=== PATIENT | female | born 1955 | race Caucasian/White ===

== ENCOUNTER 2017-03-01 12:16 | Observation (INO) ==
[2017-03-01 13:57] LABS: Basophils # (Auto) 0.1 K/mcL (0.0-0.3); Basophils % (Auto) 0.8 % (0.0-2.0); Eosinophils # (Auto) 0.1 K/mcL (0.0-0.7); Eosinophils % (Auto) 1.3 % (0.0-7.0); Granulocytes % (Auto) 79.7 % (38.0-78.0); Lymphocytes # (Auto) 1.5 K/mcL (1.5-4.8); Lymphocytes % (Auto) 13.2 % (15.5-49.0); Mean Cell Volume 86.6 fL (80.0-100.0); Mean Corpuscular HGB Conc 33.7 g/dL (31.0-36.0); Mean Corpuscular Hemoglobin 29.2 pg (26.0-34.0); Monocytes # (Auto) 0.5 K/mcL (0.1-0.9); Platelet Count 312 K/mcL (140-440); RBC 5.57 M/mcL (4.00-5.20); Red Cell Distribution Width 14.7 % (11.5-14.5)
[2017-03-01 14:15] LABS: ALT/SGPT 26 U/l (0-40); Albumin 3.6 gm/dL (3.2-5.2); Albumin/Globulin Ratio 0.9 (1.0-2.3); Alkaline Phosphatase 153 U/L (39-117); Blood Urea Nitrogen 16 mg/dl (8-23)
[2017-03-01] MEDS ORDERED: metroNIDAZOLE 500 MG TABLET PO ONE (15:45)
--- NOTE | 2017-03-01 16:25 | Emergency Department Note ---
Skin/Abscess/FB HPI - General Chief complaint: Skin/Abscess/Foreign Body Stated complaint: Wound on groin, sent by Dr Hankins Time Seen by Provider: 03/01/17 13:20 Source: patient Mode of arrival: wheelchair Limitations: no limitations - History of Present Illness HPI Narrative: 61-year-old female sent over by Dr. Juarez for belly wound dehiscence after recent repair last week. Additionally she is complaining of dysuria and diarrhea. Apparently she was not getting home health care and has not been able to take care of her belly wound at the [facility]-it is since dehisced and she is febrile. - Related Data Home Medications Medication Instructions Recorded Confirmed acetaminophen 500 mg tablet 1,000 mg PO TID PRN tab 03/26/15 03/01/17 albuterol sulfate 2.5 mg/3 mL 2.5 mg INHALATION Q4H ml 03/26/15 03/01/17 (0.083 %) solution for nebulization levothyroxine 150 mcg capsule 200 mcg PO ONCE cap 11/04/16 03/01/17 Potassium Chloride 10 meq PO BID 02/22/17 03/01/17 Spirometers and Accessories [Pflex 1 each .ROUTE .MEDSUPPLY 03/01/17 03/01/17 Mandarin Speaking Nanny] Previous Rx's Medication Instructions Recorded ipratropium 20 mcg-albuterol 100 1 puff INHALATION .4XD PRN #4 g 05/22/15 mcg/actuation mist for inhalation fluticasone 50 mcg/actuation nasal 1 spray INTRANASAL QDAY #16 g 12/18/15 spray,suspension nystatin 100,000 unit/gram topical 1 applic TOPICAL .COMPLEX #30 g 07/28/16 cream metoprolol tartrate 25 mg tablet 25 mg PO BID 30 Days 01/04/17 venlafaxine ER 75 mg 75 mg PO QDAY 30 Days 01/04/17 capsule,extended release 24 hr olanzapine 10 mg tablet 10 mg PO QDAY 30 Days 01/05/17 hydrochlorothiazide 25 mg tablet 25 mg PO QAM 90 Days 01/17/17 omeprazole 20 mg capsule,delayed 20 mg PO QDAY #90 cap 01/24/17 release warfarin 5 mg tablet See Label Instructions .ROUTE 02/11/17 .COMPLEX #1 tab trazodone 50 mg tablet 50 mg PO QHS 90 Days 02/14/17 atorvastatin 40 mg tablet 40 mg PO QHS 30 Days 02/22/17 Ibuprofen [Advil] 200 mg PO BID PRN #20 capsule 02/23/17 Qvar 80 mcg/actuation Metered 160 mcg INHALATION BID #8.7 g NS 02/24/17 Aerosol oral inhaler Allergies Allergy/AdvReac Type Severity Reaction Status Date / Time Penicillins Allergy Mild Rash Verified 03/01/17 12:21 codeine AdvReac Mild forms sore Verified 03/01/17 20:15 Sulfa (Sulfonamide AdvReac Mild Rash Verified 03/01/17 12:21 Antibiotics) Red Dye Allergy Mild Rash Uncoded 02/23/17 12:09 TAPE Allergy Mild Rash Uncoded 02/23/17 12:09 Review of Systems All systems ED: reviewed and negative except as stated. Past Medical History - Past Medical History Attestation: Yes: The following information was validated with the patient. Medical history: Reports: asthma, atrial fibrillation, CVA, GERD, hyperlipidemia , hypertension, migraine, thyroid disease Surgical history ED: Reports: , cholecystectomy Psychiatric history: Reports: depression, schizophrenia - Social History smoking status: Never smoker Physical Exam Obese female no acute distress resting comfortably. Normocephalic atraumatic. Conjunctive are clear sclerae nonicteric. No nasal discharge or congestion. Oropharynx is pink and moist. Neck is supple without lymphadenopathy thyromegaly or carotid bruit. Heart is regular rate and rhythm no murmurs appreciated. Lungs clear to auscultation bilaterally without wheezes rales rhonchi or respiratory distress. Abdomen is soft nontender except at the pannus which shows some maceration on bilateral areas. More centrally at the pannus there is an approximate 4 cm dehisced wound, however it is not draining liquid. Looks mildly inflamed with surrounding erythema. Mildly tender. No pedal edema. +2 radial pulse. Tremulous. Alert oriented able to answer questions. - General Limitations: no limitations Course Vital Signs Temperature 99.0 F H 03/01/17 12:16 Pulse Rate 127 H 03/01/17 12:16 Respiratory Rate 20 03/01/17 12:16 Blood Pressure 127/57 03/01/17 12:16 Pulse Oximetry (%) 94 03/01/17 12:16 Temperature 99.0 F H 03/01/17 18:50 Pulse Rate 112 H 03/01/17 18:50 Respiratory Rate 20 03/01/17 18:50 Blood Pressure 112/82 03/01/17 18:50 Pulse Oximetry (%) 91 03/01/17 18:50 Skin/Abscess/Foreign Body - Lab Data Lab results reviewed: Yes I reviewed the patient's lab results. Result diagrams: 03/01/17 13:30 03/01/17 13:30 Lab Results 03/01/17 03/01/17 03/01/17 Range/Units 13:30 13:30 13:30 WBC 11.1 H (4.5-11.0) K/mcL RBC 5.57 H (4.00-5.20) M/mcL Hgb 16.2 H (12.0-15.0) g/dL Hct 48.2 H (36.0-48.0) % MCV 86.6 (80.0-100.0) fL MCH 29.2 (26.0-34.0) pg MCHC 33.7 (31.0-36.0) g/dL RDW 14.7 H (11.5-14.5) % Plt Count 312 (140-440) K/mcL MPV 8.7 (7.4-10.4) fL Gran % 79.7 H (38.0-78.0) % Lymph % (Auto) 13.2 L (15.5-49.0) % Ada % (Auto) 5.0 (1.0-12.0) % Eos % (Auto) 1.3 (0.0-7.0) % Baso % (Auto) 0.8 (0.0-2.0) % Gran # 8.8 H (1.8-8.0) K/mcL Lymph # (Auto) 1.5 (1.5-4.8) K/mcL Ada # (Auto) 0.5 (0.1-0.9) K/mcL Eos # (Auto) 0.1 (0.0-0.7) K/mcL Baso # (Auto) 0.1 (0.0-0.3) K/mcL PT 22.5 H (11.9-14.5) sec INR 1.9 H (0.9-1.1) VBG Lactic Acid (0.5-2.2) mmol/L Sodium 142 (133-145) mmol/L Potassium 4.0 (3.3-5.1) mmol/L Chloride 102 (96-108) mmol/L Carbon Dioxide 25 (22-30) mmol/L Anion Gap 15.0 (8-16) BUN 16 (8-23) mg/dl Creatinine 0.8 (0.6-1.1) mg/dl GFR Calculation 80 Glucose 114 H (70-105) mg/dL Calcium 9.7 (8.6-10.4) mg/dl Total Bilirubin 0.6 (0.0-1.0) mg/dL AST 23 (0-37) U/l ALT 26 (0-40) U/l Alkaline Phosphatase 153 H (39-117) U/L Total Protein 7.4 (5.9-8.4) gm/dL Albumin 3.6 (3.2-5.2) gm/dL Globulin 3.8 H (2.2-3.7) gm/dL Albumin/Globulin Ratio 0.9 L (1.0-2.3) 03/01/17 Range/Units 13:39 WBC (4.5-11.0) K/mcL RBC (4.00-5.20) M/mcL Hgb (12.0-15.0) g/dL Hct (36.0-48.0) % MCV (80.0-100.0) fL MCH (26.0-34.0) pg MCHC (31.0-36.0) g/dL RDW (11.5-14.5) % Plt Count (140-440) K/mcL MPV (7.4-10.4) fL Gran % (38.0-78.0) % Lymph % (Auto) (15.5-49.0) % Ada % (Auto) (1.0-12.0) % Eos % (Auto) (0.0-7.0) % Baso % (Auto) (0.0-2.0) % Gran # (1.8-8.0) K/mcL Lymph # (Auto) (1.5-4.8) K/mcL Ada # (Auto) (0.1-0.9) K/mcL Eos # (Auto) (0.0-0.7) K/mcL Baso # (Auto) (0.0-0.3) K/mcL PT (11.9-14.5) sec INR (0.9-1.1) VBG Lactic Acid 1.7 (0.5-2.2) mmol/L Sodium (133-145) mmol/L Potassium (3.3-5.1) mmol/L Chloride (96-108) mmol/L Carbon Dioxide (22-30) mmol/L Anion Gap (8-16) BUN (8-23) mg/dl Creatinine (0.6-1.1) mg/dl GFR Calculation Glucose (70-105) mg/dL Calcium (8.6-10.4) mg/dl Total Bilirubin (0.0-1.0) mg/dL AST (0-37) U/l ALT (0-40) U/l Alkaline Phosphatase (39-117) U/L Total Protein (5.9-8.4) gm/dL Albumin (3.2-5.2) gm/dL Globulin (2.2-3.7) gm/dL Albumin/Globulin Ratio (1.0-2.3) Urinalysis shows trace blood and specific gravity 1.010 otherwise normal Stool microbiology shows C. difficile positive toxin B - Radiology Data Radiology results reviewed: Yes I reviewed the patient's radiology results. Bladder scan shows 153 mL or so Disposition Clinical Impression: C. difficile diarrhea, Wound dehiscence Summary: Discussed her case with Dr. Hernández and Dr. Juarez. Admit for wound care and C. difficile with fever-is given a dose of oral Flagyl here. Dr. Juarez to consult for wound care Disposition: Xfer As Outpt/Obs ([facility]) Condition: Fair
[2017-03-01] MEDS ORDERED: IPRATROPIUM/ALBUTEROL 3 ML AMPUL.NEB NEB PRN (18:50)
[2017-03-01] MEDS ORDERED: ONDANSETRON 4 MG/2 ML VIAL IV PRN (18:50)
[2017-03-01] MEDS ORDERED: oxyCODONE HCL 5 MG TABLET PO PRN (18:50)
[2017-03-01] MEDS ORDERED: ACETAMINOPHEN 325 MG TABLET PO PRN (18:50)
[2017-03-01] MEDS ORDERED: NALOXONE HCL 0.4 MG/ML VIAL IV PRN (18:50)
[2017-03-01] MEDS ORDERED: VANCOMYCIN 500 MG VIAL ONE (20:33)
[2017-03-01] MEDS ORDERED: HEPARIN 5,000 UNIT/ML VIAL SQ SCH (21:00)
[2017-03-01] MEDS: VANCOMYCIN ORAL SOL 1,000 MG/10 ML BOTTLE PO SCH ×2 (21:34→21:35)
[2017-03-01] MEDS: METOPROLOL TARTRATE 25 MG TABLET PO SCH (21:35)
[2017-03-01] MEDS: ATORVASTATIN 20 MG TABLET PO SCH (21:35)
[2017-03-01] MEDS: traZODone HCL 50 MG TABLET PO SCH (21:35)
[2017-03-01] MEDS: BECLOMETHASONE INH SCH (21:42)
--- NOTE | 2017-03-01 22:19 | Internal Med History&Physical ---
Medical - H&P: HPI Patient information: Note initiated : 03/01/17 at 10:13 pm Service Date, if different from initiated Date: [] Patient: Christine Cespedes a 61 y/o F admitted on 03/01/17 for Wound On Groin, Sent By Dr Hankins. Chief Complaint: [] History of present illness: Ms. Cespedes is a 61 year old female with multiple medical problems who presented today because of non healing wound in the lower abdomen. As per the patient she has had lower abdominal wound, her skin broke approximately 8-10 days ago. She was seen by Dr Maya and she underwent a debridement procedure on the 23 of February. Since then it seems that the patient wound has not improved. It remains open, and she was advised to come to the ER for further treatment. The patient also reports of diarrhea x 1 week, she notes she may have taken some antibiotics but is not sure. her Diarrhea is associated with cramping, no blood or debbi reported. NO abdominal pain or nausea or vomiting. She goes to the bathroom approximately 4-6 times a day. In the ER she had mildly elevated wbc count, as well as low grade temp. She was admitted to the hospital for management of wound as well as Cdiff infection. 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) Urinary incontinence (Chronic) Schizophrenia (Chronic) Prediabetes (Chronic 10/29/14) Methicillin resistant Staphylococcus aureus infection (Chronic) Obesity (Chronic) Migraine (Chronic) long-term current use of anticoagulant (Chronic) Hypothyroidism (acquired) (Chronic) Hypertension, essential (Chronic) Hyperlipidemia (Chronic) Gastroesophageal reflux (Chronic) Depressive disorder (Chronic) Late, effect, cerebrovascular disease (Chronic 10/27/11) Degenerative joint disease (Chronic) CVA (cerebral infarction) (Chronic) Atrial fibrillation (Chronic) Asthma (Chronic) Anxiety disorder (Chronic) Allergic rhinitis (Chronic) Abnormal Pap smear of vagina (Chronic) Surgical history: Past Surgical History (Last Updated 01/27/17 @ 14:15 by [employer] [place]) History of vaginal surgery (Chronic) History of colonoscopy (Chronic) History of cholecystectomy (Chronic) History of (Chronic) History of arthroscopic knee surgery (Chronic) Family history: reviewed and not pertinent Medical - H&P: Meds Home Medications Medication Instructions Recorded Confirmed Type acetaminophen 500 mg tablet 1,000 mg PO TID PRN tab 03/26/15 03/01/17 History albuterol sulfate 2.5 mg/3 mL 2.5 mg INHALATION Q4H ml 03/26/15 03/01/17 History (0.083 %) solution for nebulization ipratropium 20 mcg-albuterol 100 1 puff INHALATION .4XD PRN #4 g 05/22/15 Rx mcg/actuation mist for inhalation fluticasone 50 mcg/actuation nasal 1 spray INTRANASAL QDAY #16 g 12/18/15 Rx spray,suspension nystatin 100,000 unit/gram topical 1 applic TOPICAL .COMPLEX #30 g 07/28/16 Rx cream levothyroxine 150 mcg capsule 200 mcg PO ONCE cap 11/04/16 03/01/17 History metoprolol tartrate 25 mg tablet 25 mg PO BID 30 Days 01/04/17 03/01/17 Rx venlafaxine ER 75 mg 75 mg PO QDAY 30 Days 01/04/17 03/01/17 Rx capsule,extended release 24 hr olanzapine 10 mg tablet 10 mg PO QDAY 30 Days 01/05/17 03/01/17 Rx hydrochlorothiazide 25 mg tablet 25 mg PO QAM 90 Days 01/17/17 03/01/17 Rx omeprazole 20 mg capsule,delayed 20 mg PO QDAY #90 cap 01/24/17 03/01/17 Rx release warfarin 5 mg tablet See Label Instructions .ROUTE 02/11/17 03/01/17 Rx .COMPLEX #1 tab trazodone 50 mg tablet 50 mg PO QHS 90 Days 02/14/17 03/01/17 Rx Potassium Chloride 10 meq PO BID 02/22/17 03/01/17 History atorvastatin 40 mg tablet 40 mg PO QHS 30 Days 02/22/17 03/01/17 Rx Ibuprofen [Advil] 200 mg PO BID PRN #20 capsule 02/23/17 03/01/17 Rx Qvar 80 mcg/actuation Metered 160 mcg INHALATION BID #8.7 g NS 02/24/17 Rx Aerosol oral inhaler Spirometers and Accessories [Pflex 1 each .ROUTE .MEDSUPPLY 03/01/17 03/01/17 History Mgmt Analyst] Allergies Allergy/AdvReac Type Severity Reaction Status Date / Time Penicillins Allergy Mild Rash Verified 03/01/17 12:21 codeine AdvReac Mild forms sore Verified 03/01/17 20:15 Sulfa (Sulfonamide AdvReac Mild Rash Verified 03/01/17 12:21 Antibiotics) Red Dye Allergy Mild Rash Uncoded 02/23/17 12:09 TAPE Allergy Mild Rash Uncoded 02/23/17 12:09 Medical - H&P: Exam - Constitutional Vitals: Temp Pulse Resp BP Pulse Ox 99.0 F H 112 H 20 112/82 91 03/01/17 18:50 03/01/17 18:50 03/01/17 18:50 03/01/17 18:50 03/01/17 18:50 Exam: GENERAL: The patient is a well-developed, well-nourished in no apparent distress. Is alert and oriented x3. Morbidly obese VITAL SIGNS: Reviewed and as noted elsewhere. HEENT: Head is normocephalic and atraumatic. Extraocular muscles are intact. Pupils are equal, round, and reactive to light. Nares appeared normal. Mouth appears any without lesions. Mucous membranes are moist. NECK: Normal to inspection, Supple, No lymphadenopathy or thyromegaly. LUNGS: Air entry equal on both sides, no wheezing, crackles or rhonchi noted. No accessory muscles of respiration HEART: Regular rate and rhythm irregular , S1 and S2 heard, no Gallop, S3 or Rub Noted, No Gross murmur heard. ABDOMEN: Soft, nontender, and nondistended. Positive bowel sounds. No hepatosplenomegaly was noted. mobidbly obese large pannus. cms open wound in lower abdomen, mild erythema surrounding the incision, no e/o cellulitis. EXTREMITIES: No cyanosis, clubbing, rash, lesions or edema. NEUROLOGIC: Cranial nerves II through XII are grossly intact. Motor and Sensory System Grossly Intact PSYCHIATRIC: Normal affect, Normal Mood. Appropriate Behavior. SKIN: No ulceration or wounds noted, No jaundice, No rash noted. Medical - H&P: Reslt - Labs CBC & Chem 7: 03/01/17 13:30 03/01/17 13:30 Medical - H&P: A/P - Narrative A/P Narrative: Sepsis/ Cdiff diarrhea: Treat with PO vancomycin, pt able to tolerate PO well, monitor Wound care/ non healing wound: Management as per wound care physician. Will hold on systemic antibiotics given no clear e/o abdominal wall cellulitis Afib: on anticoagulation and beta blockers, continue same, INR 1.9, daily INR For now, Coumadin management as per pharmacy. HTN: BP stable, resume home meds, HLD resume statins Hypothyroidism: Continue home dose of synthroid. DVT on coumadin Diet regular Full code Medical - H&P: Qual - VTE Deep Vein Thrombosis/Pulmonary Embolism Present on Admission: No Social History - Tobacco smoking status: Never smoker - Alcohol alcohol intake frequency: does not drink
[2017-03-02] MEDS: 0.9 % SODIUM CHLORIDE 10 ML SYRINGE IV SCH ×4 (00:20→23:34)
[2017-03-02] MEDS: 0.9 % SODIUM CHLORIDE 1,000 ML IV SCH ×5 (01:00→21:43)
[2017-03-02 05:53] LABS: Basophils # (Auto) 0 K/mcL (0.0-0.3); Basophils % (Auto) 0.4 % (0.0-2.0); Eosinophils # (Auto) 0.3 K/mcL (0.0-0.7); Eosinophils % (Auto) 3.4 % (0.0-7.0); Granulocytes % (Auto) 69.2 % (38.0-78.0); Lymphocytes # (Auto) 1.6 K/mcL (1.5-4.8); Lymphocytes % (Auto) 17.5 % (15.5-49.0); Mean Cell Volume 86.8 fL (80.0-100.0); Mean Corpuscular HGB Conc 33.6 g/dL (31.0-36.0); Mean Corpuscular Hemoglobin 29.1 pg (26.0-34.0); Monocytes # (Auto) 0.9 K/mcL (0.1-0.9); Monocytes % (Auto) 9.5 % (1.0-12.0); Platelet Count 294 K/mcL (140-440); RBC 5.06 M/mcL (4.00-5.20)
[2017-03-02 06:19] LABS: ALT/SGPT 23 U/l (0-40); Albumin 3.3 gm/dL (3.2-5.2); Alkaline Phosphatase 133 U/L (39-117); Bilirubin,Direct < 0.2 mg/dL (0.0-0.3); Blood Urea Nitrogen 13 mg/dl (8-23); Gamma Glutamyl Transpeptidase 39 U/L (5-36); Magnesium 1.7 mg/dL (1.6-2.5); Uric Acid 8.3 mg/dL (2.5-8.0)
--- NOTE | 2017-03-02 06:59 | XRay Report ---
CLINICAL INFORMATION: Asthma COMPARISON: 09/20/2016 FINDINGS: The heart is moderately enlarged - slightly increased from aneurysm technique. Mediastinum is unremarkable. Pulmonary vessels are within normal limits. Lungs are clear. No effusions. Bones and soft tissues are normal. IMPRESSION: Moderate cardiomegaly, but no evidence of CHF or other acute process Interpreted and Authenticated by: Ej Franco 03/02/17
[2017-03-02] MEDS: PANTOPRAZOLE 40 MG TABLET PO SCH (07:34)
[2017-03-02] MEDS: LEVOTHYROXINE 100 MCG TABLET PO SCH (07:35)
[2017-03-02] MEDS ORDERED: OMEPRAZOLE 20 MG CAPSULE PO SCH (09:00)
[2017-03-02] MEDS: METOPROLOL TARTRATE 25 MG TABLET PO SCH ×2 (09:11→21:44)
[2017-03-02] MEDS: HYDROCHLOROTHIAZIDE 25 MG TABLET PO SCH (09:11)
[2017-03-02] MEDS: OLANZapine 5 MG TABLET PO SCH (09:11)
[2017-03-02] MEDS: POTASSIUM CHLORIDE 10 MEQ TABLET PO SCH ×2 (09:11→18:34)
[2017-03-02] MEDS: VENLAFAXINE 75 MG CAP.XL.24H PO SCH (09:11)
[2017-03-02] MEDS: VANCOMYCIN ORAL SOL 1,000 MG/10 ML BOTTLE PO SCH ×4 (09:12→21:45)
[2017-03-02] MEDS: NYSTATIN CRM 1 DOSE TUBE TOPICAL SCH ×2 (10:56→23:34)
[2017-03-02] MEDS: BECLOMETHASONE INH SCH ×2 (10:56→21:45)
[2017-03-02] MEDS: FLUTICASONE PROPIONATE SPRAY.NAS NS SCH (10:56)
[2017-03-02] MEDS: GENTAMICIN SULFATE 40 MG, CLINDAMYCIN 300 MG, BACITRACIN 25,000 UNIT in SODIUM CHLORIDE... IRR SCH ×2 (11:34→21:44)
--- NOTE | 2017-03-02 12:36 | General Surgery Consult Note ---
History of Present Illness Patient information: Note initiated : 03/02/17 at 12:26 pm Service Date, if different from initiated Date: [] Patient: Christine Cespedes 61 y/o F admitted on 03/01/17 for Wound On Groin, Sent By Dr Hankins. Chief Complaint: [] Consult date: 03/01/17 (Wound management) Reason for consult: other (diarrhea ,?? C. diff Colitis with low grade fever) Requesting physician: Elaina Hernández History of present illness: Patient is a super morbid obese female, who underwent excisional debridement and closure of a symptomatic chronic non healing wound of supra pubic area on . She had failed out patient treatment at the wound center. She dis not adhere to the discharge wound care instructions and did NOT get a visit from the [facility]. On FIRST follow up at the clinic yesterdy, she mentioned that she was living by herself and unable to care for her self or her wounds. The wound sit / incision had dehisced fully and there was Yellow drainage without odor. No bleeding was noted. She had low grade fever and diarrhea. She was referred to ER and is dana admitted to MED/Surg floor. I spoke with Drs. Baltazar and Colleen ( Hospitalist Physician ) about plan of wound care . Depending on her progress, will get [employer] to assist patient with placement in a SNF or Rehab where her needs are met. Medications and Allergies Home Medications Medication Instructions Recorded Confirmed Type acetaminophen 500 mg tablet 1,000 mg PO TID PRN tab 03/26/15 03/01/17 History albuterol sulfate 2.5 mg/3 mL 2.5 mg INHALATION Q4H ml 03/26/15 03/01/17 History (0.083 %) solution for nebulization ipratropium 20 mcg-albuterol 100 1 puff INHALATION .4XD PRN #4 g 05/22/15 Rx mcg/actuation mist for inhalation fluticasone 50 mcg/actuation nasal 1 spray INTRANASAL QDAY #16 g 12/18/15 Rx spray,suspension nystatin 100,000 unit/gram topical 1 applic TOPICAL .COMPLEX #30 g 07/28/16 Rx cream levothyroxine 150 mcg capsule 200 mcg PO ONCE cap 11/04/16 03/01/17 History metoprolol tartrate 25 mg tablet 25 mg PO BID 30 Days 01/04/17 03/01/17 Rx venlafaxine ER 75 mg 75 mg PO QDAY 30 Days 01/04/17 03/01/17 Rx capsule,extended release 24 hr olanzapine 10 mg tablet 10 mg PO QDAY 30 Days 01/05/17 03/01/17 Rx hydrochlorothiazide 25 mg tablet 25 mg PO QAM 90 Days 01/17/17 03/01/17 Rx omeprazole 20 mg capsule,delayed 20 mg PO QDAY #90 cap 01/24/17 03/01/17 Rx release warfarin 5 mg tablet See Label Instructions .ROUTE 02/11/17 03/01/17 Rx .COMPLEX #1 tab trazodone 50 mg tablet 50 mg PO QHS 90 Days 02/14/17 03/01/17 Rx Potassium Chloride 10 meq PO BID 02/22/17 03/01/17 History atorvastatin 40 mg tablet 40 mg PO QHS 30 Days 02/22/17 03/01/17 Rx Ibuprofen [Advil] 200 mg PO BID PRN #20 capsule 02/23/17 03/01/17 Rx Qvar 80 mcg/actuation Metered 160 mcg INHALATION BID #8.7 g NS 02/24/17 Rx Aerosol oral inhaler Spirometers and Accessories [Pflex 1 each .ROUTE .MEDSUPPLY 03/01/17 03/01/17 History Junior Network Administrator] Ipratropium/Albuterol Sulfate 2 puff INH Q4-6HP PRN 03/02/17 03/02/17 History [Combivent] Allergies Allergy/AdvReac Type Severity Reaction Status Date / Time Penicillins Allergy Mild Rash Verified 03/01/17 12:21 adhesive tape AdvReac Mild Rash Verified 03/02/17 11:39 codeine AdvReac Mild forms sore Verified 03/01/17 20:15 red dye AdvReac Mild Rash Verified 03/02/17 11:39 Sulfa (Sulfonamide AdvReac Mild Rash Verified 03/01/17 12:21 Antibiotics) Exam Temp Pulse Resp BP Pulse Ox 98.6 F 112 H 20 129/80 91 03/02/17 12:00 03/02/17 09:28 03/02/17 12:00 03/02/17 12:00 03/02/17 12:00 - General physical appearance well nourished, no distress, moderate pain, other (Super morbid obesity with overhanging pannus. ) - Eyes PERRL, normal ocular movement - ENT normal pinna, normal nares, normal mucosa, no congestion - Head Head exam IM: Present: atraumatic, normal inspection, normocephalic - Neck no masses, no bruits, trachea midline, no lymphadectomy, no venous distension - Cardiovascular Cardiovascular exam IM: Present: normal rate and rhythm - Respiratory normal expansion, normal respiratory effort, clear to auscultation - Abdomen Abdomen: Present: soft, non tender, bowel sounds, surgical scars, wound - Genitourinary Present: normal external genitalia, other (Continent of urine) - Integumentary Present: other (Open suprapubic wound , full thickness with exposed adipose tissue. 4x 2 x 1 CM) - Neurologic Present: normal coordination, normal sensation, other (No focal neurological eficits. ) - Musculoskeletal Present: normal gait, normal posture - Psychiatric Present: oriented to time, oriented to place, speech is normal Results - Labs 03/02/17 03:43 03/02/17 03:43 Abnormal lab results 03/02/17 03/02/17 03/02/17 Range/Units 03:43 03:43 03:43 RDW 15.0 H (11.5-14.5) % PT 22.5 H (11.9-14.5) sec INR 1.9 H (0.9-1.1) Uric Acid 8.3 H (2.5-8.0) mg/dL GGT 39 H (5-36) U/L Alkaline Phosphatase 133 H (39-117) U/L Triglycerides 254 H (<150) mg/dl Diabetes panel 03/02/17 Range/Units 03:43 Sodium 138 (133-145) mmol/L Potassium 3.5 (3.3-5.1) mmol/L Chloride 99 (96-108) mmol/L Carbon Dioxide 25 (22-30) mmol/L BUN 13 (8-23) mg/dl Creatinine 0.7 (0.6-1.1) mg/dl Glucose 89 (70-105) mg/dL Calcium 9.4 (8.6-10.4) mg/dl AST 21 (0-37) U/l ALT 23 (0-40) U/l Alkaline Phosphatase 133 H (39-117) U/L Total Protein 6.6 (5.9-8.4) gm/dL Albumin 3.3 (3.2-5.2) gm/dL Triglycerides 254 H (<150) mg/dl Calcium panel 03/02/17 Range/Units 03:43 Calcium 9.4 (8.6-10.4) mg/dl Phosphorus 4.1 (2.7-4.5) mg/dL Albumin 3.3 (3.2-5.2) gm/dL Pituitary panel 03/02/17 Range/Units 03:43 Sodium 138 (133-145) mmol/L Potassium 3.5 (3.3-5.1) mmol/L Chloride 99 (96-108) mmol/L Carbon Dioxide 25 (22-30) mmol/L BUN 13 (8-23) mg/dl Creatinine 0.7 (0.6-1.1) mg/dl Glucose 89 (70-105) mg/dL Calcium 9.4 (8.6-10.4) mg/dl Adrenal panel 03/02/17 Range/Units 03:43 Sodium 138 (133-145) mmol/L Potassium 3.5 (3.3-5.1) mmol/L Chloride 99 (96-108) mmol/L Carbon Dioxide 25 (22-30) mmol/L BUN 13 (8-23) mg/dl Creatinine 0.7 (0.6-1.1) mg/dl Glucose 89 (70-105) mg/dL Calcium 9.4 (8.6-10.4) mg/dl Total Bilirubin 0.7 (0.0-1.0) mg/dL AST 21 (0-37) U/l ALT 23 (0-40) U/l Alkaline Phosphatase 133 H (39-117) U/L Total Protein 6.6 (5.9-8.4) gm/dL Albumin 3.3 (3.2-5.2) gm/dL All other labs normal. Assessment and Plan (1) Wound dehiscence, surgical Status: Acute Priority: Medium (2) Sepsis Status: Acute Priority: Medium Comment: At this time local wound care with MIST x2 daily followedd by GCB soaked wet to dry dressings every shif. Rest of the ongoing treatment and medications to continue at thsi time. WIll follow patient in [facility] and later at the [facility] clinic.
[2017-03-02] MEDS ORDERED: WARFARIN 5 MG TABLET PO SCH (14:00)
--- NOTE | 2017-03-02 14:23 | Internal Med Progress Note ---
Medical - PN: Subj Patient information: Note initiated : 03/02/17 at 2:21 pm Service Date, if different from initiated Date: [] Patient: Christine Cespedes a 61 y/o F admitted on 03/01/17 for Wound On Groin, Sent By Dr Hankins. Chief Complaint: [] Interval history: Ms. Cespedes is a 61 year old female with multiple medical problems who presented today because of non healing wound in the lower abdomen. As per the patient she has had lower abdominal wound, her skin broke approximately 8-10 days ago. She was seen by Dr Maya and she underwent a debridement procedure on the 23 of February. Since then it seems that the patient wound has not improved. It remains open, and she was advised to come to the ER for further treatment. The patient also reports of diarrhea x 1 week, she notes she may have taken some antibiotics but is not sure. her Diarrhea is associated with cramping, no blood or debbi reported. NO abdominal pain or nausea or vomiting. She goes to the bathroom approximately 4-6 times a day. In the ER she had mildly elevated wbc count, as well as low grade temp. She was admitted to the hospital for management of wound as well as Cdiff infection. Sepsis/ Cdiff diarrhea: Treat with PO vancomycin, pt able to tolerate PO well, monitor 03/02: Pt seen examined, no acute overnight events, tolerating po well, had low grade temp but afbrile today. On po vancomycin for Cdiff. Wound care follow up appreciated. Patient was placed under inpatient status by error, which has been rectified today. Pt will be under obs status. Pertinent ROS: Denies headache, dizziness Denies chest pain, palpitations Denies cough or shortness of breath Denies abdominal pain, nausea or vomiting. - Constitutional Vitals: Vital Signs Temp Pulse Resp BP Pulse Ox 98.6 F 112 H 20 129/80 91 03/02/17 12:00 03/02/17 09:28 03/02/17 12:00 03/02/17 12:00 03/02/17 12:00 Period Temp Pulse Resp BP Sys/Butler Pulse Ox Last 24 Hr 97.8 F-99.0 F 85-112 20-20 103-130/80-88 91-93 Intake and Output 03/02/17 03/02/17 03/02/17 05:59 13:59 21:59 Intake Total 100 / 100 1000 / 1000 Output Total 500 / 500 500 / 500 Balance -400 / -400 500 / 500 Intake & Output: Intake & Output 03/02/17 03/02/17 03/02/17 05:59 13:59 21:59 Intake Total 100 / 100 1000 / 1000 Output Total 500 / 500 500 / 500 Balance -400 / -400 500 / 500 Intake: IV 1000 / 1000 Sodium Chloride 0.9% 1, 1000 / 1000 000 ml @ 125 mls/hr IV . Q8H [facility] Rx#:[id number] Oral 100 / 100 Output: Void Amount 500 / 500 500 / 500 Other: # Voids 1 # Bowel Movements 1 1 Exam: Constitutional; Afebrile, cooperative, alert, not in distress. Eyes- No icterus, , No periorbital swelling Ears- Ext ear normal, hearing normal to conversation. Neck- Midline trachea, supple Respiratory system: Air Entry equal on both sides, No crackles or wheezing, no rhonchi. CVS- Rate rhythm irregular, S1,S2 heard, no gallop, no rub. 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 Medical - PN: Obj Da - Labs CBC & Chem 7: 03/02/17 03:43 03/02/17 03:43 Labs: Abnormal Lab Results 03/02/17 03/02/17 03/02/17 03:43 03:43 03:43 RDW 15.0 H PT 22.5 H INR 1.9 H Uric Acid 8.3 H GGT 39 H Alkaline Phosphatase 133 H Triglycerides 254 H Meds: Medications Acetaminophen (Tylenol) 650 mg PO Q6HP PRN PRN Reason: PAIN/FEVER > 101 Albuterol/Ipratropium (Duoneb) 3 ml NEB Q6HRT PRN PRN Reason: Shortness Of Breath Or Wheezing Atorvastatin Calcium (Lipitor) 40 mg PO HS [facility] Last Admin: 03/01/17 21:35 Dose: 40 mg Fluticasone Propionate (Flonase) 1 spray NS QDAY [facility] Last Admin: 03/02/17 10:56 Dose: Not Given Hydrochlorothiazide (Oretic) 25 mg PO DAILY [facility] Last Admin: 03/02/17 09:11 Dose: 25 mg Sodium Chloride (Sodium Chloride 0.9%) 1,000 mls @ 125 mls/hr IV .Q8H [facility] Stop: 03/03/17 02:49 Last Admin: 03/02/17 10:15 Dose: 125 mls/hr Gentamicin Sulfate 40 mg/Clindamycin Phosphate 300 mg/Bacitracin 25,000 unit/ Sodium Chloride 503 mls @ 0 mls/hr IRR BID [facility] PRN Reason: As Directed Last Admin: 03/02/17 11:34 Dose: 1 mls/hr Levothyroxine Sodium (Synthroid) 200 mcg PO ACB [facility] Last Admin: 03/02/17 07:35 Dose: 200 mcg Metoprolol Tartrate (Lopressor) 25 mg PO BID [facility] Last Admin: 03/02/17 09:11 Dose: 25 mg Naloxone HCl (Narcan) 0.1 mg IV Q2MIN PRN PRN Reason: Opiate Reversal Nystatin (Nystatin Crm) 0 dose TOPICAL BID [facility] Last Admin: 03/02/17 10:56 Dose: Not Given Olanzapine (Zyprexa) 10 mg PO DAILY [facility] Last Admin: 03/02/17 09:11 Dose: 10 mg Ondansetron HCl (Zofran) 4 mg IV Q6HP PRN PRN Reason: Nausea And Vomiting Oxycodone HCl (Roxicodone) 5 mg PO Q4HP PRN PRN Reason: Pain Pantoprazole Sodium (Protonix) 40 mg PO QAMAC [facility] Last Admin: 03/02/17 07:34 Dose: 40 mg Qvar 160 Mcg 1 dose INH BID [facility] Last Admin: 03/02/17 10:56 Dose: Not Given Potassium Chloride (Kdur) 10 meq PO BIDCC [facility] Last Admin: 03/02/17 09:11 Dose: 10 meq Sodium Chloride (Saline Flush) 10 ml IV Q8 [facility] Last Admin: 03/02/17 05:35 Dose: Not Given Trazodone HCl (Desyrel) 50 mg PO HS [facility] Last Admin: 03/01/17 21:35 Dose: 50 mg Vancomycin HCl (Vancomycin Oral Pinky) 250 mg PO QID [facility] Last Admin: 03/02/17 14:03 Dose: 250 mg Venlafaxine HCl (Effexor Xr) 75 mg PO DAILY [facility] Last Admin: 03/02/17 09:11 Dose: 75 mg Warfarin Sodium (Coumadin) 5 mg PO DAILY@1400 [facility] Last Admin: 03/02/17 14:03 Dose: 5 mg Medical - PN: A/P - Time Spent With Patient Total time spent is greater than 50% in coordination of care (as documented) at patient's floor/unit and/or counseling patient: - Narrative A/P Narrative: Wound care/ non healing wound: Management as per wound care physician. Cdiff diarrhea: Treat with PO vancomycin, tolerating treatment well, shanonn treat for total fo 14 days. wbc count back to normal sepsis resolved. Afib: on anticoagulation and beta blockers, continue same, INR 1.9, daily INR For now, Coumadin management as per pharmacy. HR uncontrolled today. IV fluids for rehydration. Pt is on home dose of beta blockers. HTN: BP stable, resume home meds, HLD resume statins Hypothyroidism: Continue home dose of synthroid. DVT on coumadin Diet regular Full code Medical - PN: Qual - VTE Deep Vein Thrombosis/Pulmonary Embolism Present on Admission: No
[2017-03-02] MEDS: ATORVASTATIN 20 MG TABLET PO SCH (21:44)
[2017-03-02] MEDS: traZODone HCL 50 MG TABLET PO SCH (21:44)
[2017-03-03] MEDS: 0.9 % SODIUM CHLORIDE 1,000 ML IV SCH (02:46)
[2017-03-03] MEDS: 0.9 % SODIUM CHLORIDE 10 ML SYRINGE IV SCH (05:10)
[2017-03-03 06:08] LABS: Basophils # (Auto) 0 K/mcL (0.0-0.3); Basophils % (Auto) 0.2 % (0.0-2.0); Eosinophils # (Auto) 0.4 K/mcL (0.0-0.7); Eosinophils % (Auto) 4.8 % (0.0-7.0); Granulocytes % (Auto) 64.5 % (38.0-78.0); Lymphocytes # (Auto) 1.7 K/mcL (1.5-4.8); Lymphocytes % (Auto) 21.6 % (15.5-49.0); Mean Cell Volume 87.5 fL (80.0-100.0); Mean Corpuscular HGB Conc 33.7 g/dL (31.0-36.0); Mean Corpuscular Hemoglobin 29.5 pg (26.0-34.0); Monocytes # (Auto) 0.7 K/mcL (0.1-0.9); Monocytes % (Auto) 8.9 % (1.0-12.0); Platelet Count 231 K/mcL (140-440); RBC 5.01 M/mcL (4.00-5.20); Red Cell Distribution Width 15.2 % (11.5-14.5)
[2017-03-03 06:38] LABS: ALT/SGPT 20 U/l (0-40); Albumin/Globulin Ratio 0.9 (1.0-2.3); Alkaline Phosphatase 121 U/L (39-117); Bilirubin,Direct < 0.2 mg/dL (0.0-0.3); Blood Urea Nitrogen 13 mg/dl (8-23); Gamma Glutamyl Transpeptidase 36 U/L (5-36); Magnesium 1.7 mg/dL (1.6-2.5); Uric Acid 7.2 mg/dL (2.5-8.0)
[2017-03-03] MEDS: LEVOTHYROXINE 100 MCG TABLET PO SCH (07:28)
[2017-03-03] MEDS: PANTOPRAZOLE 40 MG TABLET PO SCH (07:28)
[2017-03-03] MEDS: POTASSIUM CHLORIDE 10 MEQ TABLET PO SCH (07:46)
[2017-03-03] MEDS: METOPROLOL TARTRATE 25 MG TABLET PO SCH (08:36)
[2017-03-03] MEDS: HYDROCHLOROTHIAZIDE 25 MG TABLET PO SCH (08:37)
[2017-03-03] MEDS: VENLAFAXINE 75 MG CAP.XL.24H PO SCH (08:37)
[2017-03-03] MEDS: VANCOMYCIN ORAL SOL 1,000 MG/10 ML BOTTLE PO SCH (08:37)
[2017-03-03] MEDS: OLANZapine 5 MG TABLET PO SCH (08:37)
[2017-03-03] MEDS: GENTAMICIN SULFATE 40 MG, CLINDAMYCIN 300 MG, BACITRACIN 25,000 UNIT in SODIUM CHLORIDE... IRR SCH (09:21)
[2017-03-03] MEDS: FLUTICASONE PROPIONATE SPRAY.NAS NS SCH (09:41)
[2017-03-03] MEDS: BECLOMETHASONE INH SCH (09:42)
[2017-03-03] MEDS: NYSTATIN CRM 1 DOSE TUBE TOPICAL SCH (09:43)
--- NOTE | 2017-03-03 09:58 | Discharge Summary ---
Medical - DS: Prov Patient information: Note initiated : 03/03/17 at 9:55 am Service Date, if different from initiated Date: [] Patient: Christine Cespedes 61 y/o F admitted on 03/01/17 for Wound On Groin, Sent By Dr Hankins. Chief Complaint: [] Date of admission: 03/01/17 18:43 Discharge date: 03/03/17 Primary care physician: Travon Lr Admitting clinician: Elaina Hernández Discharging clinician: Eliana Hernández Medical - DS: Meds - Discharge Medications Prescriptions: Vancomycin Oral Pinky 250 mg PO QID #140 ml Active and Home Medications: Home Medications acetaminophen 500 mg tablet 1,000 mg PO TID PRN tab 03/26/15 [History Confirmed 03/01/17 Last Taken 03/01/17 13:00] albuterol sulfate 2.5 mg/3 mL (0.083 %) solution for nebulization 2.5 mg INHALATION Q4H ml 03/26/15 [History Confirmed 03/01/17 Last Taken 02/22/17 08: 00] ipratropium 20 mcg-albuterol 100 mcg/actuation mist for inhalation 1 puff INHALATION .4XD PRN #4 g 05/22/15 [Rx Confirmed 03/01/17 Last Taken 02/22/17 08: 00] fluticasone 50 mcg/actuation nasal spray,suspension 1 spray INTRANASAL QDAY #16 g 12/18/15 [Rx Confirmed 03/01/17 Last Taken 02/22/17 08:00] nystatin 100,000 unit/gram topical cream 1 applic TOPICAL .COMPLEX #30 g [Rx Confirmed 03/01/17 Last Taken 02/22/17 08:00] levothyroxine 150 mcg capsule 200 mcg PO ONCE cap 11/04/16 [History Confirmed 03/01/17 Last Taken 03/01/17 08:00] metoprolol tartrate 25 mg tablet 25 mg PO BID 30 Days 01/04/17 [Rx Confirmed Last Taken 03/01/17 08:00] venlafaxine ER 75 mg capsule,extended release 24 hr 75 mg PO QDAY 30 Days [Rx Confirmed 03/01/17 Last Taken 03/01/17 08:00] olanzapine 10 mg tablet 10 mg PO QDAY 30 Days 01/05/17 [Rx Confirmed 03/01/17 Last Taken 02/22/17 08:00] hydrochlorothiazide 25 mg tablet 25 mg PO QAM 90 Days 01/17/17 [Rx Confirmed Last Taken 03/01/17 08:00] omeprazole 20 mg capsule,delayed release 20 mg PO QDAY #90 cap 01/24/17 [Rx Confirmed 03/01/17 Last Taken 02/22/17 08:00] warfarin 5 mg tablet See Label Instructions .ROUTE .COMPLEX #1 tab 02/11/17 [Rx Confirmed 03/01/17 Last Taken 03/01/17 08:00] trazodone 50 mg tablet 50 mg PO QHS 90 Days 02/14/17 [Rx Confirmed 03/01/17 Last Taken 02/28/17 21:00] Potassium Chloride 10 meq PO BID 02/22/17 [History Confirmed 03/01/17 Last Taken 03/01/17 08:00] atorvastatin 40 mg tablet 40 mg PO QHS 30 Days 02/22/17 [Rx Confirmed 03/01/17 Last Taken 02/28/17 21:00] Ibuprofen [Advil] 200 mg PO BID PRN #20 capsule 02/23/17 [Rx Confirmed 03/01/17 Last Taken Unknown] Qvar 80 mcg/actuation Metered Aerosol oral inhaler 160 mcg INHALATION BID #8.7 g NS 02/24/17 [Rx Confirmed 03/01/17 Last Taken 03/01/17 08:00] Spirometers and Accessories [Pflex [place]] 1 each .ROUTE .MEDSUPPLY 03/01/17 [ History Confirmed 03/01/17 Last Taken Unknown] Ipratropium/Albuterol Sulfate [Combivent] 2 puff INH Q4-6HP PRN 03/02/17 [ History Confirmed 03/02/17 Last Taken 03/01/17] Medical - DS: Hosp Hospital course: Mr. Cespedes is a 61 year old female with multiple medical issues ,admitted to the hospital with dairrhea x 1 week and non healing wound of the abdomen. Non Healing Wound: The patient had wound repair done by Dr Maya, but after debridement and closure the wound reponed, there was no cellutlitis, therefore no IV antibiotics used, patient was seen by wound care and treated by local wound care, topical antibiotics and local mist therapy. Cdiff: patient has cdiff positive diarrhea, on presentation had fever and elevated wbc count, being treated with PO vancomycin, with resolution of fever and leucocytosis. She still has some loose stools which is anticipated to improve. She will continue PO vancomycin 250mg qid x 14 days. Afib: On metoprolol and couamdin, continue same, INR was a bit subtherapeutic, she will need INR check on Tuesday03/07/17 The rest of the patients medical conditions remained stable, no changes made in her home list. She will be discharged to rehab for wound care. Discharge diagnosis: Cdiff, non healing wound - Time Spent with Patient Total time spent providing and/or coordinating discharge services: Greater than 30 minutes Medical - DS: Exam - Constitutional Vitals: Vital Signs Temp Pulse Resp BP BP Pulse Ox 03/03/17 07:50 121/89 03/03/17 07:32 97.7 F 94 H 16 94 03/03/17 04:00 97.5 F 102 H 22 118/74 95 03/02/17 23:37 97.8 F 101 H 22 126/80 93 03/02/17 20:00 98.0 F 105 H 24 H 128/86 93 03/02/17 12:00 98.6 F 20 129/80 91 Intake and Output 03/02/17 03/03/17 03/03/17 21:59 05:59 13:59 Intake Total 1600 / 1600 1300 / 1300 360 / 360 Output Total 450 / 450 450 / 450 1126 / 1126 Balance 1150 / 1150 850 / 850 -766 / -766 Intake: IV 1000 / 1000 1000 / 1000 Sodium Chloride 0.9% 1, 1000 / 1000 1000 / 1000 000 ml @ 125 mls/hr IV . Q8H [facility] Rx#:[id number] Oral 600 / 600 300 / 300 360 / 360 Output: Void Amount 450 / 450 450 / 450 1125 / 1125 # of times incontinent of 1 / 1 urine Other: Meal Dinner Breakfast Percent of Meal Consumed 100% 100% # Voids 1 # Bowel Movements 1 1 Weight 241 lb Additional comments: Constitutional; Afebrile, cooperative, alert, not in distress. Eyes- No icterus, , No periorbital swelling Ears- Ext ear normal, hearing normal to conversation. Neck- Midline trachea, supple Respiratory system: Air Entry equal on both sides, No crackles or wheezing, no rhonchi. CVS- Rate normal rhythm irregular, S1,S2 heard, no gallop, no rub. 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 Medical - DS: Data Labs on day of discharge: Labs from last 24 hours 03/03/17 03/03/17 03/03/17 04:10 04:10 04:10 WBC 7.9 RBC 5.01 Hgb 14.8 Hct 43.9 MCV 87.5 MCH 29.5 MCHC 33.7 RDW 15.2 H Plt Count 231 MPV 8.9 Gran % 64.5 Lymph % (Auto) 21.6 Irion % (Auto) 8.9 Eos % (Auto) 4.8 Baso % (Auto) 0.2 Gran # 5.1 Lymph # (Auto) 1.7 Irion # (Auto) 0.7 Eos # (Auto) 0.4 Baso # (Auto) 0 PT 21.8 H INR 1.8 H Sodium 139 Potassium 3.9 Chloride 105 Carbon Dioxide 23 Anion Gap 11.0 BUN 13 Creatinine 0.7 GFR Calculation 94 Glucose 95 Uric Acid 7.2 Calcium 8.7 Phosphorus 3.4 Magnesium 1.7 Total Bilirubin 0.6 Direct Bilirubin < 0.2 GGT 36 AST 20 ALT 20 Alkaline Phosphatase 121 H Lactate Dehydrogenase 246 Total Protein 6.2 Albumin 3.0 L Globulin 3.2 Albumin/Globulin Ratio 0.9 L Triglycerides 242 H Medical - DS: A/P - Patient/Caregiver Discharge Instructions Activity: increase activity as tolerated Diet: Cardiac, Consistent Carbohydrate Additional Instructions: Wound care as per wound care instructions. check INR on Wednesday 03/07, continue coumadin at home dose Continue vancomycin po x 14 days 250mg qid. go to the ER for any new concern or worsening condition. OT/PT/ ST eval. - Follow up Plan Follow up with: Travon Lr PA-C [Primary Care Provider] - Bang Juarez MD [Physician] - 03/07/17 9:40 am Disposition: Xfer SNF Prognosis: Fair Rehab Potential: Fair I certify that the patient requires SNF services: Yes Overall status at discharge: patient is progressing back to baseline Medical - DS: Qual - VTE Deep Vein Thrombosis/Pulmonary Embolism Present on Admission: No
--- NOTE | 2017-03-03 11:04 | General Surgery Progress Note ---
Subjective Patient reports: other (Unenventful night. Diarrhea is improving. MIST treatment and wound dressings done last night and this morning. ) Narrative: Note initiated : 03/03/17 at 10:59 am Service Date, if different from initiated Date: [] Patient: Christine Cespedes 61 y/o F admitted on 03/01/17 for Wound On Groin, Sent By Dr Hankins. Chief Complaint: [] Objective Temp Pulse Resp BP Pulse Ox 97.6 F 95 H 16 94/63 91 03/03/17 10:35 03/03/17 10:35 03/03/17 10:35 03/03/17 10:35 03/03/17 10:35 AVSS. No changes OTTONIEL. L/E. Supra pubic open wound is clean and granulating. Wound c/s reviewed. C Diff diarrhea is improving on PO Vancomycin . To be continued for 2 weeks. Will treat wound with local care and topical antibiotic solution (GCP) - Additional Data Intake & Output - Last 24 hours: Intake & Output 03/01/17 03/02/17 03/03/17 03/04/17 05:59 05:59 05:59 05:59 Intake Total 100 / 100 3900 / 3900 1360 / 1360 Output Total 500 / 500 1700 / 1700 1651 / 1651 Balance -400 / -400 2200 / 2200 -291 / -291 Weight 238 lb 241 lb - Labs 03/03/17 04:10 03/03/17 04:10 Diabetes panel 03/03/17 Range/Units 04:10 Sodium 139 (133-145) mmol/L Potassium 3.9 (3.3-5.1) mmol/L Chloride 105 (96-108) mmol/L Carbon Dioxide 23 (22-30) mmol/L BUN 13 (8-23) mg/dl Creatinine 0.7 (0.6-1.1) mg/dl Glucose 95 (70-105) mg/dL Calcium 8.7 (8.6-10.4) mg/dl AST 20 (0-37) U/l ALT 20 (0-40) U/l Alkaline Phosphatase 121 H (39-117) U/L Total Protein 6.2 (5.9-8.4) gm/dL Albumin 3.0 L (3.2-5.2) gm/dL Triglycerides 242 H (<150) mg/dl Calcium panel 03/03/17 Range/Units 04:10 Calcium 8.7 (8.6-10.4) mg/dl Phosphorus 3.4 (2.7-4.5) mg/dL Albumin 3.0 L (3.2-5.2) gm/dL Pituitary panel 03/03/17 Range/Units 04:10 Sodium 139 (133-145) mmol/L Potassium 3.9 (3.3-5.1) mmol/L Chloride 105 (96-108) mmol/L Carbon Dioxide 23 (22-30) mmol/L BUN 13 (8-23) mg/dl Creatinine 0.7 (0.6-1.1) mg/dl Glucose 95 (70-105) mg/dL Calcium 8.7 (8.6-10.4) mg/dl Adrenal panel 03/03/17 Range/Units 04:10 Sodium 139 (133-145) mmol/L Potassium 3.9 (3.3-5.1) mmol/L Chloride 105 (96-108) mmol/L Carbon Dioxide 23 (22-30) mmol/L BUN 13 (8-23) mg/dl Creatinine 0.7 (0.6-1.1) mg/dl Glucose 95 (70-105) mg/dL Calcium 8.7 (8.6-10.4) mg/dl Total Bilirubin 0.6 (0.0-1.0) mg/dL AST 20 (0-37) U/l ALT 20 (0-40) U/l Alkaline Phosphatase 121 H (39-117) U/L Total Protein 6.2 (5.9-8.4) gm/dL Albumin 3.0 L (3.2-5.2) gm/dL Assessment and Plan (1) Wound dehiscence, surgical Problem details: Satisfactory progress and response to local wound care treatment. O K for discharge to Rehab with continuation of ongoing wound care and local GCP dressing changes . MIST treatments CAN BE discontinued. F/u in the wound clinic as scheduled. Status: Acute Current Visit: Yes (2) Sepsis Problem details: At this time local wound care with MIST x2 daily followedd by GCB soaked wet to dry dressings every shif. Rest of the ongoing treatment and medications to continue at [facility] time. WIll follow patient in [facility] and later at the [facility]. Status: Acute Current Visit: No - Time Spent With Patient Total time spent is greater than 50% in coordination of care (as documented) at patient's floor/unit and/or counseling patient:
== END 2017-03-03 11:00 ==
LOC: ED 12:16 → MEDSUR 18:43 → INTOOBSV 18:43 → MEDSUR 18:45
PROVIDERS: ADMIT Internal Medicine; ATTEND Internal Medicine

== ENCOUNTER 2019-09-08 10:01 | Inpatient (IN) ==
--- NOTE | 2019-09-08 10:10 | Emergency Department Note ---
Back Pain HPI - General Chief Complaint: Back Pain/Injury Stated Complaint: Back pain Time Seen by Provider: 09/08/19 10:04 Source: EMS Limitations: altered mental status - Related Data Home Medications Medication Instructions Recorded Confirmed Spirometers and Accessories [Pflex 1 each .ROUTE .MEDSUPPLY 03/01/17 09/07/19 Tube Sorter] medroxyprogesterone 10 mg tablet 10 mg PO BID tab 09/08/18 09/07/19 cholecalciferol (vitamin D3) 125 5,000 unit PO QDAY 03/27/19 09/07/19 mcg (5,000 unit) capsule glucosamine 750 [id number] 2-C 1 tab PO DAILY tab 03/27/19 09/07/19 30 mg-D3 1,000 unit-omar 1 mg tablet loratadine 10 mg tablet 10 mg PO QDAY PRN 03/27/19 09/07/19 vitamins A,[id number] 14,320 1 cap PO BID 03/27/19 09/07/19 unit-226 mg-200 unit capsule multivitamin 1 tab PO QDAY 05/31/19 09/07/19 potassium 99 mg tablet 99 mg PO QDAY 05/31/19 09/07/19 LIFT CHAIR 1 each DAILY 07/29/19 09/07/19 Nebulizer 1 each .ROUTE DAILY 07/29/19 09/07/19 atenolol 50 mg tablet 50 mg PO QDAY 08/30/19 09/07/19 fluticasone 100 mcg-salmeterol 50 1 puff INHALATION BID 08/30/19 09/07/19 mcg/dose blistr powdr for inhalation warfarin 5 mg tablet See Rx Instructions .ROUTE 08/30/19 09/07/19 .COMPLEX tab Previous Rx's Medication Instructions Recorded ipratropium 20 mcg-albuterol 100 2 puff INHALATION Q4-6HP PRN #4 g 09/18/18 mcg/actuation mist for inhalation ipratropium-albuterol 0.5 mg-3 3 ml INHALATION Q6H PRN #360 ml 12/19/18 mg(2.5 mg base)/3 mL nebulization soln levothyroxine 50 mcg capsule 50 mcg PO QDAY #90 cap 04/09/19 fluticasone propionate 50 1 spray INTRANASAL QDAY #16 g 05/01/19 mcg/actuation nasal spray,suspension levothyroxine 300 mcg tablet 300 mcg PO QDAY #90 tab 05/07/19 omeprazole 20 mg capsule,delayed 20 mg PO QDAY #90 cap 07/02/19 release potassium chloride 10 mEq 10 meq PO BID 30 Days #60 cap 07/02/19 capsule,extended release venlafaxine 150 mg 150 mg PO QDAY #90 cap 07/05/19 capsule,extended release 24 hr atorvastatin 40 mg tablet 40 mg PO QHS #30 tab 07/09/19 lamotrigine 100 mg tablet 100 mg PO QDAY #30 tab 07/17/19 hydrochlorothiazide 25 mg tablet 25 mg PO QAM #90 tab 08/20/19 nebulizer accessories See Rx Instructions .ROUTE 08/30/19 .MEDSUPPLY #1 each Bariatric Commode #1 each 09/07/19 hospital bed #1 ea 09/07/19 wide shower chair #1 ea 09/07/19 Allergies Allergy/AdvReac Type Severity Reaction Status Date / Time clindamycin AdvReac Intermediate Itching Verified 09/07/19 10:40 adhesive tape AdvReac Mild Rash Verified 09/07/19 10:40 codeine AdvReac Mild forms sore Verified 09/07/19 10:40 red dye AdvReac Mild Rash Verified 09/07/19 10:40 Sulfa (Sulfonamide AdvReac Mild Rash Verified 09/07/19 10:40 Antibiotics) Past Medical History - Past Medical History Medical history: Reports: asthma, atrial fibrillation, CVA, GERD, hyperlipidemia, hypertension, migraine, thyroid disease Psychiatric history: Reports: depression, schizophrenia 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 Surgical history ED: Reports: , cholecystectomy - Social History smoking status: Never smoker Alcohol use: Reports: None Drug use: Reports: none Physical Exam Limitations: altered mental status Course Vital Signs Temperature 99.8 F H 09/08/19 10:03 Pulse Rate 91 H 09/08/19 10:03 Respiratory Rate 26 H 09/08/19 10:03 Blood Pressure 143/123 09/08/19 10:03 Pulse Oximetry (%) 97 09/08/19 10:03 Temperature 99.8 F H 09/08/19 10:03 Pulse Rate 91 H 09/08/19 10:03 Respiratory Rate 26 H 09/08/19 10:03 Blood Pressure 143/123 09/08/19 10:03 Pulse Oximetry (%) 97 09/08/19 10:03 Disposition Referrals: Travon Lr PA-C [Primary Care Provider] -
[2019-09-08] MEDS ORDERED: 0.9 % SODIUM CHLORIDE 1,000 ML IV ONE (10:21)
--- NOTE | 2019-09-08 10:25 | Emergency Department Note ---
General Adult HPI - General Chief complaint: Back Pain/Injury Stated complaint: Back pain Time Seen by Provider: 09/08/19 10:04 Source: EMS Mode of arrival: EMS Limitations: altered mental status - History of Present Illness HPI Narrative: 64-year-old chronically ill female, history of obesity hypertension atrial fibrillation on Coumadin, chronic pain and debility use uses wheelchair, most recently in hospital approximately 3 weeks ago at [facility] in [place] for possible stroke, living at home with a caregiver however in the last few days the daughter who had stayed with the patient at night is herself being hospitalized so patient is alone at night. She had a fall on her buttock within the week and was seen at primary care clinic yesterday and at that time lumbar spine and sacrum and coccyx x-rays were done and revealed only degenerative changes no fracture and she was discharged home. Discussion was noted at that time about her need of either nursing facility or assisted care but apparently patient was adamant about staying at home. According to her caregiver who been assigned with her since discharge from [facility] after her stroke, patient was more weak this morning and wanted her to call the ambulance. She was sent awake grossly nonfocal but somewhat lethargic to the emergency department for evaluation. Her only complaint was continued back pain and apparently had received no significant analgesics in the last 24 hours. - Related Data Home Medications Medication Instructions Recorded Confirmed Spirometers and Accessories [Pflex 1 each .ROUTE .MEDSUPPLY 03/01/17 09/07/19 [place]] medroxyprogesterone 10 mg tablet 10 mg PO BID tab 09/08/18 09/07/19 cholecalciferol (vitamin D3) 125 5,000 unit PO QDAY 03/27/19 09/07/19 mcg (5,000 unit) capsule glucosamine 750 [id number] 2-C 1 tab PO DAILY tab 03/27/19 09/07/19 30 mg-D3 1,000 unit-omar 1 mg tablet loratadine 10 mg tablet 10 mg PO QDAY PRN 03/27/19 09/07/19 vitamins A,C,O-gtii-kmrjpy 14,320 1 cap PO BID 03/27/19 09/07/19 unit-226 mg-200 unit capsule multivitamin 1 tab PO QDAY 05/31/19 09/07/19 potassium 99 mg tablet 99 mg PO QDAY 05/31/19 09/07/19 LIFT CHAIR 1 each DAILY 07/29/19 09/07/19 Nebulizer 1 each .ROUTE DAILY 07/29/19 09/07/19 atenolol 50 mg tablet 50 mg PO QDAY 08/30/19 09/07/19 fluticasone 100 mcg-salmeterol 50 1 puff INHALATION BID 08/30/19 09/07/19 mcg/dose blistr powdr for inhalation warfarin 5 mg tablet See Rx Instructions .ROUTE 08/30/19 09/07/19 .COMPLEX tab Previous Rx's Medication Instructions Recorded ipratropium 20 mcg-albuterol 100 2 puff INHALATION Q4-6HP PRN #4 g 09/18/18 mcg/actuation mist for inhalation ipratropium-albuterol 0.5 mg-3 3 ml INHALATION Q6H PRN #360 ml 12/19/18 mg(2.5 mg base)/3 mL nebulization soln levothyroxine 50 mcg capsule 50 mcg PO QDAY #90 cap 04/09/19 fluticasone propionate 50 1 spray INTRANASAL QDAY #16 g 05/01/19 mcg/actuation nasal spray,suspension levothyroxine 300 mcg tablet 300 mcg PO QDAY #90 tab 05/07/19 omeprazole 20 mg capsule,delayed 20 mg PO QDAY #90 cap 07/02/19 release potassium chloride 10 mEq 10 meq PO BID 30 Days #60 cap 07/02/19 capsule,extended release venlafaxine 150 mg 150 mg PO QDAY #90 cap 07/05/19 capsule,extended release 24 hr atorvastatin 40 mg tablet 40 mg PO QHS #30 tab 07/09/19 lamotrigine 100 mg tablet 100 mg PO QDAY #30 tab 07/17/19 hydrochlorothiazide 25 mg tablet 25 mg PO QAM #90 tab 08/20/19 nebulizer accessories See Rx Instructions .ROUTE 08/30/19 .MEDSUPPLY #1 each Bariatric Commode #1 each 09/07/19 hospital bed #1 ea 09/07/19 wide shower chair #1 ea 09/07/19 Allergies Allergy/AdvReac Type Severity Reaction Status Date / Time clindamycin AdvReac Intermediate Itching Verified 09/07/19 10:40 adhesive tape AdvReac Mild Rash Verified 09/07/19 10:40 codeine AdvReac Mild forms sore Verified 09/07/19 10:40 red dye AdvReac Mild Rash Verified 09/07/19 10:40 Sulfa (Sulfonamide AdvReac Mild Rash Verified 09/07/19 10:40 Antibiotics) Review of Systems Limitations: ROS unobtainable due to patients medical condition Constitutional: Reports: as per HPI Past Medical History - Past Medical History ON LICENSE OF [facility] Narrative: As per HPI. No other hospitalizations noted by caregiver within the last year. She also has a history of sleep apnea. Possible history of a remote epidural hematoma. History of a remote classic cholecystectomy. Source: unable to obtain Medical history: Reports: asthma, atrial fibrillation, CVA, GERD, hyperlipidemia, hypertension, migraine, thyroid disease Psychiatric history: Reports: depression, schizophrenia [employer] history: Reports: non-contributory Surgical history ED: Reports: , cholecystectomy - Social History smoking status: Never smoker Alcohol use: Reports: None Drug use: Reports: none Physical Exam Chronically ill debilitated obese elderly white female somewhat obtunded but a ble to respond with stimuli and occasionally give short sentences GCS about 13. Vital signs are unremarkable. Sign of trauma Limitations: altered mental status General appearance: in no apparent distress, lethargic, obtunded Head: atraumatic, normocephalic Eye: Present: PERRL ENT: Present: normal exam Chest: Present: normal inspection, symmetric chest wall rise Respiratory: Present: normal lung sounds bilaterally. Absent: respiratory distress, rales/crackles, wheezes, stridor Cardiovascular: Present: regular rate, normal rhythm Abdominal: Present: soft, normal bowel sounds, scar. Absent: distention, tenderness, guarding Extremities: Present: other (Diffuse severe muscle wasting and nonpitting edema is present. Ecchymosis noted lateral aspect of right arm.) Back: Present: other (No overt ulcerations seen or sign of trauma.) Neurological: Present: other (Grossly nonfocal in terms of no focal neurologic or cranial nerve deficit does move all 4 extremities hypertonic reflexes noted in ankles without sustained clonus.). Absent: alert, oriented X3 Course Vital Signs Temperature 99.8 F H 09/08/19 10:03 Pulse Rate 91 H 09/08/19 10:03 Respiratory Rate 26 H 09/08/19 10:03 Blood Pressure 143/123 09/08/19 10:03 Pulse Oximetry (%) 97 09/08/19 10:03 Temperature 99.2 F H 09/08/19 11:30 Pulse Rate 90 09/08/19 11:01 Respiratory Rate 26 H 09/08/19 10:03 Blood Pressure 146/97 09/08/19 11:01 Pulse Oximetry (%) 94 09/08/19 11:01 Medical Decision Making - MDM Narrative Medical decision making narrative: Debilitated elderly white female presenting with obtundation. Multiple etiologies but rule out sepsis rule out intracranial hemorrhage. For full evaluation labs CT scan of head fluid bolus and further evaluation. 1230 p.m.: Clinical status slightly improved after fluids and antibiotics have been administered. Discussed with Dr. Leon hospitalist who agrees to admit the patient to a telemetry bed. Prognosis is somewhat guarded but favorable overall for improvement. - Lab Data Lab results reviewed: Yes I reviewed the patient's lab results. Lab results narrative: Significant for leukocytosis and urine full of bacteria and white cells. CMP is unremarkable lipase is normal lactate is 3.8 Diagnosis of urosepsis is supported. Result diagrams: 09/08/19 10:33 09/08/19 10:33 Lab Results 09/08/19 09/08/19 09/08/19 Range/Units 10:33 10:33 10:33 WBC 22.8 H (4.5-11.0) K/mcL RBC 5.43 H (4.00-5.20) M/mcL Hgb 16.6 H (12.0-15.0) g/dL Hct 50.2 H (36.0-48.0) % MCV 92.6 (80.0-100.0) fL MCH 30.5 (26.0-34.0) pg MCHC 33.0 (31.0-36.0) g/dL RDW 13.7 (11.5-14.5) % Plt Count 362 (140-440) K/mcL MPV 9.6 (7.4-10.4) fL Gran % 90.8 H (38.0-78.0) % Lymph % (Auto) 2.6 L (15.5-49.0) % [place] % (Auto) 6.6 (1.0-12.0) % Eos % (Auto) 0 (0.0-7.0) % Baso % (Auto) 0 (0.0-2.0) % Gran # 20.7 H (1.8-8.0) K/mcL Lymph # (Auto) 0.6 L (1.5-4.8) K/mcL Murray # (Auto) 1.5 H (0.1-0.9) K/mcL Eos # (Auto) 0 (0.0-0.7) K/mcL Baso # (Auto) 0 (0.0-0.3) K/mcL PT (11.9-14.5) sec INR (0.9-1.1) VBG Lactic Acid 3.8 H (0.5-2.0) mmol/L Sodium 143 (133-145) mmol/L Potassium 4.7 (3.3-5.1) mmol/L Chloride 102 (96-108) mmol/L Carbon Dioxide 14 L (22-30) mmol/L Anion Gap 27.0 H (8-16) BUN 40 H (8-23) mg/dl Creatinine 2.1 H (0.6-1.1) mg/dl GFR Calculation 24 Glucose 108 H (70-105) mg/dL Calcium 10.2 (8.6-10.4) mg/dl Total Bilirubin 1.1 H (0.0-1.0) mg/dL AST 88 H (0-37) U/l ALT 54 H (0-40) U/l Alkaline Phosphatase 171 H (39-117) U/L NT-Pro-B Natriuret Pep 8175.0 H (0-125) pg/ml Total Protein 7.6 (5.9-8.4) gm/dL Albumin 3.8 (3.2-5.2) gm/dL Globulin 3.8 H (2.2-3.7) gm/dL Albumin/Globulin Ratio 1.0 (1.0-2.3) Lipase 22 (7-60) U/L Urine Color Urine Appearance Urine pH (5.0-9.0) Ur Specific [place] (1.000-1.035) Urine Protein (NEG) mg/dL Urine Glucose (UA) (NEG) mg/dL Urine Ketones (NEG) mg/dL Urine Occult Blood (<0.03) mg/dL Urine Nitrate (NEG) Urine Bilirubin (NEG) mg/dL Urine Urobilinogen (NEG) mg/dL Ur Leukocyte Esterase (NEG) /uL Urine RBC (0-1) /hpf Urine WBC (0-4) /hpf Ur Squamous Epith Cells (0-4) /hpf Ur Transition Epith Cell (0-2) /hpf Urine Bacteria (0) /hpf Hyaline Casts (0-2) /lpf Urine Mucus (0) /hpf Ur Culture Indicated? 09/08/19 09/08/19 Range/Units 10:33 11:10 WBC (4.5-11.0) K/mcL RBC (4.00-5.20) M/mcL Hgb (12.0-15.0) g/dL Hct (36.0-48.0) % MCV (80.0-100.0) fL MCH (26.0-34.0) pg MCHC (31.0-36.0) g/dL RDW (11.5-14.5) % Plt Count (140-440) K/mcL MPV (7.4-10.4) fL Gran % (38.0-78.0) % Lymph % (Auto) (15.5-49.0) % Murray % (Auto) (1.0-12.0) % Eos % (Auto) (0.0-7.0) % Baso % (Auto) (0.0-2.0) % Gran # (1.8-8.0) K/mcL Lymph # (Auto) (1.5-4.8) K/mcL [place] # (Auto) (0.1-0.9) K/mcL Eos # (Auto) (0.0-0.7) K/mcL Baso # (Auto) (0.0-0.3) K/mcL PT 16.7 H (11.9-14.5) sec INR 1.4 H (0.9-1.1) VBG Lactic Acid (0.5-2.0) mmol/L Sodium (133-145) mmol/L Potassium (3.3-5.1) mmol/L Chloride (96-108) mmol/L Carbon Dioxide (22-30) mmol/L Anion Gap (8-16) BUN (8-23) mg/dl Creatinine (0.6-1.1) mg/dl GFR Calculation Glucose (70-105) mg/dL Calcium (8.6-10.4) mg/dl Total Bilirubin (0.0-1.0) mg/dL AST (0-37) U/l ALT (0-40) U/l Alkaline Phosphatase (39-117) U/L NT-Pro-B Natriuret Pep (0-125) pg/ml Total Protein (5.9-8.4) gm/dL Albumin (3.2-5.2) gm/dL Globulin (2.2-3.7) gm/dL Albumin/Globulin Ratio (1.0-2.3) Lipase (7-60) U/L Urine Color Yellow Urine Appearance Cloudy Urine pH 5.0 (5.0-9.0) Ur Specific [place] 1.020 (1.000-1.035) Urine Protein 100 A (NEG) mg/dL Urine Glucose (UA) Negative (NEG) mg/dL Urine Ketones 5/tr A (NEG) mg/dL Urine Occult Blood 0.2 A (<0.03) mg/dL Urine Nitrate Neg (NEG) Urine Bilirubin Neg (NEG) mg/dL Urine Urobilinogen 2.0 A (NEG) mg/dL Ur Leukocyte Esterase 500 A (NEG) /uL Urine RBC 40 H (0-1) /hpf Urine WBC > 182 H (0-4) /hpf Ur Squamous Epith Cells 3 (0-4) /hpf Ur Transition Epith Cell 2 (0-2) /hpf Urine Bacteria Many A (0) /hpf Hyaline Casts 15 H (0-2) /lpf Urine Mucus Mod (0) /hpf Ur Culture Indicated? Yes - Radiology Data Radiology results reviewed: Yes I reviewed the patient's radiology results. Hest x-ray 1 view appears unremarkable by my view without signs of infiltrate effusion heart size borderline large CT scan head noncontrast reveals mild atrophy and an old well-defined right posterior temporal infarct I see no signs of mass or hemorrhage. - EKG Data EKG #1 EKG attestation: Yes I reviewed and interpreted this EKG. EKG results narrative: Ventricular response varies around 140 left axis deviation no acute ST changes Rhythm: A.Fib Disposition Pt seen by STATISTICAL SECRETARY/PA only: No Clinical Impression: Urinary tract infection Qualifiers: Urinary tract infection type: acute pyelonephritis Qualified Code(s): N10 - Acute pyelonephritis Disposition: Xfer As Inpt ([facility]) Condition: Serious Referrals: Travon Lr PA-C [Primary Care Provider] -
[2019-09-08 11:13] LABS: Basophils # (Auto) 0 K/mcL (0.0-0.3); Basophils % (Auto) 0 % (0.0-2.0); Eosinophils # (Auto) 0 K/mcL (0.0-0.7); Eosinophils % (Auto) 0 % (0.0-7.0); Granulocytes % (Auto) 90.8 % (38.0-78.0); Hematocrit 50.2 % (36.0-48.0); Hemoglobin 16.6 g/dL (12.0-15.0); Lymphocytes # (Auto) 0.6 K/mcL (1.5-4.8); Lymphocytes % (Auto) 2.6 % (15.5-49.0); Mean Cell Volume 92.6 fL (80.0-100.0); Mean Platelet Volume 9.6 fL (7.4-10.4); Monocytes # (Auto) 1.5 K/mcL (0.1-0.9); Monocytes % (Auto) 6.6 % (1.0-12.0); Platelet Count 362 K/mcL (140-440); RBC 5.43 M/mcL (4.00-5.20); Red Cell Distribution Width 13.7 % (11.5-14.5); WBC 22.8 K/mcL (4.5-11.0)
[2019-09-08] MEDS ORDERED: cefTRIAXone 2 GM in DEXTROSE 5% IN WATER 50 ML IV ONE (11:15)
[2019-09-08 11:20] LABS: INR 1.4 (0.9-1.1); Prothrombin Time 16.7 sec (11.9-14.5)
[2019-09-08 11:32] LABS: Chloride 102 mmol/L (96-108)
[2019-09-08 11:38] LABS: ALT/SGPT 54 U/l (0-40); AST/SGOT 88 U/l (0-37); Albumin 3.8 gm/dL (3.2-5.2); Alkaline Phosphatase 171 U/L (39-117); Bilirubin,Total 1.1 mg/dL (0.0-1.0); Blood Urea Nitrogen 40 mg/dl (8-23); Calcium 10.2 mg/dl (8.6-10.4); Carbon Dioxide 14 mmol/L (22-30); Globulin 3.8 gm/dL (2.2-3.7); Glomerular Filtration Rate 24; Glucose 108 mg/dL (70-105)
[2019-09-08 11:43] LABS: Appearance,Urine CLOUDY; Bacteria,Urine MANY /hpf (0); Bilirubin,Urine NEG (NEG); Color,Urine YELLOW; Culture Indicated,Urine YES; Glucose,Urine (UA) NEGATIVE (NEG); Ketones,Urine 5/TR mg/dL (NEG); Leukocyte Esterase,Urine 500 /uL (NEG); Mucus,Urine MOD /hpf (0); Nitrate,Urine NEG (NEG); Protein,Urine 100 mg/dL (NEG); Urine Blood 0.2 mg/dL (<0.03); Urine Hyaline Cast 15 /lpf (0-2); Urine RBC 40 /hpf (0-1); Urine Squamous Epithelial Cell 3 /hpf (0-4); Urine Transitional Epi Cells 2 /hpf (0-2); Urine WBC > 182 /hpf (0-4)
--- NOTE | 2019-09-08 12:38 | Cat Scan Report ---
History: Decreased level of consciousness and prior stroke TECHNIQUE: The brain was imaged without contrast at 2.5 mm intervals. The radiation exposure was limited using dose reduction technology. FINDINGS: There is a large old watershed infarct in the right hemisphere. The largest component of the infarct is at the right posterior temporal, parietal and occipital boundary. There is a smaller component posteriorly and laterally in the right frontal lobe. There is a much smaller old watershed infarct in left hemisphere. The largest component which is proximally 1.5 cm size is in the left posterior parietal lobe. Subtle lacunar infarcts are present in the left rios radiata and centrum semiovale. All of these infarcts were present on the prior exam done on 08/06/19. No new infarct is detected. There is no acute hemorrhage or mass effect. Patient has mild generalized cerebral atrophy. The lateral ventricles are prominent but proportionate to the atrophy and old infarcts. A large old infarct is present along the inferior aspect of the right cerebellar hemisphere. There is encephalomalacia and it has not changed. The subdural hematoma seen on the prior study over the upper convexity of the left frontal parietal boundary has resolved. IMPRESSION: Resolution of the previously seen left-sided subdural hematoma Stable bilateral watershed infarcts, right larger than left. Stable old right cerebellar infarct Dr. Anderson was called with the report Dr. Pablo was called with the results Interpreted and Authenticated by: Kiarn Barger 09/08/19
--- NOTE | 2019-09-08 12:39 | XRay Report ---
HISTORY: Sepsis, back pain FINDINGS: Heart is mildly enlarged and has increased in size since 10/10/17. There is no congestive heart failure or pleural effusion. The lungs are clear. The aorta is mildly tortuous. 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 IMPRESSION: Cardiomegaly No evidence of pneumonia Interpreted and Authenticated by: Kiran Barger 09/08/19
[2019-09-08] MEDS ORDERED: SENNOSIDES 1 TABLET PO PRN (13:09)
[2019-09-08] MEDS ORDERED: LACTULOSE 20 GM/30 ML ORAL.SOL PO PRN (13:09)
[2019-09-08] MEDS ORDERED: NALOXONE HCL 0.4 MG/ML VIAL IV PRN (13:09)
--- NOTE | 2019-09-08 13:21 | Internal Med History&Physical ---
Medical - H&P: [facility] Patient information: Note initiated : 09/08/19 at 1:17 pm Service Date, if different from initiated Date: [] Patient: Christine Cespedes a 64 y/o F admitted on for Back pain. Chief Complaint: Lethargy, somnolence History of present illness: Ms. Cespedes is a 64 year old F with a history of atrial fibrillation, recent subdural hematoma, history of ischemic strokes, hypertension, sleep apnea not on CPAP, prediabetes, morbid obesity with mobility impairment who presents to the emergency department with lethargy. History is obtained speaking to her caregiver. She has a caregiver in the home during the days, but not at night. The caregiver notes yesterday she was not quite herself, displaying some mild confusion. Her appetite was decreased. Caregiver made her a sandwich for dinner prior to her leaving yesterday, was still on eaten this morning when their caregiver arrived. Patient was in bed, was too weak to get out of bed, was confused and could not respond appropriately. In the ED, there is a history of low-grade fever as well. Because of lethargy, fever and weakness EMS was activated and she is brought to the ED. In the emergency department she has evidence of sepsis with now white count of 22,000, lactate of 3.8, increased anion gap and significantly abnormal urine analysis with pyuria and bacteriuria. She is being admitted for treatment of sepsis from urinary source. ROS unobtainable: due to mental status Medical - H&P: [facility] Medical history: Subdural hematoma 07/30/[facility] TIA 08/[facility] Sleep apnea (Chronic) CPAP (continuous positive airway pressure) dependence (Acute) patient "returned cpap 05/17/19, could not tolerate" Hypertension, essential (Chronic) Hyperlipidemia (Chronic) Gastroesophageal reflux (Chronic) Depressive disorder (Chronic) Atrial fibrillation (Chronic) Asthma (Chronic) Anxiety disorder (Chronic) Schizophrenia (Chronic) Paranoid Sepsis (Resolved) Rhabdomyolysis (Resolved) History of methicillin resistant Staph aureus (Chronic) Thyroid hormone resistance syndrome (Chronic) Hypothyroidism (acquired) (Chronic) the patient has a condition characterized by insensitivity to thyroid hormone. 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 Not type 2 diabetes. Obesity (Chronic) Migraine (Chronic) CVA (cerebral infarction) (Chronic) shelter current use of anticoagulant (Chronic) Late, effect, cerebrovascular disease (Chronic 10/27/11) Degenerative joint disease (Chronic) Allergic rhinitis (Chronic) Abnormal Pap smear of vagina (Chronic) Cellulitis (Resolved) Surgical history: History of vaginal surgery (Chronic) uterine prolapse repair History of colonoscopy (Chronic) 2010 History of cholecystectomy (Chronic) History of (Chronic) x2 History of arthroscopic knee surgery (Chronic) left and right History of placement of ear tubes (Acute) History of D&C (Chronic 06/07/18) with hysteroscopy Pertinent family history: Mother , age 79 Family history of diabetes mellitus Essential hypertension Heart disease Father , age 64 Essential hypertension Lymphoma Cerebrovascular accident brother , from lung cancer Acute myocardial infarction Malignant neoplasm of lung Sister Malignant neoplasm of uterus Unknown Renal failure Family/Other Multiple sclerosis Other Emphysema of lung Social history: Has a caregiver during the day marital status: occupational status: 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 leisure activities: music other: 3 children 1 at the age of 10 from hydrocephalus among otherpro smoking status: Never smoker alcohol intake frequency: does not drink Medical - H&P: Meds Home Medications Medication Instructions Recorded Confirmed Type Spirometers and Accessories [Pflex 1 each .ROUTE .MEDSUPPLY 03/01/17 09/07/19 History [employer]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] medroxyprogesterone 10 mg tablet 10 mg PO BID tab 09/08/18 09/08/19 History ipratropium 20 mcg-albuterol 100 2 puff INHALATION Q4-6HP PRN #4 g 09/18/18 09/07/19 Rx mcg/actuation mist for inhalation ipratropium-albuterol 0.5 mg-3 3 ml INHALATION Q6H PRN #360 ml 12/19/18 09/07/19 Rx mg(2.5 mg base)/3 mL nebulization soln cholecalciferol (vitamin D3) 125 5,000 unit PO QDAY 03/27/19 09/07/19 History mcg (5,000 unit) capsule glucosamine 750 mo-gcpxli-snd 2-C 1 tab PO DAILY tab 03/27/19 09/07/19 History 30 mg-D3 1,000 unit-omar 1 mg tablet loratadine 10 mg tablet 10 mg PO QDAY PRN 03/27/19 09/07/19 History vitamins A,C,F-zltk-vnnjvq 14,320 1 cap PO BID 03/27/19 09/07/19 History unit-226 mg-200 unit capsule levothyroxine 50 mcg capsule 50 mcg PO QDAY #90 cap 04/09/19 09/08/19 Rx fluticasone propionate 50 1 spray INTRANASAL QDAY #16 g 05/01/19 09/07/19 Rx mcg/actuation nasal spray,suspension levothyroxine 300 mcg tablet 300 mcg PO QDAY #90 tab 05/07/19 09/08/19 Rx multivitamin 1 tab PO QDAY 05/31/19 09/07/19 History potassium 99 mg tablet 99 mg PO QDAY 05/31/19 09/07/19 History omeprazole 20 mg capsule,delayed 20 mg PO QDAY #90 cap 07/02/19 09/08/19 Rx release potassium chloride 10 mEq 10 meq PO BID 30 Days #60 cap 07/02/19 09/08/19 Rx capsule,extended release venlafaxine 150 mg 150 mg PO QDAY #90 cap 07/05/19 09/08/19 Rx capsule,extended release 24 hr atorvastatin 40 mg tablet 40 mg PO QHS #30 tab 07/09/19 09/08/19 Rx lamotrigine 100 mg tablet 100 mg PO QDAY #30 tab 07/17/19 09/08/19 Rx LIFT CHAIR 1 each DAILY 07/29/19 09/07/19 History Nebulizer 1 each .ROUTE DAILY 07/29/19 09/07/19 History hydrochlorothiazide 25 mg tablet 25 mg PO QAM #90 tab 08/20/19 09/08/19 Rx atenolol 50 mg tablet 50 mg PO QDAY 08/30/19 09/08/19 History fluticasone 100 mcg-salmeterol 50 1 puff INHALATION BID 08/30/19 09/07/19 History mcg/dose blistr powdr for inhalation nebulizer accessories See Rx Instructions .ROUTE 08/30/19 09/07/19 Rx .MEDSUPPLY #1 each warfarin 5 mg tablet See Rx Instructions .ROUTE 08/30/19 09/08/19 History .COMPLEX tab Bariatric Commode #1 each 09/07/19 09/07/19 Rx hospital bed #1 ea 09/07/19 09/07/19 Rx wide shower chair #1 ea 09/07/19 09/07/19 Rx Benztropine [Cogentin] 2 mg PO BID 09/08/19 09/08/19 History Venlafaxine HCl [Venlafaxine HCl 37.5 mg PO DAILY 09/08/19 09/08/19 History ER] Allergies Allergy/AdvReac Type Severity Reaction Status Date / Time clindamycin AdvReac Intermediate Itching Verified 09/07/19 10:40 adhesive tape AdvReac Mild Rash Verified 09/07/19 10:40 codeine AdvReac Mild forms sore Verified 09/07/19 10:40 red dye AdvReac Mild Rash Verified 09/07/19 10:40 Sulfa (Sulfonamide AdvReac Mild Rash Verified 09/07/19 10:40 Antibiotics) Medical - H&P: Exam - Constitutional Vitals: Temp Pulse Resp BP Pulse Ox 99.2 F H 123 H 21 115/87 96 09/08/19 11:30 09/08/19 13:01 09/08/19 13:01 09/08/19 13:01 09/08/19 13:01 Exam: GENERAL: Obtunded, occasionally opens eyes but does not track. Appears stated age. HEENT: Atraumatic. Pupils 6 mm and sluggishly reactive to direct and indirect light. Pupils are equal. Conjunctiva clear, no scleral icterus. Hearing cannot be reliably tested, though does tend to turn her head towards voice. Oropharynx exam limited, mucous membranes appear moist, cannot adequately evaluate posterior pharynx. Tongue midline. NECK: Supple without meningismus, no apparent tenderness with passive range of motion RESPIRATORY: Breath sounds difficult to auscultate posteriorly due to body habitus and respiratory effort, otherwise breath sounds are clear anteriorly and laterally. Respiratory effort is unlabored. CARDIOVASCULAR: Heart tones are bit distant, irregular, no murmur appreciated. No peripheral edema. Carotid pulses 2+. GI: Abdomen obese, soft, no apparent tenderness with palpation, no guarding. LYMPHATIC: No cervical lymphadenopathy MUSCULOSKELETAL: No joint erythema or swelling, muscle mass appears decreased for age. SKIN: Ecchymoses in the sacral area, as well as right forearm. Unstageable pressure ulcer over the coccyx. NEUROLOGIC: Cranial nerves reveal sluggish pupils, symmetric face, midline tongue. Remainder of exam difficult due to obtundation. Strength cannot be adequately assessed, does move all 4 extremities slightly and spontaneously. Deep tendon reflexes 1+ at the biceps and patella. PSYCHIATRIC: Obtunded, cannot assess orientation nor mood or insight. Medical - H&P: [facility] - Labs CBC & Chem 7: 09/08/19 10:33 09/08/19 10:33 Labs: Short CBC 09/08/19 Range/Units 10:33 WBC 22.8 H (4.5-11.0) K/mcL Hgb 16.6 H (12.0-15.0) g/dL Hct 50.2 H (36.0-48.0) % Plt Count 362 (140-440) K/mcL BMP 09/08/19 10:33 Sodium 143 Potassium 4.7 Chloride 102 Carbon Dioxide 14 L BUN 40 H Creatinine 2.1 H Glucose 108 H Calcium 10.2 Liver Function 09/08/19 Range/Units 10:33 Total Bilirubin 1.1 H (0.0-1.0) mg/dL AST 88 H (0-37) U/l ALT 54 H (0-40) U/l Alkaline Phosphatase 171 H (39-117) U/L Albumin 3.8 (3.2-5.2) gm/dL Urine 09/08/19 Range/Units 11:10 Urine Color Yellow Urine Appearance Cloudy Urine pH 5.0 (5.0-9.0) Ur Specific [place] 1.020 (1.000-1.035) Urine Protein 100 A (NEG) mg/dL Urine Glucose (UA) Negative (NEG) mg/dL - Imaging and Cardiology Chest x-ray Status: image reviewed by me Additional comments: IMPRESSION: Cardiomegaly No evidence of pneumonia CT scan - head Status: image reviewed by me Additional comments: IMPRESSION: Resolution of the previously seen left-sided subdural hematoma Stable bilateral watershed infarcts, right larger than left. Stable old right cerebellar infarct Medical - H&P: A/P (1) Sepsis Current visit: Yes Status: Acute (2) Urinary tract infection Current visit: Yes Status: Acute (3) Encephalopathy acute Current visit: Yes Status: Acute (4) Hypertension Current visit: Yes Status: Chronic (5) Atrial fibrillation Current visit: Yes Status: Chronic (6) CVA (cerebral infarction) Current visit: No Status: Chronic (7) Obesity Current visit: Yes Status: Chronic - Narrative A/P Narrative: 64-year-old female presenting with encephalopathy, sepsis from urinary source. Sepsis. Severe sepsis with lactate of 3.8. No hemodynamic instability. Source appears urinary, with significant bacteriuria and pyuria. Does have back pain, however that has been ongoing since a fall onto her buttocks and is apparently unchanged. No definitive localization of infection at this point (cystitis versus pyelonephritis). Plan: Inpatient admission to PCU Continue with antibiotics Follow-up cultures Trend lactate Fluid resuscitation Urinary tract infection. As above, acute cystitis versus possible pyelonephritis. Suspected source of infection. Plan: Antibiotics, follow-up cultures as above Encephalopathy. Patient has had recent subdural hematoma in mid July. That does appear resolved on current CT imaging. She also has a history of prior watershed infarcts, with no new findings noted on current CT. Suspect her change in mental status and encephalopathy is secondary to sepsis and not new cerebral ischemia. Plan: Supportive care, treat sepsis, follow mental status Hypertension. No evidence of hypotension associated with sepsis. Plan: Hold antihypertensives in the setting of sepsis. Cerebral vascular disease. As noted above, stable findings on CT. With watershed infarcts, suspect these may have been cardioembolic. She is currently off anticoagulation due to subdural hematoma. Plan: Continue other medical management. CODE STATUS: Patient's caregiver notes that she does have a living well, currently does not have a copy. Is unaware of any other stated wishes. This CODE STATUS for now is full code. Prophylaxis: PPI, low molecular weight heparin.
[2019-09-08 13:55] LABS: Estimated Average Glucose(eAG) 105 mg/dL; Hemoglobin A1C 5.3 % HGB (4.0-6.0)
[2019-09-08] MEDS: 0.9 % SODIUM CHLORIDE 1,000 ML IV SCH ×2 (15:00→23:04)
[2019-09-08] MEDS: 0.9 % SODIUM CHLORIDE 10 ML SYRINGE IV SCH ×2 (16:35→21:21)
[2019-09-08] MEDS: ATORVASTATIN 40 MG TABLET PO SCH (21:19)
[2019-09-08] MEDS: BENZTROPINE 1 MG TABLET PO SCH (21:19)
[2019-09-08] MEDS: DOCUSATE SODIUM 100 MG CAPSULE PO SCH (21:20)
[2019-09-08] MEDS: MUPIROCIN OINT 2% 22GM TOPICAL SCH (21:20)
[2019-09-08] MEDS: FLUTICASONE/SALMETEROL 50/100 INHALER #14 INH SCH (21:21)
[2019-09-08] MEDS: medroxyPROGESTERone 10 MG TABLET PO SCH (21:45)
[2019-09-08] MEDS: ACETAMINOPHEN 650 MG/65 ML BOTTLE IV PRN (21:46)
[2019-09-08] MEDS: HYDROcodone/APAP 5/325MG TABLET PO PRN (22:57)
[2019-09-09] MEDS: METOPROLOL TARTRATE 5 MG/5 ML VIAL IV SCH (02:15)
[2019-09-09 05:27] LABS: Basophils # (Auto) 0 K/mcL (0.0-0.3); Basophils % (Auto) 0.2 % (0.0-2.0); Eosinophils # (Auto) 0.2 K/mcL (0.0-0.7); Eosinophils % (Auto) 0.9 % (0.0-7.0); Granulocytes % (Auto) 88.2 % (38.0-78.0); Hematocrit 41.1 % (36.0-48.0); Hemoglobin 13.4 g/dL (12.0-15.0); Lymphocytes # (Auto) 0.8 K/mcL (1.5-4.8); Lymphocytes % (Auto) 4.4 % (15.5-49.0); Mean Cell Volume 93.7 fL (80.0-100.0); Mean Corpuscular HGB Conc 32.5 g/dL (31.0-36.0); Mean Platelet Volume 9.6 fL (7.4-10.4); Monocytes # (Auto) 1.1 K/mcL (0.1-0.9); Monocytes % (Auto) 6.3 % (1.0-12.0); Platelet Count 289 K/mcL (140-440); RBC 4.39 M/mcL (4.00-5.20); Red Cell Distribution Width 13.8 % (11.5-14.5); WBC 17.8 K/mcL (4.5-11.0)
[2019-09-09 06:02] LABS: ALT/SGPT 48 U/l (0-40); AST/SGOT 85 U/l (0-37); Albumin 2.6 gm/dL (3.2-5.2); Albumin/Globulin Ratio 0.8 (1.0-2.3); Alkaline Phosphatase 132 U/L (39-117); Bilirubin,Direct 0.3 mg/dL (0.0-0.3); Bilirubin,Total 0.8 mg/dL (0.0-1.0); Blood Urea Nitrogen 31 mg/dl (8-23); Calcium 8.5 mg/dl (8.6-10.4); Carbon Dioxide 15 mmol/L (22-30); Chloride 110 mmol/L (96-108); Globulin 3.3 gm/dL (2.2-3.7); Glomerular Filtration Rate 48; Glucose 88 mg/dL (70-105); Lactate Dehydrogenase 659 U/L (94-250); Phosphorous 3.6 mg/dL (2.7-4.5); Triglycerides 266 mg/dl (<150); Uric Acid 10.6 mg/dL (2.5-8.0)
[2019-09-09] MEDS: 0.9 % SODIUM CHLORIDE 1,000 ML IV SCH ×5 (07:01→17:50)
[2019-09-09] MEDS: 0.9 % SODIUM CHLORIDE 10 ML SYRINGE IV SCH ×3 (07:02→20:44)
[2019-09-09] MEDS: PANTOPRAZOLE 40 MG TABLET PO SCH (07:19)
[2019-09-09] MEDS: MULTIVIT,THER IRON,CA,FA & MIN 1 TABLET PO SCH (08:20)
[2019-09-09] MEDS: ENOXAPARIN 40 MG/0.4 ML SYRINGE SQ SCH (08:20)
[2019-09-09] MEDS: VENLAFAXINE 150 MG CAP.XL.24H PO SCH (08:20)
[2019-09-09] MEDS: BENZTROPINE 1 MG TABLET PO SCH ×2 (08:20→20:12)
[2019-09-09] MEDS: cefTRIAXone 2 GM in DEXTROSE 5% IN WATER 50 ML IV SCH (08:20)
[2019-09-09] MEDS: medroxyPROGESTERone 10 MG TABLET PO SCH ×2 (08:20→20:12)
[2019-09-09] MEDS: lamoTRIgine 100 MG TABLET PO SCH (08:20)
[2019-09-09] MEDS: DOCUSATE SODIUM 100 MG CAPSULE PO SCH ×2 (08:21→20:44)
[2019-09-09] MEDS: FLUTICASONE/SALMETEROL 50/100 INHALER #14 INH SCH ×2 (08:21→20:44)
[2019-09-09] MEDS: MUPIROCIN OINT 2% 22GM TOPICAL SCH ×2 (08:21→20:12)
[2019-09-09] MEDS: LEVOTHYROXINE 50 MCG TABLET PO SCH (12:26)
[2019-09-09] MEDS: LEVOTHYROXINE 150 MCG TABLET PO SCH (12:26)
[2019-09-09] MEDS: ACETAMINOPHEN 650 MG/65 ML BOTTLE IV PRN (16:10)
--- NOTE | 2019-09-09 16:18 | Internal Med Progress Note ---
Medical - PN: Subj Patient information: Note initiated : 09/09/19 at 4:14 pm Service Date, if different from initiated Date: [] Patient: Christine Cespedes a 64 y/o F admitted on 09/08/19 for Back pain. Chief Complaint: f/u sepsis Interval history: 09/08 Ms. Cespedes is a 64 year old F with a history of atrial fibrillation, recent subdural hematoma, history of ischemic strokes, hypertension, sleep apnea not on CPAP, prediabetes, morbid obesity with mobility impairment who presents to the emergency department with lethargy. History is obtained speaking to her caregiver. She has a caregiver in the home during the days, but not at night. The caregiver notes yesterday she was not quite herself, displaying some mild confusion. Her appetite was decreased. Caregiver made her a sandwich for dinner prior to her leaving yesterday, was still on eaten this morning when their caregiver arrived. Patient was in bed, was too weak to get out of bed, was confused and could not respond appropriately. In the ED, there is a history of low-grade fever as well. Because of lethargy, fever and weakness EMS was activated and she is brought to the ED. In the emergency department she has evidence of sepsis with now white count of 22,000, lactate of 3.8, increased anion gap and significantly abnormal urine analysis with pyuria and bacteriuria. She is being admitted for treatment of sepsis from urinary source. 09/09 Intermittently more responsive, was sitting up on edge of bed with physical therapy and did participate in self-care this morning. Is required fluids for declining blood pressures today with response. - Constitutional Vitals: Vital Signs Temp Pulse Resp BP Pulse Ox 99.1 F H 138 H 27 H 75/55 96 09/08/19 23:30 09/09/19 11:12 09/09/19 13:04 09/09/19 13:01 09/09/19 11:13 Period Temp Pulse Resp BP Sys/[place]ler Pulse Ox Last 24 Hr 98.1 F-99.1 F 103-140 15-38 75-255/42-221 90-99 Intake and Output 09/09/19 09/09/19 09/09/19 05:59 13:59 21:59 Intake Total 1041 2360 1000 Output Total 125 100 Balance 916 2260 1000 Intake & Output: Intake & Output 09/09/19 09/09/19 09/09/19 05:59 13:59 21:59 Intake Total 1041 2360 1000 Output Total 125 100 Balance 916 2260 1000 Intake: IV 1041 1640 1000 Sodium Chloride 0.9% 1,000 ml @ 1000 1590 1000 500 mls/hr IV .Q2H [facility] Rx#: [id number] Rocephin 2 gm In Dextrose 5% in 50 Water 50 ml @ 100 mls/hr IV Q24H [facility] Rx#:[id number] Oral 720 Output: Urine Catheter Amount 125 100 Other: Meal Lunch Percent of Meal Consumed 25% Urine Appearance Cloudy Cloudy Fem Cath Cloudy Cloudy Cloudy Urine Color Dark Yellow Bright Yellow Fem Cath Dark Yellow Bright Yellow Dark Yellow Urine Odor Strong Strong Fem Cath Strong Exam: General: Chronically ill-appearing, in bed, rouses and tracks Chest: Shallow respirations, no rales noted Cardiovascular: Irregularly irregular, no peripheral edema Abdomen: Soft, no apparent tenderness Neuro: Pupils 6 mm and equal, arouses to name, was able to sit side of bed with assistance earlier. Medical - PN: Obj Da - Labs CBC & Chem 7: 09/09/19 04:05 09/09/19 04:05 Labs: Abnormal Lab Results 09/09/19 09/09/19 09/08/19 04:05 04:05 11:10 WBC 17.8 H RBC Hgb Hct Gran % 88.2 H Lymph % (Auto) 4.4 L Gran # 15.7 H Lymph # (Auto) 0.8 L [place] # (Auto) 1.1 H PT INR VBG Lactic Acid Chloride 110 H Carbon Dioxide 15 L Anion Gap BUN 31 H Creatinine 1.2 H Glucose Uric Acid 10.6 H Calcium 8.5 L Total Bilirubin GGT 54 H AST 85 H ALT 48 H Alkaline Phosphatase 132 H Lactate Dehydrogenase 659 H NT-Pro-B Natriuret Pep Albumin 2.6 L Globulin Albumin/Globulin Ratio 0.8 L Triglycerides 266 H Urine Protein 100 A Urine Ketones 5/tr A Urine Occult Blood 0.2 A Urine Urobilinogen 2.0 A Ur Leukocyte Esterase 500 A Urine RBC 40 H Urine WBC > 182 H Urine Bacteria Many A Hyaline Casts 15 H 09/08/19 09/08/19 09/08/19 10:33 10:33 10:33 WBC RBC Hgb Hct Gran % Lymph % (Auto) Gran # Lymph # (Auto) [place] # (Auto) PT 16.7 H INR 1.4 H VBG Lactic Acid 3.8 H Chloride Carbon Dioxide 14 L Anion Gap 27.0 H BUN 40 H Creatinine 2.1 H Glucose 108 H Uric Acid Calcium Total Bilirubin 1.1 H GGT AST 88 H ALT 54 H Alkaline Phosphatase 171 H Lactate Dehydrogenase NT-Pro-B Natriuret Pep 8175.0 H Albumin Globulin 3.8 H Albumin/Globulin Ratio Triglycerides Urine Protein Urine Ketones Urine Occult Blood Urine Urobilinogen Ur Leukocyte Esterase Urine RBC Urine WBC Urine Bacteria Hyaline Casts 09/08/19 10:33 WBC 22.8 H RBC 5.43 H Hgb 16.6 H Hct 50.2 H Gran % 90.8 H Lymph % (Auto) 2.6 L Gran # 20.7 H Lymph # (Auto) 0.6 L [place] # (Auto) 1.5 H PT INR VBG Lactic Acid Chloride Carbon Dioxide Anion Gap BUN Creatinine Glucose Uric Acid Calcium Total Bilirubin GGT AST ALT Alkaline Phosphatase Lactate Dehydrogenase NT-Pro-B Natriuret Pep Albumin Globulin Albumin/Globulin Ratio Triglycerides Urine Protein Urine Ketones Urine Occult Blood Urine Urobilinogen Ur Leukocyte Esterase Urine RBC Urine WBC Urine Bacteria Hyaline Casts Microbiology 09/08/19 11:10 Urine Culture - Preliminary Urine - Catheterized Escherichia coli 09/08/19 15:00 MRSA (PCR) - Final Nose MRSA PCR positive Meds: Medications Acetaminophen (Tylenol) 650 mg PO Q6HP PRN; Protocol PRN Reason: Per Pain Protocol/Fever > 101 Hydrocodone Bitart/Acetaminophen ([place] 5/325mg) 1 tab PO Q4HP PRN; Protocol PRN Reason: Per Pain Protocol Last Admin: 09/08/19 22:57 Dose: 1 tab Documented by: Albuterol/Ipratropium (Duoneb) 3 ml NEB Q6H PRN PRN Reason: shortness of breath Atorvastatin Calcium (Lipitor) 40 mg PO QHS [facility] Last Admin: 09/08/19 21:19 Dose: 40 mg Documented by: Benztropine Mesylate (Cogentin) 2 mg PO BID [facility] Last Admin: 09/09/19 08:20 Dose: 2 mg Documented by: Docusate Sodium (Colace) 100 mg PO BID [facility] Last Admin: 09/09/19 08:21 Dose: Not Given Documented by: Enoxaparin Sodium (Lovenox) 40 mg SQ DAILY [facility] Last Admin: 09/09/19 08:20 Dose: 40 mg Documented by: Sodium Chloride (Sodium Chloride 0.9%) 1,000 mls @ 125 mls/hr IV .Q8H [facility] Last Infusion: 09/09/19 16:01 Dose: 125 mls/hr Documented by: Ceftriaxone Sodium 2 gm/ (Dextrose) 50 mls @ 100 mls/hr IV Q24H [facility]; Protocol Last Infusion: 09/09/19 10:01 Dose: Infused Documented by: Acetaminophen (Ofirmev) 650 mg in 65 mls @ 130 mls/hr IV Q6HP PRN; Protocol PRN Reason: PAIN/FEVER > 101 Last Admin: 09/09/19 16:10 Dose: 130 mls/hr Documented by: Sodium Chloride (Sodium Chloride 0.9%) 1,000 mls @ 500 mls/hr IV .Q2H [facility] Last Infusion: 09/09/19 16:01 Dose: Infused Documented by: Iron Carb/Multivit/Fixing Machine Operator/Folic Acid (Multivitamin W/Minerals) 1 tab PO DAILY [facility] Last Admin: 09/09/19 08:20 Dose: 1 tab Documented by: Lactulose (Cephulac) 10 gm PO DAILYP PRN PRN Reason: Constipation Lamotrigine (Lamictal) 100 mg PO QDAY [facility] Last Admin: 09/09/19 08:20 Dose: 100 mg Documented by: Levothyroxine Sodium (Synthroid) 300 mcg PO QAMAC [facility] Last Admin: 09/09/19 12:26 Dose: 300 mcg Documented by: Levothyroxine Sodium (Synthroid) 50 mcg PO QAMAC [facility] Last Admin: 09/09/19 12:26 Dose: 50 mcg Documented by: Medroxyprogesterone Acetate (Provera) 10 mg PO BID [facility] Last Admin: 09/09/19 08:20 Dose: 10 mg Documented by: Metoprolol Tartrate (Lopressor) 5 mg IV Q6HP PRN PRN Reason: Tachyarrhythmias Mupirocin (Bactroban Oint 2%) 1 dose TOPICAL BID [facility] Last Admin: 09/09/19 08:21 Dose: 1 dose Documented by: Naloxone HCl (Narcan) 0.1 mg IV Q2MIN PRN PRN Reason: Opiate Reversal Ondansetron HCl (Zofran) 4 mg IV Q4HP PRN; Protocol PRN Reason: Nausea And Vomiting Pantoprazole Sodium (Protonix) 40 mg PO QAMAC [facility] Last Admin: 09/09/19 07:19 Dose: 40 mg Documented by: Fluticasone/Salmeterol (Advair 100-50 Diskus) 1 puff INH BID [facility] Last Admin: 09/09/19 08:21 Dose: Not Given Documented by: Senna (Senokot) 2 tab PO HSP PRN PRN Reason: Constipation Sodium Chloride (Saline Flush) 10 ml IV Q8 [facility] Last Admin: 09/09/19 14:50 Dose: Not Given Documented by: Venlafaxine HCl (Effexor Xr) 150 mg PO QDAY [facility] Last Admin: 09/09/19 08:20 Dose: 150 mg Documented by: Medical - PN: A/P - Time Spent With Patient Total time spent is greater than 50% in coordination of care (as documented) at patient's floor/unit and/or counseling patient: Greater than 35 minutes (1) Sepsis Status: Acute Current Visit: Yes (2) Urinary tract infection Status: Acute Current Visit: Yes (3) Encephalopathy acute Status: Acute Current Visit: Yes (4) Hypertension Status: Chronic Current Visit: Yes (5) Atrial fibrillation Status: Chronic Current Visit: Yes (6) CVA (cerebral infarction) Status: Chronic Current Visit: No (7) Obesity Status: Chronic Current Visit: Yes - Narrative A/P Narrative: 64-year-old female presenting with encephalopathy, sepsis from urinary source. Sepsis. Severe sepsis with lactate of 3.8 at presentation, normalized with fluids. Soft blood pressures on 09/09, responded to fluids. Growing pathologic quantities of E. coli from urine, this appears to be the source of sepsis. Does have back pain, however that has been ongoing since a fall onto her butt ocks and is apparently unchanged. No definitive localization of infection at this point (cystitis versus pyelonephritis). Plan: Continue ceftriaxone Follow-up cultures and sensitivities Fluid resuscitation as needed Urinary tract infection. As above, acute cystitis versus possible pyelonephrit is. Suspected source of infection. Plan: Continue ceftriaxone, follow-up cultures as above Acute kidney injury. Creatinine was 2.1 on presentation, is improved 1.2 with fluids. Suspect secondary to sepsis and prerenal etiology. Plan: Monitor creatinine, renal dose medications as needed. Encephalopathy. Slowly improving. Patient has had recent subdural hematoma in mid July. That does appear resolved on current CT imaging. She also has a history of prior watershed infarcts, with no new findings noted on current CT. Suspect her change in mental status and encephalopathy is secondary to sepsis and not new cerebral ischemia. Plan: Supportive care, treat sepsis, follow mental status Hypertension. No evidence of hypotension associated with sepsis. Plan: Hold antihypertensives in the setting of sepsis. Cerebral vascular disease. As noted above, stable findings on CT. With wate rshed infarcts, suspect these may have been cardioembolic. She is currently off anticoagulation due to subdural hematoma. Plan: Continue other medical management. CODE STATUS: Patient's caregiver notes that she does have a living well, currently does not have a copy. Is unaware of any other stated wishes. This CODE STATUS for now is full code. Have not been able to reach any decision making surrogates on 09/09. Prophylaxis: PPI, low molecular weight heparin. Medical - PN: Qual - VTE Deep Vein Thrombosis/Pulmonary Embolism Present on Admission: No
[2019-09-09] MEDS: ATORVASTATIN 40 MG TABLET PO SCH (20:12)
[2019-09-10] MEDS: ACETAMINOPHEN 650 MG/65 ML BOTTLE IV PRN ×2 (00:48→16:26)
[2019-09-10] MEDS: 0.9 % SODIUM CHLORIDE 1,000 ML IV SCH ×2 (00:53→05:56)
[2019-09-10] MEDS: IPRATROPIUM/ALBUTEROL 3 ML AMPUL.NEB NEB PRN (02:53)
[2019-09-10 05:19] LABS: Basophils # (Auto) 0 K/mcL (0.0-0.3); Basophils % (Auto) 0 % (0.0-2.0); Eosinophils # (Auto) 0.1 K/mcL (0.0-0.7); Eosinophils % (Auto) 0.6 % (0.0-7.0); Granulocytes % (Auto) 86.5 % (38.0-78.0); Hematocrit 39.3 % (36.0-48.0); Lymphocytes # (Auto) 0.8 K/mcL (1.5-4.8); Lymphocytes % (Auto) 7.8 % (15.5-49.0); Mean Cell Volume 93.4 fL (80.0-100.0); Monocytes # (Auto) 0.6 K/mcL (0.1-0.9); Monocytes % (Auto) 5.1 % (1.0-12.0); Platelet Count 206 K/mcL (140-440); RBC 4.21 M/mcL (4.00-5.20); Red Cell Distribution Width 13.8 % (11.5-14.5); WBC 10.8 K/mcL (4.5-11.0)
[2019-09-10 05:39] LABS: ALT/SGPT 43 U/l (0-40); AST/SGOT 62 U/l (0-37); Albumin 2.3 gm/dL (3.2-5.2); Albumin/Globulin Ratio 0.8 (1.0-2.3); Alkaline Phosphatase 117 U/L (39-117); Bilirubin,Total 0.7 mg/dL (0.0-1.0); Blood Urea Nitrogen 19 mg/dl (8-23); Calcium 8.1 mg/dl (8.6-10.4); Carbon Dioxide 16 mmol/L (22-30); Chloride 116 mmol/L (96-108); Glomerular Filtration Rate 78; Glucose 85 mg/dL (70-105)
[2019-09-10] MEDS: 0.9 % SODIUM CHLORIDE 10 ML SYRINGE IV SCH ×3 (05:56→22:01)
[2019-09-10] MEDS: LEVOTHYROXINE 150 MCG TABLET PO SCH (08:17)
[2019-09-10] MEDS: PANTOPRAZOLE 40 MG TABLET PO SCH (08:17)
[2019-09-10] MEDS: 0.45 % SODIUM CHLORIDE 1,000 ML IV SCH ×2 (08:17→18:24)
[2019-09-10] MEDS: LEVOTHYROXINE 50 MCG TABLET PO SCH (08:17)
[2019-09-10] MEDS: FLUTICASONE/SALMETEROL 50/100 INHALER #14 INH SCH ×2 (09:45→21:56)
[2019-09-10] MEDS: HYDROcodone/APAP 5/325MG TABLET PO PRN (10:00)
[2019-09-10] MEDS: MUPIROCIN OINT 2% 22GM TOPICAL SCH ×2 (10:03→22:01)
[2019-09-10] MEDS: DOCUSATE SODIUM 100 MG CAPSULE PO SCH ×2 (10:04→22:01)
[2019-09-10] MEDS: lamoTRIgine 100 MG TABLET PO SCH (10:04)
[2019-09-10] MEDS: MULTIVIT,THER IRON,CA,FA & MIN 1 TABLET PO SCH (10:04)
[2019-09-10] MEDS: BENZTROPINE 1 MG TABLET PO SCH ×2 (10:04→22:01)
[2019-09-10] MEDS: ENOXAPARIN 40 MG/0.4 ML SYRINGE SQ SCH (10:04)
[2019-09-10] MEDS: medroxyPROGESTERone 10 MG TABLET PO SCH ×2 (10:04→22:01)
[2019-09-10] MEDS: VENLAFAXINE 150 MG CAP.XL.24H PO SCH (10:04)
[2019-09-10] MEDS: cefTRIAXone 2 GM in DEXTROSE 5% IN WATER 50 ML IV SCH (10:04)
[2019-09-10] MEDS: COLLAGENASE TOP OINT TUBE 30GM TOPICAL SCH (10:25)
--- NOTE | 2019-09-10 15:47 | General Surgery Consult Note ---
History of Present Illness Patient information: Note initiated : 09/10/19 at 3:17 pm Service Date, if different from initiated Date: [] Patient: Christine Cespedes 64 y/o F admitted on 09/08/19 for Back pain. Chief Complaint: [] Consult date: 09/10/19 Requesting physician: Alejandra Li (Wound Care. Sacral PU) History of present illness: I saw this patient with María [facility] [employer] and with Vivian RN In Patient Wound Care Nurse. I discussed this patient's condition and wound care plan of treatment with Dr. Li, Hospitalist Physician. 64/F Admitted via ER with SEPSIS, atrial fibrillation and h/o falls at home. Noted to have resolving ecchymoses of posterior chest wall and an DTI, dry PU over sacrococcygeal region and a grade 2 skin tear of Right posterior buttock. Other comorbid medical conditions are h/o CV, Subdural hematoma, HANNAH on CPAP, diabetes and morbid obesity with limited or no mobility. 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] medroxyprogesterone 10 mg tablet 10 mg PO BID tab 09/08/18 09/08/19 History ipratropium 20 mcg-albuterol 100 2 puff INHALATION Q4-6HP PRN #4 g 09/18/18 09/07/19 Rx mcg/actuation mist for inhalation ipratropium-albuterol 0.5 mg-3 3 ml INHALATION Q6H PRN #360 ml 12/19/18 09/07/19 Rx mg(2.5 mg base)/3 mL nebulization soln cholecalciferol (vitamin D3) 125 5,000 unit PO QDAY 03/27/19 09/07/19 History mcg (5,000 unit) capsule glucosamine 750 yb-yvvsji-lcx 2-C 1 tab PO DAILY tab 03/27/19 09/07/19 History 30 mg-D3 1,000 unit-omar 1 mg tablet loratadine 10 mg tablet 10 mg PO QDAY PRN 03/27/19 09/07/19 History vitamins A,C,F-hyvo-cwwrok 14,320 1 cap PO BID 03/27/19 09/07/19 History unit-226 mg-200 unit capsule levothyroxine 50 mcg capsule 50 mcg PO QDAY #90 cap 04/09/19 09/08/19 Rx fluticasone propionate 50 1 spray INTRANASAL QDAY #16 g 05/01/19 09/07/19 Rx mcg/actuation nasal spray,suspension levothyroxine 300 mcg tablet 300 mcg PO QDAY #90 tab 05/07/19 09/08/19 Rx multivitamin 1 tab PO QDAY 05/31/19 09/07/19 History potassium 99 mg tablet 99 mg PO QDAY 05/31/19 09/07/19 History omeprazole 20 mg capsule,delayed 20 mg PO QDAY #90 cap 07/02/19 09/08/19 Rx release potassium chloride 10 mEq 10 meq PO BID 30 Days #60 cap 07/02/19 09/08/19 Rx capsule,extended release venlafaxine 150 mg 150 mg PO QDAY #90 cap 07/05/19 09/08/19 Rx capsule,extended release 24 hr atorvastatin 40 mg tablet 40 mg PO QHS #30 tab 07/09/19 09/08/19 Rx lamotrigine 100 mg tablet 100 mg PO QDAY #30 tab 07/17/19 09/08/19 Rx LIFT CHAIR 1 each DAILY 07/29/19 09/07/19 History Nebulizer 1 each .ROUTE DAILY 07/29/19 09/07/19 History hydrochlorothiazide 25 mg tablet 25 mg PO QAM #90 tab 08/20/19 09/08/19 Rx atenolol 50 mg tablet 50 mg PO QDAY 08/30/19 09/08/19 History fluticasone 100 mcg-salmeterol 50 1 puff INHALATION BID 08/30/19 09/07/19 History mcg/dose blistr powdr for inhalation nebulizer accessories See Rx Instructions .ROUTE 08/30/19 09/07/19 Rx .MEDSUPPLY #1 each warfarin 5 mg tablet See Rx Instructions .ROUTE 08/30/19 09/08/19 History .COMPLEX tab Bariatric Commode #1 each 09/07/19 09/07/19 Rx hospital bed #1 ea 09/07/19 09/07/19 Rx wide shower chair #1 ea 09/07/19 09/07/19 Rx Benztropine [Cogentin] 2 mg PO BID 09/08/19 09/08/19 History Venlafaxine HCl [Venlafaxine HCl 37.5 mg PO DAILY 09/08/19 09/08/19 History ER] Allergies Allergy/AdvReac Type Severity Reaction Status Date / Time adhesive tape AdvReac Mild Rash Verified 09/07/19 10:40 clindamycin AdvReac Mild Itching Verified 09/10/19 08:03 codeine AdvReac Mild forms sore Verified 09/07/19 10:40 red dye AdvReac Mild Rash Verified 09/07/19 10:40 Sulfa (Sulfonamide AdvReac Mild Rash Verified 09/07/19 10:40 Antibiotics) Exam Temp Pulse Resp BP Pulse Ox 99.6 F H 120 H 26 H 108/76 97 09/10/19 03:53 09/10/19 12:00 09/10/19 12:00 09/10/19 12:00 09/10/19 12:00 - General physical appearance well developed, well nourished, no distress, obese - Eyes PERRL, normal ocular movement - ENT normal pinna, normal nares, normal mucosa, no congestion - Head Head exam IM: Present: atraumatic, normocephalic - Neck no masses, trachea midline, no venous distension - Cardiovascular Cardiovascular exam IM: Present: irregular rhythm - Respiratory normal respiratory effort (Diminished air entry at bases) - Abdomen Abdomen: Present: soft, non tender, bowel sounds - Genitourinary Present: other (UTI , Turbid urine . ) - Rectum Rectum: Present: other (NO evidence of fecal soilage on bed. Rectal examination NOT done. ) - Integumentary Present: other (Scattered ecchymoses Right posterior chest wall. NO crepitus and skin breaks. . She has a focal area of dry / dark disocoratin over sacral / coccygeal region. NO evidence of fecal or urinary draiange from this site. There is a grade 2 skin tear from Grade 2 skin ulcer / tear of right buttock.) - Neurologic Present: other (Moves all extremities. NO asymmetry noted.) - Musculoskeletal Present: other (Bed confined. ) - Psychiatric Present: other (Unable to assess. ) Results - Labs 09/11/19 03:51 09/11/19 03:51 Abnormal lab results 09/10/19 09/10/19 Range/Units 03:50 03:50 Gran % 86.5 H (38.0-78.0) % Lymph % (Auto) 7.8 L (15.5-49.0) % Gran # 9.3 H (1.8-8.0) K/mcL Lymph # (Auto) 0.8 L (1.5-4.8) K/mcL Sodium 146 H (133-145) mmol/L Chloride 116 H (96-108) mmol/L Carbon Dioxide 16 L (22-30) mmol/L Calcium 8.1 L (8.6-10.4) mg/dl AST 62 H (0-37) U/l ALT 43 H (0-40) U/l Total Protein 5.3 L (5.9-8.4) gm/dL Albumin 2.3 L (3.2-5.2) gm/dL Albumin/Globulin Ratio 0.8 L (1.0-2.3) Diabetes panel 09/10/19 Range/Units 03:50 Sodium 146 H (133-145) mmol/L Potassium 3.3 (3.3-5.1) mmol/L Chloride 116 H (96-108) mmol/L Carbon Dioxide 16 L (22-30) mmol/L BUN 19 (8-23) mg/dl Creatinine 0.8 (0.6-1.1) mg/dl Glucose 85 (70-105) mg/dL Calcium 8.1 L (8.6-10.4) mg/dl AST 62 H (0-37) U/l ALT 43 H (0-40) U/l Alkaline Phosphatase 117 (39-117) U/L Total Protein 5.3 L (5.9-8.4) gm/dL Albumin 2.3 L (3.2-5.2) gm/dL Calcium panel 09/10/19 Range/Units 03:50 Calcium 8.1 L (8.6-10.4) mg/dl Albumin 2.3 L (3.2-5.2) gm/dL Pituitary panel 09/10/19 Range/Units 03:50 Sodium 146 H (133-145) mmol/L Potassium 3.3 (3.3-5.1) mmol/L Chloride 116 H (96-108) mmol/L Carbon Dioxide 16 L (22-30) mmol/L BUN 19 (8-23) mg/dl Creatinine 0.8 (0.6-1.1) mg/dl Glucose 85 (70-105) mg/dL Calcium 8.1 L (8.6-10.4) mg/dl Adrenal panel 09/10/19 Range/Units 03:50 Sodium 146 H (133-145) mmol/L Potassium 3.3 (3.3-5.1) mmol/L Chloride 116 H (96-108) mmol/L Carbon Dioxide 16 L (22-30) mmol/L BUN 19 (8-23) mg/dl Creatinine 0.8 (0.6-1.1) mg/dl Glucose 85 (70-105) mg/dL Calcium 8.1 L (8.6-10.4) mg/dl Total Bilirubin 0.7 (0.0-1.0) mg/dL AST 62 H (0-37) U/l ALT 43 H (0-40) U/l Alkaline Phosphatase 117 (39-117) U/L Total Protein 5.3 L (5.9-8.4) gm/dL Albumin 2.3 L (3.2-5.2) gm/dL All other labs normal. Assessment and Plan (1) Skin abnormalities Status: Acute Priority: Medium Comment: Local wound care as discussed with nursing staff and orders entered. (2) Pressure ulcer of sacral region, unstageable Status: Chronic Priority: Medium Comment: Local wound care as discussed with nursing staff.
--- NOTE | 2019-09-10 21:25 | Internal Med Progress Note ---
Medical - PN: Subj Patient information: Note initiated : 09/10/19 at 9:25 pm Service Date, if different from initiated Date: [] Patient: Christine Cespedes a 64 y/o F admitted on 09/08/19 for Back pain. Chief Complaint: Follow-up UTI, sepsis Interval history: 09/08 Ms. Cespedes is a 64 year old F with a history of atrial fibrillation, recent subdural hematoma, history of ischemic strokes, hypertension, sleep apnea not on CPAP, prediabetes, morbid obesity with mobility impairment who presents to the emergency department with lethargy. History is obtained speaking to her caregiver. She has a caregiver in the home during the days, but not at night. The caregiver notes yesterday she was not quite herself, displaying some mild confusion. Her appetite was decreased. Caregiver made her a sandwich for dinner prior to her leaving yesterday, was still on eaten this morning when their caregiver arrived. Patient was in bed, was too weak to get out of bed, was confused and could not respond appropriately. In the ED, there is a history of low-grade fever as well. Because of lethargy, fever and weakness EMS was a ctivated and she is brought to the ED. In the emergency department she has evidence of sepsis with now white count of 22,000, lactate of 3.8, increased anion gap and significantly abnormal urine analysis with pyuria and bacteriuria. She is being admitted for treatment of sepsis from urinary source. 09/09 Intermittently more responsive, was sitting up on edge of bed with physical therapy and did participate in self-care this morning. Is required fluids for declining blood pressures today with response. 09/10 Slowly continues to be more interactive. Urine culture with E. coli, only resistant to fluoroquinolones. Blood pressure stable. - Constitutional Vitals: Vital Signs Temp Pulse Resp BP Pulse Ox 98.2 F 110 H 32 H 104/63 100 09/10/19 20:00 09/10/19 20:00 09/10/19 20:00 09/10/19 20:00 09/10/19 20:00 Period Temp Pulse Resp BP Sys/Butler Pulse Ox Last 24 Hr 98.2 F-99.6 F 110-141 17-37 81-123/54-101 80-100 Intake and Output 09/10/19 09/10/19 09/10/19 05:59 13:59 21:59 Intake Total 1146 1988 1545 Output Total 200 400 100 Balance 946 1589 1445 Weight 230 lb 6.4 oz 234 lb 1.6 oz Patient Weight 09/11/19 05:59 Weight 234 lb 1.6 oz Intake & Output: Intake & Output 09/10/19 09/10/19 09/10/19 05:59 13:59 21:59 Intake Total 1146 1988 1545 Output Total 200 400 100 Balance 946 1589 1445 Weight 230 lb 6.4 oz 234 lb 1.6 oz Intake: Nourishment/Supplement quantity 480 480 (ml) IV 231 520 5449 Sodium Chloride 0.45% 1,000 ml 1000 @ 100 mls/hr IV .Q10H [facility] Rx#: [id number] Sodium Chloride 0.9% 1,000 ml @ 881 919 125 mls/hr IV .Q8H [facility] Rx#: [id number] Rocephin 2 gm In Dextrose 5% in 50 Water 50 ml @ 100 mls/hr IV Q24H [facility] Rx#:[id number] Oral 200 540 Output: Urine Catheter Amount 200 400 100 Other: Meal Lunch Dinner Percent of Meal Consumed 25% 50% Nourishment/Supplement name breeze breeze Urine Appearance Clear Cloudy Cloudy Fem Cath Clear Cloudy Cloudy Sediment Urine Color Bright Yellow Light Gerri Dark Yellow Fem Cath Bright Yellow Light Gerri Dark Yellow Exam: General: In bed, eyes closed, opens and tracks to voice, responds with 1-2 words. Eyes: Pupils 6 mm bilaterally Chest: Diminished at the right base of my exam, no wheezes Cardiovascular: Irregular Abdomen: Obese, soft, no apparent tenderness Neuro: Intermittently alert, generally weak throughout. Having difficulty holding herself up on the side of the bed due to truncal weakness. Medical - PN: Obj Da - Labs CBC & Chem 7: 09/10/19 03:50 09/10/19 03:50 Labs: Abnormal Lab Results 09/10/19 09/10/19 09/09/19 03:50 03:50 04:05 WBC RBC Hgb Hct Gran % 86.5 H Lymph % (Auto) 7.8 L Gran # 9.3 H Lymph # (Auto) 0.8 L [place] # (Auto) PT INR VBG Lactic Acid Sodium 146 H Chloride 116 H 110 H Carbon Dioxide 16 L 15 L Anion Gap BUN 31 H Creatinine 1.2 H Glucose Uric Acid 10.6 H Calcium 8.1 L 8.5 L Total Bilirubin GGT 54 H AST 62 H 85 H ALT 43 H 48 H Alkaline Phosphatase 132 H Lactate Dehydrogenase 659 H NT-Pro-B Natriuret Pep Total Protein 5.3 L Albumin 2.3 L 2.6 L Globulin Albumin/Globulin Ratio 0.8 L 0.8 L Triglycerides 266 H Urine Protein Urine Ketones Urine Occult Blood Urine Urobilinogen Ur Leukocyte Esterase Urine RBC Urine WBC Urine Bacteria Hyaline Casts 09/09/19 09/08/19 09/08/19 04:05 11:10 10:33 WBC 17.8 H RBC Hgb Hct Gran % 88.2 H Lymph % (Auto) 4.4 L Gran # 15.7 H Lymph # (Auto) 0.8 L [place] # (Auto) 1.1 H PT 16.7 H INR 1.4 H VBG Lactic Acid Sodium Chloride Carbon Dioxide Anion Gap BUN Creatinine Glucose Uric Acid Calcium Total Bilirubin GGT AST ALT Alkaline Phosphatase Lactate Dehydrogenase NT-Pro-B Natriuret Pep Total Protein Albumin Globulin Albumin/Globulin Ratio Triglycerides Urine Protein 100 A Urine Ketones 5/tr A Urine Occult Blood 0.2 A Urine Urobilinogen 2.0 A Ur Leukocyte Esterase 500 A Urine RBC 40 H Urine WBC > 182 H Urine Bacteria Many A Hyaline Casts 15 H 09/08/19 09/08/19 09/08/19 10:33 10:33 10:33 WBC 22.8 H RBC 5.43 H Hgb 16.6 H Hct 50.2 H Gran % 90.8 H Lymph % (Auto) 2.6 L Gran # 20.7 H Lymph # (Auto) 0.6 L [place] # (Auto) 1.5 H PT INR VBG Lactic Acid 3.8 H Sodium Chloride Carbon Dioxide 14 L Anion Gap 27.0 H BUN 40 H Creatinine 2.1 H Glucose 108 H Uric Acid Calcium Total Bilirubin 1.1 H GGT AST 88 H ALT 54 H Alkaline Phosphatase 171 H Lactate Dehydrogenase NT-Pro-B Natriuret Pep 8175.0 H Total Protein Albumin Globulin 3.8 H Albumin/Globulin Ratio Triglycerides Urine Protein Urine Ketones Urine Occult Blood Urine Urobilinogen Ur Leukocyte Esterase Urine RBC Urine WBC Urine Bacteria Hyaline Casts Meds: Medications Acetaminophen (Tylenol) 650 mg PO Q6HP PRN; Protocol PRN Reason: Per Pain Protocol/Fever > 101 Hydrocodone Bitart/Acetaminophen ([place] 5/325mg) 1 tab PO Q4HP PRN; Protocol PRN Reason: Per Pain Protocol Last Admin: 09/08/19 22:57 Dose: 1 tab Documented by: Albuterol/Ipratropium (Duoneb) 3 ml NEB Q6H PRN PRN Reason: shortness of breath Last Admin: 09/10/19 02:53 Dose: 3 ml Documented by: Atorvastatin Calcium (Lipitor) 40 mg PO QHS [facility] Last Admin: 09/09/19 20:12 Dose: 40 mg Documented by: Benztropine Mesylate (Cogentin) 2 mg PO BID [facility] Last Admin: 09/10/19 10:04 Dose: 2 mg Documented by: Collagenase (Santyl Top Oint) 1 dose TOPICAL DAILY [facility] Last Admin: 09/10/19 10:25 Dose: 1 dose Documented by: Docusate Sodium (Colace) 100 mg PO BID [facility] Last Admin: 09/10/19 10:04 Dose: 100 mg Documented by: Enoxaparin Sodium (Lovenox) 40 mg SQ DAILY [facility] Last Admin: 09/10/19 10:04 Dose: 40 mg Documented by: Ceftriaxone Sodium 2 gm/ (Dextrose) 50 mls @ 100 mls/hr IV Q24H [facility]; Protocol Last Infusion: 09/10/19 10:35 Dose: Infused Documented by: Acetaminophen (Ofirmev) 650 mg in 65 mls @ 130 mls/hr IV Q6HP PRN; Protocol PRN Reason: PAIN/FEVER > 101 Last Infusion: 09/10/19 17:00 Dose: Infused Documented by: Sodium Chloride (Sodium Chloride 0.45%) 1,000 mls @ 100 mls/hr IV .Q10H [facility] Last Admin: 09/10/19 18:24 Dose: 100 mls/hr Documented by: Iron Carb/Multivit/Wise/Folic Acid (Multivitamin W/Minerals) 1 tab PO DAILY [facility] Last Admin: 09/10/19 10:04 Dose: 1 tab Documented by: Lactulose (Cephulac) 10 gm PO DAILYP PRN PRN Reason: Constipation Lamotrigine (Lamictal) 100 mg PO QDAY [facility] Last Admin: 09/10/19 10:04 Dose: 100 mg Documented by: Levothyroxine Sodium (Synthroid) 300 mcg PO [facility] Last Admin: 09/10/19 08:17 Dose: 300 mcg Documented by: Levothyroxine Sodium (Synthroid) 50 mcg PO [facility] Last Admin: 09/10/19 08:17 Dose: 50 mcg Documented by: Medroxyprogesterone Acetate (Provera) 10 mg PO BID [facility] Last Admin: 09/10/19 10:04 Dose: 10 mg Documented by: Metoprolol Tartrate (Lopressor) 5 mg IV Q6HP PRN PRN Reason: Tachyarrhythmias Mupirocin (Bactroban Oint 2%) 1 dose TOPICAL BID [facility] Last Admin: 09/10/19 10:03 Dose: 1 dose Documented by: Naloxone HCl (Narcan) 0.1 mg IV Q2MIN PRN PRN Reason: Opiate Reversal Ondansetron HCl (Zofran) 4 mg IV Q4HP PRN; Protocol PRN Reason: Nausea And Vomiting Pantoprazole Sodium (Protonix) 40 mg PO [facility] Last Admin: 09/10/19 08:17 Dose: 40 mg Documented by: Fluticasone/Salmeterol (Advair 100-50 Diskus) 1 puff INH BID [facility] Last Admin: 09/10/19 09:45 Dose: Not Given Documented by: Maria Elena (Senokot) 2 tab PO HSP PRN PRN Reason: Constipation Sodium Chloride (Saline Flush) 10 ml IV Q8 [facility] Last Admin: 09/10/19 16:17 Dose: Not Given Documented by: Venlafaxine HCl (Effexor Xr) 150 mg PO QDAY [facility] Last Admin: 09/10/19 10:04 Dose: 150 mg Documented by: Medical - PN: A/P - Time Spent With Patient Total time spent is greater than 50% in coordination of care (as documented) at patient's floor/unit and/or counseling patient: Greater than 35 minutes (1) Sepsis Status: Acute Current Visit: Yes (2) Urinary tract infection Status: Acute Current Visit: Yes (3) Encephalopathy acute Status: Acute Current Visit: Yes (4) Hypertension Status: Chronic Current Visit: Yes (5) Atrial fibrillation Status: Chronic Current Visit: Yes (6) CVA (cerebral infarction) Status: Chronic Current Visit: No (7) Obesity Status: Chronic Current Visit: Yes - Narrative A/P Narrative: 64-year-old female presenting with encephalopathy, sepsis from urinary source. Sepsis. Resolving. Severe sepsis with lactate of 3.8 at presentation. Lactate normalized with fluids. Soft blood pressures on 09/09, responded to fluids. Growing pathologic quantities of E. coli from urine, this appears to be the source of sepsis. Does have back pain, however that has been ongoing since a fall onto her buttocks and is apparently unchanged. No definitive localization of infection at this point (cystitis versus pyelonephritis). Plan: Continue ceftriaxone Fluid resuscitation as needed Urinary tract infection. As above, acute cystitis versus possible pyelonephritis. Suspected source of infection. Plan: Continue ceftriaxone Acute kidney injury. Creatinine was 2.1 on presentation, is improved 1.2 with fluids. Suspect secondary to sepsis and prerenal etiology. Plan: Monitor creatinine, renal dose medications as needed. Encephalopathy. Slowly improving. Patient has had recent subdural hematoma in mid July. That does appear resolved on current CT imaging. She also has a history of prior watershed infarcts, with no new findings noted on current CT. Suspect her change in mental status and encephalopathy is secondary to sepsis and not new cerebral ischemia. Plan: Supportive care, treat sepsis, follow mental status Hypertension. No evidence of hypotension associated with sepsis. Plan: Hold antihypertensives in the setting of sepsis. Cerebral vascular disease. As noted above, stable findings on CT. With watershed infarcts, suspect these may have been cardioembolic. She is currently off anticoagulation due to subdural hematoma. Plan: Continue other medical management. CODE STATUS: Patient's caregiver notes that she does have a living well, currently does not have a copy. Is unaware of any other stated wishes. This CODE STATUS for now is full code. Have not been able to reach any decision making surrogates on 09/09. Prophylaxis: PPI, low molecular weight heparin. Medical - PN: Qual - VTE Deep Vein Thrombosis/Pulmonary Embolism Present on Admission: No
[2019-09-10] MEDS: ATORVASTATIN 40 MG TABLET PO SCH (22:01)
[2019-09-11] MEDS: HYDROcodone/APAP 5/325MG TABLET PO PRN ×4 (00:01→23:41)
[2019-09-11] MEDS: 0.45 % SODIUM CHLORIDE 1,000 ML IV SCH ×2 (04:20→17:08)
[2019-09-11 06:27] LABS: Basophils # (Auto) 0 K/mcL (0.0-0.3); Basophils % (Auto) 0.1 % (0.0-2.0); Eosinophils # (Auto) 0.2 K/mcL (0.0-0.7); Eosinophils % (Auto) 1.3 % (0.0-7.0); Granulocytes % (Auto) 88.2 % (38.0-78.0); Hematocrit 37.4 % (36.0-48.0); Hemoglobin 12.2 g/dL (12.0-15.0); Lymphocytes # (Auto) 0.7 K/mcL (1.5-4.8); Lymphocytes % (Auto) 5.2 % (15.5-49.0); Mean Cell Volume 93.2 fL (80.0-100.0); Mean Corpuscular HGB Conc 32.6 g/dL (31.0-36.0); Mean Platelet Volume 9.6 fL (7.4-10.4); Monocytes # (Auto) 0.7 K/mcL (0.1-0.9); Monocytes % (Auto) 5.2 % (1.0-12.0); Platelet Count 234 K/mcL (140-440); RBC 4.02 M/mcL (4.00-5.20); Red Cell Distribution Width 13.7 % (11.5-14.5); WBC 12.6 K/mcL (4.5-11.0)
[2019-09-11 06:52] LABS: Blood Urea Nitrogen 12 mg/dl (8-23); Calcium 7.8 mg/dl (8.6-10.4); Carbon Dioxide 16 mmol/L (22-30); Glomerular Filtration Rate 96; Glucose 89 mg/dL (70-105)
[2019-09-11 06:56] LABS: Chloride 110 mmol/L (96-108)
[2019-09-11] MEDS: PANTOPRAZOLE 40 MG TABLET PO SCH (07:50)
[2019-09-11] MEDS: LEVOTHYROXINE 150 MCG TABLET PO SCH (07:50)
[2019-09-11] MEDS: LEVOTHYROXINE 50 MCG TABLET PO SCH (07:50)
[2019-09-11] MEDS: 0.9 % SODIUM CHLORIDE 10 ML SYRINGE IV SCH ×3 (07:50→20:07)
[2019-09-11] MEDS ORDERED: POTASSIUM CHLORIDE 40 MEQ in DEXTROSE 5% IN WATER 500 ML IV ONE (08:23)
[2019-09-11] MEDS ORDERED: MAGNESIUM SULFATE 4 GM/100 ML BAG IV ONE (08:30)
[2019-09-11] MEDS: FLUTICASONE/SALMETEROL 50/100 INHALER #14 INH SCH ×2 (10:41→21:52)
[2019-09-11] MEDS: MUPIROCIN OINT 2% 22GM TOPICAL SCH ×2 (10:59→20:06)
[2019-09-11] MEDS: VENLAFAXINE 150 MG CAP.XL.24H PO SCH (10:59)
[2019-09-11] MEDS: lamoTRIgine 100 MG TABLET PO SCH (10:59)
[2019-09-11] MEDS: DOCUSATE SODIUM 100 MG CAPSULE PO SCH ×2 (10:59→20:06)
[2019-09-11] MEDS: BENZTROPINE 1 MG TABLET PO SCH ×2 (10:59→20:07)
[2019-09-11] MEDS: cefTRIAXone 2 GM in DEXTROSE 5% IN WATER 50 ML IV SCH (11:00)
[2019-09-11] MEDS: ENOXAPARIN 40 MG/0.4 ML SYRINGE SQ SCH (11:00)
[2019-09-11] MEDS: MULTIVIT,THER IRON,CA,FA & MIN 1 TABLET PO SCH (11:00)
[2019-09-11] MEDS: COLLAGENASE TOP OINT TUBE 30GM TOPICAL SCH (11:00)
[2019-09-11] MEDS: medroxyPROGESTERone 10 MG TABLET PO SCH ×2 (11:00→20:06)
--- NOTE | 2019-09-11 18:11 | Internal Med Progress Note ---
Medical - PN: Subj Patient information: Note initiated : 09/11/19 at 6:09 pm Service Date, if different from initiated Date: [] Patient: Christine Cespedes a 64 y/o F admitted on 09/08/19 for Back pain. Chief Complaint: f/u UTI, sepsis Interval history: 09/08 Ms. Cespedes is a 64 year old F with a history of atrial fibrillation, recent subdural hematoma, history of ischemic strokes, hypertension, sleep apnea not on CPAP, prediabetes, morbid obesity with mobility impairment who presents to the emergency department with lethargy. History is obtained speaking to her caregiver. She has a caregiver in the home during the days, but not at night. The caregiver notes yesterday she was not quite herself, displaying some mild confusion. Her appetite was decreased. Caregiver made her a sandwich for dinner prior to her leaving yesterday, was still on eaten this morning when their caregiver arrived. Patient was in bed, was too weak to get out of bed, was confused and could not respond appropriately. In the ED, there is a history of low-grade fever as well. Because of lethargy, fever and weakness EMS was activated and she is brought to the ED. In the emergency department she has evidence of sepsis with now white count of 22,000, lactate of 3.8, increased anion gap and significantly abnormal urine analysis with pyuria and bacteriuria. She is being admitted for treatment of sepsis from urinary source. 09/09 Intermittently more responsive, was sitting up on edge of bed with physical therapy and did participate in self-care this morning. Is required fluids for declining blood pressures today with response. 09/10 Slowly continues to be more interactive. Urine culture with E. coli, only resistant to fluoroquinolones. Blood pressure stable. 09/11 Much more alert and interactive today. Still quite weak and needing assistance to stay sitting up at bedside. Held conversation with her, she states her goal is to get better. I encouraged her to increase her oral intake and that it is important for her to eat to get better. Nursing spoke with her son, who is her eldest child. He is a long-haul instructor extension work and is out of state, but agreed that she will likely need skilled placement following this admission. In the late afternoon, she awoke panicked that she was trapped in a trailer and was diso riented. Had significant anxiety. - Constitutional Vitals: Vital Signs Temp Pulse Resp BP Pulse Ox 98.5 F 114 H 22 125/85 100 09/11/19 15:57 09/11/19 10:00 09/11/19 15:57 09/11/19 15:57 09/11/19 15:57 Period Temp Pulse Resp BP Sys/Butler Pulse Ox Last 24 Hr 98.2 F-99.4 F 36-128 18-36 96-129/58-99 90-100 Intake and Output 09/11/19 09/11/19 09/11/19 05:59 13:59 21:59 Intake Total 1232 1347 1273 Output Total 405 950 350 Balance 827 397 923 Intake & Output: Intake & Output 09/11/19 09/11/19 09/11/19 05:59 13:59 21:59 Intake Total 1232 1347 1273 Output Total 405 950 350 Balance 827 397 923 Intake: Nourishment/Supplement quantity 720 240 (ml) IV 360 477 1175 Sodium Chloride 0.45% 1,000 ml 992 487 513 @ 100 mls/hr IV .Q10H [facility] Rx#: [id number] MAGNESIUM SULFATE 4 gm In 100 90 ml @ 50 mls/hr IV ONCE ONE Rx#: [id number] Potassium Chloride 40 Meq In 520 Dextrose 5% in Water 500 ml @ 130 mls/hr IV ONCE ONE Rx#: [id number] Rocephin 2 gm In Dextrose 5% in 50 Water 50 ml @ 100 mls/hr IV Q24H [facility] Rx#:[id number] Oral 240 Output: Urine Catheter Amount 405 950 350 Other: Meal Lunch Percent of Meal Consumed Refused Nourishment/Supplement name ensure plus ensure Urine Appearance Clear Cloudy Cloudy Fem Cath Clear Cloudy Cloudy Sediment Urine Color Dark Yellow Dark Gerri Light Gerri Fem Cath Dark Yellow Light Gerri Light Gerri Urine Odor Foul Exam: General: Appears comfortable Chest: Clear, mildly diminished at bases Cardiovascular: Irregular, no edema Abdomen: Obese, soft Neuro: Alert, oriented to person, place and situation. Generally weak. Medical - PN: Obj Da - Labs CBC & Chem 7: 09/11/19 03:51 09/11/19 03:51 Labs: Abnormal Lab Results 09/11/19 09/11/19 09/10/19 03:51 03:51 03:50 WBC 12.6 H Gran % 88.2 H Lymph % (Auto) 5.2 L Gran # 11.1 H Lymph # (Auto) 0.7 L [place] # (Auto) Sodium 146 H Potassium 2.7 L* Chloride 110 H 116 H Carbon Dioxide 16 L 16 L BUN Creatinine Uric Acid Calcium 7.8 L 8.1 L GGT AST 62 H ALT 43 H Alkaline Phosphatase Lactate Dehydrogenase Total Protein 5.3 L Albumin 2.3 L Albumin/Globulin Ratio 0.8 L Triglycerides 09/10/19 09/09/19 09/09/19 03:50 04:05 04:05 WBC 17.8 H Gran % 86.5 H 88.2 H Lymph % (Auto) 7.8 L 4.4 L Gran # 9.3 H 15.7 H Lymph # (Auto) 0.8 L 0.8 L [place] # (Auto) 1.1 H Sodium Potassium Chloride 110 H Carbon Dioxide 15 L BUN 31 H Creatinine 1.2 H Uric Acid 10.6 H Calcium 8.5 L GGT 54 H AST 85 H ALT 48 H Alkaline Phosphatase 132 H Lactate Dehydrogenase 659 H Total Protein Albumin 2.6 L Albumin/Globulin Ratio 0.8 L Triglycerides 266 H Microbiology 09/10/19 10:15 Gram Stain - Final Decubitus Wound Culture - Preliminary Gram positive cocci Gram negative bacillus 09/08/19 11:10 Urine Culture - Final Urine - Catheterized Escherichia coli 09/08/19 15:00 MRSA (PCR) - Final Nose MRSA PCR positive Meds: Medications Acetaminophen (Tylenol) 650 mg PO Q6HP PRN; Protocol PRN Reason: Per Pain Protocol/Fever > 101 Hydrocodone Bitart/Acetaminophen ([place] 5/325mg) 1 tab PO Q4HP PRN; Protocol PRN Reason: Per Pain Protocol Last Admin: 09/11/19 07:57 Dose: 1 tab Documented by: Albuterol/Ipratropium (Duoneb) 3 ml NEB Q6H PRN PRN Reason: shortness of breath Last Admin: 09/10/19 02:53 Dose: 3 ml Documented by: Atorvastatin Calcium (Lipitor) 40 mg PO QHS [facility] Last Admin: 09/10/19 22:01 Dose: 40 mg Documented by: Benztropine Mesylate (Cogentin) 2 mg PO BID [facility] Last Admin: 09/11/19 10:59 Dose: 2 mg Documented by: Clonazepam (Klonopin) 0.25 mg PO BIDP PRN PRN Reason: Anxiety Collagenase (Santyl Top Oint) 1 dose TOPICAL DAILY [facility] Last Admin: 09/11/19 11:00 Dose: 1 dose Documented by: Docusate Sodium (Colace) 100 mg PO BID [facility] Last Admin: 09/11/19 10:59 Dose: 100 mg Documented by: Enoxaparin Sodium (Lovenox) 40 mg SQ DAILY [facility] Last Admin: 09/11/19 11:00 Dose: 40 mg Documented by: Ceftriaxone Sodium 2 gm/ (Dextrose) 50 mls @ 100 mls/hr IV Q24H [facility]; Protocol Last Infusion: 09/11/19 11:40 Dose: Infused Documented by: Acetaminophen (Ofirmev) 650 mg in 65 mls @ 130 mls/hr IV Q6HP PRN; Protocol PRN Reason: PAIN/FEVER > 101 Last Infusion: 09/10/19 17:00 Dose: Infused Documented by: Sodium Chloride (Sodium Chloride 0.45%) 1,000 mls @ 100 mls/hr IV .Q10H [facility] Last Admin: 09/11/19 17:08 Dose: 125 mls/hr Documented by: Iron Carb/Multivit/[place]/Folic Acid (Multivitamin W/Minerals) 1 tab PO DAILY [facility] Last Admin: 09/11/19 11:00 Dose: 1 tab Documented by: Lactulose (Cephulac) 10 gm PO DAILYP PRN PRN Reason: Constipation Lamotrigine (Lamictal) 100 mg PO QDAY [facility] Last Admin: 09/11/19 10:59 Dose: 100 mg Documented by: Levothyroxine Sodium (Synthroid) 300 mcg PO QAMAC [facility] Last Admin: 09/11/19 07:50 Dose: 300 mcg Documented by: Levothyroxine Sodium (Synthroid) 50 mcg PO QAMAC [facility] Last Admin: 09/11/19 07:50 Dose: 50 mcg Documented by: Medroxyprogesterone Acetate (Provera) 10 mg PO BID [facility] Last Admin: 09/11/19 11:00 Dose: 10 mg Documented by: Metoprolol Tartrate (Lopressor) 5 mg IV Q6HP PRN PRN Reason: Tachyarrhythmias Mupirocin (Bactroban Oint 2%) 1 dose TOPICAL BID [facility] Last Admin: 09/11/19 10:59 Dose: 1 dose Documented by: Naloxone HCl (Narcan) 0.1 mg IV Q2MIN PRN PRN Reason: Opiate Reversal Ondansetron HCl (Zofran) 4 mg IV Q4HP PRN; Protocol PRN Reason: Nausea And Vomiting Pantoprazole Sodium (Protonix) 40 mg PO QAMAC [facility] Last Admin: 09/11/19 07:50 Dose: 40 mg Documented by: Fluticasone/Salmeterol (Advair 100-50 Diskus) 1 puff INH BID [facility] Last Admin: 09/11/19 10:41 Dose: Not Given Documented by: Senna (Senokot) 2 tab PO HSP PRN PRN Reason: Constipation Sodium Chloride (Saline Flush) 10 ml IV Q8 [facility] Last Admin: 09/11/19 14:32 Dose: Not Given Documented by: Venlafaxine HCl (Effexor Xr) 150 mg PO QDAY [facility] Last Admin: 09/11/19 10:59 Dose: 150 mg Documented by: Medical - PN: A/P - Time Spent With Patient Total time spent is greater than 50% in coordination of care (as documented) at patient's floor/unit and/or counseling patient: 25 - 35 minutes (1) Sepsis Status: Acute Current Visit: Yes (2) Urinary tract infection Status: Acute Current Visit: Yes (3) Encephalopathy acute Status: Acute Current Visit: Yes (4) Hypertension Status: Chronic Current Visit: Yes (5) Atrial fibrillation Status: Chronic Current Visit: Yes (6) CVA (cerebral infarction) Status: Chronic Current Visit: No (7) Obesity Status: Chronic Current Visit: Yes - Narrative A/P Narrative: 64-year-old female presenting with encephalopathy, sepsis from urinary source. Sepsis. Resolving. Severe sepsis with lactate of 3.8 at presentation. Lactate normalized with fluids. Soft blood pressures on 09/09, responded to fluids. Growing pathologic quantities of E. coli from urine, this appears to be the source of sepsis. Does have back pain, however that has been ongoing since a fall onto her buttocks and is apparently unchanged. No definitive localization of infection at this point (cystitis versus pyelonephritis). Plan: Continue ceftriaxone Urinary tract infection. As above, acute cystitis versus possible pyelonephritis. Suspected source of sepsis. Plan: Continue ceftriaxone Acute kidney injury. Creatinine was 2.1 on presentation, is improved and normal at 0.6 on 09/11. Suspect secondary to sepsis and prerenal etiology. Plan: Monitor creatinine. Encephalopathy. Slowly improving, seems to have turned significant corner on 09/11. Patient has had recent subdural hematoma in mid July. That does appear resolved on current CT imaging. She also has a history of prior watershed infarcts, with no new findings noted on current CT. Suspect her change in mental status and encephalopathy is secondary to sepsis and not new cerebral ischemia. Plan: Supportive care, treat sepsis, follow mental status Schizophrenia. Diagnosis noted in chart. Not currently on any antipsychotics per med list. Is on Cogentin, presumably for old EPS. Awoke with significant anxiety on 09/11. Plan: Low-dose clonazepam for anxiety symptoms Hypertension. No evidence of hypotension associated with sepsis. Plan: Hold antihypertensives in the setting of sepsis, resume when needed for blood pressure control Cerebral vascular disease. As noted above, stable findings on CT. With watershed infarcts, suspect these may have been cardioembolic. She is currently off anticoagulation due to subdural hematoma. Plan: Continue other medical management. CODE STATUS: Patient's caregiver notes that she does have a living well, currently does not have a copy. Is unaware of any other stated wishes. This CODE STATUS for now is full code. Have not been able to discuss with any decision making surrogates. Prophylaxis: PPI, low molecular weight heparin. Medical - PN: Qual - VTE Deep Vein Thrombosis/Pulmonary Embolism Present on Admission: No
[2019-09-11] MEDS: METOPROLOL TARTRATE 5 MG/5 ML VIAL IV PRN (20:05)
[2019-09-11] MEDS: ATORVASTATIN 40 MG TABLET PO SCH (20:06)
[2019-09-11] MEDS: clonazePAM 0.5 MG TABLET PO PRN (20:07)
[2019-09-11] MEDS: IPRATROPIUM/ALBUTEROL 3 ML AMPUL.NEB NEB PRN (22:27)
[2019-09-12] MEDS: 0.45 % SODIUM CHLORIDE 1,000 ML IV SCH ×3 (04:02→20:31)
[2019-09-12] MEDS: 0.9 % SODIUM CHLORIDE 10 ML SYRINGE IV SCH ×4 (05:41→20:42)
[2019-09-12 06:45] LABS: Basophils # (Auto) 0.04 K/mcL (0.00-0.30); Basophils % (Auto) 0.3 % (0.0-2.0); Eosinophils # (Auto) 0.21 K/mcL (0.00-0.70); Eosinophils % (Auto) 1.6 % (0.0-7.0); Hematocrit 35.4 % (34.1-44.9); Hemoglobin 11.8 g/dL (11.2-15.7); Lymphocytes # (Auto) 0.89 K/mcL (1.50-4.80); Lymphocytes % (Auto) 6.7 % (15.5-49.0); Mean Cell Volume 91.2 fL (80.0-100.0); Mean Corpuscular HGB Conc 33.3 g/dL (31.0-36.0); Mean Platelet Volume 11.8 fL (7.4-10.4); Monocytes # (Auto) 0.85 K/mcL (0.10-0.90); Monocytes % (Auto) 6.4 % (1.0-12.0); Platelet Count 278 K/mcL (140-440); RBC 3.88 M/mcL (3.59-5.38); Red Cell Distribution Width 13.9 % (11.5-14.5); WBC 13.2 K/mcL (4.50-11.00)
[2019-09-12 06:53] LABS: Blood Urea Nitrogen 15 mg/dl (8-23); Calcium 8.1 mg/dl (8.6-10.4); Carbon Dioxide 17 mmol/L (22-30); Glomerular Filtration Rate 102; Glucose 89 mg/dL (70-105)
[2019-09-12 06:54] LABS: Chloride 109 mmol/L (96-108)
[2019-09-12] MEDS: LEVOTHYROXINE 50 MCG TABLET PO SCH (07:41)
[2019-09-12] MEDS: LEVOTHYROXINE 150 MCG TABLET PO SCH (07:42)
[2019-09-12] MEDS: PANTOPRAZOLE 40 MG TABLET PO SCH (07:42)
[2019-09-12] MEDS: cefTRIAXone 2 GM in DEXTROSE 5% IN WATER 50 ML IV SCH (09:17)
[2019-09-12] MEDS: medroxyPROGESTERone 10 MG TABLET PO SCH ×2 (09:17→20:29)
[2019-09-12] MEDS: MULTIVIT,THER IRON,CA,FA & MIN 1 TABLET PO SCH (09:24)
[2019-09-12] MEDS: DOCUSATE SODIUM 100 MG CAPSULE PO SCH ×2 (09:24→20:29)
[2019-09-12] MEDS: lamoTRIgine 100 MG TABLET PO SCH (09:24)
[2019-09-12] MEDS: ENOXAPARIN 40 MG/0.4 ML SYRINGE SQ SCH (09:24)
[2019-09-12] MEDS: VENLAFAXINE 150 MG CAP.XL.24H PO SCH (09:24)
[2019-09-12] MEDS: BENZTROPINE 1 MG TABLET PO SCH ×2 (09:24→20:41)
[2019-09-12] MEDS: FLUTICASONE/SALMETEROL 50/100 INHALER #14 INH SCH ×2 (09:25→20:29)
[2019-09-12] MEDS: MUPIROCIN OINT 2% 22GM TOPICAL SCH ×2 (09:25→20:28)
[2019-09-12] MEDS: METOPROLOL TARTRATE 5 MG/5 ML VIAL IV PRN (09:34)
[2019-09-12] MEDS: COLLAGENASE TOP OINT TUBE 30GM TOPICAL SCH (10:10)
[2019-09-12] MEDS ORDERED: ATENOLOL 50 MG TABLET PO ONE (11:29)
--- NOTE | 2019-09-12 11:32 | Internal Med Progress Note ---
Medical - PN: Subj Patient information: Note initiated : 09/12/19 at 11:31 am Service Date, if different from initiated Date: [] Patient: Christine Cespedes a 64 y/o F admitted on 09/08/19 for Back pain. Chief Complaint: Follow-up sepsis Interval history: 09/08 Ms. Cespedes is a 64 year old F with a history of atrial fibrillation, recent subdural hematoma, history of ischemic strokes, hypertension, sleep apnea not on CPAP, prediabetes, morbid obesity with mobility impairment who presents to the emergency department with lethargy. History is obtained speaking to her caregiver. She has a caregiver in the home during the days, but not at night. The caregiver notes yesterday she was not quite herself, displaying some mild confusion. Her appetite was decreased. Caregiver made her a sandwich for dinner prior to her leaving yesterday, was still on eaten this morning when their caregiver arrived. Patient was in bed, was too weak to get out of bed, was confused and could not respond appropriately. In the ED, there is a history of low-grade fever as well. Because of lethargy, fever and weakness EMS was activated and she is brought to the ED. In the emergency department she has evidence of sepsis with now white count of 22,000, lactate of 3.8, increased anion gap and significantly abnormal urine analysis with pyuria and bacteriuria. She is being admitted for treatment of sepsis from urinary source. 09/09 Intermittently more responsive, was sitting up on edge of bed with physical therapy and did participate in self-care this morning. Is required fluids for declining blood pressures today with response. 09/10 Slowly continues to be more interactive. Urine culture with E. coli, only resistant to fluoroquinolones. Blood pressure stable. 09/11 Much more alert and interactive today. Still quite weak and needing assistance to stay sitting up at bedside. Held conversation with her, she states her goal is to get better. I encouraged her to increase her oral intake and that it is important for her to eat to get better. Nursing spoke with her son, who is her eldest child. He is a long-haul airport baggage screener and is out of state, but agreed that she will likely need skilled placement following this admission. In the late afternoon, she awoke panicked that she was trapped in a trailer and was di soriented. Had significant anxiety. 09/12/2019 Patient continued to have disorientation and hallucinations yesterday evening, was up much of the night, eventually calm down. Medicine list reviewed, she does not have any antipsychotics or other treatments for schizophrenia. Attempting to reconfirm her medication list. This morning, states she is not feeling too well, but is sleepy drifts back off. - Constitutional Vitals: Vital Signs Temp Pulse Resp BP Pulse Ox 99.5 F H 136 H 24 H 136/85 97 09/12/19 08:30 09/12/19 08:30 09/12/19 08:30 09/12/19 08:30 09/12/19 08:30 Period Temp Pulse Resp BP Sys/Butler Pulse Ox Last 24 Hr 98.5 F-99.5 F 112-136 22-24 117-136/52-85 91-100 Intake and Output 09/11/19 09/12/19 09/12/19 21:59 05:59 13:59 Intake Total 1992 1360 390 Output Total 600 500 180 Balance 1393 860 210 Weight 255 lb Intake & Output: Intake & Output 09/11/19 09/12/19 09/12/19 21:59 05:59 13:59 Intake Total 1992 1360 390 Output Total 600 500 180 Balance 1393 860 210 Weight 255 lb Intake: Nourishment/Supplement quantity 720 240 (ml) IV 1033 1000 Sodium Chloride 0.45% 1,000 ml 513 1000 @ 100 mls/hr IV .Q10H [facility] Rx#: [id number] Potassium Chloride 40 Meq In 520 Dextrose 5% in Water 500 ml @ 130 mls/hr IV ONCE ONE Rx#: [id number] Oral 240 360 150 Output: Urine Catheter Amount 600 500 180 Other: Meal Dinner Breakfast Percent of Meal Consumed 50% 25% Nourishment/Supplement name ensure breeze Urine Appearance Clear Clear Fem Cath Clear Clear Urine Color Bright Yellow Dark Yellow Fem Cath Bright Yellow Bright Yellow Pale Urine Odor Normal Normal Fem Cath Normal Stool Size Smear Stool Color Brown Stool Consistency Loose # of times incontinent of 1 Bowels Exam: General: Laying in bed, appears comfortable Chest: Diminished bilaterally at the bases, exam a bit difficult due to body habitus Cardiovascular: Irregular, no edema Abdomen: Obese, soft, nontender Neuro: Sleeping, arouses, moves all extremities, generally weak. Denies any current hallucinations. Medical - PN: Obj Da - Labs CBC & Chem 7: 09/12/19 03:52 09/12/19 03:52 Labs: Abnormal Lab Results 09/12/19 09/12/19 09/11/19 03:52 03:52 03:51 WBC 13.2 H MPV 11.8 H Gran % 85.0 H Lymph % (Auto) 6.7 L Gran # 11.20 H Lymph # (Auto) 0.89 L Sodium Potassium 3.1 L 2.7 L* Chloride 109 H 110 H Carbon Dioxide 17 L 16 L Creatinine 0.5 L Calcium 8.1 L 7.8 L AST ALT Total Protein Albumin Albumin/Globulin Ratio 09/11/19 09/10/19 09/10/19 03:51 03:50 03:50 WBC 12.6 H MPV Gran % 88.2 H 86.5 H Lymph % (Auto) 5.2 L 7.8 L Gran # 11.1 H 9.3 H Lymph # (Auto) 0.7 L 0.8 L Sodium 146 H Potassium Chloride 116 H Carbon Dioxide 16 L Creatinine Calcium 8.1 L AST 62 H ALT 43 H Total Protein 5.3 L Albumin 2.3 L Albumin/Globulin Ratio 0.8 L Meds: Medications Acetaminophen (Tylenol) 650 mg PO Q6HP PRN; Protocol PRN Reason: Per Pain Protocol/Fever > 101 Hydrocodone Bitart/Acetaminophen ([place] 5/325mg) 1 tab PO Q4HP PRN; Protocol PRN Reason: Per Pain Protocol Last Admin: 09/11/19 23:41 Dose: 1 tab Documented by: Albuterol/Ipratropium (Duoneb) 3 ml NEB Q6H PRN PRN Reason: shortness of breath Last Admin: 09/11/19 22:27 Dose: 3 ml Documented by: Atenolol (Tenormin) 50 mg PO QDAY [facility] Atenolol (Tenormin) 50 mg PO ONCE ONE Stop: 09/12/19 11:30 Atorvastatin Calcium (Lipitor) 40 mg PO QHS [facility] Last Admin: 09/11/19 20:06 Dose: 40 mg Documented by: Benztropine Mesylate (Cogentin) 2 mg PO BID [facility] Last Admin: 09/12/19 09:24 Dose: 2 mg Documented by: Clonazepam (Klonopin) 0.25 mg PO BIDP PRN PRN Reason: Anxiety Last Admin: 09/11/19 20:07 Dose: 0.25 mg Documented by: Collagenase (Santyl Top Oint) 1 dose TOPICAL DAILY [facility] Last Admin: 09/11/19 11:00 Dose: 1 dose Documented by: Docusate Sodium (Colace) 100 mg PO BID [facility] Last Admin: 09/12/19 09:24 Dose: Not Given Documented by: Ceftriaxone Sodium 2 gm/ (Dextrose) 50 mls @ 100 mls/hr IV Q24H [facility]; Protocol Last Admin: 09/12/19 09:17 Dose: 100 mls/hr Documented by: Acetaminophen (Ofirmev) 650 mg in 65 mls @ 130 mls/hr IV Q6HP PRN; Protocol PRN Reason: PAIN/FEVER > 101 Last Infusion: 09/10/19 17:00 Dose: Infused Documented by: Sodium Chloride (Sodium Chloride 0.45%) 1,000 mls @ 100 mls/hr IV .Q10H [facility] Last Admin: 09/12/19 04:02 Dose: 125 mls/hr Documented by: Iron Carb/Multivit/[employer]/Folic Acid (Multivitamin W/Minerals) 1 tab PO DAILY [facility] Last Admin: 09/12/19 09:24 Dose: 1 tab Documented by: Lactulose (Cephulac) 10 gm PO DAILYP PRN PRN Reason: Constipation Lamotrigine (Lamictal) 100 mg PO QDAY [facility] Last Admin: 09/12/19 09:24 Dose: 100 mg Documented by: [facility]othy[facility]ine [facility]) [facility] Last Admin: 09/12/19 07:42 Dose: 300 mcg Documented by: Levothyroxine Sodium (Synthroid) 50 mcg PO QAMAC [facility] Last Admin: 09/12/19 07:41 Dose: 50 mcg Documented by: Medroxyprogesterone Acetate (Provera) 10 mg PO BID [facility] Last Admin: 09/12/19 09:17 Dose: 10 mg Documented by: Metoprolol Tartrate (Lopressor) 5 mg IV Q6HP PRN PRN Reason: Tachyarrhythmias Last Admin: 09/12/19 09:34 Dose: 5 mg Documented by: Mupirocin (Bactroban Oint 2%) 1 dose TOPICAL BID [facility] Last Admin: 09/12/19 09:25 Dose: 1 dose Documented by: Naloxone HCl (Narcan) 0.1 mg IV Q2MIN PRN PRN Reason: Opiate Reversal Ondansetron HCl (Zofran) 4 mg IV Q4HP PRN; Protocol PRN Reason: Nausea And Vomiting Pantoprazole Sodium (Protonix) 40 mg PO QAMAC [facility] Last Admin: 09/12/19 07:42 Dose: 40 mg Documented by: Quetiapine Fumarate (Seroquel) 50 mg PO HS [facility] Fluticasone/Salmeterol (Advair 100-50 Diskus) 1 puff INH BID [facility] Last Admin: 09/12/19 09:25 Dose: Not Given Documented by: Senna (Senokot) 2 tab PO HSP PRN PRN Reason: Constipation Sodium Chloride (Saline Flush) 10 ml IV Q8 [facility] Last Admin: 09/12/19 09:34 Dose: 10 ml Documented by: Venlafaxine HCl (Effexor Xr) 150 mg PO QDAY [facility] Last Admin: 09/12/19 09:24 Dose: 150 mg Documented by: Warfarin Sodium (Coumadin Per Pharmacy) 1 order PO DAILY@1400 [facility] Medical - PN: A/P - Time Spent With Patient Total time spent is greater than 50% in coordination of care (as documented) at patient's floor/unit and/or counseling patient: (1) Sepsis Status: Acute Current Visit: Yes (2) Urinary tract infection Status: Acute Current Visit: Yes (3) Encephalopathy acute Status: Acute Current Visit: Yes (4) Hypertension Status: Chronic Current Visit: Yes (5) Atrial fibrillation Status: Chronic Current Visit: Yes (6) CVA (cerebral infarction) Status: Chronic Current Visit: No (7) Obesity Status: Chronic Current Visit: Yes - Narrative A/P Narrative: 64-year-old female presenting with encephalopathy, sepsis from urinary source. Encephalopathy. Slowly improving, seems to have turned significant corner on 09/11. Patient has had recent subdural hematoma in mid July. That does appear resolved on current CT imaging. She also has a history of prior watershed infarcts, with no new findings noted on current CT. Suspect her change in mental status and encephalopathy is secondary to sepsis and not new cerebral ischemia. Now with agitation and hallucinations more consistent with schizophrenia. Plan: Supportive care, treat sepsis, follow mental status Schizophrenia. Diagnosis noted in chart. Not currently on any antipsychotics per med list. Is on Cogentin, presumably for old EPS. Awoke with significant anxiety on 09/11, subsequently had hallucinations and difficult night. Plan: Low-dose clonazepam for anxiety symptoms; add Seroquel at bedtime. Reconfirm home meds Atrial fibrillation. Is generally been rate controlled with rates under 120. Atenolol initially held due to sepsis. Plan: Resumed atenolol, warfarin per pharmacy Sepsis. Resolved. Severe sepsis with lactate of 3.8 at presentation. Lactate normalized with fluids. Soft blood pressures on 09/09, responded to fluids. Growing pathologic quantities of E. coli from urine, this appears to be the source of sepsis. Does have back pain, however that has been ongoing since a fall onto her buttocks and is apparently unchanged. No definitive localization of infection at this point (cystitis versus pyelonephritis). Plan: Continue ceftriaxone Urinary tract infection. As above, acute cystitis versus possible pyelonephritis. Suspected source of sepsis. Plan: Continue ceftriaxone Wound. Patient with sacral unstageable pressure ulcer present at time of admission. Discussed with Dr. Juarez. Plan: Continue wound care Acute kidney injury. Creatinine was 2.1 on presentation, is improved and normal at 0.6 on 09/11. Suspect secondary to sepsis and prerenal etiology. Plan: Monitor creatinine. Hypertension. No evidence of hypotension associated with sepsis. Plan: Resume atenolol Cerebral vascular disease. As noted above, stable findings on CT. With watershed infarcts, suspect these may have been cardioembolic. She is currently off anticoagulation due to subdural hematoma. Plan: Continue other medical management. CODE STATUS: Patient's caregiver notes that she does have a living well, currently does not have a copy. Is unaware of any other stated wishes. This CODE STATUS for now is full code. Have not been able to discuss with any decision making surrogates. Prophylaxis: PPI, low molecular weight heparin. Medical - PN: Qual - VTE Deep Vein Thrombosis/Pulmonary Embolism Present on Admission: No
--- NOTE | 2019-09-12 11:38 | General Surgery Progress Note ---
Subjective Patient reports: other (Patient seen with MARKO [facility] Inpatient wound care nurse and progress reviewed with Dr. Li, Hopitalist Physician.) Narrative: Note initiated : 09/12/19 at 11:35 am Service Date, if different from initiated Date: [] Patient: Christine Cespedes 64 y/o F admitted on 09/08/19 for Back pain. Chief Complaint: [] Objective Temp Pulse Resp BP Pulse Ox 99.5 F H 136 H 24 H 136/85 97 09/12/19 08:30 09/12/19 08:30 09/12/19 08:30 09/12/19 08:30 09/12/19 08:30 No fever. Tachycardia, tachypnea. Responding to local wound care. Sacral / Coccygeal eschar is gradually loosening with Santyl topical treatment. - Additional Data Intake & Output - Last 24 hours: Intake & Output 09/10/19 09/11/19 09/12/19 09/13/19 05:59 05:59 05:59 05:59 Intake Total 4838 4766 4700 390 Output Total 046 898 0547 180 Balance 4358 3861 2650 210 Weight 230 lb 6.4 oz 234 lb 1.6 oz 255 lb - Labs 09/12/19 03:52 09/12/19 03:52 Diabetes panel 09/12/19 Range/Units 03:52 Sodium 141 (133-145) mmol/L Potassium 3.1 L (3.3-5.1) mmol/L Chloride 109 H (96-108) mmol/L Carbon Dioxide 17 L (22-30) mmol/L BUN 15 (8-23) mg/dl Creatinine 0.5 L (0.6-1.1) mg/dl Glucose 89 (70-105) mg/dL Calcium 8.1 L (8.6-10.4) mg/dl Calcium panel 09/12/19 Range/Units 03:52 Calcium 8.1 L (8.6-10.4) mg/dl Pituitary panel 09/12/19 Range/Units 03:52 Sodium 141 (133-145) mmol/L Potassium 3.1 L (3.3-5.1) mmol/L Chloride 109 H (96-108) mmol/L Carbon Dioxide 17 L (22-30) mmol/L BUN 15 (8-23) mg/dl Creatinine 0.5 L (0.6-1.1) mg/dl Glucose 89 (70-105) mg/dL Calcium 8.1 L (8.6-10.4) mg/dl Adrenal panel 09/12/19 Range/Units 03:52 Sodium 141 (133-145) mmol/L Potassium 3.1 L (3.3-5.1) mmol/L Chloride 109 H (96-108) mmol/L Carbon Dioxide 17 L (22-30) mmol/L BUN 15 (8-23) mg/dl Creatinine 0.5 L (0.6-1.1) mg/dl Glucose 89 (70-105) mg/dL Calcium 8.1 L (8.6-10.4) mg/dl Assessment and Plan (1) Skin abnormalities Problem details: Local wound care as discussed with nursing staff and orders entered. Status: Acute Current Visit: Yes (2) Pressure ulcer of sacral region, unstageable Problem details: Local wound care as discussed with nursing staff. Status: Chronic Current Visit: Yes - Time Spent With Patient Total time spent is greater than 50% in coordination of care (as documented) at patient's floor/unit and/or counseling patient: Assessment; Satisfactory response to ongoing wound care. Plan: Continue current treatment. Following patient with Hospitalist and nursing staff. 15 - 24 minutes
[2019-09-12] MEDS: HYDROcodone/APAP 5/325MG TABLET PO PRN ×2 (11:55→20:40)
[2019-09-12] MEDS ORDERED: WARFARIN 5 MG TABLET PO ONE (14:00)
[2019-09-12] MEDS ORDERED: POTASSIUM CHLORIDE 20 MEQ TABLET PO ONE ×2 (18:05→19:05)
[2019-09-12] MEDS: ATORVASTATIN 40 MG TABLET PO SCH (20:29)
[2019-09-12] MEDS: QUEtiapine 25 MG TABLET PO SCH (20:29)
[2019-09-12] MEDS: ACETAMINOPHEN 650 MG/65 ML BOTTLE IV PRN (20:39)
[2019-09-12] MEDS: clonazePAM 0.5 MG TABLET PO PRN (20:41)
[2019-09-12] MEDS: ONDANSETRON 4 MG/2 ML VIAL IV PRN (21:30)
[2019-09-13] MEDS: 0.9 % SODIUM CHLORIDE 10 ML SYRINGE IV SCH ×3 (05:34→20:46)
[2019-09-13 06:38] LABS: INR 1.5 (0.9-1.1); Prothrombin Time 17.8 sec (11.9-14.5)
[2019-09-13 06:38] LABS: Basophils # (Auto) 0.03 K/mcL (0.00-0.30); Basophils % (Auto) 0.2 % (0.0-2.0); Eosinophils # (Auto) 0.54 K/mcL (0.00-0.70); Eosinophils % (Auto) 4.1 % (0.0-7.0); Granulocytes % (Auto) 78.9 % (38.0-78.0); Hematocrit 35.8 % (34.1-44.9); Lymphocytes # (Auto) 1.32 K/mcL (1.50-4.80); Mean Cell Volume 92.7 fL (80.0-100.0); Mean Corpuscular HGB Conc 33.5 g/dL (31.0-36.0); Mean Platelet Volume 12.1 fL (7.4-10.4); Monocytes # (Auto) 0.89 K/mcL (0.10-0.90); Monocytes % (Auto) 6.8 % (1.0-12.0); Platelet Count 284 K/mcL (140-440); RBC 3.86 M/mcL (3.59-5.38); Red Cell Distribution Width 14.2 % (11.5-14.5); WBC 13.2 K/mcL (4.50-11.00)
[2019-09-13 06:50] LABS: Blood Urea Nitrogen 21 mg/dl (8-23); Calcium 8.3 mg/dl (8.6-10.4); Chloride 108 mmol/L (96-108); Glomerular Filtration Rate 102; Glucose 65 mg/dL (70-105)
[2019-09-13 06:51] LABS: Carbon Dioxide 21 mmol/L (22-30)
[2019-09-13] MEDS: FLUTICASONE/SALMETEROL 50/100 INHALER #14 INH SCH ×2 (07:47→20:46)
[2019-09-13] MEDS: cefTRIAXone 2 GM in DEXTROSE 5% IN WATER 50 ML IV SCH (09:00)
--- NOTE | 2019-09-13 09:14 | General Surgery Progress Note ---
Subjective Patient reports: other Narrative: Note initiated : 09/13/19 at 9:10 am Service Date, if different from initiated Date: [] Patient: Christine Cespedes 64 y/o F admitted on 09/08/19 for Sepsis, UTI. Chief Complaint: [] I saw patient on morning rounds with MARKO [facility] Inpatient wound care nurse and MARKO Donnelly. Examined patient and sacral buttock wounds. Reviewed lab results. Objective Temp Pulse Resp BP Pulse Ox 98.8 F 89 20 104/79 97 09/13/19 03:37 09/13/19 03:37 09/13/19 03:37 09/13/19 03:37 09/13/19 03:37 AVSS, Tachycardia resolved. VSS. Patient is responding appropriately and moving all extremities when turned in bed. HD stable. Silicone urinary catheter draining clear urine. L/E: Sacral / Coccygeal necrosis site is NOW draining malodorous drainage. There are deeper pockets in posterior anal region that need debridement in OR . Cultures growing MRSA and other urine and skin bacteria. - Additional Data Intake & Output - Last 24 hours: Intake & Output 09/11/19 09/12/19 09/13/19 09/14/19 05:59 05:59 05:59 05:59 Intake Total 4741 4700 3018 Output Total 90 2050 1150 Balance 3861 5430 1868 Weight 234 lb 1.6 oz 255 lb 246 lb 4.8 oz - Labs 09/13/19 03:53 09/13/19 03:53 Diabetes panel 09/13/19 Range/Units 03:53 Sodium 141 (133-145) mmol/L Potassium 4.2 (3.3-5.1) mmol/L Chloride 108 (96-108) mmol/L Carbon Dioxide 21 L (22-30) mmol/L BUN 21 (8-23) mg/dl Creatinine 0.5 L (0.6-1.1) mg/dl Glucose 65 L (70-105) mg/dL Calcium 8.3 L (8.6-10.4) mg/dl Calcium panel 09/13/19 Range/Units 03:53 Calcium 8.3 L (8.6-10.4) mg/dl Pituitary panel 09/13/19 Range/Units 03:53 Sodium 141 (133-145) mmol/L Potassium 4.2 (3.3-5.1) mmol/L Chloride 108 (96-108) mmol/L Carbon Dioxide 21 L (22-30) mmol/L BUN 21 (8-23) mg/dl Creatinine 0.5 L (0.6-1.1) mg/dl Glucose 65 L (70-105) mg/dL Calcium 8.3 L (8.6-10.4) mg/dl Adrenal panel 09/13/19 Range/Units 03:53 Sodium 141 (133-145) mmol/L Potassium 4.2 (3.3-5.1) mmol/L Chloride 108 (96-108) mmol/L Carbon Dioxide 21 L (22-30) mmol/L BUN 21 (8-23) mg/dl Creatinine 0.5 L (0.6-1.1) mg/dl Glucose 65 L (70-105) mg/dL Calcium 8.3 L (8.6-10.4) mg/dl Assessment and Plan (1) Skin abnormalities Problem details: Local wound care as discussed with nursing staff and orders entered. Status: Acute Current Visit: Yes (2) Pressure ulcer of sacral region, unstageable Problem details: Local wound care as discussed with nursing staff. Status: Chronic Current Visit: Yes - Narrative A/P Narrative: Assessment: SIRS, Urosepsis, CSSSI pressure ulcer sacral and posterior anal region. Bed confined, Super morbid obese, Compromised mental status . NEEDS consultation with General Surgeon for further surgical management. NEEDS consultation with Infectious Disease for antibiotic recommendations. I spoke with Dr. Viola Li MD Hospitalist Physician about this plan. Plan: Ongoing wound care and dressing changes to continue. Following patient with Hospitalist Physician. - Time Spent With Patient Total time spent is greater than 50% in coordination of care (as documented) at patient's floor/unit and/or counseling patient: 25 - 35 minutes
[2019-09-13] MEDS: 0.45 % SODIUM CHLORIDE 1,000 ML IV SCH ×2 (10:04→17:52)
[2019-09-13] MEDS: MULTIVIT,THER IRON,CA,FA & MIN 1 TABLET PO SCH (10:10)
[2019-09-13] MEDS: DOCUSATE SODIUM 100 MG CAPSULE PO SCH ×2 (10:10→20:45)
[2019-09-13] MEDS: clonazePAM 0.5 MG TABLET PO PRN (10:10)
[2019-09-13] MEDS: PANTOPRAZOLE 40 MG TABLET PO SCH (10:10)
[2019-09-13] MEDS: ACETAMINOPHEN 325 MG TABLET PO PRN ×2 (10:11→18:43)
[2019-09-13] MEDS: ATENOLOL 50 MG TABLET PO SCH (10:11)
[2019-09-13] MEDS: MUPIROCIN OINT 2% 22GM TOPICAL SCH ×2 (10:12→20:46)
[2019-09-13] MEDS: VENLAFAXINE 150 MG CAP.XL.24H PO SCH (10:17)
[2019-09-13] MEDS: BENZTROPINE 1 MG TABLET PO SCH ×2 (10:17→20:45)
[2019-09-13] MEDS: LEVOTHYROXINE 50 MCG TABLET PO SCH (10:18)
[2019-09-13] MEDS: LEVOTHYROXINE 150 MCG TABLET PO SCH (10:18)
[2019-09-13] MEDS: lamoTRIgine 100 MG TABLET PO SCH (10:18)
[2019-09-13] MEDS: COLLAGENASE TOP OINT TUBE 30GM TOPICAL SCH (10:19)
[2019-09-13] MEDS: medroxyPROGESTERone 10 MG TABLET PO SCH ×2 (10:49→20:46)
[2019-09-13] MEDS ORDERED: VANCOMYCIN PER PHARMACY IV SCH (11:57)
[2019-09-13] MEDS: PIPERACILLIN SODIUM/TAZOBACTAM 3.375 GM in DEXTROSE 5% IN WATER 50 ML IV SCH ×2 (12:00→17:53)
[2019-09-13] MEDS: VANCOMYCIN 1,500 MG in 0.9 % SODIUM CHLORIDE 500 ML IV SCH ×2 (12:55→22:41)
--- NOTE | 2019-09-13 13:13 | Internal Med Progress Note ---
Medical - PN: Subj Patient information: Note initiated : 09/13/19 at 1:11 pm Service Date, if different from initiated Date: [] Patient: Christine Cespedes a 64 y/o F admitted on 09/08/19 for Sepsis, UTI. Chief Complaint: follow-up sepsis Interval history: 09/08 Ms. Cespedes is a 64 year old F with a history of atrial fibrillation, recent subdural hematoma, history of ischemic strokes, hypertension, sleep apnea not on CPAP, prediabetes, morbid obesity with mobility impairment who presents to the emergency department with lethargy. History is obtained speaking to her caregiver. She has a caregiver in the home during the days, but not at night. The caregiver notes yesterday she was not quite herself, displaying some mild confusion. Her appetite was decreased. Caregiver made her a sandwich for dinner prior to her leaving yesterday, was still on eaten this morning when their caregiver arrived. Patient was in bed, was too weak to get out of bed, was confused and could not respond appropriately. In the ED, there is a history of low-grade fever as well. Because of lethargy, fever and weakness EMS was activated and she is brought to the ED. In the emergency department she has evidence of sepsis with now white count of 22,000, lactate of 3.8, increased anion gap and significantly abnormal urine analysis with pyuria and bacteriuria. She is being admitted for treatment of sepsis from urinary source. 09/09 Intermittently more responsive, was sitting up on edge of bed with physical therapy and did participate in self-care this morning. Is required fluids for declining blood pressures today with response. 09/10 Slowly continues to be more interactive. Urine culture with E. coli, only resistant to fluoroquinolones. Blood pressure stable. 09/11 Much more alert and interactive today. Still quite weak and needing assistance to stay sitting up at bedside. Held conversation with her, she states her goal is to get better. I encouraged her to increase her oral intake and that it is important for her to eat to get better. Nursing spoke with her son, who is her eldest child. He is a long-haul boom boss and is out of state, but agreed that she will likely need skilled placement following this admission. In the late afternoon, she awoke panicked that she was trapped in a trailer and was d isoriented. Had significant anxiety. 09/12/2019 Patient continued to have disorientation and hallucinations yesterday evening, was up much of the night, eventually calm down. Medicine list reviewed, she does not have any antipsychotics or other treatments for schizophrenia. Attempting to reconfirm her medication list. This morning, states she is not feeling too well, but is sleepy drifts back off. 09/13 Patient seems less interactive than she was yesterday afternoon. Sacral wound now draining material and will need debridement. Previously had eschar that was being debrided. Should've completed for therapy for UTI sepsis. Discussed with Dr. Juarez, whose consult general surgery. Have consulted Dr. Silverio, is recommended. Vancomycin and Zosyn for now until debridement. - Constitutional Vitals: Vital Signs Temp Pulse Resp BP Pulse Ox 98.0 F 108 H 20 119/71 96 09/13/19 11:27 09/13/19 11:27 09/13/19 11:27 09/13/19 11:27 09/13/19 11:27 Period Temp Pulse Resp BP Sys/Butler Pulse Ox Last 24 Hr 98.0 F-99.4 F 89-122 18-26 104-146/63-89 95-97 Intake and Output 09/12/19 09/13/19 09/13/19 21:59 05:59 13:59 Intake Total 1263 65 1170 Output Total 220 550 Balance 1043 -485 1170 Weight 246 lb 4.8 oz Intake & Output: Intake & Output 09/12/19 09/13/19 09/13/19 21:59 05:59 13:59 Intake Total 1263 65 1170 Output Total 220 550 Balance 1043 -485 1170 Weight 246 lb 4.8 oz Intake: IV 1023 65 1050 Sodium Chloride 0.45% 1,000 ml 973 1000 @ 100 mls/hr IV .Q10H [facility] Rx#: [id number] Rocephin 2 gm In Dextrose 5% in 50 50 Water 50 ml @ 100 mls/hr IV Q24H [facility] Rx#:[id number] Oral 240 120 Output: Urine Catheter Amount 220 550 Other: Meal Dinner Breakfast Percent of Meal Consumed Refused 10% Feeding Ability Total Assistance Urine Appearance Clear Clear Fem Cath Clear Uretheral (Aguirre) Clear Urine Color Dark Yellow Dark Yellow Fem Cath Dark Yellow Uretheral (Aguirre) Bright Yellow Urine Odor Normal Fem Cath Normal Uretheral (Aguirre) Normal Exam: General: Alert, really applies in 1-2 word sentences. Chronically ill-appearing Chest: Unlabored respirations, clear. Cardiovascular: Irregularly irregular, no peripheral edema. Abdomen: Soft, nontender. Skin: Exam is noted by Dr. Mak Neuro: Alert, not interactive, mood is withdrawn, very weak Medical - PN: Obj Da - Labs CBC & Chem 7: 09/13/19 03:53 09/13/19 03:53 Labs: Abnormal Lab Results 09/13/19 09/13/19 09/13/19 03:54 03:53 03:53 WBC 13.2 H MPV 12.1 H Gran % 78.9 H Lymph % (Auto) 10.0 L Gran # 10.38 H Lymph # (Auto) 1.32 L PT 17.8 H INR 1.5 H Potassium Chloride Carbon Dioxide 21 L Creatinine 0.5 L Glucose 65 L Calcium 8.3 L 09/12/19 09/12/19 09/11/19 03:52 03:52 03:51 WBC 13.2 H MPV 11.8 H Gran % 85.0 H Lymph % (Auto) 6.7 L Gran # 11.20 H Lymph # (Auto) 0.89 L PT INR Potassium 3.1 L 2.7 L* Chloride 109 H 110 H Carbon Dioxide 17 L 16 L Creatinine 0.5 L Glucose Calcium 8.1 L 7.8 L 09/11/19 03:51 WBC 12.6 H MPV Gran % 88.2 H Lymph % (Auto) 5.2 L Gran # 11.1 H Lymph # (Auto) 0.7 L PT INR Potassium Chloride Carbon Dioxide Creatinine Glucose Calcium Microbiology 09/10/19 10:15 Gram Stain - Final Decubitus Wound Culture - Preliminary Escherichia coli Proteus mirabilis Enterococcus species 09/08/19 11:10 Urine Culture - Final Urine - Catheterized Escherichia coli 09/08/19 15:00 MRSA (PCR) - Final Nose MRSA PCR positive Meds: Medications Acetaminophen (Tylenol) 650 mg PO Q6HP PRN; Protocol PRN Reason: Per Pain Protocol/Fever > 101 Last Admin: 09/13/19 10:11 Dose: 650 mg Documented by: Hydrocodone Bitart/Acetaminophen (Dent 5/325mg) 1 tab PO Q4HP PRN; Protocol PRN Reason: Per Pain Protocol Last Admin: 09/12/19 20:40 Dose: 1 tab Documented by: Albuterol/Ipratropium (Duoneb) 3 ml NEB Q6H PRN PRN Reason: shortness of breath Last Admin: 09/11/19 22:27 Dose: 3 ml Documented by: Atenolol (Tenormin) 50 mg PO QDAY [facility] Last Admin: 09/13/19 10:11 Dose: 50 mg Documented by: Atorvastatin Calcium (Lipitor) 40 mg PO QHS [facility] Last Admin: 09/12/19 20:29 Dose: 40 mg Documented by: Benztropine Mesylate (Cogentin) 2 mg PO BID [facility] Last Admin: 09/13/19 10:17 Dose: 2 mg Documented by: Clonazepam (Klonopin) 0.25 mg PO BIDP PRN PRN Reason: Anxiety Last Admin: 09/13/19 10:10 Dose: 0.25 mg Documented by: Collagenase (Santyl Top Oint) 1 dose TOPICAL DAILY [facility] Last Admin: 09/13/19 10:19 Dose: 1 dose Documented by: Docusate Sodium (Colace) 100 mg PO BID [facility] Last Admin: 09/13/19 10:10 Dose: 100 mg Documented by: Acetaminophen (Ofirmev) 650 mg in 65 mls @ 130 mls/hr IV Q6HP PRN; Protocol PRN Reason: PAIN/FEVER > 101 Last Infusion: 09/12/19 22:13 Dose: Infused Documented by: Sodium Chloride (Sodium Chloride 0.45%) 1,000 mls @ 100 mls/hr IV .Q10H [facility] Last Admin: 09/13/19 10:04 Dose: 125 mls/hr Documented by: Piperacillin Sod/Tazobactam (Sod 3.375 gm/ Dextrose) 50 mls @ 100 mls/hr IV Q6H [facility]; Protocol Last Admin: 09/13/19 12:00 Dose: 100 mls/hr Documented by: Vancomycin HCl 1,500 mg/ (Sodium Chloride) 500 mls @ 333.3 mls/hr IV Q12H [facility] Last Admin: 09/13/19 12:55 Dose: 333.3 mls/hr Documented by: Iron Carb/Multivit/Gordon/Folic Acid (Multivitamin W/Minerals) 1 tab PO DAILY [facility] Last Admin: 09/13/19 10:10 Dose: 1 tab Documented by: Lactulose (Cephulac) 10 gm PO DAILYP PRN PRN Reason: Constipation Lamotrigine (Lamictal) 100 mg PO QDAY [facility] Last Admin: 09/13/19 10:18 Dose: 100 mg Documented by: Levothyroxine Sodium (Synthroid) 300 mcg PO [facility] Last Admin: 09/13/19 10:18 Dose: 300 mcg Documented by: Levothyroxine Sodium (Synthroid) 50 mcg PO [facility] Last Admin: 09/13/19 10:18 Dose: 50 mcg Documented by: Medroxyprogesterone Acetate (Provera) 10 mg PO BID [facility] Last Admin: 09/13/19 10:49 Dose: 10 mg Documented by: Metoprolol Tartrate (Lopressor) 5 mg IV Q6HP PRN PRN Reason: Tachyarrhythmias Last Admin: 09/12/19 09:34 Dose: 5 mg Documented by: Mupirocin (Bactroban Oint 2%) 1 dose TOPICAL BID [facility] Last Admin: 09/13/19 10:12 Dose: 1 dose Documented by: Naloxone HCl (Narcan) 0.1 mg IV Q2MIN PRN PRN Reason: Opiate Reversal Ondansetron HCl (Zofran) 4 mg IV Q4HP PRN; Protocol PRN Reason: Nausea And Vomiting Last Admin: 09/12/19 21:30 Dose: 4 mg Documented by: Pantoprazole Sodium (Protonix) 40 mg PO [facility] Last Admin: 09/13/19 10:10 Dose: 40 mg Documented by: Quetiapine Fumarate (Seroquel) 50 mg PO HS [facility] Last Admin: 09/12/19 20:29 Dose: 50 mg Documented by: Fluticasone/Salmeterol (Advair 100-50 Diskus) 1 puff INH BID [facility] Last Admin: 09/13/19 07:47 Dose: Not Given Documented by: Senna (Senokot) 2 tab PO HSP PRN PRN Reason: Constipation Sodium Chloride (Saline Flush) 10 ml IV Q8 [facility] Last Admin: 09/13/19 12:54 Dose: 10 ml Documented by: Vancomycin HCl (Vancomycin Per Pharmacy) 1 order [place] [facility] [place] Protocol Venlafaxine HCl (Effexor Xr) 150 mg PO QDAY [facility] Last Admin: 09/13/19 10:17 Dose: 150 mg Documented by: Warfarin Sodium (Coumadin Per Pharmacy) 1 order PO UD [facility] Medical - PN: A/P - Time Spent With Patient Total time spent is greater than 50% in coordination of care (as documented) at patient's floor/unit and/or counseling patient: Greater than 35 minutes (1) Sepsis Status: Acute Current Visit: Yes (2) Urinary tract infection Status: Acute Current Visit: Yes (3) Encephalopathy acute Status: Acute Current Visit: Yes (4) Hypertension Status: Chronic Current Visit: Yes (5) Atrial fibrillation Status: Chronic Current Visit: Yes (6) CVA (cerebral infarction) Status: Chronic Current Visit: No (7) Obesity Status: Chronic Current Visit: Yes - Narrative A/P Narrative: 64-year-old female presenting with encephalopathy, sepsis from urinary source. Sepsis. Resolved, though concern for recurrent due to sacral wound. Initial sepsis secondary to urinary infection. Initially, severe sepsis with lactate of 3.8 at presentation, normalized with fluids. Soft blood pressures on 09/09, responded to fluids. Growing pathologic quantities of E. coli from urine, this appears to be the source of sepsis. Does have back pain, however that has been ongoing since a fall onto her buttocks and is apparently unchanged. Now with worsening sacral decubitus, suspicion for recurrent infection. Plan: Ceftriaxone for UTI stopped, beginning vancomycin and Zosyn for sacral decubitus. Sacral Wound. Patient with sacral unstageable pressure ulcer present at time of admission. Discussed with Dr. Juarez. Plan: Surgical consultation (called by Dr. Mak) and ID consult. Likely needs debridement. Vancomycin and Zosyn. Encephalopathy. Now waxing and waning after having appeared to have turned the corner on 09/11. Patient has had recent subdural hematoma in mid July. That does appear resolved on current CT imaging. She also has a history of prior watershed infarcts, with no new findings noted on current CT. Suspect her change in mental status and encephalopathy is secondary to sepsis, now worsening with decubitus, and not new cerebral ischemia. Plan: Supportive care, treat sepsis, follow mental status Schizophrenia. Diagnosis noted in chart. Not currently on any antipsychotics per med list. Is on Cogentin, presumably for old EPS. Awoke with significant anxiety on 09/11, subsequently had hallucinations and difficult night. Plan: Low-dose clonazepam for anxiety symptoms; added Seroquel at bedtime. Reconfirm home meds Atrial fibrillation. Is generally been rate controlled with rates under 120. Atenolol initially held due to sepsis. Plan: Resumed atenolol, warfarin per pharmacy Urinary tract infection. As above, acute cystitis versus possible pyelonephritis. Suspected source of sepsis. Plan: Continue ceftriaxone Acute kidney injury. Creatinine was 2.1 on presentation, is improved and normal at 0.6 on 09/11. Suspect secondary to sepsis and prerenal etiology. Plan: Monitor creatinine. Hypertension. No evidence of hypotension associated with sepsis. Plan: Resume atenolol Cerebral vascular disease. As noted above, stable findings on CT. With watershed infarcts, suspect these may have been cardioembolic. She is currently off anticoagulation due to subdural hematoma. Plan: Continue other medical management. CODE STATUS: Patient's caregiver notes that she does have a living well, cu rrently does not have a copy. Is unaware of any other stated wishes. This CODE STATUS for now is full code. Have not been able to discuss with any decision making surrogates. Prophylaxis: PPI, LMWH-->warfarin, holding 1/2 as may need to go to OR Medical - PN: Qual - VTE Deep Vein Thrombosis/Pulmonary Embolism Present on Admission: No
--- NOTE | 2019-09-13 13:50 | Internal Med Progress Note ---
Medical - PN: Subj Patient information: Note initiated : 09/13/19 at 1:42 pm Service Date, if different from initiated Date: [] Patient: Christine Cespedes a 64 y/o F admitted on 09/08/19 for Sepsis, UTI. Chief Complaint: [] Interval history: 09/08 Ms. Cespedes is a 64 year old F with a history of atrial fibrillation, recent subdural hematoma, history of ischemic strokes, hypertension, sleep apnea not on CPAP, prediabetes, morbid obesity with mobility impairment who presents to the emergency department with lethargy. History is obtained speaking to her caregiver. She has a caregiver in the home during the days, but not at night. The caregiver notes yesterday she was not quite herself, displaying some mild confusion. Her appetite was decreased. Caregiver made her a sandwich for dinner prior to her leaving yesterday, was still on eaten this morning when their caregiver arrived. Patient was in bed, was too weak to get out of bed, was confused and could not respond appropriately. In the ED, there is a history of low-grade fever as well. Because of lethargy, fever and weakness EMS was activated and she is brought to the ED. In the emergency department she has evidence of sepsis with now white count of 22,000, lactate of 3.8, increased anion gap and significantly abnormal urine analysis with pyuria and bacteriuria. She is being admitted for treatment of sepsis from urinary source. 09/09 Intermittently more responsive, was sitting up on edge of bed with physical therapy and did participate in self-care this morning. Is required fluids for declining blood pressures today with response. 09/10 Slowly continues to be more interactive. Urine culture with E. coli, only resistant to fluoroquinolones. Blood pressure stable. 09/11 Much more alert and interactive today. Still quite weak and needing assistance to stay sitting up at bedside. Held conversation with her, she states her goal is to get better. I encouraged her to increase her oral intake and that it is important for her to eat to get better. Nursing spoke with her son, who is her eldest child. He is a long-haul house painter and is out of state, but agreed that she will likely need skilled placement following this admission. In the late afternoon, she awoke panicked that she was trapped in a trailer and was disoriented. Had significant anxiety. 09/12/2019 Patient continued to have disorientation and hallucinations yesterday evening, was up much of the night, eventually calm down. Medicine list reviewed, she does not have any antipsychotics or other treatments for schizophrenia. Attempting to reconfirm her medication list. This morning, states she is not feeling too well, but is sleepy drifts back off. 09/13 Patient seems less interactive than she was yesterday afternoon. Sacral wound now draining material and will need debridement. Previously had eschar that was being debrided. Should've completed for therapy for UTI sepsis. Discussed with Dr. Juarez, whose consult general surgery. Have consulted Dr. Silverio, is recommended. Vancomycin and Zosyn for now until debridement. - Constitutional Vitals: Vital Signs Temp Pulse Resp BP Pulse Ox 98.0 F 108 H 20 119/71 96 09/13/19 11:27 09/13/19 11:27 09/13/19 11:27 09/13/19 11:27 09/13/19 11:27 Period Temp Pulse Resp BP Sys/Butler Pulse Ox Last 24 Hr 98.0 F-99.4 F 89-122 18- 104-146/63-89 95-97 Intake and Output 09/12/19 09/13/19 09/13/19 21:59 05:59 13:59 Intake Total 1263 65 1170 Output Total 220 550 Balance 1043 -485 1170 Weight 111.72 kg Intake & Output: Intake & Output 09/12/19 09/13/19 09/13/19 21:59 05:59 13:59 Intake Total 1263 65 1170 Output Total 220 550 Balance 1043 -485 1170 Weight 111.72 kg Intake: IV 1023 65 1050 Sodium Chloride 0.45% 1,000 ml 973 1000 @ 100 mls/hr IV .Q10H CRAIG Rx#: [id number] Rocephin 2 gm In Dextrose 5% in 50 50 Water 50 ml @ 100 mls/hr IV Q24H CRAIG Rx#:[id number] Oral 240 120 Output: Urine Catheter Amount 220 550 Other: Meal Dinner Breakfast Percent of Meal Consumed Refused 10% Feeding Ability Total Assistance Urine Appearance Clear Clear Fem Cath Clear Uretheral (Aguirre) Clear Urine Color Dark Yellow Dark Yellow Fem Cath Dark Yellow Uretheral (Aguirre) Bright Yellow Urine Odor Normal Fem Cath Normal Uretheral (Aguirre) Normal Exam: General: Alert, Awake, No acute Distress Eyes/N/T: EOMI, Head/Neck: neck supple, CV: irreg irreg, No murmurs, Pulm: Clear b/l, no wheezing/rhonchi/rales Abd: soft, nontender, +BS x4 Ext: no clubbing/cyanosis/edema Neuro: Alert, no focal deficits, moves all extremities, Skin: Medical - PN: Obj Da - Labs CBC & Chem 7: 09/13/19 03:53 09/13/19 03:53 Labs: Abnormal Lab Results 09/13/19 09/13/19 09/13/19 03:54 03:53 03:53 WBC 13.2 H MPV 12.1 H Gran % 78.9 H Lymph % (Auto) 10.0 L Gran # 10.38 H Lymph # (Auto) 1.32 L PT 17.8 H INR 1.5 H Potassium Chloride Carbon Dioxide 21 L Creatinine 0.5 L Glucose 65 L Calcium 8.3 L 09/12/19 09/12/19 09/11/19 03:52 03:52 03:51 WBC 13.2 H MPV 11.8 H Gran % 85.0 H Lymph % (Auto) 6.7 L Gran # 11.20 H Lymph # (Auto) 0.89 L PT INR Potassium 3.1 L 2.7 L* Chloride 109 H 110 H Carbon Dioxide 17 L 16 L Creatinine 0.5 L Glucose Calcium 8.1 L 7.8 L 09/11/19 03:51 WBC 12.6 H MPV Gran % 88.2 H Lymph % (Auto) 5.2 L Gran # 11.1 H Lymph # (Auto) 0.7 L PT INR Potassium Chloride Carbon Dioxide Creatinine Glucose Calcium Meds: Medications Acetaminophen (Tylenol) 650 mg PO Q6HP PRN; Protocol PRN Reason: Per Pain Protocol/Fever > 101 Last Admin: 09/13/19 10:11 Dose: 650 mg Documented by: Hydrocodone Bitart/Acetaminophen (Fillmore 5/325mg) 1 tab PO Q4HP PRN; Protocol PRN Reason: Per Pain Protocol Last Admin: 09/12/19 20:40 Dose: 1 tab Documented by: Albuterol/Ipratropium (Duoneb) 3 ml NEB Q6H PRN PRN Reason: shortness of breath Last Admin: 09/11/19 22:27 Dose: 3 ml Documented by: Atenolol (Tenormin) 50 mg PO QDAY [facility] Last Admin: 09/13/19 10:11 Dose: 50 mg Documented by: Atorvastatin Calcium (Lipitor) 40 mg PO QHS [facility] Last Admin: 09/12/19 20:29 Dose: 40 mg Documented by: Benztropine Mesylate (Cogentin) 2 mg PO BID [facility] Last Admin: 09/13/19 10:17 Dose: 2 mg Documented by: Clonazepam (Klonopin) 0.25 mg PO BIDP PRN PRN Reason: Anxiety Last Admin: 09/13/19 10:10 Dose: 0.25 mg Documented by: Collagenase (Santyl Top Oint) 1 dose TOPICAL DAILY [facility] Last Admin: 09/13/19 10:19 Dose: 1 dose Documented by: Docusate Sodium (Colace) 100 mg PO BID [facility] Last Admin: 09/13/19 10:10 Dose: 100 mg Documented by: Acetaminophen (Ofirmev) 650 mg in 65 mls @ 130 mls/hr IV Q6HP PRN; Protocol PRN Reason: PAIN/FEVER > 101 Last Infusion: 09/12/19 22:13 Dose: Infused Documented by: Sodium Chloride (Sodium Chloride 0.45%) 1,000 mls @ 100 mls/hr IV .Q10H [facility] Last Admin: 09/13/19 10:04 Dose: 125 mls/hr Documented by: Piperacillin Sod/Tazobactam (Sod 3.375 gm/ Dextrose) 50 mls @ 100 mls/hr IV Q6H [facility]; Protocol Last Admin: 09/13/19 12:00 Dose: 100 mls/hr Documented by: Vancomycin HCl 1,500 mg/ (Sodium Chloride) 500 mls @ 333.3 mls/hr IV Q12H [facility] Last Admin: 09/13/19 12:55 Dose: 333.3 mls/hr Documented by: Iron Carb/Multivit/Piggott/Folic Acid (Multivitamin W/Minerals) 1 tab PO DAILY [facility] Last Admin: 09/13/19 10:10 Dose: 1 tab Documented by: Lactulose (Cephulac) 10 gm PO DAILYP PRN PRN Reason: Constipation Lamotrigine (Lamictal) 100 mg PO QDAY [facility] Last Admin: 09/13/19 10:18 Dose: 100 mg Documented by: Levothyroxine Sodium (Synthroid) 300 mcg PO [facility] Last Admin: 09/13/19 10:18 Dose: 300 mcg Documented by: Levothyroxine Sodium (Synthroid) 50 mcg PO [facility] Last Admin: 09/13/19 10:18 Dose: 50 mcg Documented by: Medroxyprogesterone Acetate (Provera) 10 mg PO BID [facility] Last Admin: 09/13/19 10:49 Dose: 10 mg Documented by: Metoprolol Tartrate (Lopressor) 5 mg IV Q6HP PRN PRN Reason: Tachyarrhythmias Last Admin: 09/12/19 09:34 Dose: 5 mg Documented by: Mupirocin (Bactroban Oint 2%) 1 dose TOPICAL BID [facility] Last Admin: 09/13/19 10:12 Dose: 1 dose Documented by: Naloxone HCl (Narcan) 0.1 mg IV Q2MIN PRN PRN Reason: Opiate Reversal Ondansetron HCl (Zofran) 4 mg IV Q4HP PRN; Protocol PRN Reason: Nausea And Vomiting Last Admin: 09/12/19 21:30 Dose: 4 mg Documented by: Pantoprazole Sodium (Protonix) 40 mg PO [facility] Last Admin: 09/13/19 10:10 Dose: 40 mg Documented by: Quetiapine Fumarate (Seroquel) 50 mg PO [facility] Last Admin: 09/12/19 20:29 Dose: 50 mg Documented by: Fluticasone/Salmeterol (Advair 100-50 Diskus) 1 puff INH BID [facility] Last Admin: 09/13/19 07:47 Dose: Not Given Documented by: Senluisa (Senokot) 2 tab PO HSP PRN PRN Reason: Constipation Sodium Chloride (Saline Flush) 10 ml IV Q8 [facility] Last Admin: 09/13/19 12:54 Dose: 10 ml Documented by: Vancomycin HCl (Vancomycin Per Pharmacy) 1 order IV [facility]; Protocol Venlafaxine HCl (Effexor Xr) 150 mg PO QDAY [facility] Last Admin: 09/13/19 10:17 Dose: 150 mg Documented by: Warfarin Sodium (Coumadin Per Pharmacy) 1 order PO [facility] Medical - PN: A/P - Time Spent With Patient Total time spent is greater than 50% in coordination of care (as documented) at patient's floor/unit and/or counseling patient: - Narrative A/P Narrative: A: *Sepsis: Resolved, though concern for recurrent due to sacral wound. Initial sepsis secondary to urinary infection. - Initially, severe sepsis with lactate of 3.8 at presentation, normalized with fluids. Soft blood pressures on 09/09, responded to fluids. -Growing pathologic quantities of E. coli from urine, this appears to be the source of sepsis. -Does have back pain, however that has been ongoing since a fall onto her buttocks and is apparently unchanged. -Now with worsening sacral decubitus, suspicion for recurrent infection. *Sacral Wound: Patient with sacral unstageable pressure ulcer present at time of admission. Discussed with Dr. Juarez. *Encephalopathy: Now waxing and waning after having appeared to have turned the corner on 09/11. -Patient has had recent subdural hematoma in mid July. That does appear resolved on current CT imaging. -She also has a history of prior watershed infarcts, with no new findings noted on current CT. -Suspect her change in mental status and encephalopathy is secondary to sepsis, now worsening with decubitus, and not new cerebral ischemia. *Schizophrenia: Diagnosis noted in chart. Not currently on any antipsychotics per med list. Is on Cogentin, presumably for old EPS. -Awoke with significant anxiety on 09/11, subsequently had hallucinations and difficult night. *Atrial fibrillation: Is generally been rate controlled with rates under 120. Atenolol initially held due to sepsis. *Urinary tract infection: As above, acute cystitis versus possible pyelonephritis. Suspected source of sepsis. *JEREMY: Creatinine was 2.1 on presentation, is improved and normal at 0.6 on 09/11. -Suspect secondary to sepsis and prerenal etiology. *HTN: No evidence of hypotension associated with sepsis *h/o Cerebral vascular disease: As noted above, stable findings on CT. With watershed infarcts, suspect these may have been cardioembolic. -had SDH in , Warfarin restarted in August P: - Ceftriaxone for UTI stopped, beginning vancomycin and Zosyn for sacral decubitus. - Surgical consultation (called by Dr. Mak) and ID consult. Likely needs debridement. -ID following -follow mental status -Low-dose clonazepam for anxiety symptoms; added Seroquel at bedtime. Reconfirm home meds -Resumed atenolol, -pt/ot -Prophylaxis: PPI, SCD. LMWH-->warfarin per pharmacy, holding 1/2 as may need to go to OR CODE STATUS: Patient's caregiver notes that she does have a living well, currently does not have a copy. Is unaware of any other stated wishes. This CODE STATUS for now is full code. Have not been able to discuss with any decision making surrogates. Medical - PN: Qual - VTE Deep Vein Thrombosis/Pulmonary Embolism Present on Admission: No
--- NOTE | 2019-09-13 15:53 | General Surgery Consult Note ---
History of Present Illness Patient information: Note initiated : 09/13/19 at 3:50 pm Service Date, if different from initiated Date: [] Patient: Christine Cespedes 64 y/o F admitted on 09/08/19 for Sepsis, UTI. Chief Complaint: sacral ulcer Consult date: 09/13/19 Reason for consult: other (Sacral wound) Requesting physician: Bang Juarez History of present illness: Ms. Pop is a 64-year-old woman admitted with urinary sepsis who subsequently was noted to have developed a pressure wound on the sacrum undetermined stage. She has been in the intensive care unit and has been improving however the sacral wound has begun to discharge of foul brownish fluid leading to consultation from ID and wound care service. They're requesting debridement in the operating room. 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) Urinary incontinence (Chronic) Schizophrenia (Chronic) Prediabetes (Chronic 10/29/14) Methicillin resistant Staphylococcus aureus infection (Chronic) Obesity (Chronic) Migraine (Chronic) 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 use of anticoagulant (Chronic) Hypothyroidism (acquired) (Chronic) Hypertension, essential (Chronic) Hyperlipidemia (Chronic) Gastroesophageal reflux (Chronic) Depressive disorder (Chronic) Late, effect, cerebrovascular disease (Chronic 10/27/11) Degenerative joint disease (Chronic) CVA (cerebral infarction) (Chronic) Atrial fibrillation (Chronic) Asthma (Chronic) Anxiety disorder (Chronic) Allergic rhinitis (Chronic) Abnormal Pap smear of vagina (Chronic) CPAP (continuous positive airway pressure) dependence (Acute) Sleep apnea (Acute) Cellulitis (Resolved) Past surgical history: Past Surgical History (Last Reviewed 09/07/19 @ 11:35 by Travon Lr PA-C) History of vaginal surgery (Chronic) History of colonoscopy (Chronic) History of cholecystectomy (Chronic) History of (Chronic) History of arthroscopic knee surgery (Chronic) History of placement of ear tubes (Acute) History of D&C (Chronic 06/07/18) Past family history: Family History (Last Reviewed 09/07/19 @ 11:35 by Travon Lr PA-C) Mother Family history of diabetes mellitus Essential hypertension Heart disease Father Essential hypertension Lymphoma Cerebrovascular accident brother Acute myocardial infarction Malignant neoplasm of lung Sister Malignant neoplasm of uterus Unknown Renal failure Family/Other Multiple sclerosis Other Emphysema of lung Past social history: Social History (Last Updated 09/07/19 @ 11:38 by Travon Lr PA-C) Lives at home, has caregiver, son is next of kin Medications and Allergies Home Medications Medication Instructions Recorded Confirmed Type Spirometers and Accessories [Pflex 1 each .ROUTE .MEDSUPPLY 03/01/17 09/07/19 History [place]] medroxyprogesterone 10 mg tablet 10 mg PO BID tab 09/08/18 09/08/19 History cholecalciferol (vitamin D3) 125 5,000 unit PO QDAY 03/27/19 09/07/19 History mcg (5,000 unit) capsule glucosamine 750 uo-alkmid-rbg 2-C 1 tab PO DAILY tab 03/27/19 09/07/19 History 30 mg-D3 1,000 unit-omar 1 mg tablet loratadine 10 mg tablet 10 mg PO QDAY PRN 03/27/19 09/07/19 History vitamins A,C,R-waoj-thzzni 14,320 1 cap PO BID 03/27/19 09/07/19 History unit-226 mg-200 unit capsule levothyroxine 50 mcg capsule 50 mcg PO QDAY #90 cap 04/09/19 09/08/19 Rx fluticasone propionate 50 1 spray INTRANASAL QDAY #16 g 05/01/19 09/12/19 Rx mcg/actuation nasal spray,suspension levothyroxine 300 mcg tablet 300 mcg PO QDAY #90 tab 05/07/19 09/08/19 Rx multivitamin 1 tab PO QDAY 05/31/19 09/07/19 History potassium 99 mg tablet 99 mg PO QDAY 05/31/19 09/07/19 History omeprazole 20 mg capsule,delayed 20 mg PO QDAY #90 cap 07/02/19 09/08/19 Rx release potassium chloride 10 mEq 10 meq PO BID 30 Days #60 cap 07/02/19 09/08/19 Rx capsule,extended release venlafaxine 150 mg 150 mg PO QDAY #90 cap 07/05/19 09/12/19 Rx capsule,extended release 24 hr atorvastatin 40 mg tablet 40 mg PO QHS #30 tab 07/09/19 09/08/19 Rx lamotrigine 100 mg tablet 100 mg PO QDAY #30 tab 07/17/19 09/08/19 Rx LIFT CHAIR 1 each DAILY 07/29/19 09/07/19 History Nebulizer 1 each .ROUTE DAILY 07/29/19 09/07/19 History hydrochlorothiazide 25 mg tablet 25 mg PO QAM #90 tab 08/20/19 09/08/19 Rx atenolol 50 mg tablet 50 mg PO QDAY 08/30/19 09/08/19 History fluticasone 100 mcg-salmeterol 50 1 puff INHALATION BID 08/30/19 09/12/19 History mcg/dose blistr powdr for inhalation nebulizer accessories See Rx Instructions .ROUTE 08/30/19 09/07/19 Rx .MEDSUPPLY #1 each warfarin 5 mg tablet See Rx Instructions .ROUTE 08/30/19 09/08/19 History .COMPLEX tab Bariatric Commode #1 each 09/07/19 09/07/19 Rx hospital bed #1 ea 09/07/19 09/07/19 Rx wide shower chair #1 ea 09/07/19 09/07/19 Rx Benztropine [Cogentin] 2 mg PO BID 09/08/19 09/08/19 History Metoprolol Tartrate [Lopressor] 25 mg PO HS 09/12/19 09/12/19 History Metoprolol Tartrate [Lopressor] 50 mg PO DAILY 09/12/19 09/12/19 History Allergies Allergy/AdvReac Type Severity Reaction Status Date / Time adhesive tape AdvReac Mild Rash Verified 09/07/19 10:40 clindamycin AdvReac Mild Itching Verified 09/10/19 08:03 codeine AdvReac Mild forms sore Verified 09/07/19 10:40 red dye AdvReac Mild Rash Verified 09/07/19 10:40 Sulfa (Sulfonamide AdvReac Mild Rash Verified 09/07/19 10:40 Antibiotics) Exam Temp Pulse Resp BP Pulse Ox 98.0 F 108 H 20 119/71 96 09/13/19 11:27 09/13/19 11:27 09/13/19 11:27 09/13/19 11:27 09/13/19 11:27 - General physical appearance well developed, well nourished, moderate distress - Eyes normal ocular movement - Neck trachea midline - Cardiovascular Cardiovascular exam IM: Present: normal rate and rhythm - Respiratory normal respiratory effort - Abdomen Abdomen: Absent: distended - Integumentary Present: other (approximately 5 cm cephalad to the anus in the cleft there is a 3 cm diameter opening. Deep to the opening is black eschar. There is a dark fluid noted to be draining from the area. There is no appreciable erythema around on the adjacent skin.) - Neurologic Present: disoriented - Psychiatric Present: oriented to person. Absent: oriented to time, oriented to place Results - Labs 09/13/19 03:53 09/13/19 03:53 Abnormal lab results 09/13/19 09/13/19 09/13/19 Range/Units 03:53 03:53 03:54 WBC 13.2 H (4.50-11.00) K/mcL MPV 12.1 H (7.4-10.4) fL Gran % 78.9 H (38.0-78.0) % Lymph % (Auto) 10.0 L (15.5-49.0) % Gran # 10.38 H (1.80-8.00) K/mcL Lymph # (Auto) 1.32 L (1.50-4.80) K/mcL PT 17.8 H (11.9-14.5) sec INR 1.5 H (0.9-1.1) Carbon Dioxide 21 L (22-30) mmol/L Creatinine 0.5 L (0.6-1.1) mg/dl Glucose 65 L (70-105) mg/dL Calcium 8.3 L (8.6-10.4) mg/dl Diabetes panel 09/13/19 Range/Units 03:53 Sodium 141 (133-145) mmol/L Potassium 4.2 (3.3-5.1) mmol/L Chloride 108 (96-108) mmol/L Carbon Dioxide 21 L (22-30) mmol/L BUN 21 (8-23) mg/dl Creatinine 0.5 L (0.6-1.1) mg/dl Glucose 65 L (70-105) mg/dL Calcium 8.3 L (8.6-10.4) mg/dl Calcium panel 09/13/19 Range/Units 03:53 Calcium 8.3 L (8.6-10.4) mg/dl Pituitary panel 09/13/19 Range/Units 03:53 Sodium 141 (133-145) mmol/L Potassium 4.2 (3.3-5.1) mmol/L Chloride 108 (96-108) mmol/L Carbon Dioxide 21 L (22-30) mmol/L BUN 21 (8-23) mg/dl Creatinine 0.5 L (0.6-1.1) mg/dl Glucose 65 L (70-105) mg/dL Calcium 8.3 L (8.6-10.4) mg/dl Adrenal panel 09/13/19 Range/Units 03:53 Sodium 141 (133-145) mmol/L Potassium 4.2 (3.3-5.1) mmol/L Chloride 108 (96-108) mmol/L Carbon Dioxide 21 L (22-30) mmol/L BUN 21 (8-23) mg/dl Creatinine 0.5 L (0.6-1.1) mg/dl Glucose 65 L (70-105) mg/dL Calcium 8.3 L (8.6-10.4) mg/dl All other labs normal. Assessment and Plan (1) Pressure ulcer of sacral region We will plan to take the patient the operating room tomorrow under general anesthetic she will be placed prone. Following positioning the necrotic tissue will be sharply debrided down to viable tissue. I believe that likely the best option will be a wound VAC dressing. Status: Acute Priority: High Qualifiers: Pressure injury stage: pressure injury of deep tissue Qualified Code(s): L89.156 - Pressure-induced deep tissue damage of sacral region
--- NOTE | 2019-09-13 16:32 | Infectious Disease Consult ---
History of Present Illness Patient information: Note initiated : 09/13/19 at 4:29 pm Service Date, if different from initiated Date: [] Patient: Christine Cespedes 64 y/o F admitted on 09/08/19 for Sepsis, UTI. Chief Complaint: [] Consult date: 09/13/19 Requesting Physician: Alejandra Li Reason for Consult: Necrotic sacral wound Chief complaint: can't be obtained as pt is obtunded History of present illness: HPI obtained from chart review, as pt is not awake, alert, oriented x 3 to provide any history. 64 year old lady admitted on 09/08/19 with c/o altered mental status, decreased appetite. In ED she had white count of 22,000, lactate of 3.8, increased anion gap and significantly abnormal urine analysis with pyuria and bacteriuria. Urine Cx grew holt sens Ecoli. She was treated with 6 days of IV Ceftriaxone. She improved clinically but started having fluctuating mental status with confusion around 09/12/2019. Around 09/13/2019, it was found that she had a foul-smelling drainage from one of pressure ulcers around her sacrum. Her WBC were elevated. ID, wound care and surgery were consulted. Pt's POA is son (Wong) who is out of state due to his job and could not be available. 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 leisure activities: music other: 3 children 1 at the age of 10 from hydrocephalus among otherpro smoking status: Never smoker alcohol intake frequency: does not drink Medications and Allergies Home Medications Medication Instructions Recorded Confirmed Type Spirometers and Accessories [Pflex 1 each .ROUTE .MEDSUPPLY 03/01/17 09/07/19 History [place]] medroxyprogesterone 10 mg tablet 10 mg PO BID tab 09/08/18 09/08/19 History cholecalciferol (vitamin D3) 125 5,000 unit PO QDAY 03/27/19 09/07/19 History mcg (5,000 unit) capsule glucosamine 750 pe-sxacxf-viz 2-C 1 tab PO DAILY tab 03/27/19 09/07/19 History 30 mg-D3 1,000 unit-omar 1 mg tablet loratadine 10 mg tablet 10 mg PO QDAY PRN 03/27/19 09/07/19 History vitamins A,C,V-fkfp-zoffgc 14,320 1 cap PO BID 03/27/19 09/07/19 History unit-226 mg-200 unit capsule levothyroxine 50 mcg capsule 50 mcg PO QDAY #90 cap 04/09/19 09/08/19 Rx fluticasone propionate 50 1 spray INTRANASAL QDAY #16 g 05/01/19 09/12/19 Rx mcg/actuation nasal spray,suspension levothyroxine 300 mcg tablet 300 mcg PO QDAY #90 tab 05/07/19 09/08/19 Rx multivitamin 1 tab PO QDAY 05/31/19 09/07/19 History potassium 99 mg tablet 99 mg PO QDAY 05/31/19 09/07/19 History omeprazole 20 mg capsule,delayed 20 mg PO QDAY #90 cap 07/02/19 09/08/19 Rx release potassium chloride 10 mEq 10 meq PO BID 30 Days #60 cap 07/02/19 09/08/19 Rx capsule,extended release venlafaxine 150 mg 150 mg PO QDAY #90 cap 07/05/19 09/12/19 Rx capsule,extended release 24 hr atorvastatin 40 mg tablet 40 mg PO QHS #30 tab 07/09/19 09/08/19 Rx lamotrigine 100 mg tablet 100 mg PO QDAY #30 tab 07/17/19 09/08/19 Rx LIFT CHAIR 1 each DAILY 07/29/19 09/07/19 History Nebulizer 1 each .ROUTE DAILY 07/29/19 09/07/19 History hydrochlorothiazide 25 mg tablet 25 mg PO QAM #90 tab 08/20/19 09/08/19 Rx fluticasone 100 mcg-salmeterol 50 1 puff INHALATION BID 08/30/19 09/12/19 History mcg/dose blistr powdr for inhalation nebulizer accessories See Rx Instructions .ROUTE 08/30/19 09/07/19 Rx .MEDSUPPLY #1 each warfarin 5 mg tablet See Rx Instructions .ROUTE 08/30/19 09/08/19 History .COMPLEX tab Bariatric Commode #1 each 09/07/19 09/07/19 Rx hospital bed #1 ea 09/07/19 09/07/19 Rx wide shower chair #1 ea 09/07/19 09/07/19 Rx Benztropine [Cogentin] 2 mg PO BID 09/08/19 09/08/19 History Metoprolol Tartrate [Lopressor] 25 mg PO HS 09/12/19 09/12/19 History Metoprolol Tartrate [Lopressor] 50 mg PO DAILY 09/12/19 09/12/19 History Levofloxacin [Levaquin] 750 mg PO DAILY #9 tab 09/17/19 Rx Vancomycin 1,500 mg IV DAILY #1 vial 09/17/19 Rx Allergies Allergy/AdvReac Type Severity Reaction Status Date / Time adhesive tape AdvReac Mild Rash Verified 09/07/19 10:40 clindamycin AdvReac Mild Itching Verified 09/10/19 08:03 codeine AdvReac Mild forms sore Verified 09/07/19 10:40 red dye AdvReac Mild Rash Verified 09/07/19 10:40 Sulfa (Sulfonamide AdvReac Mild Rash Verified 09/07/19 10:40 Antibiotics) Physical Examination Vital signs: Temp Pulse Resp BP Pulse Ox 36.7 C 108 H 20 119/71 96 09/13/19 11:27 09/13/19 11:27 09/13/19 11:27 09/13/19 11:27 09/13/19 11:27 General appearance: appears uncomfortable Eyes pulmonary: nonicteric Effort: normal Auscultation: bilateral: diminished breath sounds (at bases, rest has VBS) Cardiovascular: other (s1 soft, s2 normal, no m/r/g) Gastrointestinal: normoactive bowel sounds, soft, non-tender Integumentary: decubitus ulcer (in perineal area, foul odor, round about 5 x 7 cm, probe to deep muscles, dark-serous drainage) unable to assess due to mental status Results - Laboratory Findings CBC and BMP: 09/18/19 05:00 09/18/19 05:00 PT/INR, D-dimer PT 17.8 sec (11.9-14.5) H 09/13/19 03:54 INR 1.5 (0.9-1.1) H 09/13/19 03:54 Abnormal lab findings: Abnormal Labs 09/08/19 09/08/19 09/08/19 10:33 10:33 10:33 WBC 22.8 H RBC 5.43 H Hgb 16.6 H Hct 50.2 H MPV Gran % 90.8 H Lymph % (Auto) 2.6 L Gran # 20.7 H Lymph # (Auto) 0.6 L [place] # (Auto) 1.5 H PT INR VBG Lactic Acid 3.8 H Sodium Potassium Chloride Carbon Dioxide 14 L Anion Gap 27.0 H BUN 40 H Creatinine 2.1 H Glucose 108 H Uric Acid Calcium Total Bilirubin 1.1 H GGT AST 88 H ALT 54 H Alkaline Phosphatase 171 H Lactate Dehydrogenase NT-Pro-B Natriuret Pep 8175.0 H Total Protein Albumin Globulin 3.8 H Albumin/Globulin Ratio Triglycerides Urine Protein Urine Ketones Urine Occult Blood Urine Urobilinogen Ur Leukocyte Esterase Urine RBC Urine WBC Urine Bacteria Hyaline Casts 09/08/19 09/08/19 09/09/19 10:33 11:10 04:05 WBC 17.8 H RBC Hgb Hct MPV Gran % 88.2 H Lymph % (Auto) 4.4 L Gran # 15.7 H Lymph # (Auto) 0.8 L [place] # (Auto) 1.1 H PT 16.7 H INR 1.4 H VBG Lactic Acid Sodium Potassium Chloride Carbon Dioxide Anion Gap BUN Creatinine Glucose Uric Acid Calcium Total Bilirubin GGT AST ALT Alkaline Phosphatase Lactate Dehydrogenase NT-Pro-B Natriuret Pep Total Protein Albumin Globulin Albumin/Globulin Ratio Triglycerides Urine Protein 100 A Urine Ketones 5/tr A Urine Occult Blood 0.2 A Urine Urobilinogen 2.0 A Ur Leukocyte Esterase 500 A Urine RBC 40 H Urine WBC > 182 H Urine Bacteria Many A Hyaline Casts 15 H 09/09/19 09/10/19 09/10/19 04:05 03:50 03:50 WBC RBC Hgb Hct MPV Gran % 86.5 H Lymph % (Auto) 7.8 L Gran # 9.3 H Lymph # (Auto) 0.8 L [place] # (Auto) PT INR VBG Lactic Acid Sodium 146 H Potassium Chloride 110 H 116 H Carbon Dioxide 15 L 16 L Anion Gap BUN 31 H Creatinine 1.2 H Glucose Uric Acid 10.6 H Calcium 8.5 L 8.1 L Total Bilirubin GGT 54 H AST 85 H 62 H ALT 48 H 43 H Alkaline Phosphatase 132 H Lactate Dehydrogenase 659 H NT-Pro-B Natriuret Pep Total Protein 5.3 L Albumin 2.6 L 2.3 L Globulin Albumin/Globulin Ratio 0.8 L 0.8 L Triglycerides 266 H Urine Protein Urine Ketones Urine Occult Blood Urine Urobilinogen Ur Leukocyte Esterase Urine RBC Urine WBC Urine Bacteria Hyaline Casts 09/11/19 09/11/19 09/12/19 03:51 03:51 03:52 WBC 12.6 H 13.2 H RBC Hgb Hct MPV 11.8 H Gran % 88.2 H 85.0 H Lymph % (Auto) 5.2 L 6.7 L Gran # 11.1 H 11.20 H Lymph # (Auto) 0.7 L 0.89 L [place] # (Auto) PT INR VBG Lactic Acid Sodium Potassium 2.7 L* Chloride 110 H Carbon Dioxide 16 L Anion Gap BUN Creatinine Glucose Uric Acid Calcium 7.8 L Total Bilirubin GGT AST ALT Alkaline Phosphatase Lactate Dehydrogenase NT-Pro-B Natriuret Pep Total Protein Albumin Globulin Albumin/Globulin Ratio Triglycerides Urine Protein Urine Ketones Urine Occult Blood Urine Urobilinogen Ur Leukocyte Esterase Urine RBC Urine WBC Urine Bacteria Hyaline Casts 09/12/19 09/13/19 09/13/19 03:52 03:53 03:53 WBC 13.2 H RBC Hgb Hct MPV 12.1 H Gran % 78.9 H Lymph % (Auto) 10.0 L Gran # 10.38 H Lymph # (Auto) 1.32 L [place] # (Auto) PT INR VBG Lactic Acid Sodium Potassium 3.1 L Chloride 109 H Carbon Dioxide 17 L 21 L Anion Gap BUN Creatinine 0.5 L 0.5 L Glucose 65 L Uric Acid Calcium 8.1 L 8.3 L Total Bilirubin GGT AST ALT Alkaline Phosphatase Lactate Dehydrogenase NT-Pro-B Natriuret Pep Total Protein Albumin Globulin Albumin/Globulin Ratio Triglycerides Urine Protein Urine Ketones Urine Occult Blood Urine Urobilinogen Ur Leukocyte Esterase Urine RBC Urine WBC Urine Bacteria Hyaline Casts 09/13/19 03:54 WBC RBC Hgb Hct MPV Gran % Lymph % (Auto) Gran # Lymph # (Auto) [place] # (Auto) PT 17.8 H INR 1.5 H VBG Lactic Acid Sodium Potassium Chloride Carbon Dioxide Anion Gap BUN Creatinine Glucose Uric Acid Calcium Total Bilirubin GGT AST ALT Alkaline Phosphatase Lactate Dehydrogenase NT-Pro-B Natriuret Pep Total Protein Albumin Globulin Albumin/Globulin Ratio Triglycerides Urine Protein Urine Ketones Urine Occult Blood Urine Urobilinogen Ur Leukocyte Esterase Urine RBC Urine WBC Urine Bacteria Hyaline Casts Microbiology: Microbiology 09/10/19 10:15 Decubitus Gram Stain - Final 09/10/19 10:15 Decubitus Wound Culture - Final Escherichia coli Proteus mirabilis Enterococcus species 09/13/19 12:54 Perineal Gram Stain - Final 09/08/19 11:10 Urine - Catheterized Urine Culture - Final Escherichia coli 09/08/19 15:00 Nose MRSA (PCR) - Final MRSA PCR positive Assessment and Plan - Narrative A/P Narrative: A: 1. Infected decubitus ulcer involving sacrum and upper right inner thigh: - concerns for underlying abscess and/or deeper infection based on dark colored drainage, foul odor, necrotic tissue, tenderness - no concerns for gangrene at this point 2. Delirium: - recent insults with subdural hematoma, TIA, prior ischemic strokes might be responsible for some irreversible deficit 3. UTI: s/p 6 days of IV Ceftriaxone Recommendations: - Stop IV Ceftriaxone - Start IV Vanc per pharmacy assisted dosing. Check trough before the 4th dose (target 10-20) - Start IV Zosyn at 3.375 gm q6 hrs - wound Cx (aerobic and anerobic swab) sent - ordered 2 sets of blood cultures - consider CT abd/pelvis with contrast to assess the exact extent of infection - agree with surgical debridement tomorrow. Send operative Cx for GS, C/S - HOB elev at all times, given high aspiration risk - consider goals of care discussion given multiple comorbidities including neurological deficits from recent SDH, strokes. will follow Marvel Jean Claude, MD Infectious diseases
[2019-09-13] MEDS ORDERED: METOPROLOL SUCCINATE 50 MG TAB.XL.24H PO ONE (16:52)
[2019-09-13] MEDS: ATORVASTATIN 40 MG TABLET PO SCH (20:45)
[2019-09-13] MEDS: QUEtiapine 25 MG TABLET PO SCH (20:45)
[2019-09-14] MEDS: PIPERACILLIN SODIUM/TAZOBACTAM 3.375 GM in DEXTROSE 5% IN WATER 50 ML IV SCH ×5 (00:41→23:35)
[2019-09-14] MEDS: ACETAMINOPHEN 650 MG/65 ML BOTTLE IV PRN ×2 (02:02→17:30)
[2019-09-14] MEDS: 0.45 % SODIUM CHLORIDE 1,000 ML IV SCH (02:30)
[2019-09-14] MEDS: 0.9 % SODIUM CHLORIDE 10 ML SYRINGE IV SCH ×3 (05:27→20:09)
--- NOTE | 2019-09-14 07:15 | Internal Med Progress Note ---
Medical - PN: Subj Patient information: Note initiated : 09/14/19 at 7:08 am Service Date, if different from initiated Date: [] Patient: Christine Cespedes a 64 y/o F admitted on 09/08/19 for Sepsis, UTI. Chief Complaint: [] Interval history: 09/08 Ms. Cespedes is a 64 year old F with a history of atrial fibrillation, recent subdural hematoma, history of ischemic strokes, hypertension, sleep apnea not on CPAP, prediabetes, morbid obesity with mobility impairment who presents to the emergency department with lethargy. History is obtained speaking to her caregiver. She has a caregiver in the home during the days, but not at night. The caregiver notes yesterday she was not quite herself, displaying some mild confusion. Her appetite was decreased. Caregiver made her a sandwich for dinner prior to her leaving yesterday, was still on eaten this morning when their caregiver arrived. Patient was in bed, was too weak to get out of bed, was confused and could not respond appropriately. In the ED, there is a history of low-grade fever as well. Because of lethargy, fever and weakness EMS was activated and she is brought to the ED. In the emergency department she has evidence of sepsis with now white count of 22,000, lactate of 3.8, increased anion gap and significantly abnormal urine analysis with pyuria and bacteriuria. She is being admitted for treatment of sepsis from urinary source. 09/09 Intermittently more responsive, was sitting up on edge of bed with physical therapy and did participate in self-care this morning. Is required fluids for declining blood pressures today with response. 09/10 Slowly continues to be more interactive. Urine culture with E. coli, only resistant to fluoroquinolones. Blood pressure stable. 09/11 Much more alert and interactive today. Still quite weak and needing assistance to stay sitting up at bedside. Held conversation with her, she states her goal is to get better. I encouraged her to increase her oral intake and that it is important for her to eat to get better. Nursing spoke with her son, who is her eldest child. He is a long-haul paralegal legal secretary and is out of state, but agreed that she will likely need skilled placement following this admission. In the late afternoon, she awoke panicked that she was trapped in a trailer and was disoriented. Had significant anxiety. 09/12/2019 Patient continued to have disorientation and hallucinations yesterday evening, was up much of the night, eventually calm down. Medicine list reviewed, she does not have any antipsychotics or other treatments for schizophrenia. Attempting to reconfirm her medication list. This morning, states she is not feeling too well, but is sleepy drifts back off. 09/13 Patient seems less interactive than she was yesterday afternoon. Sacral wound now draining material and will need debridement. Previously had eschar that was being debrided. Should've completed for therapy for UTI sepsis. Discussed with Dr. Juarez, whose consult general surgery. Have consulted Dr. Silverio, is recommended. Vancomycin and Zosyn for now until debridement. 09/14 Patient status post surgical I&D. Drowsy but opens eyes to voice. Refused CT imaging yesterday as recommended by infectious disease. No overnight events. - Constitutional Vitals: Vital Signs Temp Pulse Resp BP Pulse Ox 97.9 F 96 H 28 H 105/69 94 09/14/19 03:55 09/14/19 03:55 09/14/19 03:55 09/14/19 03:55 09/14/19 03:55 Period Temp Pulse Resp BP Sys/Butler Pulse Ox Last 24 Hr 97.3 F-98.4 F 81-108 16-32 105-119/50-81 94-98 Intake and Output 09/13/19 09/14/19 09/14/19 21:59 05:59 13:59 Intake Total 1550 665 Output Total 1255 400 Balance 295 265 Weight 113.988 kg Intake & Output: Intake & Output 09/13/19 09/14/19 09/14/19 21:59 05:59 13:59 Intake Total 1550 665 Output Total 1255 400 Balance 295 265 Weight 113.988 kg Intake: IV 1550 615 Sodium Chloride 0.45% 1,000 ml 1000 @ 100 mls/hr IV .Q10H CRAIG Rx#: [id number] Zosyn 3.375 gm In Dextrose 5% 50 50 in Water 50 ml @ 100 mls/hr IV Q6H CRAIG Rx#:[id number] Vancomycin 1,500 mg In Sodium 500 500 Chloride 0.9% 500 ml @ 333.3 mls/hr IV Q12H CRAIG Rx#: [id number] Oral 50 Output: Urine Catheter Amount 1255 400 Other: Urine Appearance Clear Clear Uretheral (Aguirre) Clear Urine Color Bright Yellow Bright Yellow Uretheral (Agiurre) Bright Yellow Urine Odor Normal Uretheral (Aguirre) Normal Stool Size Smear Stool Color Brown Stool Consistency Loose Exam: General: drowsy but Awakens easily, No acute Distress Eyes/N/T: EOMI, Head/Neck: neck supple, CV: irreg irreg, No murmurs, Pulm: Clear b/l, no wheezing/rhonchi/rales Abd: soft, nontender, +BS x4 Ext: no clubbing/cyanosis, mild b/l LE 1+ edema Neuro: drowsy, no focal deficits, follows commands Skin: warm/dry Medical - PN: Obj Da - Labs CBC & Chem 7: 09/14/19 06:20 09/13/19 03:53 Labs: Abnormal Lab Results 09/13/19 09/13/19 09/13/19 03:54 03:53 03:53 WBC 13.2 H MPV 12.1 H Gran % 78.9 H Lymph % (Auto) 10.0 L Gran # 10.38 H Lymph # (Auto) 1.32 L PT 17.8 H INR 1.5 H Potassium Chloride Carbon Dioxide 21 L Creatinine 0.5 L Glucose 65 L Calcium 8.3 L 09/12/19 09/12/19 03:52 03:52 WBC 13.2 H MPV 11.8 H Gran % 85.0 H Lymph % (Auto) 6.7 L Gran # 11.20 H Lymph # (Auto) 0.89 L PT INR Potassium 3.1 L Chloride 109 H Carbon Dioxide 17 L Creatinine 0.5 L Glucose Calcium 8.1 L Meds: Medications Acetaminophen (Tylenol) 650 mg PO Q6HP PRN; Protocol PRN Reason: Per Pain Protocol/Fever > 101 Last Admin: 09/13/19 10:11 Dose: 650 mg Documented by: Hydrocodone Bitart/Acetaminophen ([place] 5/325mg) 1 tab PO Q4HP PRN; Protocol PRN Reason: Per Pain Protocol Last Admin: 09/12/19 20:40 Dose: 1 tab Documented by: Albuterol/Ipratropium (Duoneb) 3 ml NEB Q6H PRN PRN Reason: shortness of breath Last Admin: 09/11/19 22:27 Dose: 3 ml Documented by: Atenolol (Tenormin) 50 mg PO QDAY [facility] Last Admin: 09/13/19 10:11 Dose: 50 mg Documented by: Atorvastatin Calcium (Lipitor) 40 mg PO QHS [facility] Last Admin: 09/13/19 20:45 Dose: 40 mg Documented by: Benztropine Mesylate (Cogentin) 2 mg PO BID [facility] Last Admin: 09/13/19 20:45 Dose: 2 mg Documented by: Clonazepam (Klonopin) 0.25 mg PO BIDP PRN PRN Reason: Anxiety Last Admin: 09/13/19 10:10 Dose: 0.25 mg Documented by: Collagenase (Santyl Top Oint) 1 dose TOPICAL DAILY [facility] Last Admin: 09/13/19 10:19 Dose: 1 dose Documented by: Docusate Sodium (Colace) 100 mg PO BID [facility] Last Admin: 09/13/19 20:45 Dose: 100 mg Documented by: Acetaminophen (Ofirmev) 650 mg in 65 mls @ 130 mls/hr IV Q6HP PRN; Protocol PRN Reason: PAIN/FEVER > 101 Last Infusion: 09/14/19 02:35 Dose: Infused Documented by: Sodium Chloride (Sodium Chloride 0.45%) 1,000 mls @ 100 mls/hr IV .Q10H [facility] Last Admin: 09/14/19 02:30 Dose: 125 mls/hr Documented by: Piperacillin Sod/Tazobactam (Sod 3.375 gm/ Dextrose) 50 mls @ 100 mls/hr IV Q6H [facility]; Protocol Last Admin: 09/14/19 05:50 Dose: 100 mls/hr Documented by: Vancomycin HCl 1,500 mg/ (Sodium Chloride) 500 mls @ 333.3 mls/hr IV Q12H [facility] Last Infusion: 09/14/19 00:41 Dose: Infused Documented by: Iron Carb/Multivit/[place]/Folic Acid (Multivitamin W/Minerals) 1 tab PO DAILY [facility] Last Admin: 09/13/19 10:10 Dose: 1 tab Documented by: Lactulose (Cephulac) 10 gm PO DAILYP PRN PRN Reason: Constipation Lamotrigine (Lamictal) 100 mg PO QDAY [facility] Last Admin: 09/13/19 10:18 Dose: 100 mg Documented by: Levothyroxine Sodium (Synthroid) 300 mcg PO [facility] Last Admin: 09/13/19 10:18 Dose: 300 mcg Documented by: Levothyroxine Sodium (Synthroid) 50 mcg PO [facility] Last Admin: 09/13/19 10:18 Dose: 50 mcg Documented by: Medroxyprogesterone Acetate (Provera) 10 mg PO BID [facility] Last Admin: 09/13/19 20:46 Dose: 10 mg Documented by: Metoprolol Tartrate (Lopressor) 5 mg IV Q6HP PRN PRN Reason: Tachyarrhythmias Last Admin: 09/12/19 09:34 Dose: 5 mg Documented by: Mupirocin (Bactroban Oint 2%) 1 dose TOPICAL BID [facility] Last Admin: 09/13/19 20:46 Dose: 1 dose Documented by: Naloxone HCl (Narcan) 0.1 mg IV Q2MIN PRN PRN Reason: Opiate Reversal Ondansetron HCl (Zofran) 4 mg IV Q4HP PRN; Protocol PRN Reason: Nausea And Vomiting Last Admin: 09/12/19 21:30 Dose: 4 mg Documented by: Pantoprazole Sodium (Protonix) 40 mg PO [facility] Last Admin: 09/13/19 10:10 Dose: 40 mg Documented by: Quetiapine Fumarate (Seroquel) 50 mg PO [facility] Last Admin: 09/13/19 20:45 Dose: 50 mg Documented by: Fluticasone/Salmeterol (Advair 100-50 Diskus) 1 puff INH BID [facility] Last Admin: 09/13/19 20:46 Dose: Not Given Documented by: Maria Elena (Senokot) 2 tab PO HSP PRN PRN Reason: Constipation Sodium Chloride (Saline Flush) 10 ml IV Q8 [facility] Last Admin: 09/14/19 05:27 Dose: Not Given Documented by: Vancomycin HCl (Vancomycin Per Pharmacy) 1 order IV [facility]; Protocol Venlafaxine HCl (Effexor Xr) 150 mg PO QDAY [facility] Last Admin: 09/13/19 10:17 Dose: 150 mg Documented by: Warfarin Sodium (Coumadin Per Pharmacy) 1 order PO [facility] Medical - PN: A/P - Time Spent With Patient Total time spent is greater than 50% in coordination of care (as documented) at patient's floor/unit and/or counseling patient: - Narrative A/P Narrative: A: *Sepsis,severe: Resolved, though concern for recurrent due to sacral wound. Initial sepsis secondary to urinary infection. -Does have back pain, however that has been ongoing since a fall onto her buttocks and is apparently unchanged. -Now with worsening sacral decubitus, suspicion for recurrent infection. *Leukocytosis: persistent *Sacral Wound w/Unstageable Pressure Ulcer at time of admission:. Discussed with Dr. Juarez. *Encephalopathy: Now waxing and waning after having appeared to have turned the corner on 09/11. suspect component of vascular dementia. -Patient has had recent subdural hematoma in mid July. That does appear resolved on current CT imaging. -She also has a history of prior watershed infarcts, with no new findings noted on current CT. -Suspect her change in mental status / encephalopathy is secondary to sepsis, now worsening with decubitus, and not new cerebral ischemia. *Schizophrenia: Diagnosis noted in chart. Not currently on any antipsychotics per med list. Is on Cogentin, presumably for old EPS. -Awoke with significant anxiety on 09/11, subsequently had hallucinations and difficult night. *Suspect vascular dementia: *Atrial fibrillation: Is generally been rate controlled with rates under 120. Atenolol initially held due to sepsis but restarted *UTI(e. coli): As above, acute cystitis versus possible pyelonephritis. Suspected source of sepsis. *JEREMY on CKD II: Resolved -Suspect secondary to sepsis and prerenal etiology. *HTN: No evidence of hypotension associated with sepsis *h/o Cerebral vascular disease: As noted above, stable findings on CT. With watershed infarcts, suspect these may have been cardioembolic. -had SDH in , Warfarin restarted in August *Hyopkalemia: resolved *Goals of Care: P: -Ceftriaxone for UTI stopped, beginning vancomycin/Zosyn for sacral decubitus. -stop IVF's, may need lasix (is on hctz at home) -Gen Surg following, I&D today -ID following -follow mental status -Low-dose clonazepam for anxiety symptoms; d/c recently started Seroquel at bedtime. Reconfirm home meds -Resumed atenolol -pt/ot -Prophylaxis: PPI, SCD. LMWH-->warfarin per pharmacy CODE STATUS: Patient's caregiver notes that she does have a living well, currently does not have a copy. Is unaware of any other stated wishes. This CODE STATUS for now is full code. Have not been able to discuss with any decision making surrogates. Medical - PN: Qual - VTE Deep Vein Thrombosis/Pulmonary Embolism Present on Admission: No
[2019-09-14 07:37] LABS: Basophils # (Auto) 0.06 K/mcL (0.00-0.30); Basophils % (Auto) 0.4 % (0.0-2.0); Eosinophils % (Auto) 2.8 % (0.0-7.0); Granulocytes % (Auto) 80.6 % (38.0-78.0); Hematocrit 37.1 % (34.1-44.9); Lymphocytes # (Auto) 1.09 K/mcL (1.50-4.80); Lymphocytes % (Auto) 7.5 % (15.5-49.0); Mean Cell Volume 94.2 fL (80.0-100.0); Mean Corpuscular HGB Conc 32.3 g/dL (31.0-36.0); Mean Platelet Volume 11.1 fL (7.4-10.4); Monocytes # (Auto) 1.26 K/mcL (0.10-0.90); Monocytes % (Auto) 8.7 % (1.0-12.0); Platelet Count 347 K/mcL (140-440); RBC 3.94 M/mcL (3.59-5.38); Red Cell Distribution Width 14.3 % (11.5-14.5); WBC 14.5 K/mcL (4.50-11.00)
[2019-09-14] MEDS ORDERED: diphenhydrAMINE 50 MG/ML VIAL IV ONE (08:25)
[2019-09-14] MEDS ORDERED: KETAMINE 100 MG/ML ML IV ONE (08:25)
[2019-09-14] MEDS ORDERED: LIDOCAINE W/EPI 1% 20 ML VIAL IJ ONE (08:38)
--- NOTE | 2019-09-14 09:05 | Brief Operative Note ---
Date of procedure: 09/14/19 Pre-op diagnosis: sacral pressure wound Post-op diagnosis: same Procedure: Sharp debridement of sacral pressure wound and placement of wound vac Grafts/Implants: Yes (wound vac) Anesthesia: MAC Findings: plug of negrotic skin and subq Surgeon: Kailash Rhodes Specimens Removed/Pathology: none sent Condition: stable Disposition: PACU
[2019-09-14 09:09] LABS: INR 1.9 (0.9-1.1); Prothrombin Time 21.4 sec (11.9-14.5)
[2019-09-14] MEDS ORDERED: DEXTROSE 50% 50 ML VIAL IV ONE ×2 (10:09→10:12)
[2019-09-14] MEDS: FLUTICASONE/SALMETEROL 50/100 INHALER #14 INH SCH ×2 (10:34→20:04)
[2019-09-14] MEDS: MUPIROCIN OINT 2% 22GM TOPICAL SCH ×2 (10:35→20:04)
[2019-09-14] MEDS: COLLAGENASE TOP OINT TUBE 30GM TOPICAL SCH (10:36)
[2019-09-14] MEDS ORDERED: METOPROLOL TARTRATE 25 MG TABLET PO ONE (10:38)
[2019-09-14 11:58] LABS: Band Neutrophils % 3 % (0-10); Eosinophils % (Manual) 2 % (0-7); Lymphocytes % 7 % (15-49); Monocytes % (Manual) 3 % (1-12); Myelocytes % 1 % (0-0); Platelet Estimate NORMAL (NORMAL); RBC Morphology NORMAL (NORMAL); Segmented Neutrophils % 84 % (38-78)
[2019-09-14] MEDS: BENZTROPINE 1 MG TABLET PO SCH ×2 (12:45→20:34)
[2019-09-14] MEDS: LEVOTHYROXINE 50 MCG TABLET PO SCH (12:45)
[2019-09-14] MEDS: PANTOPRAZOLE 40 MG TABLET PO SCH (12:45)
[2019-09-14] MEDS: LEVOTHYROXINE 150 MCG TABLET PO SCH (12:45)
[2019-09-14] MEDS: MULTIVIT,THER IRON,CA,FA & MIN 1 TABLET PO SCH (12:46)
[2019-09-14] MEDS: lamoTRIgine 100 MG TABLET PO SCH (12:46)
[2019-09-14] MEDS: DOCUSATE SODIUM 100 MG CAPSULE PO SCH ×2 (12:46→20:04)
[2019-09-14] MEDS: medroxyPROGESTERone 10 MG TABLET PO SCH ×2 (12:46→20:05)
[2019-09-14] MEDS: VENLAFAXINE 150 MG CAP.XL.24H PO SCH (12:46)
[2019-09-14] MEDS: ATENOLOL 50 MG TABLET PO SCH (12:47)
[2019-09-14] MEDS: HYDROCHLOROTHIAZIDE 25 MG TABLET PO SCH (12:51)
[2019-09-14] MEDS ORDERED: WARFARIN 2.5 MG TABLET PO ONE (14:00)
[2019-09-14] MEDS: VANCOMYCIN 1,500 MG in 0.9 % SODIUM CHLORIDE 500 ML IV SCH (15:13)
--- NOTE | 2019-09-14 15:14 | Infectious Disease Prog Note ---
Subjective Patient information: Note initiated : 09/14/19 at 3:07 pm Service Date, if different from initiated Date: [] Patient: Christine Cespedes 64 y/o F admitted on 09/08/19 for Sepsis, UTI. Chief Complaint: [] Interval history: Pt had just come back from her surgery. Obtunded. Per nursing, no fever, n/v/diarrhea. Didnot cooperate and difficult to fit in the CT scan machine yesterday. Son (Wong) is next of kin, and is currently out of state. Objective - Vital Signs Vital signs: Vital Signs Temp Pulse Resp BP BP BP Pulse Ox 09/14/19 14:00 97 09/14/19 12:00 37.4 C H 24 H 107/87 92 09/14/19 10:05 37.1 C 110 H 28 H 116/73 94 09/14/19 09:55 108 H 29 H 106/93 97 09/14/19 09:45 119 H 24 H 129/72 96 09/14/19 09:35 36.6 C 120 H 28 H 114/75 95 09/14/19 09:25 110 H 32 H 119/74 94 09/14/19 09:10 106 H 32 H 126/80 93 09/14/19 09:05 102 H 26 H 114/76 100 09/14/19 09:00 120 H 30 H 124/77 92 09/14/19 08:55 105 H 28 H 104/81 95 09/14/19 08:51 37.1 C 110 H 30 H 112/76 94 09/14/19 08:00 95 09/14/19 03:55 36.6 C 96 H 28 H 105/69 94 09/14/19 02:08 32 H 98 09/13/19 23:38 36.8 C 98 H 22 112/78 98 09/13/19 20:00 22 09/13/19 19:00 36.3 C 108 H 22 112/50 97 09/13/19 16:00 36.7 C 81 16 116/61 95 Intake and Output 09/14/19 09/14/19 09/14/19 05:59 13:59 21:59 Intake Total 665 1454 Output Total 400 660 Balance 265 794 Intake: IV 615 654 Sodium Chloride 0.45% 1,000 ml 604 @ 100 mls/hr IV .Q10H [facility] Rx#: [id number] Zosyn 3.375 gm In Dextrose 5% 50 50 in Water 50 ml @ 100 mls/hr IV Q6H [facility] Rx#:[id number] Vancomycin 1,500 mg In Sodium 500 Chloride 0.9% 500 ml @ 333.3 mls/hr IV Q12H [facility] Rx#: [id number] Oral 50 0 IV - Manual Only 800 Output: Urine Catheter Amount 400 400 Void Amount 250 Estimated Blood Loss 10 Other: Percent of Meal Consumed 0% Urine Appearance Clear Clear Uretheral (Aguirre) Cloudy Clear Sediment Urine Color Bright Yellow Pale Uretheral (Aguirre) Dark Gerri Pale Weight 113.988 kg Patient Weight 09/15/19 05:59 Weight 113.988 kg Intake & Output: Intake & Output 09/14/19 09/14/19 09/14/19 05:59 13:59 21:59 Intake Total 665 1454 Output Total 400 660 Balance 265 794 Weight 113.988 kg Intake: IV 615 654 Sodium Chloride 0.45% 1,000 ml 604 @ 100 mls/hr IV .Q10H [facility] Rx#: [id number] Zosyn 3.375 gm In Dextrose 5% 50 50 in Water 50 ml @ 100 mls/hr IV Q6H [facility] Rx#:[id number] Vancomycin 1,500 mg In Sodium 500 Chloride 0.9% 500 ml @ 333.3 mls/hr IV Q12H [facility] Rx#: [id number] Oral 50 0 IV - Manual Only 800 Output: Urine Catheter Amount 400 400 Void Amount 250 Estimated Blood Loss 10 Other: Percent of Meal Consumed 0% Urine Appearance Clear Clear Uretheral (Aguirre) Cloudy Clear Sediment Urine Color Bright Yellow Pale Uretheral (Aguirre) Dark Gerri Pale - Lab 09/14/19 06:20 09/13/19 03:53 Most recent lab results Calcium 8.3 mg/dl (8.6-10.4) L 09/13/19 03:53 Phosphorus 3.6 mg/dL (2.7-4.5) 09/09/19 04:05 Magnesium 2.0 mg/dL (1.6-2.5) 09/13/19 03:53 Microbiology 09/13/19 12:54 Perineal Gram Stain - Final 09/13/19 12:54 Perineal Wound Culture - Preliminary Swarming proteus Gram positive cocci 09/10/19 10:15 Decubitus Gram Stain - Final 09/10/19 10:15 Decubitus Wound Culture - Final Escherichia coli Proteus mirabilis Enterococcus species 09/08/19 11:10 Urine - Catheterized Urine Culture - Final Escherichia coli 09/08/19 15:00 Nose MRSA (PCR) - Final MRSA PCR positive Medications Active Medications: Acetaminophen (Tylenol) 650 mg PO Q6HP PRN; Protocol PRN Reason: Per Pain Protocol/Fever > 101 Last Admin: 09/13/19 10:11 Dose: 650 mg Documented by: [email or web address] Hydrocodone Bitart/Acetaminophen ([place] 5/325mg) 1 tab PO Q4HP PRN; Protocol PRN Reason: Per Pain Protocol Last Admin: 09/12/19 20:40 Dose: 1 tab Documented by: Admin: 09/12/19 11:55 Dose: 1 tab Documented by: Admin: 09/11/19 23:41 Dose: 1 tab Documented by: Admin: 09/11/19 20:06 Dose: 1 tab Documented by: Admin: 09/11/19 07:57 Dose: 1 tab Documented by: Admin: 09/11/19 00:01 Dose: 1 tab Documented by: Admin: 09/10/19 10:00 Dose: 1 tab Documented by: Admin: 09/08/19 22:57 Dose: 1 tab Documented by: GIAN Albuterol/Ipratropium (Duoneb) 3 ml NEB Q6H PRN PRN Reason: shortness of breath Last Admin: 09/11/19 22:27 Dose: 3 ml Documented by: Admin: 09/10/19 02:53 Dose: 3 ml Documented by: MARIKA Atenolol (Tenormin) 50 mg PO QDAY [facility] Last Admin: 09/14/19 12:47 Dose: Not Given Documented by: MAC Non-Admin Reason: Clinical Judgement Admin: 09/13/19 10:11 Dose: 50 mg Documented by: [email or web address] Atorvastatin Calcium (Lipitor) 40 mg PO QHS [facility] Last Admin: 09/13/19 20:45 Dose: 40 mg Documented by: Admin: 09/12/19 20:29 Dose: 40 mg Documented by: Admin: 09/11/19 20:06 Dose: 40 mg Documented by: Admin: 09/10/19 22:01 Dose: 40 mg Documented by: Admin: 09/09/19 20:12 Dose: 40 mg Documented by: Admin: 09/08/19 21:19 Dose: 40 mg Documented by: GIAN Benztropine Mesylate (Cogentin) 2 mg PO BID [facility] Last Admin: 09/14/19 12:45 Dose: Not Given Documented by: [email or web address] Non-Admin Reason: Clinical Judgement Admin: 09/13/19 20:45 Dose: 2 mg Documented by: Admin: 09/13/19 10:17 Dose: 2 mg Documented by: Admin: 09/12/19 20:41 Dose: 2 mg Documented by: Admin: 09/12/19 09:24 Dose: 2 mg Documented by: [email or web address] Admin: 09/11/19 20:07 Dose: 2 mg Documented by: Admin: 09/11/19 10:59 Dose: 2 mg Documented by: Admin: 09/10/19 22:01 Dose: 2 mg Documented by: Admin: 09/10/19 10:04 Dose: 2 mg Documented by: Admin: 09/09/19 20:12 Dose: 2 mg Documented by: Admin: 09/09/19 08:20 Dose: 2 mg Documented by: Admin: 09/08/19 21:19 Dose: 2 mg Documented by: GIAN Clonazepam (Klonopin) 0.25 mg PO BIDP PRN PRN Reason: Anxiety Last Admin: 09/13/19 10:10 Dose: 0.25 mg Documented by: [email or web address] Admin: 09/12/19 20:41 Dose: 0.25 mg Documented by: Admin: 09/11/19 20:07 Dose: 0.25 mg Documented by: GIAN Collagenase (Santyl Top Oint) 1 dose TOPICAL DAILY [facility] Last Admin: 09/14/19 10:36 Dose: Not Given Documented by: [email or web address] Non-Admin Reason: wound vac placed Admin: 09/13/19 10:19 Dose: 1 dose Documented by: [email or web address] Admin: 09/12/19 10:10 Dose: 1 dose Documented by: Admin: 09/11/19 11:00 Dose: 1 dose Documented by: AEDariel Admin: 09/10/19 10:25 Dose: 1 dose Documented by: AEDariel Diagnostic Test (Pha) (Accu-Chek) 1 each FS ACHS [facility] Docusate Sodium (Colace) 100 mg PO BID [facility] Last Admin: 09/14/19 12:46 Dose: Not Given Documented by: [email or web address] Non-Admin Reason: Clinical Judgement Admin: 09/13/19 20:45 Dose: 100 mg Documented by: Admin: 09/13/19 10:10 Dose: 100 mg Documented by: Admin: 09/12/19 20:29 Dose: 100 mg Documented by: Admin: 09/12/19 09:24 Dose: Not Given Documented by: [email or web address] Non-Admin Reason: Patient Refused Admin: 09/11/19 20:06 Dose: 100 mg Documented by: Admin: 09/11/19 10:59 Dose: 100 mg Documented by: AEDariel Admin: 09/10/19 22:01 Dose: 100 mg Documented by: Admin: 09/10/19 10:04 Dose: 100 mg Documented by: Admin: 09/09/19 20:44 Dose: Not Given Documented by: MARIKA Non-Admin Reason: Loose Stool Admin: 09/09/19 08:21 Dose: Not Given Documented by: [email or web address] Non-Admin Reason: Loose Stool Admin: 09/08/19 21:20 Dose: Not Given Documented by: GIAN Non-Admin Reason: Loose Stool Hydrochlorothiazide (Oretic) 25 mg PO QAM [facility] Last Admin: 09/14/19 12:51 Dose: Not Given Documented by: [email or web address] Non-Admin Reason: Difficulty Swallowing Acetaminophen (Ofirmev) 650 mg in 65 mls @ 130 mls/hr IV Q6HP PRN; Protocol PRN Reason: PAIN/FEVER > 101 Last Infusion: 09/14/19 02:35 Dose: 0 mls/hr Documented by: Admin: 09/14/19 02:02 Dose: 130 mls/hr Documented by: Infusion: 09/12/19 22:13 Dose: 0 mls/hr Documented by: Admin: 09/12/19 20:39 Dose: 130 mls/hr Documented by: Infusion: 09/10/19 17:00 Dose: 0 mls/hr Documented by: AEDariel Admin: 09/10/19 16:26 Dose: 130 mls/hr Documented by: [email or web address] Infusion: 09/10/19 01:20 Dose: 0 mls/hr Documented by: Admin: 09/10/19 00:48 Dose: 130 mls/hr Documented by: Infusion: 09/09/19 16:45 Dose: 0 mls/hr Documented by: [email or web address] Admin: 09/09/19 16:10 Dose: 130 mls/hr Documented by: AEDariel Infusion: 09/09/19 16:10 Dose: 0 mls/hr Documented by: AEDariel Infusion: 09/08/19 22:05 Dose: 0 mls/hr Documented by: Admin: 09/08/19 21:46 Dose: 130 mls/hr Documented by: [email or web address] Piperacillin Sod/Tazobactam (Sod 3.375 gm/ Dextrose) 50 mls @ 100 mls/hr IV Q6H [facility]; Protocol Last Admin: 09/14/19 13:02 Dose: 100 mls/hr Documented by: AEDariel Infusion: 09/14/19 06:30 Dose: 0 mls/hr Documented by: [email or web address] Admin: 09/14/19 05:50 Dose: 100 mls/hr Documented by: Infusion: 09/14/19 01:52 Dose: 0 mls/hr Documented by: Admin: 09/14/19 00:41 Dose: 100 mls/hr Documented by: Infusion: 09/13/19 18:23 Dose: 100 mls/hr Documented by: Admin: 09/13/19 17:53 Dose: 100 mls/hr Documented by: [email or web address] Infusion: 09/13/19 12:30 Dose: 0 mls/hr Documented by: [email or web address] Admin: 09/13/19 12:00 Dose: 100 mls/hr Documented by: [email or web address] Iron Carb/Multivit/Luquillo/Folic Acid (Multivitamin W/Minerals) 1 tab PO DAILY [facility] Last Admin: 09/14/19 12:46 Dose: Not Given Documented by: [email or web address] Non-Admin Reason: Clinical Judgement Admin: 09/13/19 10:10 Dose: 1 tab Documented by: Admin: 09/12/19 09:24 Dose: 1 tab Documented by: Admin: 09/11/19 11:00 Dose: 1 tab Documented by: AEDariel Admin: 09/10/19 10:04 Dose: 1 tab Documented by: AEDariel Admin: 09/09/19 08:20 Dose: 1 tab Documented by: AEDariel Lactulose (Cephulac) 10 gm PO DAILYP PRN PRN Reason: Constipation Lamotrigine (Lamictal) 100 mg PO QDAY [facility] Admin: 09/14/19 12:46 Dose: Not Given Documented by: AEDariel Non-Admin Reason: Clinical Judgement Admin: 09/13/19 10:18 Dose: 100 mg Documented by: [email or web address] Admin: 09/12/19 09:24 Dose: 100 mg Documented by: Admin: 09/11/19 10:59 Dose: 100 mg Documented by: AEDariel Admin: 09/10/19 10:04 Dose: 100 mg Documented by: AEDariel Admin: 09/09/19 08:20 Dose: 100 mg Documented by: MAC Levothyroxine Sodium (Synthroid) 300 mcg PO [facility] Admin: 09/14/19 12:45 Dose: Not Given Documented by: [email or web address] Non-Admin Reason: Clinical Judgement Admin: 09/13/19 10:18 Dose: 300 mcg Documented by: [email or web address] Admin: 09/12/19 07:42 Dose: 300 mcg Documented by: Admin: 09/11/19 07:50 Dose: 300 mcg Documented by: [email or web address] Admin: 09/10/19 08:17 Dose: 300 mcg Documented by: [email or web address] Admin: 09/09/19 12:26 Dose: 300 mcg Documented by: AEDariel Levothyroxine Sodium (Synthroid) 50 mcg PO [facility] Admin: 09/14/19 12:45 Dose: Not Given Documented by: [email or web address] Non-Admin Reason: Clinical Judgement Admin: 09/13/19 10:18 Dose: 50 mcg Documented by: [email or web address] Admin: 09/12/19 07:41 Dose: 50 mcg Documented by: Admin: 09/11/19 07:50 Dose: 50 mcg Documented by: Admin: 09/10/19 08:17 Dose: 50 mcg Documented by: Admin: 09/09/19 12:26 Dose: 50 mcg Documented by: MAC Medroxyprogesterone Acetate (Provera) 10 mg PO BID [facility] Admin: 09/14/19 12:46 Dose: Not Given Documented by: AEDariel Non-Admin Reason: Clinical Judgement Admin: 09/13/19 20:46 Dose: 10 mg Documented by: Admin: 09/13/19 10:49 Dose: 10 mg Documented by: Admin: 09/12/19 20:29 Dose: 10 mg Documented by: Admin: 09/12/19 09:17 Dose: 10 mg Documented by: Admin: 09/11/19 20:06 Dose: 10 mg Documented by: Admin: 09/11/19 11:00 Dose: 10 mg Documented by: Admin: 09/10/19 22:01 Dose: 10 mg Documented by: Admin: 09/10/19 10:04 Dose: 10 mg Documented by: Admin: 09/09/19 20:12 Dose: 10 mg Documented by: Admin: 09/09/19 08:20 Dose: 10 mg Documented by: Admin: 09/08/19 21:45 Dose: Not Given Documented by: GIAN Non-Admin Reason: Unavailable Metoprolol Tartrate (Lopressor) 5 mg IV Q2HP PRN PRN Reason: Tachyarrhythmias HR>110 Mupirocin (Bactroban Oint 2%) 1 dose TOPICAL BID [facility] Admin: 09/14/19 10:35 Dose: Not Given Documented by: AEDariel Non-Admin Reason: wound vac in place Admin: 09/13/19 20:46 Dose: 1 dose Documented by: Admin: 09/13/19 10:12 Dose: 1 dose Documented by: Admin: 09/12/19 20:28 Dose: 1 dose Documented by: Admin: 09/12/19 09:25 Dose: 1 dose Documented by: Admin: 09/11/19 20:06 Dose: 1 dose Documented by: Admin: 09/11/19 10:59 Dose: 1 dose Documented by: Admin: 09/10/19 22:01 Dose: 1 dose Documented by: Admin: 09/10/19 10:03 Dose: 1 dose Documented by: Admin: 09/09/19 20:12 Dose: 1 dose Documented by: Admin: 09/09/19 08:21 Dose: 1 dose Documented by: Admin: 09/08/19 21:20 Dose: 1 dose Documented by: GIAN Comments: doesn't have a label, therefore unable to scan Naloxone HCl (Narcan) 0.1 mg IV Q2MIN PRN PRN Reason: Opiate Reversal Ondansetron HCl (Zofran) 4 mg IV Q4HP PRN; Protocol PRN Reason: Nausea And Vomiting Last Admin: 09/12/19 21:30 Dose: 4 mg Documented by: [email or web address] Pantoprazole Sodium (Protonix) 40 mg PO QAMAC [facility] Last Admin: 09/14/19 12:45 Dose: Not Given Documented by: MAC Non-Admin Reason: Difficulty Swallowing Admin: 09/13/19 10:10 Dose: 40 mg Documented by: Admin: 09/12/19 07:42 Dose: 40 mg Documented by: Admin: 09/11/19 07:50 Dose: 40 mg Documented by: Admin: 09/10/19 08:17 Dose: 40 mg Documented by: Admin: 09/09/19 07:19 Dose: 40 mg Documented by: MAC Fluticasone/Salmeterol (Advair 100-50 Diskus) 1 puff INH BID [facility] Last Admin: 09/14/19 10:34 Dose: Not Given Documented by: MAC Non-Admin Reason: Unavailable Admin: 09/13/19 20:46 Dose: Not Given Documented by: MARIKA Non-Admin Reason: Unavailable Admin: 09/13/19 07:47 Dose: Not Given Documented by: ROSALIE Non-Admin Reason: Unavailable Admin: 09/12/19 20:29 Dose: Not Given Documented by: [email or web address] Non-Admin Reason: Unavailable Admin: 09/12/19 09:25 Dose: Not Given Documented by: TIP Non-Admin Reason: Unavailable Admin: 09/11/19 21:52 Dose: Not Given Documented by: GIAN Non-Admin Reason: Unavailable Admin: 09/11/19 10:41 Dose: Not Given Documented by: [email or web address] Non-Admin Reason: Unavailable Admin: 09/10/19 21:56 Dose: Not Given Documented by: GIAN Non-Admin Reason: Unavailable Admin: 09/10/19 09:45 Dose: Not Given Documented by: [email or web address] Non-Admin Reason: Unavailable Admin: 09/09/19 20:44 Dose: Not Given Documented by: MARIKA Non-Admin Reason: Unavailable Admin: 09/09/19 08:21 Dose: Not Given Documented by: [email or web address] Non-Admin Reason: Unavailable Admin: 09/08/19 21:21 Dose: Not Given Documented by: GIAN Non-Admin Reason: Unavailable Senna (Senokot) 2 tab PO HSP PRN PRN Reason: Constipation Sodium Chloride (Saline Flush) 10 ml IV Q8 [facility] Last Admin: 09/14/19 05:27 Dose: Not Given Documented by: MARIKA Non-Admin Reason: Continuous IV Admin: 09/13/19 20:46 Dose: 10 ml Documented by: Admin: 09/13/19 12:54 Dose: 10 ml Documented by: [email or web address] Admin: 09/13/19 05:34 Dose: 10 ml Documented by: Admin: 09/12/19 20:42 Dose: 10 ml Documented by: Admin: 09/12/19 14:54 Dose: 10 ml Documented by: Admin: 09/12/19 09:34 Dose: 10 ml Documented by: Admin: 09/12/19 05:41 Dose: 10 ml Documented by: Admin: 09/11/19 20:07 Dose: 10 ml Documented by: Admin: 09/11/19 14:32 Dose: Not Given Documented by: [email or web address] Non-Admin Reason: Continuous IV Admin: 09/11/19 07:50 Dose: 10 ml Documented by: [email or web address] Admin: 09/10/19 22:01 Dose: Not Given Documented by: GIAN Non-Admin Reason: Continuous IV Admin: 09/10/19 16:17 Dose: Not Given Documented by: [email or web address] Non-Admin Reason: Continuous IV Admin: 09/10/19 05:56 Dose: Not Given Documented by: [email or web address] Non-Admin Reason: Continuous IV Admin: 09/09/19 20:44 Dose: Not Given Documented by: [email or web address] Non-Admin Reason: Continuous IV Admin: 09/09/19 14:50 Dose: Not Given Documented by: [email or web address] Non-Admin Reason: Continuous IV Admin: 09/09/19 07:02 Dose: Not Given Documented by: [email or web address] Non-Admin Reason: Continuous IV Admin: 09/08/19 21:21 Dose: Not Given Documented by: GIAN Non-Admin Reason: Continuous IV Admin: 09/08/19 16:35 Dose: 10 ml Documented by: [email or web address] Vancomycin HCl (Vancomycin Per Pharmacy) 1 order IV UD [facility]; Protocol Venlafaxine HCl (Effexor Xr) 150 mg PO QDAY [facility] Last Admin: 09/14/19 12:46 Dose: Not Given Documented by: [email or web address] Non-Admin Reason: Clinical Judgement Admin: 09/13/19 10:17 Dose: 150 mg Documented by: [email or web address] Admin: 09/12/19 09:24 Dose: 150 mg Documented by: [email or web address] Admin: 09/11/19 10:59 Dose: 150 mg Documented by: [email or web address] Admin: 09/10/19 10:04 Dose: 150 mg Documented by: [email or web address] Admin: 09/09/19 08:20 Dose: 150 mg Documented by: [email or web address] Warfarin Sodium (Coumadin Per Pharmacy) 1 order PO UD [facility] Assessment and Plan - Narrative A/P Narrative: A: 1. Infected decubitus ulcer involving sacrum and upper right inner thigh:stage 2-3 - s/p sharp debridement by Dr Delvalle today with findings of some fat necrosis and no deeper tissue inv - wound Cx growing Proteus spp., GPC (pending ID and sensi), Enterococcus. Blood Cx NGTD 2. Delirium: - recent insults with subdural hematoma, TIA, prior ischemic strokes might be responsible for some irreversible deficit. Recent worsening is ominous and might suggest new deficits. Most recent head CT on 09/08 showed : "Stable bilateral watershed infarcts, right larger than left. Stable old right cerebellar infarct. Resolution of the previously seen left-sided subdural hematoma" 3. UTI: s/p 6 days of IV Ceftriaxone 4. 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 Trough of 20.7 noted. Pharmacy to change IV Vanc dosing per protocol. Repeat new trough before the next 4th dose. - Continue IV Zosyn at 3.375 gm q6 hrs - If blood Cx stay neg and no other signs of infection; will plan for a short course of antibiotics - HOB elev at all times, given high aspiration risk - consider goals of care discussion given multiple comorbidities (multiple strokes, recent SDH, schizophrenia) will follow Marvel Silverio MD Infectious diseases
[2019-09-14] MEDS: ATORVASTATIN 40 MG TABLET PO SCH (20:04)
[2019-09-15] MEDS: METOPROLOL TARTRATE 5 MG/5 ML VIAL IV PRN (05:00)
[2019-09-15] MEDS: PIPERACILLIN SODIUM/TAZOBACTAM 3.375 GM in DEXTROSE 5% IN WATER 50 ML IV SCH ×4 (05:00→23:43)
[2019-09-15] MEDS: 0.9 % SODIUM CHLORIDE 10 ML SYRINGE IV SCH ×3 (05:28→20:20)
[2019-09-15 06:51] LABS: Basophils # (Auto) 0.05 K/mcL (0.00-0.30); Basophils % (Auto) 0.4 % (0.0-2.0); Eosinophils # (Auto) 0.43 K/mcL (0.00-0.70); Eosinophils % (Auto) 3.4 % (0.0-7.0); Granulocytes % (Auto) 76.4 % (38.0-78.0); Hematocrit 36.3 % (34.1-44.9); Hemoglobin 11.7 g/dL (11.2-15.7); Lymphocytes # (Auto) 1.17 K/mcL (1.50-4.80); Lymphocytes % (Auto) 9.3 % (15.5-49.0); Mean Cell Volume 94.8 fL (80.0-100.0); Mean Corpuscular HGB Conc 32.2 g/dL (31.0-36.0); Mean Platelet Volume 10.6 fL (7.4-10.4); Monocytes # (Auto) 1.32 K/mcL (0.10-0.90); Monocytes % (Auto) 10.5 % (1.0-12.0); Platelet Count 389 K/mcL (140-440); RBC 3.83 M/mcL (3.59-5.38); Red Cell Distribution Width 14.4 % (11.5-14.5); WBC 12.6 K/mcL (4.50-11.00)
[2019-09-15 07:01] LABS: ALT/SGPT 46 U/l (0-40); AST/SGOT 33 U/l (0-37); Albumin 2.4 gm/dL (3.2-5.2); Albumin/Globulin Ratio 0.8 (1.0-2.3); Alkaline Phosphatase 162 U/L (39-117); Bilirubin,Total 0.3 mg/dL (0.0-1.0); Blood Urea Nitrogen 10 mg/dl (8-23); Calcium 8.5 mg/dl (8.6-10.4); Carbon Dioxide 21 mmol/L (22-30); Chloride 108 mmol/L (96-108); Globulin 3.2 gm/dL (2.2-3.7); Glomerular Filtration Rate 96; Glucose 85 mg/dL (70-105); Lactate Dehydrogenase 331 U/L (94-250); Triglycerides 114 mg/dl (<150)
[2019-09-15 07:02] LABS: Bilirubin,Direct < 0.2 mg/dL (0.0-0.3); Phosphorous 2.6 mg/dL (2.7-4.5); Uric Acid 3.6 mg/dL (2.5-8.0)
[2019-09-15 07:13] LABS: Vancomycin,Random 8.2 ug/mL
[2019-09-15 07:15] LABS: INR 2.2 (0.9-1.1); Prothrombin Time 24.1 sec (11.9-14.5)
[2019-09-15] MEDS ORDERED: FUROSEMIDE 40 MG/4 ML VIAL IV ONE (07:24)
[2019-09-15] MEDS ORDERED: ALBUMIN HUMAN 12.5 GM/50 ML BAG IV ONE (07:24)
--- NOTE | 2019-09-15 07:25 | Internal Med Progress Note ---
Medical - PN: Subj Patient information: Note initiated : 09/15/19 at 7:16 am Service Date, if different from initiated Date: [] Patient: Christine Cespedes a 64 y/o F admitted on 09/08/19 for Sepsis, UTI. Chief Complaint: [] Interval history: 09/08 Ms. Cespedes is a 64 year old F with a history of atrial fibrillation, recent subdural hematoma, history of ischemic strokes, hypertension, sleep apnea not on CPAP, prediabetes, morbid obesity with mobility impairment who presents to the emergency department with lethargy. History is obtained speaking to her caregiver. She has a caregiver in the home during the days, but not at night. The caregiver notes yesterday she was not quite herself, displaying some mild confusion. Her appetite was decreased. Caregiver made her a sandwich for dinner prior to her leaving yesterday, was still on eaten this morning when their caregiver arrived. Patient was in bed, was too weak to get out of bed, was confused and could not respond appropriately. In the ED, there is a history of low-grade fever as well. Because of lethargy, fever and weakness EMS was activated and she is brought to the ED. In the emergency department she has evidence of sepsis with now white count of 22,000, lactate of 3.8, increased anion gap and significantly abnormal urine analysis with pyuria and bacteriuria. She is being admitted for treatment of sepsis from urinary source. 09/09 Intermittently more responsive, was sitting up on edge of bed with physical therapy and did participate in self-care this morning. Is required fluids for declining blood pressures today with response. 09/10 Slowly continues to be more interactive. Urine culture with E. coli, only resistant to fluoroquinolones. Blood pressure stable. 09/11 Much more alert and interactive today. Still quite weak and needing assistance to stay sitting up at bedside. Held conversation with her, she states her goal is to get better. I encouraged her to increase her oral intake and that it is important for her to eat to get better. Nursing spoke with her son, who is her eldest child. He is a long-haul ortho tech and is out of state, but agreed that she will likely need skilled placement following this admission. In the late afternoon, she awoke panicked that she was trapped in a trailer and was disoriented. Had significant anxiety. 09/12/2019 Patient continued to have disorientation and hallucinations yesterday evening, was up much of the night, eventually calm down. Medicine list reviewed, she does not have any antipsychotics or other treatments for schizophrenia. Attempting to reconfirm her medication list. This morning, states she is not feeling too well, but is sleepy drifts back off. 09/13 Patient seems less interactive than she was yesterday afternoon. Sacral wound now draining material and will need debridement. Previously had eschar that was being debrided. Should've completed for therapy for UTI sepsis. Discussed with Dr. Juarez, whose consult general surgery. Have consulted Dr. Silverio, is recommended. Vancomycin and Zosyn for now until debridement. 09/14 Patient status post surgical I&D. Drowsy but opens eyes to voice. Refused CT imaging yesterday as recommended by infectious disease. No overnight events. Discussed case with her son who makes medical decisions when she is unable. He was able to clarify that she would be a DO NOT RESUSCITATE in the event effect catastrophic event. Regarding goals of care. We will see how she has in the next day or 2 09/15 Nurse able to get the patient to drink a carnation instant breakfast. Patient sleeping at this time but awakens and admits to feeling little better but otherwise not verbalizing a whole lot and difficult to obtain review of systems. she is on room air today. - Constitutional Vitals: Vital Signs Temp Pulse Resp BP Pulse Ox 98.1 F 83 20 122/96 96 09/15/19 04:00 09/15/19 04:00 09/15/19 04:00 09/15/19 04:00 09/15/19 04:00 Period Temp Pulse Resp BP Sys/Butler Pulse Ox Last 24 Hr 98 F-99.3 F 80-120 16-32 104-129/72-96 92-100 Intake and Output 09/14/19 09/15/19 09/15/19 21:59 05:59 13:59 Intake Total 50 115 50 Output Total 750 715 Balance -700 -600 50 Weight 118.478 kg Intake & Output: Intake & Output 09/14/19 09/15/19 09/15/19 21:59 05:59 13:59 Intake Total 50 115 50 Output Total 750 715 Balance -700 -600 50 Weight 118.478 kg Intake: IV 50 115 50 Zosyn 3.375 gm In Dextrose 5% 50 50 50 in Water 50 ml @ 100 mls/hr IV Q6H [facility] Rx#:[id number] Oral 0 Output: Drainage 50 Sacrum Woundvac 50 Urine Catheter Amount 750 665 Other: Meal Pudding Percent of Meal Consumed 100% Feeding Ability Total Assistance Urine Appearance Clear Clear Sediment Uretheral (Aguirre) Clear Sediment Urine Color Pale Bright Yellow Uretheral (Aguirre) Pale Exam: General: drowsy but Awakens, No acute Distress, obese Eyes/N/T: EOMI, Head/Neck: neck supple, CV: irreg irreg, No murmurs, Pulm: Clear b/l, no wheezing/rhonchi/rales Abd: soft, nontender, +BS x4 Ext: no clubbing/cyanosis, mild b/l LE 1+ edema, UE edema Neuro: drowsy, awakens to loud voice, verbalizes occasionally but not answering all questions and fall back asleep easily. no focal deficits, follows commands Skin: warm/dry Medical - PN: Obj Da - Labs CBC & Chem 7: 09/15/19 05:20 09/15/19 05:20 Labs: Abnormal Lab Results 09/15/19 09/15/19 09/15/19 05:20 05:20 05:20 WBC 12.6 H MPV 10.6 H Gran % Lymph % (Auto) 9.3 L Gran # 9.64 H Lymph # (Auto) 1.17 L Ida # (Auto) 1.32 H Seg Neutrophils % Lymphocytes % Myelocytes % PT 24.1 H INR 2.2 H Carbon Dioxide 21 L Creatinine Glucose Calcium 8.5 L Phosphorus 2.6 L GGT 85 H ALT 46 H Alkaline Phosphatase 162 H Lactate Dehydrogenase 331 H Total Protein 5.6 L Albumin 2.4 L Albumin/Globulin Ratio 0.8 L Vancomycin Trough 09/14/19 09/14/19 09/14/19 09:35 06:20 06:20 WBC 14.5 H MPV 11.1 H Gran % 80.6 H Lymph % (Auto) 7.5 L Gran # 11.66 H Lymph # (Auto) 1.09 L Ida # (Auto) 1.26 H Seg Neutrophils % 84 H Lymphocytes % 7 L Myelocytes % 1 H PT INR Carbon Dioxide Creatinine Glucose Calcium Phosphorus GGT ALT Alkaline Phosphatase Lactate Dehydrogenase Total Protein Albumin Albumin/Globulin Ratio Vancomycin Trough 20.7 H* 09/14/19 09/13/19 09/13/19 06:20 03:54 03:53 WBC MPV Gran % Lymph % (Auto) Gran # Lymph # (Auto) Ida # (Auto) Seg Neutrophils % Lymphocytes % Myelocytes % PT 21.4 H 17.8 H INR 1.9 H 1.5 H Carbon Dioxide 21 L Creatinine 0.5 L Glucose 65 L Calcium 8.3 L Phosphorus GGT ALT Alkaline Phosphatase Lactate Dehydrogenase Total Protein Albumin Albumin/Globulin Ratio Vancomycin Trough 09/13/19 03:53 WBC 13.2 H MPV 12.1 H Gran % 78.9 H Lymph % (Auto) 10.0 L Gran # 10.38 H Lymph # (Auto) 1.32 L Ida # (Auto) Seg Neutrophils % Lymphocytes % Myelocytes % PT INR Carbon Dioxide Creatinine Glucose Calcium Phosphorus GGT ALT Alkaline Phosphatase Lactate Dehydrogenase Total Protein Albumin Albumin/Globulin Ratio Vancomycin Trough Meds: Medications Acetaminophen (Tylenol) 650 mg PO Q6HP PRN; Protocol PRN Reason: Per Pain Protocol/Fever > 101 Last Admin: 09/13/19 10:11 Dose: 650 mg Documented by: Hydrocodone Bitart/Acetaminophen ([place]ingley 5/325mg) 1 tab PO Q4HP PRN; Protocol PRN Reason: Per Pain Protocol Last Admin: 09/12/19 20:40 Dose: 1 tab Documented by: Albuterol/Ipratropium (Duoneb) 3 ml NEB Q6H PRN PRN Reason: shortness of breath Last Admin: 09/11/19 22:27 Dose: 3 ml Documented by: Atenolol (Tenormin) 50 mg PO QDAY [facility] Last Admin: 09/14/19 12:47 Dose: Not Given Documented by: Atorvastatin Calcium (Lipitor) 40 mg PO QHS [facility] Last Admin: 09/14/19 20:04 Dose: 40 mg Documented by: Benztropine Mesylate (Cogentin) 2 mg PO BID [facility] Last Admin: 09/14/19 20:34 Dose: 2 mg Documented by: Clonazepam (Klonopin) 0.25 mg PO BIDP PRN PRN Reason: Anxiety Last Admin: 09/13/19 10:10 Dose: 0.25 mg Documented by: Collagenase (Santyl Top Oint) 1 dose TOPICAL DAILY [facility] Last Admin: 09/14/19 10:36 Dose: Not Given Documented by: Diagnostic Test (Pha) (Accu-Chek) 1 each FS ACHS [facility] Last Admin: 09/14/19 20:09 Dose: 1 each Documented by: Docusate Sodium (Colace) 100 mg PO BID [facility] Last Admin: 09/14/19 20:04 Dose: 100 mg Documented by: Hydrochlorothiazide (Oretic) 25 mg PO QAM [facility] Last Admin: 09/14/19 12:51 Dose: Not Given Documented by: Acetaminophen (Ofirmev) 650 mg in 65 mls @ 130 mls/hr IV Q6HP PRN; Protocol PRN Reason: PAIN/FEVER > 101 Last Infusion: 09/15/19 00:34 Dose: Infused Documented by: Piperacillin Sod/Tazobactam (Sod 3.375 gm/ Dextrose) 50 mls @ 100 mls/hr IV Q6H [facility]; Protocol Last Infusion: 09/15/19 06:04 Dose: Infused Documented by: Iron Carb/Multivit/[place]/Folic Acid (Multivitamin W/Minerals) 1 tab PO DAILY [facility] Last Admin: 09/14/19 12:46 Dose: Not Given Documented by: Lactulose (Cephulac) 10 gm PO DAILYP PRN PRN Reason: Constipation Lamotrigine (Lamictal) 100 mg PO QDAY [facility] Last Admin: 09/14/19 12:46 Dose: Not Given Documented by: [facility] Admin: 09/14/19 12:45 Dose: Not Given Documented by: [facility]othy[facility]ine [facility] ([facility]throid) [facility] Last Admin: 09/14/19 12:45 Dose: Not Given Documented by: Medroxyprogesterone Acetate (Provera) 10 mg PO BID [facility] Last Admin: 09/14/19 20:05 Dose: 10 mg Documented by: Metoprolol Tartrate (Lopressor) 5 mg IV Q2HP PRN PRN Reason: Tachyarrhythmias HR>110 Last Admin: 09/15/19 05:00 Dose: 5 mg Documented by: Mupirocin (Bactroban Oint 2%) 1 dose TOPICAL BID [facility] Last Admin: 09/14/19 20:04 Dose: 1 dose Documented by: Naloxone HCl (Narcan) 0.1 mg IV Q2MIN PRN PRN Reason: Opiate Reversal Ondansetron HCl (Zofran) 4 mg IV Q4HP PRN; Protocol PRN Reason: Nausea And Vomiting Last Admin: 09/12/19 21:30 Dose: 4 mg Documented by: Pantoprazole Sodium (Protonix) 40 mg PO QAMAC [facility] Last Admin: 09/14/19 12:45 Dose: Not Given Documented by: Fluticasone/Salmeterol (Advair 100-50 Diskus) 1 puff INH BID [facility] Last Admin: 09/14/19 20:04 Dose: Not Given Documented by: Senna (Senokot) 2 tab PO HSP PRN PRN Reason: Constipation Sodium Chloride (Saline Flush) 10 ml IV Q8 [facility] Last Admin: 09/15/19 05:28 Dose: 10 ml Documented by: Vancomycin HCl (Vancomycin Per Pharmacy) 1 order IV [facility] [place] [facility] [place]; Protocol Venlafaxine HCl (Effexor Xr) 150 mg PO QDAY [facility] Last Admin: 09/14/19 12:46 Dose: Not Given Documented by: Warfarin Sodium (Coumadin Per Pharmacy) 1 order PO UD [facility] Medical - PN: A/P - Time Spent With Patient Total time spent is greater than 50% in coordination of care (as documented) at patient's floor/unit and/or counseling patient: - Narrative A/P Narrative: A: *Sepsis,severe: Resolved, though concern for recurrent due to sacral wound. Initial sepsis secondary to urinary infection. -Does have back pain, however that has been ongoing since a fall onto her buttocks and is apparently unchanged. -Now with worsening sacral decubitus, suspicion for recurrent infection. *Leukocytosis: persistent, improved today *Sacral Wound w/Unstageable Pressure Ulcer at time of admission: Discussed with Dr. Juarez. -s/p surgical I&D (09/14) *Encephalopathy: waxing and waning after having appeared to have turned the corner on 09/11. suspect component of vascular dementia. -Patient has had recent subdural hematoma in mid July. That does appear resolved on current CT imaging. Warfarin restarted in Aug. -She also has a history of prior watershed infarcts, with no new findings noted on current CT. -Suspect her change in mental status / encephalopathy is secondary to sepsis, now worsening with decubitus, and not new cerebral ischemia. *Schizophrenia: Diagnosis noted in chart. Not currently on any antipsychotics per med list. Is on Cogentin, presumably for old EPS. -Awoke with significant anxiety on 09/11, subsequently had hallucinations and difficult night. *h/o Cerebral vascular disease: As noted above, stable findings on CT. With watershed infarcts, suspect these may have been cardioembolic. *ho SDH in , Warfarin restarted in August *Likely vascular dementia: *Atrial fibrillation: rates 80's-110's. Atenolol initially held due to sepsis but restarted *UTI(e. coli): As above, acute cystitis versus possible pyelonephritis. Suspected source of sepsis. *JEREMY on CKD II: Resolved -Suspect secondary to sepsis and prerenal etiology. *HTN: No evidence of hypotension associated with sepsis *Hyopkalemia: resolved *Goals of Care: Discussed case with her son who makes medical decisions when she is unable. He was able to clarify that she would be a DO NOT RESUSCITATE -Regarding goals of care. We will see how she has in the next day or 2 P: -vancomycin/Zosyn -ID following -prn lasix -Gen Surg following -follow mental status, f/u CT brain -Low-dose clonazepam for anxiety symptoms; d/c recently started Seroquel at bedtime for now. -cont atenolol -pt/ot -Prophylaxis: PPI, warfarin per pharmacy CODE STATUS: DNR Medical - PN: Qual - VTE Deep Vein Thrombosis/Pulmonary Embolism Present on Admission: No
[2019-09-15] MEDS: ACETAMINOPHEN 650 MG/65 ML BOTTLE IV PRN (08:16)
[2019-09-15] MEDS: PANTOPRAZOLE 40 MG TABLET PO SCH (08:26)
[2019-09-15] MEDS: LEVOTHYROXINE 150 MCG TABLET PO SCH (08:26)
[2019-09-15] MEDS: LEVOTHYROXINE 50 MCG TABLET PO SCH (08:26)
[2019-09-15] MEDS: DOCUSATE SODIUM 100 MG CAPSULE PO SCH ×2 (09:53→20:18)
[2019-09-15] MEDS: MULTIVIT,THER IRON,CA,FA & MIN 1 TABLET PO SCH (09:53)
[2019-09-15] MEDS: BENZTROPINE 1 MG TABLET PO SCH ×2 (09:53→20:17)
[2019-09-15] MEDS: ATENOLOL 50 MG TABLET PO SCH (09:53)
[2019-09-15] MEDS: VANCOMYCIN 1,500 MG in 0.9 % SODIUM CHLORIDE 500 ML IV SCH (09:53)
[2019-09-15] MEDS: MUPIROCIN OINT 2% 22GM TOPICAL SCH ×2 (09:54→20:19)
[2019-09-15] MEDS: lamoTRIgine 100 MG TABLET PO SCH (09:54)
[2019-09-15] MEDS: HYDROCHLOROTHIAZIDE 25 MG TABLET PO SCH (09:54)
[2019-09-15] MEDS: FLUTICASONE/SALMETEROL 50/100 INHALER #14 INH SCH ×2 (09:54→20:18)
[2019-09-15] MEDS: COLLAGENASE TOP OINT TUBE 30GM TOPICAL SCH (09:56)
[2019-09-15] MEDS: medroxyPROGESTERone 10 MG TABLET PO SCH ×2 (09:56→20:20)
--- NOTE | 2019-09-15 11:35 | Cat Scan Report ---
CLINICAL INFORMATION: Decreased mental status COMPARISON: 08/31/2019 TECHNIQUE: 2.5 mm helical slices were obtained in the skull base to vertex. Following reconstruction, axial reformatted images were reviewed at bone and parenchymal windows. The exam was performed using radiation dose optimization techniques including, but not limited to, automated exposure control, adjustment of the mA and/or kV according to patient size and use of iterative reconstruction technique. FINDINGS: The ventricles, sulci, fissures, and cisterns are enlarged compatible with mild atrophy. Large remote cortical-based infarct in the right frontoparietal junction, moderate cortical-based infarct in the right frontal lobe and small cortical-based infarct in the left frontoparietal junction are all seen - as before. Large remote infarct inferior right cerebellar hemisphere is also stable. A few remote lacunar infarcts in the basal ganglia also stable. There is no intracerebral hemorrhage, mass effect, edema or other acute finding. Patchy chronic ischemic changes of the deep cerebral white matter are unchanged. Bone windows show no associated osseous abnormality IMPRESSION: Multiple remote infarcts as previously seen. No acute findings - stable Interpreted and Authenticated by: Ej Franco 09/15/19
[2019-09-15] MEDS: VENLAFAXINE 150 MG CAP.XL.24H PO SCH (13:50)
[2019-09-15] MEDS: HYDROcodone/APAP 5/325MG TABLET PO PRN (20:17)
[2019-09-15] MEDS: clonazePAM 0.5 MG TABLET PO PRN (20:18)
[2019-09-15] MEDS: ATORVASTATIN 40 MG TABLET PO SCH (20:18)
[2019-09-15] MEDS: ONDANSETRON 4 MG/2 ML VIAL IV PRN (21:33)
[2019-09-16] MEDS: PIPERACILLIN SODIUM/TAZOBACTAM 3.375 GM in DEXTROSE 5% IN WATER 50 ML IV SCH ×3 (05:54→17:38)
[2019-09-16] MEDS: 0.9 % SODIUM CHLORIDE 10 ML SYRINGE IV SCH ×4 (05:54→20:35)
[2019-09-16 06:26] LABS: Basophils # (Auto) 0.05 K/mcL (0.00-0.30); Basophils % (Auto) 0.4 % (0.0-2.0); Eosinophils # (Auto) 0.59 K/mcL (0.00-0.70); Granulocytes % (Auto) 73.2 % (38.0-78.0); Hematocrit 38.3 % (34.1-44.9); Hemoglobin 12.6 g/dL (11.2-15.7); Lymphocytes # (Auto) 1.47 K/mcL (1.50-4.80); Lymphocytes % (Auto) 12.4 % (15.5-49.0); Mean Cell Volume 93.9 fL (80.0-100.0); Mean Corpuscular HGB Conc 32.9 g/dL (31.0-36.0); Mean Platelet Volume 10.6 fL (7.4-10.4); Monocytes # (Auto) 1.06 K/mcL (0.10-0.90); Platelet Count 429 K/mcL (140-440); RBC 4.08 M/mcL (3.59-5.38); Red Cell Distribution Width 14.2 % (11.5-14.5); WBC 11.8 K/mcL (4.50-11.00)
[2019-09-16 06:45] LABS: ALT/SGPT 41 U/l (0-40); AST/SGOT 31 U/l (0-37); Albumin 2.5 gm/dL (3.2-5.2); Albumin/Globulin Ratio 0.8 (1.0-2.3); Alkaline Phosphatase 151 U/L (39-117); Bilirubin,Direct < 0.2 mg/dL (0.0-0.3); Bilirubin,Total 0.3 mg/dL (0.0-1.0); Blood Urea Nitrogen 8 mg/dl (8-23); Calcium 8.7 mg/dl (8.6-10.4); Carbon Dioxide 25 mmol/L (22-30); Chloride 103 mmol/L (96-108); Globulin 3.2 gm/dL (2.2-3.7); Glomerular Filtration Rate 96; Glucose 80 mg/dL (70-105); Lactate Dehydrogenase 300 U/L (94-250); Triglycerides 138 mg/dl (<150); Uric Acid 3.2 mg/dL (2.5-8.0)
[2019-09-16 06:53] LABS: INR 1.7 (0.9-1.1); Prothrombin Time 20.1 sec (11.9-14.5)
[2019-09-16] MEDS: PANTOPRAZOLE 40 MG TABLET PO SCH (07:34)
[2019-09-16] MEDS: LEVOTHYROXINE 150 MCG TABLET PO SCH (07:34)
[2019-09-16] MEDS: LEVOTHYROXINE 50 MCG TABLET PO SCH (07:34)
[2019-09-16] MEDS ORDERED: ALBUMIN HUMAN 12.5 GM/50 ML BAG IV ONE (07:49)
[2019-09-16] MEDS ORDERED: MAGNESIUM SULFATE 2 GM/50 ML BAG IV ONE (07:51)
--- NOTE | 2019-09-16 07:54 | Internal Med Progress Note ---
Medical - PN: Subj Patient information: Note initiated : 09/16/19 at 7:47 am Service Date, if different from initiated Date: [] Patient: Christine Cespedes a 64 y/o F admitted on 09/08/19 for Sepsis, UTI. Chief Complaint: [] Interval history: 09/08 Ms. Cespedes is a 64 year old F with a history of atrial fibrillation, recent subdural hematoma, history of ischemic strokes, hypertension, sleep apnea not on CPAP, prediabetes, morbid obesity with mobility impairment who presents to the emergency department with lethargy. History is obtained speaking to her caregiver. She has a caregiver in the home during the days, but not at night. The caregiver notes yesterday she was not quite herself, displaying some mild confusion. Her appetite was decreased. Caregiver made her a sandwich for dinner prior to her leaving yesterday, was still on eaten this morning when their caregiver arrived. Patient was in bed, was too weak to get out of bed, was confused and could not respond appropriately. In the ED, there is a history of low-grade fever as well. Because of lethargy, fever and weakness EMS was activated and she is brought to the ED. In the emergency department she has evidence of sepsis with now white count of 22,000, lactate of 3.8, increased anion gap and significantly abnormal urine analysis with pyuria and bacteriuria. She is being admitted for treatment of sepsis from urinary source. 09/09 Intermittently more responsive, was sitting up on edge of bed with physical therapy and did participate in self-care this morning. Is required fluids for declining blood pressures today with response. 09/10 Slowly continues to be more interactive. Urine culture with E. coli, only resistant to fluoroquinolones. Blood pressure stable. 09/11 Much more alert and interactive today. Still quite weak and needing assistance to stay sitting up at bedside. Held conversation with her, she states her goal is to get better. I encouraged her to increase her oral intake and that it is important for her to eat to get better. Nursing spoke with her son, who is her eldest child. He is a long-haul lamp cleaner and is out of state, but agreed that she will likely need skilled placement following this admission. In the late afternoon, she awoke panicked that she was trapped in a trailer and was disoriented. Had significant anxiety. 09/12/2019 Patient continued to have disorientation and hallucinations yesterday evening, was up much of the night, eventually calm down. Medicine list reviewed, she does not have any antipsychotics or other treatments for schizophrenia. Attempting to reconfirm her medication list. This morning, states she is not feeling too well, but is sleepy drifts back off. 09/13 Patient seems less interactive than she was yesterday afternoon. Sacral wound now draining material and will need debridement. Previously had eschar that was being debrided. Should've completed for therapy for UTI sepsis. Discussed with Dr. Juarez, whose consult general surgery. Have consulted Dr. Silverio, is recommended. Vancomycin and Zosyn for now until debridement. 09/14 Patient status post surgical I&D. Drowsy but opens eyes to voice. Refused CT imaging yesterday as recommended by infectious disease. No overnight events. Discussed case with her son who makes medical decisions when she is unable. He was able to clarify that she would be a DO NOT RESUSCITATE in the event effect catastrophic event. Regarding goals of care. We will see how she has in the next day or 2 09/15 Nurse able to get the patient to drink a carnation instant breakfast. Patient sleeping at this time but awakens and admits to feeling little better but otherwise not verbalizing a whole lot and difficult to obtain review of systems. she is on room air today. 09/16 Yesterday afternoon patient was sitting up in bed eating breakfast, mentation and somnolence improved. Feeling much better today. Has occasional cough and headache. No other complaints. Nurse report diarrhea. Again mentation significantly improved she is oriented to place and President Review of Systems: denies fever/chills/nausea/vomiting/chest or abdominal pain/dyspnea/diarrhea. Otherwise see above. - Constitutional Vitals: Vital Signs Temp Pulse Resp BP Pulse Ox 98.2 F 92 H 20 118/86 97 09/16/19 04:00 09/16/19 04:00 09/16/19 04:00 09/16/19 04:00 09/16/19 04:00 Period Temp Pulse Resp BP Sys/Butler Pulse Ox Last 24 Hr 97.8 F-99.3 F 90-92 16-20 92-128/51-90 95-98 Intake and Output 09/15/19 09/16/19 09/16/19 21:59 05:59 13:59 Intake Total 770 50 50 Output Total 3180 600 Balance -2410 -550 50 Weight 117.707 kg Intake & Output: Intake & Output 09/15/19 09/16/19 09/16/19 21:59 05:59 13:59 Intake Total 770 50 50 Output Total 3180 600 Balance -2410 -550 50 Weight 117.707 kg Intake: Nourishment/Supplement quantity 360 (ml) IV 50 50 50 Zosyn 3.375 gm In Dextrose 5% 50 50 50 in Water 50 ml @ 100 mls/hr IV Q6H [facility] Rx#:[id number] Oral 360 Output: Urine Catheter Amount 3180 600 Other: Meal Lunch Percent of Meal Consumed Refused Nourishment/Supplement name CIB Urine Appearance Clear Clear Uretheral (Aguirre) Clear Urine Color Pale Pale Uretheral (Aguirre) Pale Stool Size Small Stool Color Brown Stool Consistency Formed # Bowel Movements 1 Exam: General: aler andd awake, No acute Distress, obese Eyes/N/T: EOMI, Head/Neck: neck supple, CV: irreg irreg, No murmurs, Pulm: diminished b/l, no wheezing Abd: soft, nontender, +BS x4 Ext: no clubbing/cyanosis, mild b/l LE 1+ edema, UE edema Neuro: Mentation greatly improved she is alert and awake, no focal deficits, follows commands Skin: warm/dry Medical - PN: Obj Da - Labs CBC & Chem 7: 09/16/19 05:05 09/16/19 05:05 Labs: Abnormal Lab Results 09/16/19 09/16/19 09/16/19 05:05 05:05 05:05 WBC 11.8 H MPV 10.6 H Gran % Lymph % (Auto) 12.4 L Gran # 8.64 H Lymph # (Auto) 1.47 L Mchenry # (Auto) 1.06 H Seg Neutrophils % Lymphocytes % Myelocytes % PT 20.1 H INR 1.7 H Potassium 3.2 L Carbon Dioxide Calcium Phosphorus Magnesium 1.5 L GGT 86 H ALT 41 H Alkaline Phosphatase 151 H Lactate Dehydrogenase 300 H Total Protein 5.7 L Albumin 2.5 L Albumin/Globulin Ratio 0.8 L Vancomycin Trough 09/15/19 09/15/19 09/15/19 05:20 05:20 05:20 WBC 12.6 H MPV 10.6 H Gran % Lymph % (Auto) 9.3 L Gran # 9.64 H Lymph # (Auto) 1.17 L Mchenry # (Auto) 1.32 H Seg Neutrophils % Lymphocytes % Myelocytes % PT 24.1 H INR 2.2 H Potassium Carbon Dioxide 21 L Calcium 8.5 L Phosphorus 2.6 L Magnesium GGT 85 H ALT 46 H Alkaline Phosphatase 162 H Lactate Dehydrogenase 331 H Total Protein 5.6 L Albumin 2.4 L Albumin/Globulin Ratio 0.8 L Vancomycin Trough 09/14/19 09/14/19 09/14/19 09:35 06:20 06:20 WBC 14.5 H MPV 11.1 H Gran % 80.6 H Lymph % (Auto) 7.5 L Gran # 11.66 H Lymph # (Auto) 1.09 L Mchenry # (Auto) 1.26 H Seg Neutrophils % 84 H Lymphocytes % 7 L Myelocytes % 1 H PT INR Potassium Carbon Dioxide Calcium Phosphorus Magnesium GGT ALT Alkaline Phosphatase Lactate Dehydrogenase Total Protein Albumin Albumin/Globulin Ratio Vancomycin Trough 20.7 H* 09/14/19 06:20 WBC MPV Gran % Lymph % (Auto) Gran # Lymph # (Auto) Mchenry # (Auto) Seg Neutrophils % Lymphocytes % Myelocytes % PT 21.4 H INR 1.9 H Potassium Carbon Dioxide Calcium Phosphorus Magnesium GGT ALT Alkaline Phosphatase Lactate Dehydrogenase Total Protein Albumin Albumin/Globulin Ratio Vancomycin Trough Meds: Medications Acetaminophen (Tylenol) 650 mg PO Q6HP PRN; Protocol PRN Reason: Per Pain Protocol/Fever > 101 Last Admin: 09/13/19 10:11 Dose: 650 mg Documented by: Hydrocodone Bitart/Acetaminophen ([place] 5/325mg) 1 tab PO Q4HP PRN; Protocol PRN Reason: Per Pain Protocol Last Admin: 09/15/19 20:17 Dose: 1 tab Documented by: Albuterol/Ipratropium (Duoneb) 3 ml NEB Q6H PRN PRN Reason: shortness of breath Last Admin: 09/11/19 22:27 Dose: 3 ml Documented by: Atenolol (Tenormin) 50 mg PO QDAY [facility] Last Admin: 09/15/19 09:53 Dose: 50 mg Documented by: Atorvastatin Calcium (Lipitor) 40 mg PO QHS [facility] Last Admin: 09/15/19 20:18 Dose: 40 mg Documented by: Benztropine Mesylate (Cogentin) 2 mg PO BID [facility] Last Admin: 09/15/19 20:17 Dose: 2 mg Documented by: Clonazepam (Klonopin) 0.25 mg PO BIDP PRN PRN Reason: Anxiety Last Admin: 09/15/19 20:18 Dose: 0.25 mg Documented by: Collagenase (Santyl Top Oint) 1 dose TOPICAL DAILY [facility] Last Admin: 09/15/19 09:56 Dose: Not Given Documented by: Diagnostic Test (Pha) (Accu-Chek) 1 each FS ACHS [facility] Last Admin: 09/16/19 07:34 Dose: 1 each Documented by: Docusate Sodium (Colace) 100 mg PO BID [facility] Last Admin: 09/15/19 20:18 Dose: Not Given Documented by: [facility]chlorothiazide (O[place]ic) [facility] [place] [place] Admin: 09/15/19 09:54 Dose: 25 mg Documented by: Acetaminophen (Ofirmev) 650 mg in 65 mls @ 130 mls/hr IV Q6HP PRN; Protocol PRN Reason: PAIN/FEVER > 101 Last Infusion: 09/15/19 09:51 Dose: Infused Documented by: Piperacillin Sod/Tazobactam (Sod 3.375 gm/ Dextrose) 50 mls @ 100 mls/hr IV Q6H [facility]; Protocol Last Infusion: 09/16/19 06:24 Dose: Infused Documented by: Vancomycin HCl 1,500 mg/ (Sodium Chloride) 500 mls @ 333.3 mls/hr IV DAILY [facility] Last Infusion: 09/15/19 11:30 Dose: Infused Documented by: Iron Carb/Multivit/[place]/Folic Acid (Multivitamin W/Minerals) 1 tab PO DAILY [facility] Last Admin: 09/15/19 09:53 Dose: 1 tab Documented by: Lactulose (Cephulac) 10 gm PO DAILYP PRN PRN Reason: Constipation Lamotrigine (Lamictal) 100 mg PO QDAY [facility] Last Admin: 09/15/19 09:54 Dose: 100 mg Documented by: Levothyroxine Sodium (Synthroid) 300 mcg PO QAMAC [facility] Last Admin: 09/16/19 07:34 Dose: 300 mcg Documented by: Levothyroxine Sodium (Synthroid) 50 mcg PO QAMAC [facility] Last Admin: 09/16/19 07:34 Dose: 50 mcg Documented by: Medroxyprogesterone Acetate (Provera) 10 mg PO BID [facility] Last Admin: 09/15/19 20:20 Dose: 10 mg Documented by: Metoprolol Tartrate (Lopressor) 5 mg IV Q2HP PRN PRN Reason: Tachyarrhythmias HR>110 Last Admin: 09/15/19 05:00 Dose: 5 mg Documented by: Mupirocin (Bactroban Oint 2%) 1 dose TOPICAL BID [facility] Last Admin: 09/15/19 20:19 Dose: 1 dose Documented by: Naloxone HCl (Narcan) 0.1 mg IV Q2MIN PRN PRN Reason: Opiate Reversal Ondansetron HCl (Zofran) 4 mg IV Q4HP PRN; Protocol PRN Reason: Nausea And Vomiting Last Admin: 09/15/19 21:33 Dose: 4 mg Documented by: Pantoprazole Sodium (Protonix) 40 mg PO [facility] Last Admin: 09/16/19 07:34 Dose: 40 mg Documented by: Fluticasone/Salmeterol (Advair 100-50 Diskus) 1 puff INH BID [facility] Last Admin: 09/15/19 20:18 Dose: Not Given Documented by: Senna (Senokot) 2 tab PO HSP PRN PRN Reason: Constipation Sodium Chloride (Saline Flush) 10 ml IV Q8 [facility] Last Admin: 09/16/19 05:54 Dose: 10 ml Documented by: Vancomycin HCl (Vancomycin Per Pharmacy) 1 order IV [facility] [place]; Protocol Venlafaxine HCl (Effexor Xr) 150 mg PO QDAY [facility] Last Admin: 09/15/19 13:50 Dose: Not Given Documented by: Warfarin Sodium (Coumadin Per Pharmacy) 1 order PO [facility] [place] Medical - PN: A/P - Time Spent With Patient Total time spent is greater than 50% in coordination of care (as documented) at patient's floor/unit and/or counseling patient: - Narrative A/P Narrative: A: *Sepsis,severe: Resolved, though concern for recurrent due to sacral wound. Initial sepsis secondary to urinary infection. -Does have back pain, however that has been ongoing since a fall onto her buttocks and is apparently unchanged. -Now with worsening sacral decubitus, suspicion for recurrent infection. *Leukocytosis: slowly improving *Sacral Wound w/Unstageable Pressure Ulcer at time of admission: Discussed with Dr. Juarez. -s/p surgical I&D (09/14) *Encephalopathy superimposed on likely vascular dementia: had been waxing/waning but much improved yesterday afternoon. REsolving -Patient has had recent subdural hematoma in mid July. That does appear resolved on current CT imaging. Warfarin restarted in Aug. -She also has a history of prior watershed infarcts, with no new findings noted on current CT. -Suspect her change in mental status / encephalopathy is secondary to sepsis, now worsening with decubitus, and not new cerebral ischemia. *Schizophrenia: Diagnosis noted in chart. Not currently on any antipsychotics per med list. Is on Cogentin, presumably for old EPS. -Awoke with significant anxiety on 09/11, subsequently had hallucinations and difficult night. *h/o Cerebral vascular disease: As noted above, stable findings on CT. With watershed infarcts, suspect these may have been cardioembolic. *ho SDH in , Warfarin restarted in August *Likely vascular dementia: *Atrial fibrillation: rates 80's-110's. Atenolol initially held due to sepsis but restarted *UTI(e. coli): As above, acute cystitis versus possible pyelonephritis. Suspected source of sepsis. *JEREMY on CKD II: Resolved -Suspect secondary to sepsis and prerenal etiology. *HTN: No evidence of hypotension associated with sepsis *Hyopkalemia/mag: improved *Diarrhea: *Goals of Care: Discussed case with her son who makes medical decisions when she is unable. He was able to clarify that she would be a DO NOT RESUSCITATE - P: -vancomycin/Zosyn -ID following -IV diuretic today -Gen Surg following -Low-dose prn clonazepam for anxiety symptoms -cont BB -c.diff pending -pt/ot -Prophylaxis: PPI, warfarin per pharmacy CODE STATUS: DNR Medical - PN: Qual - VTE Deep Vein Thrombosis/Pulmonary Embolism Present on Admission: No
[2019-09-16] MEDS: POTASSIUM CHLORIDE 20 MEQ TABLET PO SCH ×2 (08:15→17:38)
[2019-09-16] MEDS: BENZTROPINE 1 MG TABLET PO SCH ×2 (09:08→20:34)
[2019-09-16] MEDS: lamoTRIgine 100 MG TABLET PO SCH (09:08)
[2019-09-16] MEDS: VENLAFAXINE 150 MG CAP.XL.24H PO SCH (09:08)
[2019-09-16] MEDS: MULTIVIT,THER IRON,CA,FA & MIN 1 TABLET PO SCH (09:08)
[2019-09-16] MEDS: HYDROCHLOROTHIAZIDE 25 MG TABLET PO SCH (09:08)
[2019-09-16] MEDS: FLUTICASONE/SALMETEROL 50/100 INHALER #14 INH SCH ×2 (09:10→20:34)
[2019-09-16] MEDS: DOCUSATE SODIUM 100 MG CAPSULE PO SCH ×2 (09:10→20:34)
[2019-09-16] MEDS: MUPIROCIN OINT 2% 22GM TOPICAL SCH ×2 (09:10→20:34)
[2019-09-16] MEDS: COLLAGENASE TOP OINT TUBE 30GM TOPICAL SCH (09:11)
[2019-09-16] MEDS: ATENOLOL 50 MG TABLET PO SCH ×2 (10:32→10:34)
[2019-09-16] MEDS: VANCOMYCIN 1,500 MG in 0.9 % SODIUM CHLORIDE 500 ML IV SCH (10:32)
[2019-09-16] MEDS: medroxyPROGESTERone 10 MG TABLET PO SCH ×2 (10:49→20:33)
[2019-09-16] MEDS: HYDROcodone/APAP 5/325MG TABLET PO PRN ×2 (12:26→20:38)
[2019-09-16] MEDS ORDERED: WARFARIN 5 MG TABLET PO ONE (14:00)
[2019-09-16] MEDS ORDERED: BUMETANIDE 0.25 MG/ML VIAL IV ONE (16:00)
[2019-09-16] MEDS ORDERED: 0.9 % SODIUM CHLORIDE 10 ML SYRINGE IV PRN (16:24)
--- NOTE | 2019-09-16 19:00 | XRay Report ---
CLINICAL INFORMATION: PICC line placement verification COMPARISON: None. FINDINGS: Left PICC line tip overlies the SVC - near the right atrial junction. The heart is mildly enlarged but unchanged. Mediastinum and pulmonary vessels are normal. Lungs are clear. No effusions IMPRESSION: Mild stable cardiomegaly. No acute disease Left PICC line in satisfactory position Interpreted and Authenticated by: Ej Franco 09/16/19
[2019-09-16] MEDS: ATORVASTATIN 40 MG TABLET PO SCH (20:34)
[2019-09-16] MEDS: clonazePAM 0.5 MG TABLET PO PRN (20:38)
[2019-09-17] MEDS: PIPERACILLIN SODIUM/TAZOBACTAM 3.375 GM in DEXTROSE 5% IN WATER 50 ML IV SCH (00:22)
[2019-09-17] MEDS: METOPROLOL TARTRATE 5 MG/5 ML VIAL IV PRN ×2 (03:59→10:35)
[2019-09-17] MEDS: HYDROcodone/APAP 5/325MG TABLET PO PRN ×3 (04:15→20:08)
[2019-09-17] MEDS: 0.9 % SODIUM CHLORIDE 10 ML SYRINGE IV SCH ×5 (05:51→21:29)
[2019-09-17 06:57] LABS: Basophils # (Auto) 0.05 K/mcL (0.00-0.30); Basophils % (Auto) 0.5 % (0.0-2.0); Eosinophils # (Auto) 0.74 K/mcL (0.00-0.70); Eosinophils % (Auto) 6.8 % (0.0-7.0); Granulocytes % (Auto) 66.8 % (38.0-78.0); Hematocrit 36.1 % (34.1-44.9); Hemoglobin 11.8 g/dL (11.2-15.7); Lymphocytes # (Auto) 1.67 K/mcL (1.50-4.80); Lymphocytes % (Auto) 15.2 % (15.5-49.0); Mean Cell Volume 93.3 fL (80.0-100.0); Mean Corpuscular HGB Conc 32.7 g/dL (31.0-36.0); Mean Platelet Volume 10.1 fL (7.4-10.4); Monocytes % (Auto) 9.1 % (1.0-12.0); Platelet Count 466 K/mcL (140-440); RBC 3.87 M/mcL (3.59-5.38); Red Cell Distribution Width 14.2 % (11.5-14.5)
[2019-09-17] MEDS: PANTOPRAZOLE 40 MG TABLET PO SCH (07:06)
[2019-09-17] MEDS: LEVOTHYROXINE 150 MCG TABLET PO SCH (07:06)
[2019-09-17] MEDS: LEVOTHYROXINE 50 MCG TABLET PO SCH (07:06)
[2019-09-17 07:15] LABS: Blood Urea Nitrogen 8 mg/dl (8-23); Calcium 8.6 mg/dl (8.6-10.4); Carbon Dioxide 26 mmol/L (22-30); Chloride 105 mmol/L (96-108); Glomerular Filtration Rate 102; Glucose 80 mg/dL (70-105)
--- NOTE | 2019-09-17 07:25 | Internal Med Progress Note ---
Medical - PN: Subj Patient information: Note initiated : 09/17/19 at 7:16 am Service Date, if different from initiated Date: [] Patient: Christine Cespedes a 64 y/o F admitted on 09/08/19 for Sepsis, UTI. Chief Complaint: [] Interval history: 09/08 Ms. Cespedes is a 64 year old F with a history of atrial fibrillation, recent subdural hematoma, history of ischemic strokes, hypertension, sleep apnea not on CPAP, prediabetes, morbid obesity with mobility impairment who presents to the emergency department with lethargy. History is obtained speaking to her caregiver. She has a caregiver in the home during the days, but not at night. The caregiver notes yesterday she was not quite herself, displaying some mild confusion. Her appetite was decreased. Caregiver made her a sandwich for dinner prior to her leaving yesterday, was still on eaten this morning when their caregiver arrived. Patient was in bed, was too weak to get out of bed, was confused and could not respond appropriately. In the ED, there is a history of low-grade fever as well. Because of lethargy, fever and weakness EMS was activated and she is brought to the ED. In the emergency department she has evidence of sepsis with now white count of 22,000, lactate of 3.8, increased anion gap and significantly abnormal urine analysis with pyuria and bacteriuria. She is being admitted for treatment of sepsis from urinary source. 09/09 Intermittently more responsive, was sitting up on edge of bed with physical therapy and did participate in self-care this morning. Is required fluids for declining blood pressures today with response. 09/10 Slowly continues to be more interactive. Urine culture with E. coli, only resistant to fluoroquinolones. Blood pressure stable. 09/11 Much more alert and interactive today. Still quite weak and needing assistance to stay sitting up at bedside. Held conversation with her, she states her goal is to get better. I encouraged her to increase her oral intake and that it is important for her to eat to get better. Nursing spoke with her son, who is her eldest child. He is a long-haul driveway attendant and is out of state, but agreed that she will likely need skilled placement following this admission. In the late afternoon, she awoke panicked that she was trapped in a trailer and was disoriented. Had significant anxiety. 09/12/2019 Patient continued to have disorientation and hallucinations yesterday evening, was up much of the night, eventually calm down. Medicine list reviewed, she does not have any antipsychotics or other treatments for schizophrenia. Attempting to reconfirm her medication list. This morning, states she is not feeling too well, but is sleepy drifts back off. 09/13 Patient seems less interactive than she was yesterday afternoon. Sacral wound now draining material and will need debridement. Previously had eschar that was being debrided. Should've completed for therapy for UTI sepsis. Discussed with Dr. Juarez, whose consult general surgery. Have consulted Dr. Silverio, is recommended. Vancomycin and Zosyn for now until debridement. 09/14 Patient status post surgical I&D. Drowsy but opens eyes to voice. Refused CT imaging yesterday as recommended by infectious disease. No overnight events. Discussed case with her son who makes medical decisions when she is unable. He was able to clarify that she would be a DO NOT RESUSCITATE in the event effect catastrophic event. Regarding goals of care. We will see how she has in the next day or 2 09/15 Nurse able to get the patient to drink a carnation instant breakfast. Patient sleeping at this time but awakens and admits to feeling little better but otherwise not verbalizing a whole lot and difficult to obtain review of systems. she is on room air today. 09/16 Yesterday afternoon patient was sitting up in bed eating breakfast, mentation and somnolence improved. Feeling much better today. Has occasional cough and headache. No other complaints. Nurse report diarrhea. Again mentation significantly improved she is oriented to place and President 09/17 No overnight event or new complaints. Patient resting comfortably in bed. Denies any cough or shortness of breath. Review of Systems: denies fever/chills/nausea/vomiting/chest or abdominal pain/dyspnea/diarrhea. Otherwise see above. - Constitutional Vitals: Vital Signs Temp Pulse Resp BP Pulse Ox 97.9 F 106 H 20 98/62 98 09/17/19 04:01 09/16/19 07:58 09/17/19 04:01 09/17/19 04:01 09/17/19 04:01 Period Temp Pulse Resp BP Sys/Butler Pulse Ox Last 24 Hr 97.7 F-98.8 F 106 16-20 79-128/25-88 94-98 Intake and Output 09/16/19 09/17/19 09/17/19 21:59 05:59 13:59 Intake Total 350 240 Output Total 2059 999 70 Balance -1709 -999 170 Weight 117.254 kg Intake & Output: Intake & Output 09/16/19 09/17/19 09/17/19 21:59 05:59 13:59 Intake Total 350 240 Output Total 2059 999 70 Balance -1709 170 Weight 117.254 kg Intake: IV 50 Zosyn 3.375 gm In Dextrose 5% 50 in Water 50 ml @ 100 mls/hr IV Q6H [facility] Rx#:[id number] Oral 300 240 Output: Drainage 70 Sacrum Woundvac 70 Urine Catheter Amount 2059 999 Other: Urine Appearance Clear Clear Urine Color Pale Pale Stool Size Smear Stool Color Brown Stool Consistency Liquid # of times incontinent of 1 Bowels Exam: General: alert and awake, No acute Distress, obese Eyes/N/T: EOMI, Head/Neck: neck supple, CV: irreg irreg, No murmurs, Pulm: diminished b/l, no wheezing Abd: soft, nontender, +BS x4 Ext: no clubbing/cyanosis, minimal b/l LE edema greatly improved, mild UE edema Neuro: Mentation greatly improved she is alert and awake, no focal deficits, follows commands Skin: warm/dry Medical - PN: Obj Da - Labs CBC & Chem 7: 09/17/19 05:12 09/17/19 05:12 Labs: Abnormal Lab Results 09/17/19 09/17/19 09/16/19 05:12 05:12 05:05 WBC Plt Count 466 H MPV Gran % Lymph % (Auto) 15.2 L Gran # Lymph # (Auto) Mcintosh # (Auto) 1.00 H Eos # (Auto) 0.74 H Seg Neutrophils % Lymphocytes % Myelocytes % PT INR Potassium 3.2 L Carbon Dioxide Creatinine 0.5 L Calcium Phosphorus Magnesium 1.5 L GGT 86 H ALT 41 H Alkaline Phosphatase 151 H Lactate Dehydrogenase 300 H Total Protein 5.7 L Albumin 2.5 L Albumin/Globulin Ratio 0.8 L Vancomycin Trough 09/16/19 09/16/19 09/15/19 05:05 05:05 05:20 WBC 11.8 H Plt Count MPV 10.6 H Gran % Lymph % (Auto) 12.4 L Gran # 8.64 H Lymph # (Auto) 1.47 L Mcintosh # (Auto) 1.06 H Eos # (Auto) Seg Neutrophils % Lymphocytes % Myelocytes % PT 20.1 H INR 1.7 H Potassium Carbon Dioxide 21 L Creatinine Calcium 8.5 L Phosphorus 2.6 L Magnesium GGT 85 H ALT 46 H Alkaline Phosphatase 162 H Lactate Dehydrogenase 331 H Total Protein 5.6 L Albumin 2.4 L Albumin/Globulin Ratio 0.8 L Vancomycin Trough 09/15/19 09/15/19 09/14/19 05:20 05:20 09:35 WBC 12.6 H Plt Count MPV 10.6 H Gran % Lymph % (Auto) 9.3 L Gran # 9.64 H Lymph # (Auto) 1.17 L Mcintosh # (Auto) 1.32 H Eos # (Auto) Seg Neutrophils % Lymphocytes % Myelocytes % PT 24.1 H INR 2.2 H Potassium Carbon Dioxide Creatinine Calcium Phosphorus Magnesium GGT ALT Alkaline Phosphatase Lactate Dehydrogenase Total Protein Albumin Albumin/Globulin Ratio Vancomycin Trough 20.7 H* 09/14/19 09/14/19 09/14/19 06:20 06:20 06:20 WBC 14.5 H Plt Count MPV 11.1 H Gran % 80.6 H Lymph % (Auto) 7.5 L Gran # 11.66 H Lymph # (Auto) 1.09 L Mcintosh # (Auto) 1.26 H Eos # (Auto) Seg Neutrophils % 84 H Lymphocytes % 7 L Myelocytes % 1 H PT 21.4 H INR 1.9 H Potassium Carbon Dioxide Creatinine Calcium Phosphorus Magnesium GGT ALT Alkaline Phosphatase Lactate Dehydrogenase Total Protein Albumin Albumin/Globulin Ratio Vancomycin Trough Meds: Medications Acetaminophen (Tylenol) 650 mg PO Q6HP PRN; Protocol PRN Reason: Per Pain Protocol/Fever > 101 Last Admin: 09/13/19 10:11 Dose: 650 mg Documented by: Hydrocodone Bitart/Acetaminophen ([place] 5/325mg) 1 tab PO Q4HP PRN; Protocol PRN Reason: Per Pain Protocol Last Admin: 09/17/19 04:15 Dose: 1 tab Documented by: Albuterol/Ipratropium (Duoneb) 3 ml NEB Q6H PRN PRN Reason: shortness of breath Last Admin: 09/11/19 22:27 Dose: 3 ml Documented by: Atenolol (Tenormin) 50 mg PO QDAY [facility] Last Admin: 09/16/19 10:34 Dose: Not Given Documented by: Atorvastatin Calcium (Lipitor) 40 mg PO QHS [facility] Last Admin: 09/16/19 20:34 Dose: 40 mg Documented by: Benztropine Mesylate (Cogentin) 2 mg PO BID [facility] Last Admin: 09/16/19 20:34 Dose: 2 mg Documented by: Clonazepam (Klonopin) 0.25 mg PO BIDP PRN PRN Reason: Anxiety Last Admin: 09/16/19 20:38 Dose: 0.25 mg Documented by: Collagenase (Santyl Top Oint) 1 dose TOPICAL DAILY [facility] Last Admin: 09/16/19 09:11 Dose: Not Given Documented by: Diagnostic Test (Pha) (Accu-Chek) 1 each FS ACHS [facility] Last Admin: 09/17/19 07:06 Dose: 1 each Documented by: Docusate Sodium (Colace) 100 mg PO BID [facility] Last Admin: 09/16/19 20:34 Dose: Not Given Documented by: Heparin Sodium (Porcine) (Heparin Flush) 2 ml IV Q12 [facility] Last Admin: 09/16/19 20:34 Dose: 2 ml Documented by: Hydrochlorothiazide (Oretic) 25 mg PO QAM [facility] Last Admin: 09/16/19 09:08 Dose: 25 mg Documented by: Acetaminophen (Ofirmev) 650 mg in 65 mls @ 130 mls/hr IV Q6HP PRN; Protocol PRN Reason: PAIN/FEVER > 101 Last Infusion: 09/15/19 09:51 Dose: Infused Documented by: Vancomycin HCl 1,500 mg/ (Sodium Chloride) 500 mls @ 333.3 mls/hr IV DAILY [facility] Last Infusion: 09/16/19 12:03 Dose: Infused Documented by: Iron Carb/Multivit/[place]/Folic Acid (Multivitamin W/Minerals) 1 tab PO DAILY [facility] Last Admin: 09/16/19 09:08 Dose: 1 tab Documented by: Lactulose (Cephulac) 10 gm PO DAILYP PRN PRN Reason: Constipation Lamotrigine (Lamictal) 100 mg PO QDAY [facility] Last Admin: 09/16/19 09:08 Dose: 100 mg Documented by: Levofloxacin (Levaquin) 750 mg PO DAILY [facility]; Protocol [facility]ine [facility] Last Admin: 09/17/19 07:06 Dose: 300 mcg Documented by: Levothyroxine S[facility] ([facility]throid) [facility] Last Admin: 09/17/19 07:06 Dose: 50 mcg Documented by: Medroxyprogesterone Acetate (Provera) 10 mg PO BID [facility] Last Admin: 09/16/19 20:33 Dose: 10 mg Documented by: Metoprolol Tartrate (Lopressor) 5 mg IV Q2HP PRN PRN Reason: Tachyarrhythmias HR>110 Last Admin: 09/17/19 03:59 Dose: 5 mg Documented by: Mupirocin (Bactroban Oint 2%) 1 dose TOPICAL BID [facility] Last Admin: 09/16/19 20:34 Dose: 1 dose Documented by: Naloxone HCl (Narcan) 0.1 mg IV Q2MIN PRN PRN Reason: Opiate Reversal Ondansetron HCl (Zofran) 4 mg IV Q4HP PRN; Protocol PRN Reason: Nausea And Vomiting Last Admin: 09/15/19 21:33 Dose: 4 mg Documented by: Pantoprazole Sodium (Protonix) 40 mg PO [facility] Last Admin: 09/17/19 07:06 Dose: 40 mg Documented by: Potassium [facility] ([facility]ur) [facility] Stop: 09/18/19 07:59 Last Admin: 09/16/19 17:38 Dose: 40 meq Documented by: Fluticasone/Salmeterol (Advair 100-50 Diskus) 1 puff INH BID [facility] Last Admin: 09/16/19 20:34 Dose: Not Given Documented by: Senna (Senokot) 2 tab PO HSP PRN PRN Reason: Constipation Sodium Chloride (Saline Flush) 10 ml IV Q8 [facility] Last Admin: 09/17/19 05:51 Dose: 10 ml Documented by: Sodium Chloride (Saline Flush) 10 ml IV UD PRN PRN Reason: FLUSH Sodium Chloride (Saline Flush) 10 ml IV Q12 [facility] Last Admin: 09/16/19 20:35 Dose: 10 ml Documented by: Vancomycin HCl (Vancomycin Per Pharmacy) 1 order IV UD [facility]; Protocol Venlafaxine HCl (Effexor Xr) 150 mg PO QDAY [facility] Last Admin: 09/16/19 09:08 Dose: 150 mg Documented by: Warfarin Sodium (Coumadin Per Pharmacy) 1 order PO UD [facility] Medical - PN: A/P - Time Spent With Patient Total time spent is greater than 50% in coordination of care (as documented) at patient's floor/unit and/or counseling patient: - Narrative A/P Narrative: A: *Sepsis,severe: Resolved, though concern for recurrent due to sacral wound. Initial sepsis secondary to urinary infection. -Does have back pain, however that has been ongoing since a fall onto her buttocks and is apparently unchanged. -Now with worsening sacral decubitus, suspicion for recurrent infection. *Leukocytosis: resolved *Sacral Wound w/Unstageable Pressure Ulcer at time of admission: Discussed with Dr. Juarez. -s/p surgical I&D (09/14) *Encephalopathy superimposed on likely vascular dementia: had been waxing/waning but much improved yesterday afternoon. REsolving -Patient has had recent subdural hematoma in mid July. That does appear resolved on current CT imaging. Warfarin restarted in Aug. -She also has a history of prior watershed infarcts, with no new findings noted on current CT. -Suspect her change in mental status / encephalopathy is secondary to sepsis, now worsening with decubitus, and not new cerebral ischemia. *Schizophrenia: Diagnosis noted in chart. Not currently on any antipsychotics per med list. Is on Cogentin, presumably for old EPS. -Awoke with significant anxiety on 09/11, subsequently had hallucinations and difficult night. *h/o Cerebral vascular disease: As noted above, stable findings on CT. With watershed infarcts, suspect these may have been cardioembolic. *ho SDH in , Warfarin restarted in August *Likely vascular dementia: *Atrial fibrillation: rates 80's-110's. Atenolol initially held due to sepsis but restarted *UTI(e. coli): As above, acute cystitis versus possible pyelonephritis. Suspected source of sepsis. *JEREMY on CKD II: Resolved -Suspect secondary to sepsis and prerenal etiology. *HTN: No evidence of hypotension associated with sepsis *Hyopkalemia/mag: improved *Diarrhea: improved *Goals of Care: Discussed case with her son who makes medical decisions when she is unable. He was able to clarify that she would be a DO NOT RESUSCITATE - P: -vancomycin/Zosyn to PO Levaquin -ID following -IV diuretic today -Gen Surg following -Low-dose prn clonazepam for anxiety symptoms -cont BB -pt/ot -f/u with Dr. Juarez outpt -Prophylaxis: PPI, warfarin per pharmacy CODE STATUS: DNR Medical - PN: Qual - VTE Deep Vein Thrombosis/Pulmonary Embolism Present on Admission: No
[2019-09-17 07:29] LABS: INR 1.8 (0.9-1.1); Prothrombin Time 20.7 sec (11.9-14.5)
[2019-09-17] MEDS: POTASSIUM CHLORIDE 20 MEQ TABLET PO SCH ×2 (08:15→17:47)
[2019-09-17] MEDS: FLUTICASONE/SALMETEROL 50/100 INHALER #14 INH SCH ×2 (08:30→20:41)
[2019-09-17] MEDS ORDERED: ALBUMIN HUMAN 12.5 GM/50 ML BAG IV ONE (09:00)
[2019-09-17] MEDS ORDERED: BUMETANIDE 0.25 MG/ML VIAL IV ONE (09:00)
[2019-09-17] MEDS: BENZTROPINE 1 MG TABLET PO SCH ×2 (09:24→20:08)
[2019-09-17] MEDS: medroxyPROGESTERone 10 MG TABLET PO SCH ×2 (09:24→20:11)
[2019-09-17] MEDS: MULTIVIT,THER IRON,CA,FA & MIN 1 TABLET PO SCH (09:25)
[2019-09-17] MEDS: METOPROLOL TARTRATE 50 MG TABLET PO SCH (09:25)
[2019-09-17] MEDS: LEVOFLOXACIN 750 MG TABLET PO SCH (09:25)
[2019-09-17] MEDS: HYDROCHLOROTHIAZIDE 25 MG TABLET PO SCH (09:25)
[2019-09-17] MEDS: lamoTRIgine 100 MG TABLET PO SCH (09:25)
[2019-09-17] MEDS: VENLAFAXINE 150 MG CAP.XL.24H PO SCH (09:25)
--- NOTE | 2019-09-17 10:00 | Discharge Summary ---
Medical - DS: Prov Patient information: Note initiated : 09/17/19 at 9:57 am Service Date, if different from initiated Date: [] Patient: Christine Cespedes 64 y/o F admitted on 09/08/19 for Sepsis, UTI. Chief Complaint: [] Date of admission: 09/08/19 14:45 Primary care physician: Travon Lr Consults: 09/08/19 Consult to Physician [CONS] Stat Comment: Consulting Provider: Alejandra Li Reason For Exam: Physician to Consult 09/10/19 08:19 Consult to Physician [CONS] Routine Comment: unstageable ulcer sacrogluteal Consulting Provider: Bang Juarez Reason For Exam: Physician to Consult 09/13/19 10:55 Consult to Infectious Disease [CONS] Routine Comment: Consulting Provider: Marvel Silverio Reason For Exam: Physician to Consult Medical - DS: Meds - Discharge Medications Prescriptions: Levofloxacin [Levaquin] 750 mg PO DAILY #9 tablet Vancomycin 1,500 mg IV DAILY #1 vial Active and Home Medications: Home Medications Spirometers and Accessories [Pflex [employer] Ambassador] 1 each .ROUTE .MEDSUPPLY 03/01/17 [History Confirmed 09/07/19 Last Taken Unknown] medroxyprogesterone 10 mg tablet 10 mg PO BID tab 09/08/18 [History Confirmed 09/08/19 Last Taken Unknown] cholecalciferol (vitamin D3) 125 mcg (5,000 unit) capsule 5,000 unit PO QDAY 03/27/19 [History Confirmed 09/07/19 Last Taken Unknown] glucosamine 750 vw-duqfes-fqh 2-C 30 mg-D3 1,000 unit-omar 1 mg tablet 1 tab PO DAILY tab 03/27/19 [History Confirmed 09/07/19 Last Taken Unknown] loratadine 10 mg tablet 10 mg PO QDAY PRN 03/27/19 [History Confirmed 09/07/19 Last Taken Unknown] vitamins A,C,Q-vvmp-lwtjuh 14,320 unit-226 mg-200 unit capsule 1 cap PO BID 03/27/19 [History Confirmed 09/07/19 Last Taken Unknown] levothyroxine 50 mcg capsule 50 mcg PO QDAY #90 cap 04/09/19 [Rx Confirmed 09/08/19 Last Taken Unknown] fluticasone propionate 50 mcg/actuation nasal spray,suspension 1 spray INTRANASAL QDAY #16 g 05/01/19 [Rx Confirmed 09/12/19 Last Taken Unknown] levothyroxine 300 mcg tablet 300 mcg PO QDAY #90 tab 05/07/19 [Rx Confirmed 09/08/19 Last Taken Unknown] multivitamin 1 tab PO QDAY 05/31/19 [History Confirmed 09/07/19 Last Taken Unknown] potassium 99 mg tablet 99 mg PO QDAY 05/31/19 [History Confirmed 09/07/19 Last Taken Unknown] omeprazole 20 mg capsule,delayed release 20 mg PO QDAY #90 cap 07/02/19 [Rx Confirmed 09/08/19 Last Taken Unknown] potassium chloride 10 mEq capsule,extended release 10 meq PO BID 30 Days #60 cap 07/02/19 [Rx Confirmed 09/08/19 Last Taken Unknown] venlafaxine 150 mg capsule,extended release 24 hr 150 mg PO QDAY #90 cap 07/05/19 [Rx Confirmed 09/12/19 Last Taken Unknown] atorvastatin 40 mg tablet 40 mg PO QHS #30 tab 07/09/19 [Rx Confirmed 09/08/19 Last Taken Unknown] lamotrigine 100 mg tablet 100 mg PO QDAY #30 tab 07/17/19 [Rx Confirmed 09/08/19 Last Taken Unknown] LIFT CHAIR 1 each DAILY 07/29/19 [History Confirmed 09/07/19 Last Taken Unknown] Nebulizer 1 each .ROUTE DAILY 07/29/19 [History Confirmed 09/07/19 Last Taken Unknown] hydrochlorothiazide 25 mg tablet 25 mg PO QAM #90 tab 08/20/19 [Rx Confirmed 09/08/19 Last Taken Unknown] atenolol 50 mg tablet 50 mg PO QDAY 08/30/19 [History Confirmed 09/08/19 Last Taken Unknown] fluticasone 100 mcg-salmeterol 50 mcg/dose blistr powdr for inhalation 1 puff INHALATION BID 08/30/19 [History Confirmed 09/12/19 Last Taken Unknown] nebulizer accessories See Rx Instructions .ROUTE .MEDSUPPLY #1 each 08/30/19 [Rx Confirmed 09/07/19 Last Taken Unknown] warfarin 5 mg tablet See Rx Instructions .ROUTE .COMPLEX tab 08/30/19 [History Confirmed 09/08/19 Last Taken Unknown] Bariatric Commode #1 each 09/07/19 [Rx Confirmed 09/07/19 Last Taken Unknown] hospital bed #1 ea 09/07/19 [Rx Confirmed 09/07/19 Last Taken Unknown] wide shower chair #1 ea 09/07/19 [Rx Confirmed 09/07/19 Last Taken Unknown] Benztropine [Cogentin] 2 mg PO BID 09/08/19 [History Confirmed 09/08/19 Last Taken Unknown] Metoprolol Tartrate [Lopressor] 25 mg PO HS 09/12/19 [History Confirmed 09/12/19 Last Taken Unknown] Metoprolol Tartrate [Lopressor] 50 mg PO DAILY 09/12/19 [History Confirmed 09/12/19 Last Taken Unknown] Home Medications Spirometers and Accessories [Pflex [employer] Ambassador] 1 each .ROUTE .MEDSUPPLY 03/01/17 [History Confirmed 09/07/19 Last Taken Unknown] medroxyprogesterone 10 mg tablet 10 mg PO BID tab 09/08/18 [History Confirmed 09/08/19 Last Taken Unknown] cholecalciferol (vitamin D3) 125 mcg (5,000 unit) capsule 5,000 unit PO QDAY 03/27/19 [History Confirmed 09/07/19 Last Taken Unknown] glucosamine 750 oz-yidocc-ntp 2-C 30 mg-D3 1,000 unit-omar 1 mg tablet 1 tab PO DAILY tab 03/27/19 [History Confirmed 09/07/19 Last Taken Unknown] loratadine 10 mg tablet 10 mg PO QDAY PRN 03/27/19 [History Confirmed 09/07/19 Last Taken Unknown] vitamins A,C,Z-smyz-fhzple 14,320 unit-226 mg-200 unit capsule 1 cap PO BID 03/27/19 [History Confirmed 09/07/19 Last Taken Unknown] levothyroxine 50 mcg capsule 50 mcg PO QDAY #90 cap 04/09/19 [Rx Confirmed 09/08/19 Last Taken Unknown] fluticasone propionate 50 mcg/actuation nasal spray,suspension 1 spray INTRANASAL QDAY #16 g 05/01/19 [Rx Confirmed 09/12/19 Last Taken Unknown] levothyroxine 300 mcg tablet 300 mcg PO QDAY #90 tab 05/07/19 [Rx Confirmed 09/08/19 Last Taken Unknown] multivitamin 1 tab PO QDAY 05/31/19 [History Confirmed 09/07/19 Last Taken Unknown] potassium 99 mg tablet 99 mg PO QDAY 05/31/19 [History Confirmed 09/07/19 Last Taken Unknown] omeprazole 20 mg capsule,delayed release 20 mg PO QDAY #90 cap 07/02/19 [Rx Confirmed 09/08/19 Last Taken Unknown] potassium chloride 10 mEq capsule,extended release 10 meq PO BID 30 Days #60 cap 07/02/19 [Rx Confirmed 09/08/19 Last Taken Unknown] venlafaxine 150 mg capsule,extended release 24 hr 150 mg PO QDAY #90 cap 07/05/19 [Rx Confirmed 09/12/19 Last Taken Unknown] atorvastatin 40 mg tablet 40 mg PO QHS #30 tab 07/09/19 [Rx Confirmed 09/08/19 Last Taken Unknown] lamotrigine 100 mg tablet 100 mg PO QDAY #30 tab 07/17/19 [Rx Confirmed 09/08/19 Last Taken Unknown] LIFT CHAIR 1 each DAILY 07/29/19 [History Confirmed 09/07/19 Last Taken Unknown] Nebulizer 1 each .ROUTE DAILY 07/29/19 [History Confirmed 09/07/19 Last Taken Unknown] hydrochlorothiazide 25 mg tablet 25 mg PO QAM #90 tab 08/20/19 [Rx Confirmed 09/08/19 Last Taken Unknown] fluticasone 100 mcg-salmeterol 50 mcg/dose blistr powdr for inhalation 1 puff INHALATION BID 08/30/19 [History Confirmed 09/12/19 Last Taken Unknown] nebulizer accessories See Rx Instructions .ROUTE .MEDSUPPLY #1 each 08/30/19 [Rx Confirmed 09/07/19 Last Taken Unknown] warfarin 5 mg tablet See Rx Instructions .ROUTE .COMPLEX tab 08/30/19 [History Confirmed 09/08/19 Last Taken Unknown] Bariatric Commode #1 each 09/07/19 [Rx Confirmed 09/07/19 Last Taken Unknown] hospital bed #1 ea 09/07/19 [Rx Confirmed 09/07/19 Last Taken Unknown] wide shower chair #1 ea 09/07/19 [Rx Confirmed 09/07/19 Last Taken Unknown] Benztropine [Cogentin] 2 mg PO BID 09/08/19 [History Confirmed 09/08/19 Last Taken Unknown] Metoprolol Tartrate [Lopressor] 25 mg PO HS 09/12/19 [History Confirmed 09/12/19 Last Taken Unknown] Metoprolol Tartrate [Lopressor] 50 mg PO DAILY 09/12/19 [History Confirmed 09/12/19 Last Taken Unknown] Levofloxacin [Levaquin] 750 mg PO DAILY #9 tablet 09/17/19 [Rx Last Taken Unknown] Vancomycin 1,500 mg IV DAILY #1 vial 09/17/19 [Rx Last Taken Unknown] Medical - DS: Hosp Hospital Course: 09/08 Ms. Cespedes is a 64 year old F with a history of atrial fibrillation, recent subdural hematoma, history of ischemic strokes, hypertension, sleep apnea not on CPAP, prediabetes, morbid obesity with mobility impairment who presents to the emergency department with lethargy. History is obtained speaking to her caregiver. She has a caregiver in the home during the days, but not at night. The caregiver notes yesterday she was not quite herself, displaying some mild confusion. Her appetite was decreased. Caregiver made her a sandwich for dinner prior to her leaving yesterday, was still on eaten this morning when their caregiver arrived. Patient was in bed, was too weak to get out of bed, was confused and could not respond appropriately. In the ED, there is a history of low-grade fever as well. Because of lethargy, fever and weakness EMS was activated and she is brought to the ED. In the emergency department she has evidence of sepsis with now white count of 22,000, lactate of 3.8, increased anion gap and significantly abnormal urine analysis with pyuria and bacteriuria. She is being admitted for treatment of sepsis from urinary source. 09/09 Intermittently more responsive, was sitting up on edge of bed with physical therapy and did participate in self-care this morning. Is required fluids for declining blood pressures today with response. 09/10 Slowly continues to be more interactive. Urine culture with E. coli, only resistant to fluoroquinolones. Blood pressure stable. 09/11 Much more alert and interactive today. Still quite weak and needing assistance to stay sitting up at bedside. Held conversation with her, she states her goal is to get better. I encouraged her to increase her oral intake and that it is important for her to eat to get better. Nursing spoke with her son, who is her eldest child. He is a long-haul optometry teacher and is out of state, but agreed that she will likely need skilled placement following this admission. In the late afternoon, she awoke panicked that she was trapped in a trailer and was disoriented. Had significant anxiety. 09/12/2019 Patient continued to have disorientation and hallucinations yesterday evening, was up much of the night, eventually calm down. Medicine list reviewed, she does not have any antipsychotics or other treatments for schizophrenia. Attempting to reconfirm her medication list. This morning, states she is not feeling too well, but is sleepy drifts back off. 09/13 Patient seems less interactive than she was yesterday afternoon. Sacral wound now draining material and will need debridement. Previously had eschar that was being debrided. Should've completed for therapy for UTI sepsis. Discussed with Dr. Juarez, whose consult general surgery. Have consulted Dr. Silverio, is recommended. Vancomycin and Zosyn for now until debridement. 09/14 Patient status post surgical I&D. Drowsy but opens eyes to voice. Refused CT imaging yesterday as recommended by infectious disease. No overnight events. Discussed case with her son who makes medical decisions when she is unable. He was able to clarify that she would be a DO NOT RESUSCITATE in the event effect catastrophic event. Regarding goals of care. We will see how she has in the next day or 2 09/15 Nurse able to get the patient to drink a carnation instant breakfast. Patient sleeping at this time but awakens and admits to feeling little better but otherwise not verbalizing a whole lot and difficult to obtain review of systems. she is on room air today. 09/16 Yesterday afternoon patient was sitting up in bed eating breakfast, mentation and somnolence improved. Feeling much better today. Has occasional cough and headache. No other complaints. Nurse report diarrhea. Again mentation significantly improved she is oriented to place and President 09/17 No overnight event or new complaints. Patient resting comfortably in bed. Denies any cough or shortness of breath. Discharge diagnosis: Severe sepsis infected decubitus ulcer encephalopathy dementia schizophreni Secondary discharge diagnosis: H fibrillation urinary tract infection acute kidney injury hypertension deconditioning debility - Time Spent with Patient Total time spent providing and/or coordinating discharge services: Greater than 30 minutes Medical - DS: Exam - Constitutional Vitals: Vital Signs Temp Resp BP BP Pulse Ox 09/17/19 07:22 97 F 16 108/85 94 09/17/19 04:01 97.9 F 20 98/62 98 09/17/19 03:48 108/83 09/17/19 03:31 79/67 09/17/19 03:17 93/25 09/17/19 03:01 94/68 09/17/19 02:46 91/66 09/17/19 02:31 95/54 09/17/19 02:16 98/67 09/17/19 02:01 85/58 09/17/19 01:46 94/51 09/17/19 01:32 96/49 09/17/19 01:16 102/67 09/17/19 01:01 85/64 09/17/19 00:46 109/59 09/17/19 00:35 98.4 F 18 110/68 96 09/16/19 23:03 20 97 09/16/19 22:46 97/66 09/16/19 22:31 94/73 09/16/19 22:16 97/65 09/16/19 22:01 20 93/72 98 09/16/19 21:46 99/76 09/16/19 21:31 103/64 09/16/19 21:16 105/80 09/16/19 21:01 18 99/75 96 09/16/19 20:46 105/78 09/16/19 20:31 91/46 09/16/19 20:17 103/69 09/16/19 20:01 98.1 F 20 122/80 98 09/16/19 19:46 115/78 98 09/16/19 19:31 104/78 97 09/16/19 19:18 120/69 96 09/16/19 19:01 100/72 97 09/16/19 18:46 20 104/72 98 09/16/19 18:31 18 100/81 97 09/16/19 18:16 20 128/86 98 09/16/19 15:24 97.7 F 16 99/80 97 09/16/19 12:00 98.8 F 20 100/88 95 Intake and Output 09/16/19 09/17/19 09/17/19 21:59 05:59 13:59 Intake Total 350 240 Output Total 2060 1000 70 Balance -1710 -1000 170 Intake: IV 50 Zosyn 3.375 gm In Dextrose 5% 50 in Water 50 ml @ 100 mls/hr IV Q6H [facility] Rx#:[id number] Oral 300 240 Output: Drainage 70 Sacrum Woundvac 70 Urine Catheter Amount 2059 999 Other: Urine Appearance Clear Clear Urine Color Pale Pale Stool Size Smear Stool Color Brown Stool Consistency Liquid # of times incontinent of 1 Bowels Weight 117.254 kg Medical - DS: Data Labs on day of discharge: Labs from last 24 hours 09/17/19 09/17/19 09/17/19 08:00 05:12 05:12 WBC 11.0 RBC 3.87 Hgb 11.8 Hct 36.1 MCV 93.3 MCH 30.5 MCHC 32.7 RDW 14.2 Plt Count 466 H MPV 10.1 Gran % 66.8 Lymph % (Auto) 15.2 L Motley % (Auto) 9.1 Eos % (Auto) 6.8 Baso % (Auto) 0.5 Gran # 7.50 Lymph # (Auto) 1.67 Motley # (Auto) 1.00 H Eos # (Auto) 0.74 H Baso # (Auto) 0.05 PT INR Sodium 141 Potassium 4.0 Chloride 105 Carbon Dioxide 26 Anion Gap 10.0 BUN 8 Creatinine 0.5 L GFR Calculation 102 Glucose 80 Calcium 8.6 Magnesium Vancomycin Trough 11.8 09/17/19 09/16/19 05:12 11:16 WBC RBC Hgb Hct MCV MCH MCHC RDW Plt Count MPV Gran % Lymph % (Auto) Motley % (Auto) Eos % (Auto) Baso % (Auto) Gran # Lymph # (Auto) Motley # (Auto) Eos # (Auto) Baso # (Auto) PT 20.7 H INR 1.8 H Sodium Potassium Chloride Carbon Dioxide Anion Gap BUN Creatinine GFR Calculation Glucose Calcium Magnesium 2.1 Vancomycin Trough Preliminary micro results at discharge 09/13/19 22:32 Blood Culture - Preliminary Blood 09/13/19 22:22 Blood Culture - Preliminary Blood Medical - DS: A/P - Patient/Caregiver Discharge Instructions Activity: as per physical therapy Diet: Regular Diet Additional Instructions: PICC line care while antibiotics are prescribed through September 27 and then discontinue PICC line - Follow up Plan Follow up with: Travon Lr PA-C [Primary Care Provider] - Bang Juarez MD [Physician] - Disposition: Xfer SNF Prognosis: Undetermined Rehab Potential: Fair I certify that the patient requires SNF services: Yes Overall status at discharge: patient is progressing back to baseline Medical - DS: Qual - VTE Deep Vein Thrombosis/Pulmonary Embolism Present on Admission: No
[2019-09-17] MEDS: VANCOMYCIN 1,500 MG in 0.9 % SODIUM CHLORIDE 500 ML IV SCH (10:10)
--- NOTE | 2019-09-17 10:47 | Infectious Disease Prog Note ---
Subjective Patient information: Note initiated : 09/17/19 at 10:23 am Service Date, if different from initiated Date: [] Patient: Christine Cespedes 64 y/o F admitted on 09/08/19 for Sepsis, UTI. Chief Complaint: [] Interval history: Pt doing much better in terms of her mental status. Has a rectal tube for decreasing sacral wound comntamination. No fever, n/v, diarrhea overnight. Objective Objective Narrative: alert, awake, oriented x person no thrush chest has VBS, with decreased BS at bases s1 s2 are difficult to hear given thick chest the buttock wound: single ulcer in the sacral area with probe to muscle and bone, minimal yellow exudate. No necrosis or gangrene has left arm PICC line - Vital Signs Vital signs: Vital Signs Temp Resp BP BP Pulse Ox 09/17/19 07:22 36.1 C 16 108/85 94 09/17/19 04:01 36.6 C 20 98/62 98 09/17/19 03:48 108/83 09/17/19 03:31 79/67 09/17/19 03:17 93/25 09/17/19 03:01 94/68 09/17/19 02:46 91/66 09/17/19 02:31 95/54 09/17/19 02:16 98/67 09/17/19 02:01 85/58 09/17/19 01:46 94/51 09/17/19 01:32 96/49 09/17/19 01:16 102/67 09/17/19 01:01 85/64 09/17/19 00:46 109/59 09/17/19 00:35 36.9 C 18 110/68 96 09/16/19 23:03 20 97 09/16/19 22:46 97/66 09/16/19 22:31 94/73 09/16/19 22:16 97/65 09/16/19 22:01 20 93/72 98 09/16/19 21:46 99/76 09/16/19 21:31 103/64 09/16/19 21:16 105/80 09/16/19 21:01 18 99/75 96 09/16/19 20:46 105/78 09/16/19 20:31 91/46 09/16/19 20:17 103/69 09/16/19 20:01 36.7 C 20 122/80 98 09/16/19 19:46 115/78 98 09/16/19 19:31 104/78 97 09/16/19 19:18 120/69 96 09/16/19 19:01 100/72 97 09/16/19 18:46 20 104/72 98 09/16/19 18:31 18 100/81 97 09/16/19 18:16 20 128/86 98 09/16/19 15:24 36.5 C 16 99/80 97 09/16/19 12:00 37.1 C 20 100/88 95 Intake and Output 09/16/19 09/17/19 09/17/19 21:59 05:59 13:59 Intake Total 350 240 Output Total 2059 999 70 Balance -1709 170 Intake: IV 50 Zosyn 3.375 gm In Dextrose 5% 50 in Water 50 ml @ 100 mls/hr IV Q6H [facility] Rx#:[id number] Oral 300 240 Output: Drainage 70 Sacrum Woundvac 70 Urine Catheter Amount 2059 999 Other: Urine Appearance Clear Clear Urine Color Pale Pale Stool Size Smear Stool Color Brown Stool Consistency Liquid # of times incontinent of 1 Bowels Weight 117.254 kg Intake & Output: Intake & Output 09/16/19 09/17/19 09/17/19 21:59 05:59 13:59 Intake Total 350 240 Output Total 2059 999 70 Balance -1709 170 Weight 117.254 kg Intake: IV 50 Zosyn 3.375 gm In Dextrose 5% 50 in Water 50 ml @ 100 mls/hr IV Q6H CRAIG Rx#:[id number] Oral 300 240 Output: Drainage 70 Sacrum Woundvac 70 Urine Catheter Amount 2059 999 Other: Urine Appearance Clear Clear Urine Color Pale Pale Stool Size Smear Stool Color Brown Stool Consistency Liquid # of times incontinent of 1 Bowels - Lab 09/17/19 05:12 09/17/19 05:12 Most recent lab results Calcium 8.6 mg/dl (8.6-10.4) 09/17/19 05:12 Phosphorus 3.0 mg/dL (2.7-4.5) 09/16/19 05:05 Magnesium 2.1 mg/dL (1.6-2.5) 09/16/19 11:16 Microbiology 01/02/20 22:32 Blood Blood Culture - Preliminary 09/13/19 22:22 Blood Blood Culture - Preliminary 09/13/19 12:54 Perineal Gram Stain - Final 09/13/19 12:54 Perineal Wound Culture - Final Proteus mirabilis Methicillin resistant s.aureus 09/10/19 10:15 Decubitus Gram Stain - Final 09/10/19 10:15 Decubitus Wound Culture - Final Escherichia coli Proteus mirabilis Enterococcus species 09/08/19 11:10 Urine - Catheterized Urine Culture - Final Escherichia coli 09/08/19 15:00 Nose MRSA (PCR) - Final MRSA PCR positive Medications Active Medications: Acetaminophen (Tylenol) 650 mg PO Q6HP PRN; Protocol PRN Reason: Per Pain Protocol/Fever > 101 Last Admin: 09/13/19 10:11 Dose: 650 mg Documented by: [email or web address] Hydrocodone Bitart/Acetaminophen ([place] 5/325mg) 1 tab PO Q4HP PRN; Protocol PRN Reason: Per Pain Protocol Last Admin: 09/17/19 08:15 Dose: 1 tab Documented by: Admin: 09/17/19 04:15 Dose: 1 tab Documented by: Admin: 09/16/19 20:38 Dose: 1 tab Documented by: Admin: 09/16/19 12:26 Dose: 1 tab Documented by: Admin: 09/15/19 20:17 Dose: 1 tab Documented by: Admin: 09/12/19 20:40 Dose: 1 tab Documented by: Admin: 09/12/19 11:55 Dose: 1 tab Documented by: [email or web address] Admin: 09/11/19 23:41 Dose: 1 tab Documented by: Admin: 09/11/19 20:06 Dose: 1 tab Documented by: Admin: 09/11/19 07:57 Dose: 1 tab Documented by: Admin: 09/11/19 00:01 Dose: 1 tab Documented by: Admin: 09/10/19 10:00 Dose: 1 tab Documented by: Admin: 09/08/19 22:57 Dose: 1 tab Documented by: GIAN Albuterol/Ipratropium (Duoneb) 3 ml NEB Q6H PRN PRN Reason: shortness of breath Last Admin: 09/11/19 22:27 Dose: 3 ml Documented by: Admin: 09/10/19 02:53 Dose: 3 ml Documented by: MARIKA Atorvastatin Calcium (Lipitor) 40 mg PO QHS [facility] Admin: 09/16/19 20:34 Dose: 40 mg Documented by: Admin: 09/15/19 20:18 Dose: 40 mg Documented by: Admin: 09/14/19 20:04 Dose: 40 mg Documented by: Admin: 09/13/19 20:45 Dose: 40 mg Documented by: Admin: 09/12/19 20:29 Dose: 40 mg Documented by: Admin: 09/11/19 20:06 Dose: 40 mg Documented by: Admin: 09/10/19 22:01 Dose: 40 mg Documented by: Admin: 09/09/19 20:12 Dose: 40 mg Documented by: Admin: 09/08/19 21:19 Dose: 40 mg Documented by: GIAN Benztropine Mesylate (Cogentin) 2 mg PO BID [facility] Admin: 09/17/19 09:24 Dose: 2 mg Documented by: Admin: 09/16/19 20:34 Dose: 2 mg Documented by: Admin: 09/16/19 09:08 Dose: 2 mg Documented by: Admin: 09/15/19 20:17 Dose: 2 mg Documented by: Admin: 09/15/19 09:53 Dose: 2 mg Documented by: Admin: 09/14/19 20:34 Dose: 2 mg Documented by: Admin: 09/14/19 12:45 Dose: Not Given Documented by: MAC Non-Admin Reason: Clinical Judgement Admin: 09/13/19 20:45 Dose: 2 mg Documented by: Admin: 09/13/19 10:17 Dose: 2 mg Documented by: [email or web address] Admin: 09/12/19 20:41 Dose: 2 mg Documented by: Admin: 09/12/19 09:24 Dose: 2 mg Documented by: [email or web address] Admin: 09/11/19 20:07 Dose: 2 mg Documented by: Admin: 09/11/19 10:59 Dose: 2 mg Documented by: Admin: 09/10/19 22:01 Dose: 2 mg Documented by: Admin: 09/10/19 10:04 Dose: 2 mg Documented by: Admin: 09/09/19 20:12 Dose: 2 mg Documented by: Admin: 09/09/19 08:20 Dose: 2 mg Documented by: Admin: 09/08/19 21:19 Dose: 2 mg Documented by: GIAN Clonazepam (Klonopin) 0.25 mg PO BIDP PRN PRN Reason: Anxiety Last Admin: 09/16/19 20:38 Dose: 0.25 mg Documented by: Admin: 09/15/19 20:18 Dose: 0.25 mg Documented by: Admin: 09/13/19 10:10 Dose: 0.25 mg Documented by: [email or web address] Admin: 09/12/19 20:41 Dose: 0.25 mg Documented by: Admin: 09/11/19 20:07 Dose: 0.25 mg Documented by: GIAN Diagnostic Test (Pha) (Accu-Chek) 1 each FS ACHS [facility] Admin: 09/17/19 07:06 Dose: 1 each Documented by: Admin: 09/16/19 21:29 Dose: 1 each Documented by: Admin: 09/16/19 16:27 Dose: 1 each Documented by: Admin: 09/16/19 11:58 Dose: 1 each Documented by: Admin: 09/16/19 07:34 Dose: 1 each Documented by: Admin: 09/15/19 21:34 Dose: 1 each Documented by: Admin: 09/15/19 17:37 Dose: 1 each Documented by: Admin: 09/15/19 11:45 Dose: 1 each Documented by: Admin: 09/15/19 08:00 Dose: 1 each Documented by: Admin: 09/14/19 20:09 Dose: 1 each Documented by: Admin: 09/14/19 18:08 Dose: 1 each Documented by: Admin: 09/14/19 11:30 Dose: 1 each Documented by: MAC Docusate Sodium (Colace) 100 mg PO BID [facility] Last Admin: 09/16/19 20:34 Dose: Not Given Documented by: BETZAIDA Non-Admin Reason: Loose Stool Admin: 09/16/19 09:10 Dose: Not Given Documented by: CLAUS Non-Admin Reason: diarrhea Admin: 09/15/19 20:18 Dose: Not Given Documented by: BETZAIDA Non-Admin Reason: Loose Stool Admin: 09/15/19 09:53 Dose: 100 mg Documented by: Admin: 09/14/19 20:04 Dose: 100 mg Documented by: Admin: 09/14/19 12:46 Dose: Not Given Documented by: MAC Non-Admin Reason: Clinical Judgement Admin: 09/13/19 20:45 Dose: 100 mg Documented by: Admin: 09/13/19 10:10 Dose: 100 mg Documented by: [email or web address] Admin: 09/12/19 20:29 Dose: 100 mg Documented by: Admin: 09/12/19 09:24 Dose: Not Given Documented by: TIP Non-Admin Reason: Patient Refused Admin: 09/11/19 20:06 Dose: 100 mg Documented by: Admin: 09/11/19 10:59 Dose: 100 mg Documented by: Admin: 09/10/19 22:01 Dose: 100 mg Documented by: Admin: 09/10/19 10:04 Dose: 100 mg Documented by: Admin: 09/09/19 20:44 Dose: Not Given Documented by: MARIKA Non-Admin Reason: Loose Stool Admin: 09/09/19 08:21 Dose: Not Given Documented by: MAC Non-Admin Reason: Loose Stool Admin: 09/08/19 21:20 Dose: Not Given Documented by: GIAN Non-Admin Reason: Loose Stool Heparin Sodium (Porcine) (Heparin Flush) 2 ml IV Q12 [facility] Last Admin: 09/16/19 20:34 Dose: 2 ml Documented by: BETZAIDA Hydrochlorothiazide (Oretic) 25 mg PO QAM [facility] Last Admin: 09/17/19 09:25 Dose: 25 mg Documented by: Admin: 09/16/19 09:08 Dose: 25 mg Documented by: Admin: 09/15/19 09:54 Dose: 25 mg Documented by: Admin: 09/14/19 12:51 Dose: Not Given Documented by: AEDariel Non-Admin Reason: Difficulty Swallowing Acetaminophen (Ofirmev) 650 mg in 65 mls @ 130 mls/hr IV Q6HP PRN; Protocol PRN Reason: PAIN/FEVER > 101 Last Infusion: 09/15/19 09:51 Dose: 0 mls/hr Documented by: Admin: 09/15/19 08:16 Dose: 130 mls/hr Documented by: Infusion: 09/15/19 00:34 Dose: 0 mls/hr Documented by: Admin: 09/14/19 17:30 Dose: 130 mls/hr Documented by: Infusion: 09/14/19 02:35 Dose: 0 mls/hr Documented by: Admin: 09/14/19 02:02 Dose: 130 mls/hr Documented by: Infusion: 09/12/19 22:13 Dose: 0 mls/hr Documented by: Admin: 09/12/19 20:39 Dose: 130 mls/hr Documented by: Infusion: 09/10/19 17:00 Dose: 0 mls/hr Documented by: Admin: 09/10/19 16:26 Dose: 130 mls/hr Documented by: AEDariel Infusion: 09/10/19 01:20 Dose: 0 mls/hr Documented by: Admin: 09/10/19 00:48 Dose: 130 mls/hr Documented by: Infusion: 09/09/19 16:45 Dose: 0 mls/hr Documented by: Admin: 09/09/19 16:10 Dose: 130 mls/hr Documented by: Infusion: 09/09/19 16:10 Dose: 0 mls/hr Documented by: AEDariel Infusion: 09/08/19 22:05 Dose: 0 mls/hr Documented by: Admin: 09/08/19 21:46 Dose: 130 mls/hr Documented by: [email or web address] Vancomycin HCl 1,500 mg/ (Sodium Chloride) 500 mls @ 333.3 mls/hr IV DAILY [facility] Last Admin: 09/17/19 10:10 Dose: 333 mls/hr Documented by: Infusion: 09/16/19 12:03 Dose: 0 mls/hr Documented by: Admin: 09/16/19 10:32 Dose: 333 mls/hr Documented by: Infusion: 09/15/19 11:30 Dose: 0 mls/hr Documented by: AEDariel Admin: 09/15/19 09:53 Dose: 333.3 mls/hr Documented by: [email or web address] Iron Carb/Multivit/Code Official/Folic Acid (Multivitamin W/Minerals) 1 tab PO DAILY [facility] Last Admin: 09/17/19 09:25 Dose: 1 tab Documented by: Admin: 09/16/19 09:08 Dose: 1 tab Documented by: Admin: 09/15/19 09:53 Dose: 1 tab Documented by: AEDariel Admin: 09/14/19 12:46 Dose: Not Given Documented by: [email or web address] Non-Admin Reason: Clinical Judgement Admin: 09/13/19 10:10 Dose: 1 tab Documented by: Admin: 09/12/19 09:24 Dose: 1 tab Documented by: Admin: 09/11/19 11:00 Dose: 1 tab Documented by: AEDariel Admin: 09/10/19 10:04 Dose: 1 tab Documented by: AEDariel Admin: 09/09/19 08:20 Dose: 1 tab Documented by: MAC Lactulose (Cephulac) 10 gm PO DAILYP PRN PRN Reason: Constipation Lamotrigine (Lamictal) 100 mg PO QDAY [facility] Last Admin: 09/17/19 09:25 Dose: 100 mg Documented by: Admin: 09/16/19 09:08 Dose: 100 mg Documented by: Admin: 09/15/19 09:54 Dose: 100 mg Documented by: AEDariel Admin: 09/14/19 12:46 Dose: Not Given Documented by: [email or web address] Non-Admin Reason: Clinical Judgement Admin: 09/13/19 10:18 Dose: 100 mg Documented by: [email or web address] Admin: 09/12/19 09:24 Dose: 100 mg Documented by: [email or web address] Admin: 09/11/19 10:59 Dose: 100 mg Documented by: [email or web address] Admin: 09/10/19 10:04 Dose: 100 mg Documented by: AEDariel Admin: 09/09/19 08:20 Dose: 100 mg Documented by: MAC Levofloxacin (Levaquin) 750 mg PO DAILY [facility]; Protocol Last Admin: 09/17/19 09:25 Dose: 750 mg Documented by: CLAUS [facility] Admin: 09/17/19 07:06 Dose: 300 mcg Documented by: Admin: 09/16/19 07:34 Dose: 300 mcg Documented by: Admin: 09/15/19 08:26 Dose: 300 mcg Documented by: AEDariel Admin: 09/14/19 12:45 Dose: Not Given Documented by: [email or web address] Non-Admin Reason: Clinical Judgement Admin: 09/13/19 10:18 Dose: 300 mcg Documented by: [email or web address] Admin: 09/12/19 07:42 Dose: 300 mcg Documented by: [email or web address] Admin: 09/11/19 07:50 Dose: 300 mcg Documented by: AEDariel Admin: 09/10/19 08:17 Dose: 300 mcg Documented by: AEDariel Admin: 09/09/19 12:26 Dose: 300 mcg Documented by: MAC Levothyroxine Sodium (Synthroid) [address] [facility] Last Admin: 09/17/19 07:06 Dose: 50 mcg Documented by: Admin: 09/16/19 07:34 Dose: 50 mcg Documented by: Admin: 09/15/19 08:26 Dose: 50 mcg Documented by: [email or web address] Admin: 09/14/19 12:45 Dose: Not Given Documented by: [email or web address] Non-Admin Reason: Clinical Judgement Admin: 09/13/19 10:18 Dose: 50 mcg Documented by: [email or web address] Admin: 09/12/19 07:41 Dose: 50 mcg Documented by: [email or web address] Admin: 09/11/19 07:50 Dose: 50 mcg Documented by: [email or web address] Admin: 09/10/19 08:17 Dose: 50 mcg Documented by: [email or web address] Admin: 09/09/19 12:26 Dose: 50 mcg Documented by: [email or web address] Medroxyprogesterone Acetate (Provera) 10 mg PO BID [facility] Last Admin: 09/17/19 09:24 Dose: 10 mg Documented by: Admin: 09/16/19 20:33 Dose: 10 mg Documented by: Admin: 09/16/19 10:49 Dose: 10 mg Documented by: Admin: 09/15/19 20:20 Dose: 10 mg Documented by: Admin: 09/15/19 09:56 Dose: 10 mg Documented by: MAC Comments: LABEL ON BOTTLE WOULD NOT SCAN Admin: 09/14/19 20:05 Dose: 10 mg Documented by: Admin: 09/14/19 12:46 Dose: Not Given Documented by: AEDariel Non-Admin Reason: Clinical Judgement Admin: 09/13/19 20:46 Dose: 10 mg Documented by: Admin: 09/13/19 10:49 Dose: 10 mg Documented by: [email or web address] Admin: 09/12/19 20:29 Dose: 10 mg Documented by: Admin: 09/12/19 09:17 Dose: 10 mg Documented by: [email or web address] Admin: 09/11/19 20:06 Dose: 10 mg Documented by: Admin: 09/11/19 11:00 Dose: 10 mg Documented by: Admin: 09/10/19 22:01 Dose: 10 mg Documented by: Admin: 09/10/19 10:04 Dose: 10 mg Documented by: Admin: 09/09/19 20:12 Dose: 10 mg Documented by: Admin: 09/09/19 08:20 Dose: 10 mg Documented by: Admin: 09/08/19 21:45 Dose: Not Given Documented by: GIAN Non-Admin Reason: Unavailable Metoprolol Tartrate (Lopressor) 5 mg IV Q2HP PRN PRN Reason: Tachyarrhythmias HR>110 Last Admin: 09/17/19 03:59 Dose: 5 mg Documented by: Admin: 09/15/19 05:00 Dose: 5 mg Documented by: BETZAIDA Metoprolol Tartrate (Lopressor) 25 mg PO [facility] Metoprolol Tartrate (Lopressor) 50 mg PO DAILY [facility] Last Admin: 09/17/19 09:25 Dose: 50 mg Documented by: CLAUS Mupirocin (Bactroban Oint 2%) 1 dose TOPICAL BID [facility] Last Admin: 09/16/19 20:34 Dose: 1 dose Documented by: Admin: 09/16/19 09:10 Dose: 1 dose Documented by: Admin: 09/15/19 20:19 Dose: 1 dose Documented by: Admin: 09/15/19 09:54 Dose: 1 dose Documented by: MAC Comments: UNABLE TO SCAN IN ROOM Admin: 09/14/19 20:04 Dose: 1 dose Documented by: Admin: 09/14/19 10:35 Dose: Not Given Documented by: MAC Non-Admin Reason: wound vac in place Admin: 09/13/19 20:46 Dose: 1 dose Documented by: Admin: 09/13/19 10:12 Dose: 1 dose Documented by: [email or web address] Admin: 09/12/19 20:28 Dose: 1 dose Documented by: Admin: 09/12/19 09:25 Dose: 1 dose Documented by: [email or web address] Admin: 09/11/19 20:06 Dose: 1 dose Documented by: Admin: 09/11/19 10:59 Dose: 1 dose Documented by: Admin: 09/10/19 22:01 Dose: 1 dose Documented by: Admin: 09/10/19 10:03 Dose: 1 dose Documented by: Admin: 09/09/19 20:12 Dose: 1 dose Documented by: Admin: 09/09/19 08:21 Dose: 1 dose Documented by: Admin: 09/08/19 21:20 Dose: 1 dose Documented by: GIAN Comments: doesn't have a label, therefore unable to scan Naloxone HCl (Narcan) 0.1 mg IV Q2MIN PRN PRN Reason: Opiate Reversal Ondansetron HCl (Zofran) 4 mg IV Q4HP PRN; Protocol PRN Reason: Nausea And Vomiting Last Admin: 09/15/19 21:33 Dose: 4 mg Documented by: Admin: 09/12/19 21:30 Dose: 4 mg Documented by: BETZAIDA Pantoprazole Sodium (Protonix) 40 mg PO QAMAC [facility] Last Admin: 09/17/19 07:06 Dose: 40 mg Documented by: Admin: 09/16/19 07:34 Dose: 40 mg Documented by: Admin: 09/15/19 08:26 Dose: 40 mg Documented by: AEDariel Admin: 09/14/19 12:45 Dose: Not Given Documented by: [email or web address] Non-Admin Reason: Difficulty Swallowing Admin: 09/13/19 10:10 Dose: 40 mg Documented by: [email or web address] Admin: 09/12/19 07:42 Dose: 40 mg Documented by: [email or web address] Admin: 09/11/19 07:50 Dose: 40 mg Documented by: [email or web address] Admin: 09/10/19 08:17 Dose: 40 mg Documented by: [email or web address] Admin: 09/09/19 07:19 Dose: 40 mg Documented by: AEDariel Potassium Chloride (Kdur) 40 meq PO BIDCC [facility] Stop: 09/18/19 07:59 Last Admin: 09/17/19 08:15 Dose: 40 meq Documented by: Admin: 09/16/19 17:38 Dose: 40 meq Documented by: Admin: 09/16/19 08:15 Dose: 40 meq Documented by: CLAUS Fluticasone/Salmeterol (Advair 100-50 Diskus) 1 puff INH BID [facility] Last Admin: 09/17/19 08:30 Dose: Not Given Documented by: CLAUS Non-Admin Reason: Unavailable Admin: 09/16/19 20:34 Dose: Not Given Documented by: BETZAIDA Non-Admin Reason: Unavailable Admin: 09/16/19 09:10 Dose: Not Given Documented by: CLAUS Non-Kelly Reason: Unavailable Admin: 09/15/19 20:18 Dose: Not Given Documented by: BETZAIDA Non-Admin Reason: Unavailable Admin: 09/15/19 09:54 Dose: Not Given Documented by: AEDariel Non-Admin Reason: Unavailable Admin: 09/14/19 20:04 Dose: Not Given Documented by: BETZAIDA Non-Admin Reason: Unavailable Admin: 09/14/19 10:34 Dose: Not Given Documented by: [email or web address] Non-Admin Reason: Unavailable Admin: 09/13/19 20:46 Dose: Not Given Documented by: MARIKA Non-Admin Reason: Unavailable Admin: 09/13/19 07:47 Dose: Not Given Documented by: ROSALIE Non-Admin Reason: Unavailable Admin: 09/12/19 20:29 Dose: Not Given Documented by: BETZAIDA Non-Admin Reason: Unavailable Admin: 09/12/19 09:25 Dose: Not Given Documented by: TIP Non-Admin Reason: Unavailable Admin: 09/11/19 21:52 Dose: Not Given Documented by: GIAN Non-Admin Reason: Unavailable Admin: 09/11/19 10:41 Dose: Not Given Documented by: MAC Non-Admin Reason: Unavailable Admin: 09/10/19 21:56 Dose: Not Given Documented by: GIAN Non-Admin Reason: Unavailable Admin: 09/10/19 09:45 Dose: Not Given Documented by: [email or web address] Non-Admin Reason: Unavailable Admin: 09/09/19 20:44 Dose: Not Given Documented by: MARIKA Non-Admin Reason: Unavailable Admin: 09/09/19 08:21 Dose: Not Given Documented by: MCA Non-Admin Reason: Unavailable Admin: 09/08/19 21:21 Dose: Not Given Documented by: GIAN Non-Admin Reason: Unavailable Senna (Senokot) 2 tab PO HSP PRN PRN Reason: Constipation Sodium Chloride (Saline Flush) 10 ml IV Q8 [facility] Last Admin: 09/17/19 05:51 Dose: 10 ml Documented by: Admin: 09/16/19 20:34 Dose: 10 ml Documented by: Admin: 09/16/19 15:06 Dose: 10 ml Documented by: Admin: 09/16/19 05:54 Dose: 10 ml Documented by: Admin: 09/15/19 20:20 Dose: 10 ml Documented by: Admin: 09/15/19 15:16 Dose: 10 ml Documented by: Admin: 09/15/19 05:28 Dose: 10 ml Documented by: Admin: 09/14/19 20:09 Dose: 10 ml Documented by: Admin: 09/14/19 16:11 Dose: 10 ml Documented by: Admin: 09/14/19 05:27 Dose: Not Given Documented by: MARIKA Non-Admin Reason: Continuous IV Admin: 09/13/19 20:46 Dose: 10 ml Documented by: Admin: 09/13/19 12:54 Dose: 10 ml Documented by: [email or web address] Admin: 01/02/20 05:34 Dose: 10 ml Documented by: Admin: 09/12/19 20:42 Dose: 10 ml Documented by: Admin: 09/12/19 14:54 Dose: 10 ml Documented by: Admin: 09/12/19 09:34 Dose: 10 ml Documented by: Admin: 09/12/19 05:41 Dose: 10 ml Documented by: Admin: 09/11/19 20:07 Dose: 10 ml Documented by: Admin: 09/11/19 14:32 Dose: Not Given Documented by: [email or web address] Non-Admin Reason: Continuous IV Admin: 09/11/19 07:50 Dose: 10 ml Documented by: Admin: 09/10/19 22:01 Dose: Not Given Documented by: GIAN Non-Admin Reason: Continuous IV Admin: 09/10/19 16:17 Dose: Not Given Documented by: [email or web address] Non-Admin Reason: Continuous IV Admin: 09/10/19 05:56 Dose: Not Given Documented by: MARIKA Non-Admin Reason: Continuous IV Admin: 09/09/19 20:44 Dose: Not Given Documented by: [email or web address] Non-Admin Reason: Continuous IV Admin: 09/09/19 14:50 Dose: Not Given Documented by: [email or web address] Non-Admin Reason: Continuous IV Admin: 09/09/19 07:02 Dose: Not Given Documented by: [email or web address] Non-Admin Reason: Continuous IV Admin: 09/08/19 21:21 Dose: Not Given Documented by: GIAN Non-Admin Reason: Continuous IV Admin: 09/08/19 16:35 Dose: 10 ml Documented by: MAC Sodium Chloride (Saline Flush) 10 ml IV UD PRN PRN Reason: FLUSH Sodium Chloride (Saline Flush) 10 ml IV Q12 [facility] Last Admin: 09/16/19 20:35 Dose: 10 ml Documented by: BETZAIDA Vancomycin HCl (Vancomycin Per Pharmacy) 1 order IV UD [facility]; Protocol Venlafaxine HCl (Effexor Xr) 150 mg PO QDAY [facility] Last Admin: 09/17/19 09:25 Dose: 150 mg Documented by: Admin: 09/16/19 09:08 Dose: 150 mg Documented by: Admin: 09/15/19 13:50 Dose: Not Given Documented by: [email or web address] Non-Admin Reason: Difficulty Swallowing Admin: 09/14/19 12:46 Dose: Not Given Documented by: [email or web address] Non-Admin Reason: Clinical Judgement Admin: 09/13/19 10:17 Dose: 150 mg Documented by: [email or web address] Admin: 09/12/19 09:24 Dose: 150 mg Documented by: [email or web address] Admin: 09/11/19 10:59 Dose: 150 mg Documented by: [email or web address] Admin: 09/10/19 10:04 Dose: 150 mg Documented by: [email or web address] Admin: 09/09/19 08:20 Dose: 150 mg Documented by: [email or web address] Warfarin Sodium (Coumadin Per Pharmacy) 1 order PO UD [facility] Assessment and Plan - Narrative A/P Narrative: A: 1. 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 The wound location near anal verge presents a challenge for healing given: --contamination of wound daily with billions of bacteria from stool -- body weight induced skin ischemia with propensity to develop necrosis A long course of antibiotics would not address any of the above factors and might lead to side-effects, developement of antibiotic resistance. - wound Cx growing Proteus spp., MRSA, Enterococcus. Blood Cx NGTD 2. Delirium with some dementia: delirium resolving - recent insults with subdural hematoma, TIA, prior ischemic strokes might be responsible for some irreversible deficit. Recent worsening is ominous and might suggest new deficits. Most recent head CT on 09/08 showed : "Stable bilateral watershed infarcts, right larger than left. Stable old right cerebellar infarct. Resolution of the previously seen left-sided subdural hematoma" 3. UTI: s/p 6 days of IV Ceftriaxone 4. 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 Trough of 11.8 noted. continue weekly monitoring of Vanc levels (target 10-20). Can help if no pharmacy assistance for adjusting Vanc dosing is available at the OR, in light of ab normal levels, or Cr elevation. - Continue PO Levofloxacin 750 mg q24 hrs - will recommend a stop date of 09/27/2019 for above antibiotics with wound-care follow up - [facility] at all times, given high aspiration risk - consider goals of care discussion given multiple comorbidities (multiple strokes, recent SDH, schizophrenia) Plan d/w pt, Dr Llanes and Dr Larry Silverio MD Infectious diseases
[2019-09-17] MEDS: MUPIROCIN OINT 2% 22GM TOPICAL SCH ×2 (10:48→20:11)
[2019-09-17] MEDS: DOCUSATE SODIUM 100 MG CAPSULE PO SCH ×2 (10:49→20:11)
--- NOTE | 2019-09-17 11:09 | General Surgery Progress Note ---
Subjective Patient reports: feels better, tolerating liquids well, bowel movement, afebrile, other (Clinically recovering from SIRS. URI treated with antibiotics. CSSSI s/p surgical debridemetn of scrl pressure ulcer stage 4. ) Narrative: Note initiated : 09/17/19 at 10:55 am Service Date, if different from initiated Date: [] Patient: Christine Cespedes 64 y/o F admitted on 09/08/19 for Sepsis, UTI. Chief Complaint: [] Objective Temp Pulse Resp BP Pulse Ox 97 F 106 H 16 108/85 94 09/17/19 07:22 09/16/19 07:58 09/17/19 07:22 09/17/19 07:22 09/17/19 07:22 No fever, Tachycardia resolving . HD stable Alert and Responsive. Answers Qs. Soft abdomen. Well formed stool in rectal pouch. Post surgical wound examined with Dr. Silverio, ID Extends to sacral and coccygeal region. NO odor, NO purulence. See nurses notes for dimensions. Ischial dermal ulcer is stable. - Additional Data Intake & Output - Last 24 hours: Intake & Output 09/15/19 09/16/19 09/17/19 09/18/19 05:59 05:59 05:59 05:59 Intake Total 1669 2015 2380 240 Output Total 0858 4665 5249 70 Balance -891 -9333 -3383 170 Weight 261 lb 3.2 oz 259 lb 8 oz 258 lb 8 oz - Labs 09/17/19 05:12 09/17/19 05:12 Diabetes panel 09/17/19 Range/Units 05:12 Sodium 141 (133-145) mmol/L Potassium 4.0 (3.3-5.1) mmol/L Chloride 105 (96-108) mmol/L Carbon Dioxide 26 (22-30) mmol/L BUN 8 (8-23) mg/dl Creatinine 0.5 L (0.6-1.1) mg/dl Glucose 80 (70-105) mg/dL Calcium 8.6 (8.6-10.4) mg/dl Calcium panel 09/17/19 Range/Units 05:12 Calcium 8.6 (8.6-10.4) mg/dl Pituitary panel 09/17/19 Range/Units 05:12 Sodium 141 (133-145) mmol/L Potassium 4.0 (3.3-5.1) mmol/L Chloride 105 (96-108) mmol/L Carbon Dioxide 26 (22-30) mmol/L BUN 8 (8-23) mg/dl Creatinine 0.5 L (0.6-1.1) mg/dl Glucose 80 (70-105) mg/dL Calcium 8.6 (8.6-10.4) mg/dl Adrenal panel 09/17/19 Range/Units 05:12 Sodium 141 (133-145) mmol/L Potassium 4.0 (3.3-5.1) mmol/L Chloride 105 (96-108) mmol/L Carbon Dioxide 26 (22-30) mmol/L BUN 8 (8-23) mg/dl Creatinine 0.5 L (0.6-1.1) mg/dl Glucose 80 (70-105) mg/dL Calcium 8.6 (8.6-10.4) mg/dl Assessment and Plan (1) Skin abnormalities Problem details: Local wound care as discussed with nursing staff and orders entered. Status: Acute Current Visit: Yes (2) Pressure ulcer of sacral region, unstageable Problem details: Local wound care as discussed with nursing staff. Status: Chronic Current Visit: Yes - Narrative A/P Narrative: A: 1. Infected decubitus ulcer involving sacrum and upper right inner thigh:stage 2-3 - s/p sharp debridement by Dr Delvalle on 09/14 with findings of some fat necrosis and no deeper tissue inv - wound Cx growing Proteus spp., MRSA, Enterococcus. Blood Cx NGTD 2. Delirium with some dementia: delirium resolving - recent insults with subdural hematoma, TIA, prior ischemic strokes might be responsible for some irreversible deficit. Recent worsening is ominous and might suggest new deficits. Most recent head CT on 09/08 showed : "Stable bilateral watershed infarcts, right larger than left. Stable old right cerebellar infarct. Resolution of the previously seen left-sided subdural hematoma" 3. UTI: s/p 6 days of IV Ceftriaxone 4. 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 Trough of 11.8 noted. continue weekly monitoring of Vanc levels (target 10-20). Can help if no pharmacy assistance for adjusting Vanc dosing is available at the NH, in light of abnormal levels, or Cr elevation. - Continue PO Levofloxacin 750 mg q24 hrs - will recommend a stop date of 09/27/2019 for above antibiotics with wound-care follow up - HOB elev at all times, given high aspiration risk - consider goals of care discussion given multiple comorbidities (multiple strokes, recent SDH, schizophrenia) Plan d/w pt, Dr Llanes and Dr Larry Silverio MD Infectious diseases - Time Spent With Patient Total time spent is greater than 50% in coordination of care (as documented) at patient's floor/unit and/or counseling patient: Assessment: SIRS improving. UTI responding to fluid repletion and antibiotics. Sacral Pressure ulcer surgically debrided . Paraplegia ( Chronic ) Plan: Antibiotics per ID. Duoderm picture frame around the wound Reinstate wound VAC with TRAC pad away and over the hip region. FOLLOWING patient with Hospitalist and Wound Care Nurse. 25 - 35 minutes
[2019-09-17] MEDS ORDERED: WARFARIN 5 MG TABLET PO ONE (14:00)
[2019-09-17] MEDS: ATORVASTATIN 40 MG TABLET PO SCH (20:08)
[2019-09-17] MEDS ORDERED: METOPROLOL TARTRATE 25 MG TABLET PO SCH (21:00)
[2019-09-18] MEDS: HYDROcodone/APAP 5/325MG TABLET PO PRN ×2 (04:46→21:49)
[2019-09-18] MEDS: 0.9 % SODIUM CHLORIDE 10 ML SYRINGE IV SCH ×5 (06:01→21:50)
[2019-09-18 06:39] LABS: Basophils # (Auto) 0.05 K/mcL (0.00-0.30); Basophils % (Auto) 0.4 % (0.0-2.0); Eosinophils # (Auto) 0.58 K/mcL (0.00-0.70); Eosinophils % (Auto) 4.8 % (0.0-7.0); Granulocytes % (Auto) 73.2 % (38.0-78.0); Hematocrit 39.8 % (34.1-44.9); Hemoglobin 12.7 g/dL (11.2-15.7); Lymphocytes % (Auto) 12.5 % (15.5-49.0); Mean Cell Volume 95.2 fL (80.0-100.0); Mean Corpuscular HGB Conc 31.9 g/dL (31.0-36.0); Monocytes % (Auto) 9.1 % (1.0-12.0); Platelet Count 460 K/mcL (140-440); RBC 4.18 M/mcL (3.59-5.38); Red Cell Distribution Width 14.3 % (11.5-14.5)
[2019-09-18 06:57] LABS: Prothrombin Time 22.3 sec (11.9-14.5)
[2019-09-18] MEDS: PANTOPRAZOLE 40 MG TABLET PO SCH (07:12)
[2019-09-18] MEDS: LEVOTHYROXINE 50 MCG TABLET PO SCH (07:12)
[2019-09-18] MEDS: LEVOTHYROXINE 150 MCG TABLET PO SCH (07:13)
--- NOTE | 2019-09-18 07:19 | Operative Note ---
DATE OF OPERATION: 09/14/2019 PREOPERATIVE DIAGNOSIS: Sacral pressure wound. POSTOPERATIVE DIAGNOSIS: Sacral pressure wound. PROCEDURE PERFORMED: Sharp debridement of sacral pressure wound with application of wound V.A.C. system. SURGEON: Kailash Rhodes MD ANESTHESIA: MAC. DESCRIPTION OF PROCEDURE: With the patient in the right lateral decubitus position, the area around the sacral ulceration was cleaned with ChloraPrep solution. 1% lidocaine with epinephrine was infiltrated. Using a pair of scissors and toothed forceps, the necrotic skin and fat was excised. Deep to this granulating adipose tissue was appreciated circumferentially in the wound. The wound dimensions were approximately 3 cm wide x4 cm long x 4 cm deep. No muscle or bone was visible. A piece of black wound V.A.C. sponge was then placed into the defect. The overlying Tegaderm film was then applied. A piece of Tegaderm was excised over the sponge. The wound V.A.C. system tubing was then applied to this area. The wound V.A.C. was deployed and suction was obtained with excellent contracture of the sponge. Additional Tegaderm was applied to reinforce. I would like to mention that benzoin had been placed on the skin to aid in adherence of the Tegaderm, particularly in the area cephalad to the anal region. The patient was then transferred to the hospital bed prior to being transferred to the recovery room in stable condition. ESTIMATED BLOOD LOSS: Negligible. COMPLICATIONS: None. SPECIMENS: None. DRAINS: Wound V.A.C. system. DEN:marly Job ID: [id number] Doc ID: [id number] Kailash Rhodes MD [facility]
[2019-09-18 07:26] LABS: ALT/SGPT 40 U/l (0-40); AST/SGOT 37 U/l (0-37); Alkaline Phosphatase 137 U/L (39-117); Bilirubin,Total 0.3 mg/dL (0.0-1.0); Blood Urea Nitrogen 10 mg/dl (8-23); Calcium 9.2 mg/dl (8.6-10.4); Carbon Dioxide 25 mmol/L (22-30); Chloride 102 mmol/L (96-108); Glucose 88 mg/dL (70-105)
[2019-09-18 07:50] LABS: Glomerular Filtration Rate 92
[2019-09-18] MEDS: LEVOFLOXACIN 750 MG TABLET PO SCH (09:01)
[2019-09-18] MEDS: FLUTICASONE/SALMETEROL 50/100 INHALER #14 INH SCH ×2 (09:01→21:38)
[2019-09-18] MEDS: lamoTRIgine 100 MG TABLET PO SCH (09:01)
[2019-09-18] MEDS: BENZTROPINE 1 MG TABLET PO SCH ×2 (09:01→21:49)
[2019-09-18] MEDS: DOCUSATE SODIUM 100 MG CAPSULE PO SCH ×2 (09:01→21:50)
[2019-09-18] MEDS: MUPIROCIN OINT 2% 22GM TOPICAL SCH ×2 (09:01→21:50)
[2019-09-18] MEDS: VENLAFAXINE 150 MG CAP.XL.24H PO SCH (09:01)
[2019-09-18] MEDS: MULTIVIT,THER IRON,CA,FA & MIN 1 TABLET PO SCH (09:01)
[2019-09-18] MEDS: METOPROLOL TARTRATE 50 MG TABLET PO SCH (09:01)
[2019-09-18] MEDS: VANCOMYCIN 1,500 MG in 0.9 % SODIUM CHLORIDE 500 ML IV SCH (09:02)
[2019-09-18] MEDS: HYDROCHLOROTHIAZIDE 25 MG TABLET PO SCH (09:02)
--- NOTE | 2019-09-18 09:02 | Internal Med Progress Note ---
Medical - PN: Subj Patient information: Note initiated : 09/18/19 at 8:58 am Service Date, if different from initiated Date: [] Patient: Christine Cespedes a 64 y/o F admitted on 09/08/19 for Sepsis, UTI. Chief Complaint: [] Interval history: 09/08 Ms. Cespedes is a 64 year old F with a history of atrial fibrillation, recent subdural hematoma, history of ischemic strokes, hypertension, sleep apnea not on CPAP, prediabetes, morbid obesity with mobility impairment who presents to the emergency department with lethargy. History is obtained speaking to her caregiver. She has a caregiver in the home during the days, but not at night. The caregiver notes yesterday she was not quite herself, displaying some mild confusion. Her appetite was decreased. Caregiver made her a sandwich for dinner prior to her leaving yesterday, was still on eaten this morning when their caregiver arrived. Patient was in bed, was too weak to get out of bed, was confused and could not respond appropriately. In the ED, there is a history of low-grade fever as well. Because of lethargy, fever and weakness EMS was activated and she is brought to the ED. In the emergency department she has evidence of sepsis with now white count of 22,000, lactate of 3.8, increased anion gap and significantly abnormal urine analysis with pyuria and bacteriuria. She is being admitted for treatment of sepsis from urinary source. 09/09 Intermittently more responsive, was sitting up on edge of bed with physical therapy and did participate in self-care this morning. Is required fluids for declining blood pressures today with response. 09/10 Slowly continues to be more interactive. Urine culture with E. coli, only resistant to fluoroquinolones. Blood pressure stable. 09/11 Much more alert and interactive today. Still quite weak and needing assistance to stay sitting up at bedside. Held conversation with her, she states her goal is to get better. I encouraged her to increase her oral intake and that it is important for her to eat to get better. Nursing spoke with her son, who is her eldest child. He is a long-haul tellers supervisor and is out of state, but agreed that she will likely need skilled placement following this admission. In the late afternoon, she awoke panicked that she was trapped in a trailer and was disoriented. Had significant anxiety. 09/12/2019 Patient continued to have disorientation and hallucinations yesterday evening, was up much of the night, eventually calm down. Medicine list reviewed, she does not have any antipsychotics or other treatments for schizophrenia. Attempting to reconfirm her medication list. This morning, states she is not feeling too well, but is sleepy drifts back off. 09/13 Patient seems less interactive than she was yesterday afternoon. Sacral wound now draining material and will need debridement. Previously had eschar that was being debrided. Should've completed for therapy for UTI sepsis. Discussed with Dr. Juarez, whose consult general surgery. Have consulted Dr. Silverio, is recommended. Vancomycin and Zosyn for now until debridement. 09/14 Patient status post surgical I&D. Drowsy but opens eyes to voice. Refused CT imaging yesterday as recommended by infectious disease. No overnight events. Discussed case with her son who makes medical decisions when she is unable. He was able to clarify that she would be a DO NOT RESUSCITATE in the event effect catastrophic event. Regarding goals of care. We will see how she has in the next day or 2 09/15 Nurse able to get the patient to drink a carnation instant breakfast. Patient sleeping at this time but awakens and admits to feeling little better but otherwise not verbalizing a whole lot and difficult to obtain review of systems. she is on room air today. 09/16 Yesterday afternoon patient was sitting up in bed eating breakfast, mentation and somnolence improved. Feeling much better today. Has occasional cough and headache. No other complaints. Nurse report diarrhea. Again mentation significantly improved she is oriented to place and President 09/17 No overnight event or new complaints. Patient resting comfortably in bed. Denies any cough or shortness of breath. 09/18 Patient unable to be placed yesterday still working on placement. Patient sleeping this morning. Denies any complaints. Review of Systems: denies fever/chills/nausea/vomiting/chest or abdominal pain/dyspnea/diarrhea. Otherwise see above. - Constitutional Vitals: Vital Signs Temp Pulse Resp BP Pulse Ox 98.2 F 74 16 93/68 93 09/18/19 06:46 09/18/19 07:13 09/18/19 06:46 09/18/19 07:31 09/18/19 07:13 Period Temp Pulse Resp BP Sys/Butler Pulse Ox Last 24 Hr 97.3 F-99.4 F 37-122 16-22 79-152/50-132 92-98 Intake and Output 09/17/19 09/18/19 09/18/19 21:59 05:59 13:59 Intake Total 360 600 200 Output Total 1400 495 450 Balance -1040 105 -250 Weight 109.316 kg Intake & Output: Intake & Output 09/17/19 09/18/19 09/18/19 21:59 05:59 13:59 Intake Total 360 600 200 Output Total 1400 495 450 Balance -1040 105 -250 Weight 109.316 kg Intake: Nourishment/Supplement quantity 200 (ml) Oral 360 600 Output: Urine Catheter Amount 1400 495 450 Other: Nourishment/Supplement name ensure enlive Urine Appearance Clear Clear Clear Uretheral (Aguirre) Clear Clear Clear Urine Color Bright Yellow Bright Yellow Dark Yellow Uretheral (Aguirre) Bright Yellow Bright Yellow Pale Urine Odor Normal Stool Size Small Stool Color Brown Green Stool Consistency Soft Loose # Bowel Movements 1 Exam: General: Sleeping but awakens, No acute Distress, obese Eyes/N/T: EOMI, Head/Neck: neck supple, CV: irreg irreg, No murmurs, Pulm: diminished b/l, no wheezing Abd: soft, nontender, +BS x4 Ext: no clubbing/cyanosis, no LE edema greatly improved, Neuro: Sleeping but awakens. Overall mentation greatly improved, no focal deficits, follows commands Skin: warm/dry Medical - PN: Obj Da - Labs CBC & Chem 7: 09/18/19 05:00 09/18/19 05:00 Labs: Abnormal Lab Results 09/18/19 09/18/19 09/18/19 05:00 05:00 05:00 WBC 12.0 H Plt Count 460 H MPV Lymph % (Auto) 12.5 L Gran # 8.80 H Lymph # (Auto) Linn # (Auto) 1.10 H Eos # (Auto) PT 22.3 H INR 2.0 H Potassium Creatinine Magnesium GGT ALT Alkaline Phosphatase 137 H Lactate Dehydrogenase Total Protein Albumin 3.0 L Albumin/Globulin Ratio 09/17/19 09/17/19 09/17/19 05:12 05:12 05:12 WBC Plt Count 466 H MPV Lymph % (Auto) 15.2 L Gran # Lymph # (Auto) Linn # (Auto) 1.00 H Eos # (Auto) 0.74 H PT 20.7 H INR 1.8 H Potassium Creatinine 0.5 L Magnesium GGT ALT Alkaline Phosphatase Lactate Dehydrogenase Total Protein Albumin Albumin/Globulin Ratio 09/16/19 09/16/19 09/16/19 05:05 05:05 05:05 WBC 11.8 H Plt Count MPV 10.6 H Lymph % (Auto) 12.4 L Gran # 8.64 H Lymph # (Auto) 1.47 L Linn # (Auto) 1.06 H Eos # (Auto) PT 20.1 H INR 1.7 H Potassium 3.2 L Creatinine Magnesium 1.5 L GGT 86 H ALT 41 H Alkaline Phosphatase 151 H Lactate Dehydrogenase 300 H Total Protein 5.7 L Albumin 2.5 L Albumin/Globulin Ratio 0.8 L Meds: Medications Acetaminophen (Tylenol) 650 mg PO Q6HP PRN; Protocol PRN Reason: Per Pain Protocol/Fever > 101 Last Admin: 09/13/19 10:11 Dose: 650 mg Documented by: Hydrocodone Bitart/Acetaminophen (Breaks 5/325mg) 1 tab PO Q4HP PRN; Protocol PRN Reason: Per Pain Protocol Last Admin: 09/18/19 04:46 Dose: 1 tab Documented by: Albuterol/Ipratropium (Duoneb) 3 ml NEB Q6H PRN PRN Reason: shortness of breath Last Admin: 09/11/19 22:27 Dose: 3 ml Documented by: Atorvastatin Calcium (Lipitor) 40 mg PO QHS [facility] Last Admin: 09/17/19 20:08 Dose: 40 mg Documented by: Benztropine Mesylate (Cogentin) 2 mg PO BID [facility] Last Admin: 09/17/19 20:08 Dose: 2 mg Documented by: Clonazepam (Klonopin) 0.25 mg PO BIDP PRN PRN Reason: Anxiety Last Admin: 09/16/19 20:38 Dose: 0.25 mg Documented by: Diagnostic Test (Pha) (Accu-Chek) 1 each FS ACHS [facility] Last Admin: 09/18/19 07:12 Dose: 1 each Documented by: Docusate Sodium (Colace) 100 mg PO BID [facility] Last Admin: 09/17/19 20:11 Dose: Not Given Documented by: Heparin Sodium (Porcine) (Heparin Flush) 2 ml IV Q12 [facility] Last Admin: 09/17/19 20:08 Dose: 2 ml Documented by: Hydrochlorothiazide (Oretic) 25 mg PO QAM [facility] Last Admin: 09/17/19 09:25 Dose: 25 mg Documented by: Acetaminophen (Ofirmev) 650 mg in 65 mls @ 130 mls/hr IV Q6HP PRN; Protocol PRN Reason: PAIN/FEVER > 101 Last Infusion: 09/15/19 09:51 Dose: Infused Documented by: Vancomycin HCl 1,500 mg/ (Sodium Chloride) 500 mls @ 333.3 mls/hr IV DAILY [facility] Last Infusion: 09/17/19 11:41 Dose: Infused Documented by: Iron Carb/Multivit/Calpine/Folic Acid (Multivitamin W/Minerals) 1 tab PO DAILY [facility] Last Admin: 09/17/19 09:25 Dose: 1 tab Documented by: Lactulose (Cephulac) 10 gm PO DAILYP PRN PRN Reason: Constipation Lamotrigine (Lamictal) 100 mg PO QDAY [facility] Last Admin: 09/17/19 09:25 Dose: 100 mg Documented by: Levofloxacin (Levaquin) 750 mg PO DAILY [facility]; Protocol Last Admin: 09/17/19 09:25 Dose: 750 mg Documented by: [facility]othy[facility]ine [facility] ([facility]) [facility] Last Admin: 09/18/19 07:13 Dose: 300 mcg Documented by: Levothyroxine Sodium (Synthroid) 50 [facility]cg [facility] Last Admin: 09/18/19 07:12 Dose: 50 mcg Documented by: Medroxyprogesterone Acetate (Provera) 10 mg PO BID [facility] Last Admin: 09/17/19 20:11 Dose: 10 mg Documented by: Metoprolol Tartrate (Lopressor) 5 mg IV Q2HP PRN PRN Reason: Tachyarrhythmias HR>110 Last Admin: 09/17/19 10:35 Dose: 5 mg Documented by: Metoprolol Tartrate (Lopressor) 25 mg PO HS [facility] Last Admin: 09/17/19 20:08 Dose: 25 mg Documented by: Metoprolol Tartrate (Lopressor) 50 mg PO DAILY [facility] Last Admin: 09/17/19 09:25 Dose: 50 mg Documented by: Mupirocin (Bactroban Oint 2%) 1 dose TOPICAL BID [facility] Last Admin: 09/17/19 20:11 Dose: 1 dose Documented by: Naloxone HCl (Narcan) 0.1 mg IV Q2MIN PRN PRN Reason: Opiate Reversal Ondansetron HCl (Zofran) 4 mg IV Q4HP PRN; Protocol PRN Reason: Nausea And Vomiting Last Admin: 09/15/19 21:33 Dose: 4 mg Documented by: Pantoprazole Sodium (Protonix) 40 mg PO QAMAC [facility] Last Admin: 09/18/19 07:12 Dose: 40 mg Documented by: Fluticasone/Salmeterol (Advair 100-50 Diskus) 1 puff INH BID [facility] Last Admin: 09/17/19 20:41 Dose: Not Given Documented by: Senna (Senokot) 2 tab PO HSP PRN PRN Reason: Constipation Sodium Chloride (Saline Flush) 10 ml IV Q8 [facility] Last Admin: 09/18/19 06:01 Dose: 10 ml Documented by: Sodium Chloride (Saline Flush) 10 ml IV UD PRN PRN Reason: FLUSH Sodium Chloride (Saline Flush) 10 ml IV Q12 [facility] Last Admin: 09/17/19 21:29 Dose: Not Given Documented by: Vancomycin HCl (Vancomycin Per Pharmacy) 1 order IV [facility]; Protocol Venlafaxine HCl (Effexor Xr) 150 mg PO QDAY [facility] Last Admin: 09/17/19 09:25 Dose: 150 mg Documented by: Warfarin Sodium (Coumadin Per Pharmacy) 1 order PO [facility] Medical - PN: A/P - Time Spent With Patient Total time spent is greater than 50% in coordination of care (as documented) at patient's floor/unit and/or counseling patient: - Narrative A/P Narrative: A: *Sepsis,severe: Resolved, though concern for recurrent due to sacral wound. Initial sepsis secondary to urinary infection. *Leukocytosis: improved *Sacral Wound w/Unstageable Pressure Ulcer at time of admission: Discussed with Dr. Juarez. -s/p surgical I&D (09/14) *Encephalopathy superimposed on likely vascular dementia: had been waxing/waning but much improved yesterday afternoon. REsolving -Patient has had recent subdural hematoma in mid July. That does appear resolved on current CT imaging. Warfarin restarted in Aug. -She also has a history of prior watershed infarcts, with no new findings noted on current CT. -Suspect her change in mental status / encephalopathy is secondary to sepsis, now worsening with decubitus, and not new cerebral ischemia. *Schizophrenia: Diagnosis noted in chart. Not currently on any antipsychotics per med list. Is on Cogentin, presumably for old EPS. -Awoke with significant anxiety on 09/11, subsequently had hallucinations and difficult night. *h/o Cerebral vascular disease: As noted above, stable findings on CT. With watershed infarcts, suspect these may have been cardioembolic. *ho SDH in , Warfarin restarted in August *Likely vascular dementia: *Atrial fibrillation: rates 80's-110's. Atenolol initially held due to sepsis but restarted *UTI(e. coli): As above, acute cystitis versus possible pyelonephritis. Suspected source of sepsis. *JEREMY on CKD II: Resolved -Suspect secondary to sepsis and prerenal etiology. *HTN: No evidence of hypotension associated with sepsis *Hyopkalemia/mag: improved *Diarrhea: improved *Goals of Care: Discussed case with her son who makes medical decisions when she is unable. He was able to clarify that she would be a DO NOT RESUSCITATE - P: -vancomycin/PO Levaquin -ID following -low-dose prn clonazepam for anxiety symptoms -cont BB -pt/ot -awaiting placement -f/u with Dr. Juarez outpt -Prophylaxis: PPI, warfarin per pharmacy CODE STATUS: DNR Medical - PN: Qual - VTE Deep Vein Thrombosis/Pulmonary Embolism Present on Admission: No
[2019-09-18] MEDS ORDERED: 0.9 % SODIUM CHLORIDE 10 ML SYRINGE IV PRN (09:49)
[2019-09-18] MEDS ORDERED: ACETAMINOPHEN 325 MG TABLET PO PRN (09:49)
[2019-09-18] MEDS ORDERED: ONDANSETRON 4 MG/2 ML VIAL IV PRN (09:49)
[2019-09-18] MEDS ORDERED: NALOXONE HCL 0.4 MG/ML VIAL IV PRN (09:49)
[2019-09-18] MEDS ORDERED: ACETAMINOPHEN 650 MG/65 ML BOTTLE IV PRN (09:49)
[2019-09-18] MEDS ORDERED: SENNOSIDES 1 TABLET PO PRN (09:49)
[2019-09-18] MEDS ORDERED: IPRATROPIUM/ALBUTEROL 3 ML AMPUL.NEB NEB PRN (09:49)
[2019-09-18] MEDS ORDERED: LACTULOSE 20 GM/30 ML ORAL.SOL PO PRN (09:49)
[2019-09-18] MEDS ORDERED: VANCOMYCIN PER PHARMACY IV SCH (09:49)
[2019-09-18] MEDS: medroxyPROGESTERone 10 MG TABLET PO SCH ×2 (10:03→21:51)
[2019-09-18] MEDS ORDERED: WARFARIN 5 MG TABLET PO ONE (15:00)
--- NOTE | 2019-09-18 16:57 | Infectious Disease Prog Note ---
Subjective Patient information: Note initiated : 09/18/19 at 4:54 pm Service Date, if different from initiated Date: [] Patient: Christine Cespedes a 64 y/o F admitted on 09/08/19 for Sepsis, UTI. Chief Complaint: [] Interval history: Pt is barely awake when called by her name multiple times. Per nursing no fever, nausea, vomiting, diarrhea and pt has been doing better, was able to eat 50% of her breakfast this am. Objective Objective Narrative: drowsy but arousable on calling pt's name no thrush chest cta anteriorly (pt's thick chest limits effective auscultation) s1 s2 normal bs ++, nttd The sacral area wound had been dressed, wound vac on [had about 70 ml drainage since 09/15/2019] left arm PICC line - Vital Signs Vital signs: Vital Signs Temp Pulse Resp BP Pulse Ox 09/18/19 15:38 36.9 C 20 100/68 93 09/18/19 12:01 119/83 09/18/19 11:40 37.1 C 16 115/85 100 09/18/19 11:27 115/85 09/18/19 10:01 115/88 09/18/19 08:01 99/59 09/18/19 07:31 93/68 09/18/19 07:13 74 109/66 93 09/18/19 06:46 36.8 C 16 101/71 93 09/18/19 06:41 106 H 101/71 92 09/18/19 04:28 113 H 104/60 94 09/18/19 04:24 36.8 C 112 H 20 104/60 94 09/18/19 00:11 37 L 112/73 94 09/17/19 20:25 95/69 09/17/19 20:03 36.4 C 20 152/132 98 09/17/19 19:31 90/51 09/17/19 19:01 93/74 09/17/19 18:31 88/55 09/17/19 18:02 96/50 Intake and Output 09/18/19 09/18/19 09/18/19 05:59 13:59 21:59 Intake Total 600 1080 100 Output Total 495 450 Balance 105 630 100 Intake: Nourishment/Supplement quantity 640 (ml) Oral 600 440 100 Output: Urine Catheter Amount 495 450 Other: Meal Lunch Percent of Meal Consumed 100% Nourishment/Supplement name ambrosio Urine Appearance Clear Clear Uretheral (Aguirre) Clear Clear Urine Color Bright Yellow Dark Yellow Uretheral (Aguirre) Bright Yellow Pale Stool Size Large Stool Color Brown Stool Consistency Soft # Bowel Movements 1 Weight 109.316 kg Patient Weight 09/19/19 05:59 Weight 109.316 kg Intake & Output: Intake & Output 09/18/19 09/18/19 09/18/19 05:59 13:59 21:59 Intake Total 600 1080 100 Output Total 495 450 Balance 105 630 100 Weight 109.316 kg Intake: Nourishment/Supplement quantity 640 (ml) Oral 600 440 100 Output: Urine Catheter Amount 495 450 Other: Meal Lunch Percent of Meal Consumed 100% Nourishment/Supplement name ambrosio Urine Appearance Clear Clear Uretheral (Aguirre) Clear Clear Urine Color Bright Yellow Dark Yellow Uretheral (Aguirre) Bright Yellow Pale Stool Size Large Stool Color Brown Stool Consistency Soft # Bowel Movements 1 - Lab 09/18/19 05:00 09/18/19 05:00 Most recent lab results Calcium 9.2 mg/dl (8.6-10.4) 09/18/19 05:00 Phosphorus 3.0 mg/dL (2.7-4.5) 09/16/19 05:05 Magnesium 2.1 mg/dL (1.6-2.5) 09/16/19 11:16 Microbiology 09/13/19 22:32 Blood Blood Culture - Preliminary 09/13/19 22:22 Blood Blood Culture - Preliminary 09/13/19 12:54 Perineal Gram Stain - Final 09/13/19 12:54 Perineal Wound Culture - Final Proteus mirabilis Methicillin resistant s.aureus 09/10/19 10:15 Decubitus Gram Stain - Final 09/10/19 10:15 Decubitus Wound Culture - Final Escherichia coli Proteus mirabilis Enterococcus species 09/08/19 11:10 Urine - Catheterized Urine Culture - Final Escherichia coli 09/08/19 15:00 Nose MRSA (PCR) - Final MRSA PCR positive Medications Active Medications: Acetaminophen (Tylenol) 650 mg PO Q6HP PRN; Protocol PRN Reason: Per Pain Protocol/Fever > 101 Hydrocodone Bitart/Acetaminophen ([place] 5/325mg) 1 tab PO Q4HP PRN; Protocol PRN Reason: Per Pain Protocol Albuterol/Ipratropium (Duoneb) 3 ml NEB Q6H PRN PRN Reason: shortness of breath Atorvastatin Calcium (Lipitor) 40 mg PO QHS [facility] Benztropine Mesylate (Cogentin) 2 mg PO BID [facility] Clonazepam (Klonopin) 0.25 mg PO BIDP PRN PRN Reason: Anxiety Diagnostic Test (Pha) (Accu-Chek) 1 each FS ACHS [facility] Last Admin: 09/18/19 12:05 Dose: 1 each Documented by: [email or web address] Docusate Sodium (Colace) 100 mg PO BID [facility] Heparin Sodium (Porcine) (Heparin Flush) 2 ml IV Q12 [facility] Hydrochlorothiazide (Oretic) 25 mg PO QAM [facility] Acetaminophen (Ofirmev) 650 mg in 65 mls @ 130 mls/hr IV Q6HP PRN; Protocol PRN Reason: PAIN/FEVER > 101 Vancomycin HCl 1,500 mg/ (Sodium Chloride) 500 mls @ 333.3 mls/hr IV DAILY [facility] Iron Carb/Multivit/[place]/Folic Acid (Multivitamin W/Minerals) 1 tab PO DAILY [facility] Lactulose (Cephulac) 10 gm PO DAILYP PRN PRN Reason: Constipation Lamotrigine (Lamictal) 100 mg PO QDAY [facility] Levofloxacin (Levaquin) 750 mg PO DAILY [facility]; Protocol Levothyroxine Sodium (Synthroid) 300 mcg PO QAMAC [facility] Levothyroxine Sodium (Synthroid) 50 mcg PO QAMAC [facility] Medroxyprogesterone Acetate (Provera) 10 mg PO BID [facility] Metoprolol Tartrate (Lopressor) 5 mg IV Q2HP PRN PRN Reason: Tachyarrhythmias HR>110 Metoprolol Tartrate (Lopressor) 25 mg PO HS [facility] Metoprolol Tartrate (Lopressor) 50 mg PO DAILY [facility] Mupirocin (Bactroban Oint 2%) 1 dose TOPICAL BID [facility] Naloxone HCl (Narcan) 0.1 mg IV Q2MIN PRN PRN Reason: Opiate Reversal Ondansetron HCl (Zofran) 4 mg IV Q4HP PRN; Protocol PRN Reason: Nausea And Vomiting Pantoprazole Sodium (Protonix) 40 mg PO QAMAC [facility] Fluticasone/Salmeterol (Advair 100-50 Diskus) 1 puff INH BID [facility] Senna (Senokot) 2 tab PO HSP PRN PRN Reason: Constipation Sodium Chloride (Saline Flush) 10 ml IV UD PRN PRN Reason: FLUSH Sodium Chloride (Saline Flush) 10 ml IV Q8 [facility] Last Admin: 09/18/19 15:16 Dose: 10 ml Documented by: [email or web address] Sodium Chloride (Saline Flush) 10 ml IV Q12 [facility] Vancomycin HCl (Vancomycin Per Pharmacy) 1 order IV UD [facility]; Protocol Venlafaxine HCl (Effexor Xr) 150 mg PO QDAY [facility] Warfarin Sodium (Coumadin Per Pharmacy) 1 order PO UD [facility] Assessment and Plan - Narrative A/P Narrative: A: 1. 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 The wound location near anal verge presents a challenge for healing given: --contamination of wound daily with billions of bacteria from stool -- body weight induced skin ischemia with propensity to develop necrosis A long course of antibiotics would not address any of the above factors and might lead to side-effects, developement of antibiotic resistance. - wound Cx growing Proteus spp., MRSA, Enterococcus. Blood Cx NGTD 2. Delirium with some dementia: delirium resolving. This am was slightly confused - recent insults with subdural hematoma, TIA, prior ischemic strokes might be responsible for some irreversible deficit. Recent worsening is ominous and might suggest new deficits. Most recent head CT on 09/08 showed : "Stable bilateral watershed infarcts, right larger than left. Stable old right cerebellar infarct. Resolution of the previously seen left-sided subdural hematoma" 3. UTI: s/p 6 days of IV Ceftriaxone 4. 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 Recent trough of 11.8 noted. continue weekly monitoring of Vanc levels (target 10-20). Can help if no pharmacy assistance for adjusting Vanc dosing is available at the [place], in light of abnormal levels, or Cr elevation. - Continue PO Levofloxacin 750 mg q24 hrs - will recommend a stop date of 09/27/2019 for above antibiotics with wound-care follow up - HOB elev at all times, given high aspiration risk - consider goals of care discussion given multiple comorbidities (multiple strokes, recent SDH, schizophrenia) will sign off. Please call back with any questions. Marvel Silverio MD Infectious diseases
[2019-09-18] MEDS: METOPROLOL TARTRATE 25 MG TABLET PO SCH (21:49)
[2019-09-18] MEDS: ATORVASTATIN 40 MG TABLET PO SCH (21:49)
[2019-09-18] MEDS: clonazePAM 0.5 MG TABLET PO PRN (21:49)
[2019-09-19] MEDS: 0.9 % SODIUM CHLORIDE 10 ML SYRINGE IV SCH ×5 (05:16→23:30)
[2019-09-19] MEDS ORDERED: BUMETANIDE 0.25 MG/ML VIAL IV ONE (07:20)
--- NOTE | 2019-09-19 07:20 | Internal Med Progress Note ---
Medical - PN: Subj Patient information: Note initiated : 09/19/19 at 7:18 am Service Date, if different from initiated Date: [] Patient: Christine Cespedes a 64 y/o F admitted on 09/08/19 for Sepsis, UTI. Chief Complaint: [] Interval history: 09/08 Ms. Cespedes is a 64 year old F with a history of atrial fibrillation, recent subdural hematoma, history of ischemic strokes, hypertension, sleep apnea not on CPAP, prediabetes, morbid obesity with mobility impairment who presents to the emergency department with lethargy. History is obtained speaking to her caregiver. She has a caregiver in the home during the days, but not at night. The caregiver notes yesterday she was not quite herself, displaying some mild confusion. Her appetite was decreased. Caregiver made her a sandwich for dinner prior to her leaving yesterday, was still on eaten this morning when their caregiver arrived. Patient was in bed, was too weak to get out of bed, was confused and could not respond appropriately. In the ED, there is a history of low-grade fever as well. Because of lethargy, fever and weakness EMS was activated and she is brought to the ED. In the emergency department she has evidence of sepsis with now white count of 22,000, lactate of 3.8, increased anion gap and significantly abnormal urine analysis with pyuria and bacteriuria. She is being admitted for treatment of sepsis from urinary source. 09/09 Intermittently more responsive, was sitting up on edge of bed with physical therapy and did participate in self-care this morning. Is required fluids for declining blood pressures today with response. 09/10 Slowly continues to be more interactive. Urine culture with E. coli, only resistant to fluoroquinolones. Blood pressure stable. 09/11 Much more alert and interactive today. Still quite weak and needing assistance to stay sitting up at bedside. Held conversation with her, she states her goal is to get better. I encouraged her to increase her oral intake and that it is important for her to eat to get better. Nursing spoke with her son, who is her eldest child. He is a long-haul cyber ops planner and is out of state, but agreed that she will likely need skilled placement following this admission. In the late afternoon, she awoke panicked that she was trapped in a trailer and was disoriented. Had significant anxiety. 09/12/2019 Patient continued to have disorientation and hallucinations yesterday evening, was up much of the night, eventually calm down. Medicine list reviewed, she does not have any antipsychotics or other treatments for schizophrenia. Attempting to reconfirm her medication list. This morning, states she is not feeling too well, but is sleepy drifts back off. 09/13 Patient seems less interactive than she was yesterday afternoon. Sacral wound now draining material and will need debridement. Previously had eschar that was being debrided. Should've completed for therapy for UTI sepsis. Discussed with Dr. Juarez, whose consult general surgery. Have consulted Dr. Silverio, is recommended. Vancomycin and Zosyn for now until debridement. 09/14 Patient status post surgical I&D. Drowsy but opens eyes to voice. Refused CT imaging yesterday as recommended by infectious disease. No overnight events. Discussed case with her son who makes medical decisions when she is unable. He was able to clarify that she would be a DO NOT RESUSCITATE in the event effect catastrophic event. Regarding goals of care. We will see how she has in the next day or 2 09/15 Nurse able to get the patient to drink a carnation instant breakfast. Patient sleeping at this time but awakens and admits to feeling little better but otherwise not verbalizing a whole lot and difficult to obtain review of systems. she is on room air today. 09/16 Yesterday afternoon patient was sitting up in bed eating breakfast, mentation and somnolence improved. Feeling much better today. Has occasional cough and headache. No other complaints. Nurse report diarrhea. Again mentation significantly improved she is oriented to place and President 09/17 No overnight event or new complaints. Patient resting comfortably in bed. Denies any cough or shortness of breath. 09/18 Patient unable to be placed yesterday still working on placement. Patient sleeping this morning. Denies any complaints. 09/19 Overnight events or new complaints. Awaiting placement. Review of Systems: denies fever/chills/nausea/vomiting/chest or abdominal pain/dyspnea/diarrhea. Otherwise see above. - Constitutional Vitals: Vital Signs Temp Pulse Resp BP Pulse Ox 98.1 F 96 H 16 87/58 97 09/19/19 04:01 09/18/19 22:02 09/19/19 04:09/19/19 04:01 09/19/19 04:01 Period Temp Pulse Resp BP Sys/Butler Pulse Ox Last 24 Hr 98.1 F-98.8 F 96-116 16-20 85-123/58-95 93-100 Intake and Output 09/18/19 09/19/19 09/19/19 21:59 05:59 13:59 Intake Total 600 Output Total 590 645 Balance 10 -645 Weight 108.454 kg Intake & Output: Intake & Output 09/18/19 09/19/19 09/19/19 21:59 05:59 13:59 Intake Total 600 Output Total 590 645 Balance 10 -645 Weight 108.454 kg Intake: IV 500 Vancomycin 1,500 mg In Sodium 500 Chloride 0.9% 500 ml @ 333.3 mls/hr IV DAILY [facility] Rx#: [id number] Oral 100 Output: Urine Catheter Amount 590 645 Other: Urine Appearance Clear Clear Urine Color Bright Yellow Straw Exam: General: Sleeping but awakens, No acute Distress, obese Eyes/N/T: EOMI, Head/Neck: neck supple, CV: irreg irreg, No murmurs, Pulm: diminished b/l, no wheezing Abd: soft, nontender, +BS x4 Ext: no clubbing/cyanosis, lower and upper extremity edema greatly improved Neuro: Sleeping but awakens. Overall mentation greatly improved, no focal defi cits, follows commands Skin: warm/dry Medical - PN: Obj Da - Labs CBC & Chem 7: 09/18/19 05:00 09/18/19 05:00 Labs: Abnormal Lab Results 09/18/19 09/18/19 09/18/19 05:00 05:00 05:00 WBC 12.0 H Plt Count 460 H Lymph % (Auto) 12.5 L Gran # 8.80 H [place] # (Auto) 1.10 H Eos # (Auto) PT 22.3 H INR 2.0 H Creatinine Alkaline Phosphatase 137 H Albumin 3.0 L 09/17/19 09/17/19 09/17/19 05:12 05:12 05:12 WBC Plt Count 466 H Lymph % (Auto) 15.2 L Gran # [place] # (Auto) 1.00 H Eos # (Auto) 0.74 H PT 20.7 H INR 1.8 H Creatinine 0.5 L Alkaline Phosphatase Albumin Meds: Medications Acetaminophen (Tylenol) 650 mg PO Q6HP PRN; Protocol PRN Reason: Per Pain Protocol/Fever > 101 Hydrocodone Bitart/Acetaminophen ([place] 5/325mg) 1 tab PO Q4HP PRN; Protocol PRN Reason: Per Pain Protocol Last Admin: 09/18/19 21:49 Dose: 1 tab Documented by: Albuterol/Ipratropium (Duoneb) 3 ml NEB Q6H PRN PRN Reason: shortness of breath Atorvastatin Calcium (Lipitor) 40 mg PO QHS [facility] Last Admin: 09/18/19 21:49 Dose: 40 mg Documented by: Benztropine Mesylate (Cogentin) 2 mg PO BID [facility] Last Admin: 09/18/19 21:49 Dose: 2 mg Documented by: Clonazepam (Klonopin) 0.25 mg PO BIDP PRN PRN Reason: Anxiety Last Admin: 09/18/19 21:49 Dose: 0.25 mg Documented by: Diagnostic Test (Pha) (Accu-Chek) 1 each FS ACHS [facility] Last Admin: 09/18/19 22:13 Dose: 1 each Documented by: Docusate Sodium (Colace) 100 mg PO BID [facility] Last Admin: 09/18/19 21:50 Dose: Not Given Documented by: Heparin Sodium (Porcine) (Heparin Flush) 2 ml IV Q12 [facility] Last Admin: 09/18/19 21:50 Dose: 2 ml Documented by: Hydrochlorothiazide (Oretic) 25 mg PO QAM [facility] Acetaminophen (Ofirmev) 650 mg in 65 mls @ 130 mls/hr IV Q6HP PRN; Protocol PRN Reason: PAIN/FEVER > 101 Vancomycin HCl 1,500 mg/ (Sodium Chloride) 500 mls @ 333.3 mls/hr IV DAILY [facility] Iron Carb/Multivit/Soft Sugar Supervisor/Folic Acid (Multivitamin W/Minerals) 1 tab PO DAILY [facility] Lactulose (Cephulac) 10 gm PO DAILYP PRN PRN Reason: Constipation Lamotrigine (Lamictal) 100 mg PO QDAY [facility] Levofloxacin (Levaquin) 750 mg PO DAILY [facility]; Protocol Levothyroxine Sodium (Synthroid) 300 mcg PO QAMAC [facility] Levothyroxine Sodium (Synthroid) 50 mcg PO QAMAC [facility] Medroxyprogesterone Acetate (Provera) 10 mg PO BID [facility] Last Admin: 09/18/19 21:51 Dose: 10 mg Documented by: Metoprolol Tartrate (Lopressor) 5 mg IV Q2HP PRN PRN Reason: Tachyarrhythmias HR>110 Metoprolol Tartrate (Lopressor) 25 mg PO HS [facility] Last Admin: 09/18/19 21:49 Dose: 25 mg Documented by: Metoprolol Tartrate (Lopressor) 50 mg PO DAILY [facility] Mupirocin (Bactroban Oint 2%) 1 dose TOPICAL BID [facility] Last Admin: 09/18/19 21:50 Dose: 1 dose Documented by: Naloxone HCl (Narcan) 0.1 mg IV Q2MIN PRN PRN Reason: Opiate Reversal Ondansetron HCl (Zofran) 4 mg IV Q4HP PRN; Protocol PRN Reason: Nausea And Vomiting Last Admin: 09/19/19 05:37 Dose: 4 mg Documented by: Pantoprazole Sodium (Protonix) 40 mg PO QAMAC [facility] Fluticasone/Salmeterol (Advair 100-50 Diskus) 1 puff INH BID [facility] Last Admin: 09/18/19 21:38 Dose: Not Given Documented by: Senna (Senokot) 2 tab PO HSP PRN PRN Reason: Constipation Sodium Chloride (Saline Flush) 10 ml IV UD PRN PRN Reason: FLUSH Sodium Chloride (Saline Flush) 10 ml IV Q8 [facility] Last Admin: 09/19/19 05:16 Dose: 10 ml Documented by: Sodium Chloride (Saline Flush) 10 ml IV Q12 [facility] Last Admin: 09/18/19 21:50 Dose: 10 ml Documented by: Vancomycin HCl (Vancomycin Per Pharmacy) 1 order IV [facility] Protocol Venlafaxine HCl (Effexor Xr) 150 mg PO QDAY [facility] Warfarin Sodium (Coumadin Per Pharmacy) 1 order PO [facility] Medical - PN: A/P - Time Spent With Patient Total time spent is greater than 50% in coordination of care (as documented) at patient's floor/unit and/or counseling patient: - Narrative A/P Narrative: A: *Sepsis,severe: Resolved, though concern for recurrent due to sacral wound. Initial sepsis secondary to urinary infection. REsplved *Leukocytosis: improved *Sacral Wound w/Unstageable Pressure Ulcer at time of admission: Discussed with Dr. Juarez. -s/p surgical I&D (09/14) *Encephalopathy superimposed on likely vascular dementia: had been waxing/waning but much improved yesterday afternoon. REsolving -Patient has had recent subdural hematoma in mid July. That does appear resolved on current CT imaging. Warfarin restarted in Aug. -She also has a history of prior watershed infarcts, with no new findings noted on current CT. -Suspect her change in mental status / encephalopathy is secondary to sepsis, now worsening with decubitus, and not new cerebral ischemia. *Schizophrenia: Diagnosis noted in chart. Not currently on any antipsychotics per med list. Is on Cogentin, presumably for old EPS. -Awoke with significant anxiety on 09/11, subsequently had hallucinations and difficult night. *h/o Cerebral vascular disease: As noted above, stable findings on CT. With watershed infarcts, suspect these may have been cardioembolic. *ho SDH in , Warfarin restarted in August *Likely vascular dementia: *Atrial fibrillation: rates 80's-110's. Atenolol initially held due to sepsis but restarted *UTI(e. coli): As above, acute cystitis versus possible pyelonephritis. Suspected source of sepsis. *JEREMY on CKD II: Resolved -Suspect secondary to sepsis and prerenal etiology. *HTN: No evidence of hypotension associated with sepsis *Hyopkalemia/mag: improved *Diarrhea: improved *Goals of Care: Discussed case with her son who makes medical decisions when she is unable. He was able to clarify that she would be a DO NOT RESUSCITATE - P: -vancomycin/PO Levaquin -ID following -low-dose prn clonazepam for anxiety symptoms -cont BB -pt/ot -awaiting placement -f/u with Dr. Juarez outpt -Prophylaxis: PPI, warfarin per pharmacy CODE STATUS: DNR Medical - PN: Qual - VTE Deep Vein Thrombosis/Pulmonary Embolism Present on Admission: No
[2019-09-19] MEDS: LEVOTHYROXINE 150 MCG TABLET PO SCH (07:26)
[2019-09-19] MEDS: PANTOPRAZOLE 40 MG TABLET PO SCH (07:26)
[2019-09-19] MEDS: LEVOTHYROXINE 50 MCG TABLET PO SCH (07:26)
[2019-09-19 09:29] LABS: Prothrombin Time 22.8 sec (11.9-14.5)
[2019-09-19] MEDS: VANCOMYCIN 1,500 MG in 0.9 % SODIUM CHLORIDE 500 ML IV SCH (09:29)
[2019-09-19] MEDS: METOPROLOL TARTRATE 50 MG TABLET PO SCH (09:29)
[2019-09-19] MEDS: BENZTROPINE 1 MG TABLET PO SCH ×2 (09:29→21:00)
[2019-09-19] MEDS: HYDROCHLOROTHIAZIDE 25 MG TABLET PO SCH (09:30)
[2019-09-19] MEDS: MULTIVIT,THER IRON,CA,FA & MIN 1 TABLET PO SCH (09:30)
[2019-09-19] MEDS: lamoTRIgine 100 MG TABLET PO SCH (09:30)
[2019-09-19] MEDS: LEVOFLOXACIN 750 MG TABLET PO SCH (09:30)
[2019-09-19] MEDS: FLUTICASONE/SALMETEROL 50/100 INHALER #14 INH SCH ×2 (09:30→21:04)
[2019-09-19] MEDS: VENLAFAXINE 150 MG CAP.XL.24H PO SCH (09:30)
[2019-09-19] MEDS: MUPIROCIN OINT 2% 22GM TOPICAL SCH ×2 (09:31→21:05)
[2019-09-19] MEDS: DOCUSATE SODIUM 100 MG CAPSULE PO SCH ×2 (09:32→21:00)
[2019-09-19] MEDS: medroxyPROGESTERone 10 MG TABLET PO SCH ×2 (09:35→21:02)
[2019-09-19] MEDS: clonazePAM 0.5 MG TABLET PO PRN (11:10)
[2019-09-19] MEDS: HYDROcodone/APAP 5/325MG TABLET PO PRN (11:11)
[2019-09-19] MEDS ORDERED: WARFARIN 5 MG TABLET PO ONE (16:00)
[2019-09-19] MEDS: ATORVASTATIN 40 MG TABLET PO SCH (21:01)
[2019-09-19] MEDS: METOPROLOL TARTRATE 25 MG TABLET PO SCH (21:01)
[2019-09-20] MEDS: HYDROcodone/APAP 5/325MG TABLET PO PRN ×4 (00:29→23:46)
[2019-09-20] MEDS: 0.9 % SODIUM CHLORIDE 10 ML SYRINGE IV SCH ×8 (05:40→23:54)
[2019-09-20 06:13] LABS: INR 2.1 (0.9-1.1); Prothrombin Time 23.1 sec (11.9-14.5)
[2019-09-20] MEDS: PANTOPRAZOLE 40 MG TABLET PO SCH (07:55)
[2019-09-20] MEDS: LEVOTHYROXINE 150 MCG TABLET PO SCH (07:55)
[2019-09-20] MEDS: LEVOTHYROXINE 50 MCG TABLET PO SCH (07:55)
[2019-09-20] MEDS: medroxyPROGESTERone 10 MG TABLET PO SCH ×2 (07:56→21:27)
[2019-09-20] MEDS: LEVOFLOXACIN 750 MG TABLET PO SCH (08:27)
[2019-09-20] MEDS: HYDROCHLOROTHIAZIDE 25 MG TABLET PO SCH (08:27)
[2019-09-20] MEDS: METOPROLOL TARTRATE 50 MG TABLET PO SCH (08:27)
[2019-09-20] MEDS: MULTIVIT,THER IRON,CA,FA & MIN 1 TABLET PO SCH (08:27)
[2019-09-20] MEDS: lamoTRIgine 100 MG TABLET PO SCH (08:28)
[2019-09-20] MEDS: VENLAFAXINE 150 MG CAP.XL.24H PO SCH (08:33)
[2019-09-20] MEDS: BENZTROPINE 1 MG TABLET PO SCH ×2 (08:34→21:01)
[2019-09-20] MEDS: DOCUSATE SODIUM 100 MG CAPSULE PO SCH ×3 (08:34→21:05)
[2019-09-20] MEDS: FLUTICASONE/SALMETEROL 50/100 INHALER #14 INH SCH ×2 (09:17→21:05)
[2019-09-20] MEDS: VANCOMYCIN 1,500 MG in 0.9 % SODIUM CHLORIDE 500 ML IV SCH (09:49)
[2019-09-20] MEDS: MUPIROCIN OINT 2% 22GM TOPICAL SCH ×2 (10:00→21:05)
[2019-09-20] MEDS ORDERED: WARFARIN 5 MG TABLET PO ONE (14:00)
[2019-09-20] MEDS: ATORVASTATIN 40 MG TABLET PO SCH (21:01)
[2019-09-20] MEDS: METOPROLOL TARTRATE 25 MG TABLET PO SCH (21:01)
--- NOTE | 2019-09-20 23:23 | Internal Med Progress Note ---
Medical - PN: Subj Patient information: Note initiated : 09/20/19 at 11:21 pm Service Date, if different from initiated Date: [] Patient: Christine Cespedes a 64 y/o F admitted on 09/08/19 for Sepsis, UTI. Chief Complaint: [] Interval history: 09/08 Ms. Cespedes is a 64 year old F with a history of atrial fibrillation, recent subdural hematoma, history of ischemic strokes, hypertension, sleep apnea not on CPAP, prediabetes, morbid obesity with mobility impairment who presents to the emergency department with lethargy. History is obtained speaking to her caregiver. She has a caregiver in the home during the days, but not at night. The caregiver notes yesterday she was not quite herself, displaying some mild confusion. Her appetite was decreased. Caregiver made her a sandwich for dinner prior to her leaving yesterday, was still on eaten this morning when their caregiver arrived. Patient was in bed, was too weak to get out of bed, was confused and could not respond appropriately. In the ED, there is a history of low-grade fever as well. Because of lethargy, fever and weakness EMS was activated and she is brought to the ED. In the emergency department she has evidence of sepsis with now white count of 22,000, lactate of 3.8, increased anion gap and significantly abnormal urine analysis with pyuria and bacteriuria. She is being admitted for treatment of sepsis from urinary source. 09/09 Intermittently more responsive, was sitting up on edge of bed with physical therapy and did participate in self-care this morning. Is required fluids for declining blood pressures today with response. 09/10 Slowly continues to be more interactive. Urine culture with E. coli, only resistant to fluoroquinolones. Blood pressure stable. 09/11 Much more alert and interactive today. Still quite weak and needing assistance to stay sitting up at bedside. Held conversation with her, she states her goal is to get better. I encouraged her to increase her oral intake and that it is important for her to eat to get better. Nursing spoke with her son, who is her eldest child. He is a long-haul electrifier operator and is out of state, but agreed that she will likely need skilled placement following this admission. In the late afternoon, she awoke panicked that she was trapped in a trailer and was d isoriented. Had significant anxiety. 09/12/2019 Patient continued to have disorientation and hallucinations yesterday evening, was up much of the night, eventually calm down. Medicine list reviewed, she does not have any antipsychotics or other treatments for schizophrenia. Attempting to reconfirm her medication list. This morning, states she is not feeling too well, but is sleepy drifts back off. 09/13 Patient seems less interactive than she was yesterday afternoon. Sacral wound now draining material and will need debridement. Previously had eschar that was being debrided. Should've completed for therapy for UTI sepsis. Discussed with Dr. Juarez, whose consult general surgery. Have consulted Dr. Silverio, is recommended. Vancomycin and Zosyn for now until debridement. 09/14 Patient status post surgical I&D. Drowsy but opens eyes to voice. Refused CT imaging yesterday as recommended by infectious disease. No overnight events. Discussed case with her son who makes medical decisions when she is unable. He was able to clarify that she would be a DO NOT RESUSCITATE in the event effect catastrophic event. Regarding goals of care. We will see how she has in the next day or 2 09/15 Nurse able to get the patient to drink a carnation instant breakfast. Patient sleeping at this time but awakens and admits to feeling little better but otherwise not verbalizing a whole lot and difficult to obtain review of systems. she is on room air today. 09/16 Yesterday afternoon patient was sitting up in bed eating breakfast, mentation and somnolence improved. Feeling much better today. Has occasional cough and headache. No other complaints. Nurse report diarrhea. Again mentation significantly improved she is oriented to place and President 09/17 No overnight event or new complaints. Patient resting comfortably in bed. Denies any cough or shortness of breath. 09/18 Patient unable to be placed yesterday still working on placement. Patient sleeping this morning. Denies any complaints. 09/20 Patient was resting Unable to obtain detailed review of system, denied any active chest pain abdominal pain Discussed with the case management and planning for placement there are new options available and social service working in profiling Pertinent ROS: Unable to obtain detailed review of system Patient denied any active chest pain abdominal pain or any urine symptoms - Constitutional Vitals: Vital Signs Temp Pulse Resp BP Pulse Ox 98.5 F 113 H 18 103/71 94 09/20/19 19:41 09/20/19 19:41 09/20/19 19:41 09/20/19 19:41 09/20/19 16:00 Period Temp Pulse Resp BP Sys/Butler Pulse Ox Last 24 Hr 98 F-99.2 F 103-116 16-22 82-116/54-83 92-94 Intake and Output 09/20/19 09/20/19 09/21/19 13:59 21:59 05:59 Intake Total 200 220 Output Total 100 675 Balance 100 -455 Weight 232 lb 8 oz Patient Weight 09/21/19 05:59 Weight 232 lb 8 oz Intake & Output: Intake & Output 09/20/19 09/20/19 09/21/19 13:59 21:59 05:59 Intake Total 200 220 Output Total 100 675 Balance 100 -455 Weight 232 lb 8 oz Intake: Oral 200 220 Output: Urine Catheter Amount 100 675 Other: Meal Lunch Percent of Meal Consumed 25% Feeding Ability Assist with Tray Set Up Urine Appearance Uretheral (Aguirre) Clear Urine Color Uretheral (Aguirre) Bright Yellow Urine Odor Uretheral (Aguirre) Normal Stool Size Large Stool Color Brown Stool Consistency Liquid Watery # Bowel Movements 1 - Head Head exam: Present: atraumatic, normal inspection - Eye Eye exam: Present: normal appearance. Absent: nystagmus, periorbital swelling - ENT ENT exam: Present: normal exam, normal oropharynx - Neck Neck exam: Present: normal inspection. Absent: lymphadenopathy, meningismus - Respiratory Respiratory exam: Present: decreased breath sounds, rales. Absent: accessory muscle use - Cardiovascular Cardiovascular exam: Absent: bradycardia, JVD, +S3, +S4 - GI/Abdominal GI/Abdominal exam: Present: normal bowel sounds, soft, distended. Absent: guarding - Neurological Exam Neurological exam: Present: alert, reflexes normal. Absent: motor sensory deficit Medical - PN: Obj Da - Labs CBC & Chem 7: 09/18/19 05:00 09/18/19 05:00 Labs: Abnormal Lab Results 09/20/19 09/19/19 09/18/19 04:30 08:42 05:00 WBC Plt Count Lymph % (Auto) Gran # [place] # (Auto) PT 23.1 H 22.8 H INR 2.1 H 2.0 H Alkaline Phosphatase 137 H Albumin 3.0 L 09/18/19 09/18/19 05:00 05:00 WBC 12.0 H Plt Count 460 H Lymph % (Auto) 12.5 L Gran # 8.80 H [place] # (Auto) 1.10 H PT 22.3 H INR 2.0 H Alkaline Phosphatase Albumin Meds: Medications Acetaminophen (Tylenol) 650 mg PO Q6HP PRN; Protocol PRN Reason: Per Pain Protocol/Fever > 101 Hydrocodone Bitart/Acetaminophen ([place] 5/325mg) 1 tab PO Q4HP PRN; Protocol PRN Reason: Per Pain Protocol Last Admin: 09/20/19 17:28 Dose: 1 tab Documented by: Albuterol/Ipratropium (Duoneb) 3 ml NEB Q6H PRN PRN Reason: shortness of breath Atorvastatin Calcium (Lipitor) 40 mg PO QHS [facility] Last Admin: 09/20/19 21:01 Dose: 40 mg Documented by: Benztropine Mesylate (Cogentin) 2 mg PO BID [facility] Last Admin: 09/20/19 21:01 Dose: 2 mg Documented by: Clonazepam (Klonopin) 0.25 mg PO BIDP PRN PRN Reason: Anxiety Last Admin: 09/19/19 11:10 Dose: 0.25 mg Documented by: Diagnostic Test (Pha) (Accu-Chek) 1 each FS ACHS [facility] Last Admin: 09/20/19 21:27 Dose: 1 each Documented by: Docusate Sodium (Colace) 100 mg PO BID [facility] Last Admin: 09/20/19 21:05 Dose: Not Given Documented by: Heparin Sodium (Porcine) (Heparin Flush) 2 ml IV Q12 [facility] Last Admin: 09/20/19 21:00 Dose: 2 ml Documented by: Hydrochlorothiazide (Oretic) 25 mg PO QAM [facility] Last Admin: 09/20/19 08:27 Dose: 25 mg Documented by: Acetaminophen (Ofirmev) 650 mg in 65 mls @ 130 mls/hr IV Q6HP PRN; Protocol PRN Reason: PAIN/FEVER > 101 Vancomycin HCl 1,500 mg/ (Sodium Chloride) 500 mls @ 333.3 mls/hr IV DAILY [facility] Last Admin: 09/20/19 09:49 Dose: 333.8 mls/hr Documented by: Iron Carb/Multivit/Header Set Up Operator/Folic Acid (Multivitamin W/Minerals) 1 tab PO DAILY [facility] Last Admin: 09/20/19 08:27 Dose: 1 tab Documented by: Lactulose (Cephulac) 10 gm PO DAILYP PRN PRN Reason: Constipation Lamotrigine (Lamictal) 100 mg PO QDAY [facility] Last Admin: 09/20/19 08:28 Dose: 100 mg Documented by: Levofloxacin (Levaquin) 750 mg PO DAILY [facility]; Protocol Last Admin: 09/20/19 08:27 Dose: 750 mg Documented by: Levothyroxine Sodium (Synthroid) 300 mcg PO [facility] Last Admin: 09/20/19 07:55 Dose: 300 mcg Documented by: Levothyroxine Sodium (Synthroid) 50 mcg PO [facility] Last Admin: 09/20/19 07:55 Dose: 50 mcg Documented by: Medroxyprogesterone Acetate (Provera) 10 mg PO BID [facility] Last Admin: 09/20/19 21:27 Dose: Not Given Documented by: Metoprolol Tartrate (Lopressor) 5 mg IV Q2HP PRN PRN Reason: Tachyarrhythmias HR>110 Metoprolol Tartrate (Lopressor) 25 mg PO HS [facility] Last Admin: 09/20/19 21:01 Dose: 25 mg Documented by: Metoprolol Tartrate (Lopressor) 50 mg PO DAILY [facility] Last Admin: 09/20/19 08:27 Dose: 50 mg Documented by: Mupirocin (Bactroban Oint 2%) 1 dose TOPICAL BID [facility] Last Admin: 09/20/19 21:05 Dose: 1 dose Documented by: Naloxone HCl (Narcan) 0.1 mg IV Q2MIN PRN PRN Reason: Opiate Reversal Ondansetron HCl (Zofran) 4 mg IV Q4HP PRN; Protocol PRN Reason: Nausea And Vomiting Last Admin: 09/19/19 05:37 Dose: 4 mg Documented by: Pantoprazole Sodium (Protonix) 40 mg PO [facility] Last Admin: 09/20/19 07:55 Dose: 40 mg Documented by: Fluticasone/Salmeterol (Advair 100-50 Diskus) 1 puff INH BID [facility] Last Admin: 09/20/19 21:05 Dose: Not Given Documented by: Senna (Senokot) 2 tab PO HSP PRN PRN Reason: Constipation Sodium Chloride (Saline Flush) 10 ml IV UD PRN PRN Reason: FLUSH Last Admin: 09/20/19 21:00 Dose: 10 ml Documented by: Sodium Chloride (Saline Flush) 10 ml IV Q8 [facility] Last Admin: 09/20/19 14:13 Dose: 10 ml Documented by: Sodium Chloride (Saline Flush) 10 ml IV Q12 [facility] Last Admin: 09/20/19 21:01 Dose: 10 ml Documented by: Vancomycin HCl (Vancomycin Per Pharmacy) 1 order IV UD [facility]; Protocol Venlafaxine HCl (Effexor Xr) 150 mg PO QDAY [facility] Last Admin: 09/20/19 08:33 Dose: 150 mg Documented by: Warfarin Sodium (Coumadin Per Pharmacy) 1 order PO UD [facility] Medical - PN: A/P - Time Spent With Patient Total time spent is greater than 50% in coordination of care (as documented) at patient's floor/unit and/or counseling patient: - Narrative A/P Narrative: Severe sepsis due to UTI-resolved concern for recurrent due to sacral wound Initial sepsis secondary to urinary infection. Leukocytosis: improved Infectious disease following the patient and on vancomycin and p.o. levofloxacin Infected decubitus ulcer wound Cx growing Proteus spp., MRSA, Enterococcus. Blood Cx NGTD ID physician following S/p surgical I&D (09/14) Acute delirium with underlying dementia Improving recent subdural hematoma in mid July. That does appear resolved on current CT imaging. Warfarin restarted in Dec history of prior watershed infarcts, with no new findings noted on current CT. Suspect her change in mental status / encephalopathy is secondary to sepsis, now worsening with decubitus, and not new cerebral ischemia. Schizophrenia: Diagnosis noted in chart. Not currently on any antipsychotics per med list. Is on Cogentin, presumably for old EPS. significant anxiety on 09/11, subsequently had hallucinations and difficult night. h/o Cerebral vascular disease: As noted above, stable findings on CT. With watershed infarcts, suspect Atrial fibrillation Right controlled and during admission atenolol initially held due to sepsis but restarted JEREMY on CKD II: Resolved -Suspect secondary to sepsis and prerenal etiology. Medical - PN: Qual - VTE Deep Vein Thrombosis/Pulmonary Embolism Present on Admission: No
[2019-09-21] MEDS: 0.9 % SODIUM CHLORIDE 10 ML SYRINGE IV SCH ×5 (06:39→20:26)
[2019-09-21 06:42] LABS: INR 2.7 (0.9-1.1); Prothrombin Time 28.6 sec (11.9-14.5)
[2019-09-21] MEDS: LEVOTHYROXINE 50 MCG TABLET PO SCH (07:36)
[2019-09-21] MEDS: LEVOTHYROXINE 150 MCG TABLET PO SCH (07:36)
[2019-09-21] MEDS: PANTOPRAZOLE 40 MG TABLET PO SCH (07:36)
--- NOTE | 2019-09-21 09:52 | General Surgery Progress Note ---
Subjective Patient reports: feels better, pain is less, afebrile Narrative: Note initiated : 09/21/19 at 9:48 am Service Date, if different from initiated Date: [] Patient: Christine Cespedes 64 y/o F admitted on 09/08/19 for Sepsis, UTI. Chief Complaint: [] Patient seen with Vivian RN Inpatient wound care nurse. Examined sacral pressure ulcer site, with patient in RIGHT lateral decubitus position. Objective Temp Pulse Resp BP Pulse Ox 96.5 F L 67 20 84/56 93 09/21/19 07:36 09/21/19 07:36 09/21/19 07:36 09/21/19 07:36 09/21/19 07:36 AVSS. HD stable Comfortable NOT in CR distress. L/E Sacral wound with undermining 4 to 7 about 2 CM deep. NO purulence, NO fecal or urine odor Granulating well. Tolerating VAC. - Additional Data Intake & Output - Last 24 hours: Intake & Output 09/19/19 09/20/19 09/21/19 09/22/19 05:59 05:59 05:59 05:59 Intake Total 1680 820 420 Output Total 1685 2240 1015 Balance -5 -1420 -595 Weight 239 lb 1.6 oz 240 lb 12.8 oz 232 lb 8 oz - Labs 09/18/19 05:00 09/18/19 05:00 Assessment and Plan (1) Skin abnormalities Problem details: Local wound care as discussed with nursing staff and orders entered. Status: Acute Current Visit: Yes (2) Pressure ulcer of sacral region, unstageable Problem details: Local wound care as discussed with nursing staff. Status: Chronic Current Visit: Yes - Time Spent With Patient Total time spent is greater than 50% in coordination of care (as documented) at patient's floor/unit and/or counseling patient: Assessment: Slow steady improvement with wound appearance. Granulating and healing from inside out. Plan: CONTINUE with wound VAC White foam in undermined area ONLAY with black foam Plans underway for finding a placement for her. 15 - 24 minutes
[2019-09-21] MEDS: BENZTROPINE 1 MG TABLET PO SCH ×2 (10:09→20:26)
[2019-09-21] MEDS: DOCUSATE SODIUM 100 MG CAPSULE PO SCH ×2 (10:09→20:27)
[2019-09-21] MEDS: VENLAFAXINE 150 MG CAP.XL.24H PO SCH (10:09)
[2019-09-21] MEDS: MUPIROCIN OINT 2% 22GM TOPICAL SCH ×2 (10:10→20:28)
[2019-09-21] MEDS: LEVOFLOXACIN 750 MG TABLET PO SCH (10:11)
[2019-09-21] MEDS: MULTIVIT,THER IRON,CA,FA & MIN 1 TABLET PO SCH (10:11)
[2019-09-21] MEDS: FLUTICASONE/SALMETEROL 50/100 INHALER #14 INH SCH ×2 (10:11→20:25)
[2019-09-21] MEDS: lamoTRIgine 100 MG TABLET PO SCH (10:11)
[2019-09-21] MEDS: medroxyPROGESTERone 10 MG TABLET PO SCH ×2 (10:12→20:26)
[2019-09-21] MEDS: HYDROCHLOROTHIAZIDE 25 MG TABLET PO SCH ×2 (10:12→12:13)
[2019-09-21] MEDS: METOPROLOL TARTRATE 50 MG TABLET PO SCH ×2 (10:12→10:58)
[2019-09-21] MEDS: METOPROLOL TARTRATE 5 MG/5 ML VIAL IV PRN (12:13)
--- NOTE | 2019-09-21 13:03 | Internal Med Progress Note ---
Medical - PN: Subj Patient information: Note initiated : 09/21/19 at 1:00 pm Service Date, if different from initiated Date: [] Patient: Christine Cespedes a 64 y/o F admitted on 09/08/19 for Sepsis, UTI. Chief Complaint: [] Interval history: 09/08 Ms. Cespedes is a 64 year old F with a history of atrial fibrillation, recent subdural hematoma, history of ischemic strokes, hypertension, sleep apnea not on CPAP, prediabetes, morbid obesity with mobility impairment who presents to the emergency department with lethargy. History is obtained speaking to her caregiver. She has a caregiver in the home during the days, but not at night. The caregiver notes yesterday she was not quite herself, displaying some mild confusion. Her appetite was decreased. Caregiver made her a sandwich for dinner prior to her leaving yesterday, was still on eaten this morning when their caregiver arrived. Patient was in bed, was too weak to get out of bed, was confused and could not respond appropriately. In the ED, there is a history of low-grade fever as well. Because of lethargy, fever and weakness EMS was activated and she is brought to the ED. In the emergency department she has evidence of sepsis with now white count of 22,000, lactate of 3.8, increased anion gap and significantly abnormal urine analysis with pyuria and bacteriuria. She is being admitted for treatment of sepsis from urinary source. 09/09 Intermittently more responsive, was sitting up on edge of bed with physical therapy and did participate in self-care this morning. Is required fluids for declining blood pressures today with response. 09/10 Slowly continues to be more interactive. Urine culture with E. coli, only resistant to fluoroquinolones. Blood pressure stable. 09/11 Much more alert and interactive today. Still quite weak and needing assistance to stay sitting up at bedside. Held conversation with her, she states her goal is to get better. I encouraged her to increase her oral intake and that it is important for her to eat to get better. Nursing spoke with her son, who is her eldest child. He is a long-haul yoke presser and is out of state, but agreed that she will likely need skilled placement following this admission. In the late afternoon, she awoke panicked that she was trapped in a trailer and was disoriented. Had significant anxiety. 09/12/2019 Patient continued to have disorientation and hallucinations yesterday evening, was up much of the night, eventually calm down. Medicine list reviewed, she does not have any antipsychotics or other treatments for schizophrenia. Attempting to reconfirm her medication list. This morning, states she is not feeling too well, but is sleepy drifts back off. 09/13 Patient seems less interactive than she was yesterday afternoon. Sacral wound now draining material and will need debridement. Previously had eschar that was being debrided. Should've completed for therapy for UTI sepsis. Discussed with Dr. Juarez, whose consult general surgery. Have consulted Dr. Silverio, is recommended. Vancomycin and Zosyn for now until debridement. 09/14 Patient status post surgical I&D. Drowsy but opens eyes to voice. Refused CT imaging yesterday as recommended by infectious disease. No overnight events. Discussed case with her son who makes medical decisions when she is unable. He was able to clarify that she would be a DO NOT RESUSCITATE in the event effect catastrophic event. Regarding goals of care. We will see how she has in the next day or 2 09/15 Nurse able to get the patient to drink a carnation instant breakfast. Patient sleeping at this time but awakens and admits to feeling little better but otherwise not verbalizing a whole lot and difficult to obtain review of systems. she is on room air today. 09/16 Yesterday afternoon patient was sitting up in bed eating breakfast, mentation and somnolence improved. Feeling much better today. Has occasional cough and headache. No other complaints. Nurse report diarrhea. Again mentation significantly improved she is oriented to place and President 09/17 No overnight event or new complaints. Patient resting comfortably in bed. Denies any cough or shortness of breath. 09/18 Patient unable to be placed yesterday still working on placement. Patient sleeping this morning. Denies any complaints. 09/20 Patient was resting Unable to obtain detailed review of system, denied any active chest pain abdominal pain Discussed with the case management and planning for placement there are new options available and social service working in profiling 09/21 Wound care evaluated the patient and patient moved looks better and slowly progressing. Recommend continuing wound VAC Case management working on placement options Pertinent ROS: Respiratory system-denied any shortness of breath no cough Cardiac-no chest pain no palpitation no syncope Abdomen-intermittent diarrhea Neuro-no focal neuro deficit - Constitutional Vitals: Vital Signs Temp Pulse Resp BP Pulse Ox 96.5 F L 67 20 84/56 93 09/21/19 07:36 09/21/19 08:00 09/21/19 07:36 09/21/19 07:36 09/21/19 07:36 Period Temp Pulse Resp BP Sys/Butler Pulse Ox Last 24 Hr 96.5 F-98.8 F 67-113 16-22 84-103/56-71 91-94 Intake and Output 09/20/19 09/21/19 09/21/19 21:59 05:59 13:59 Intake Total 220 Output Total 675 240 Balance -455 -240 Weight 232 lb 8 oz 232 lb 8 oz Patient Weight 09/22/19 05:59 Weight 232 lb 8 oz Intake & Output: Intake & Output 09/20/19 09/21/19 09/21/19 21:59 05:59 13:59 Intake Total 220 Output Total 675 240 Balance -455 -240 Weight 232 lb 8 oz 232 lb 8 oz Intake: Oral 220 Output: Drainage 15 Sacrum Woundvac 15 Urine Catheter Amount 675 225 Other: Meal Dinner Percent of Meal Consumed 100% Feeding Ability Assist with Tray Set Up Urine Appearance Clear Uretheral (Aguirre) Clear Clear Urine Color Bright Yellow Uretheral (Aguirre) Bright Yellow Bright Yellow Stool Size Smear Smear Stool Color Brown Brown Stool Consistency Soft Soft Loose Loose # Bowel Movements 1 - Head Head exam: Present: atraumatic, normal inspection, normocephalic - ENT ENT exam: Present: mucous membranes moist, normal exam, normal external ear exam, normal oropharynx - Neck Neck exam: Present: normal inspection. Absent: lymphadenopathy, meningismus, tenderness - Respiratory Respiratory exam: Present: decreased breath sounds. Absent: accessory muscle use, chest wall tenderness - Cardiovascular Cardiovascular exam: Present: normal rate and rhythm. Absent: bradycardia, diastolic murmur - GI/Abdominal GI/Abdominal exam: Present: normal bowel sounds, soft, distended - Neurological Exam Neurological exam: Present: CN II-XII intact, oriented X3. Absent: altered, motor sensory deficit Medical - PN: Obj Da - Labs CBC & Chem 7: 09/18/19 05:00 09/18/19 05:00 Labs: Abnormal Lab Results 09/21/19 09/20/19 09/19/19 05:30 04:30 08:42 PT 28.6 H 23.1 H 22.8 H INR 2.7 H 2.1 H 2.0 H Meds: Medications Acetaminophen (Tylenol) 650 mg PO Q6HP PRN; Protocol PRN Reason: Per Pain Protocol/Fever > 101 Hydrocodone Bitart/Acetaminophen ([place] 5/325mg) 1 tab PO Q4HP PRN; Protocol PRN Reason: Per Pain Protocol Last Admin: 09/20/19 23:46 Dose: 1 tab Documented by: Albuterol/Ipratropium (Duoneb) 3 ml NEB Q6H PRN PRN Reason: shortness of breath Atorvastatin Calcium (Lipitor) 40 mg PO QHS [facility] Last Admin: 09/20/19 21:01 Dose: 40 mg Documented by: Benztropine Mesylate (Cogentin) 2 mg PO BID [facility] Last Admin: 09/21/19 10:09 Dose: 2 mg Documented by: Clonazepam (Klonopin) 0.25 mg PO BIDP PRN PRN Reason: Anxiety Last Admin: 09/19/19 11:10 Dose: 0.25 mg Documented by: Diagnostic Test (Pha) (Accu-Chek) 1 each FS ACHS [facility] Last Admin: 09/21/19 12:16 Dose: 1 each Documented by: Docusate Sodium (Colace) 100 mg PO BID [facility] Last Admin: 09/21/19 10:09 Dose: Not Given Documented by: Heparin Sodium (Porcine) (Heparin Flush) 2 ml IV Q12 [facility] Last Admin: 09/21/19 10:11 Dose: 2 ml Documented by: Hydrochlorothiazide (Oretic) 25 mg PO QAM [facility] Last Admin: 09/21/19 12:13 Dose: 25 mg Documented by: Acetaminophen (Ofirmev) 650 mg in 65 mls @ 130 mls/hr IV Q6HP PRN; Protocol PRN Reason: PAIN/FEVER > 101 Vancomycin HCl 1,500 mg/ (Sodium Chloride) 500 mls @ 333.3 mls/hr IV DAILY [facility] Last Infusion: 09/20/19 11:14 Dose: Infused Documented by: Iron Carb/Multivit/[place]/Folic Acid (Multivitamin W/Minerals) 1 tab PO DAILY [facility] Last Admin: 09/21/19 10:11 Dose: 1 tab Documented by: Lactulose (Cephulac) 10 gm PO DAILYP PRN PRN Reason: Constipation Lamotrigine (Lamictal) 100 mg PO QDAY [facility] Last Admin: 09/21/19 10:11 Dose: 100 mg Documented by: Levofloxacin (Levaquin) 750 mg PO DAILY [facility]; Protocol Last Admin: 09/21/19 10:11 Dose: 750 mg Documented by: Levothyroxine Sodium (Synthroid) 300 mcg PO [facility] Last Admin: 09/21/19 07:36 Dose: 300 mcg Documented by: Levothyroxine Sodium (Synthroid) 50 mcg PO [facility] Last Admin: 09/21/19 07:36 Dose: 50 mcg Documented by: Medroxyprogesterone Acetate (Provera) 10 mg PO BID [facility] Last Admin: 09/21/19 10:12 Dose: Not Given Documented by: Metoprolol Tartrate (Lopressor) 5 mg IV Q2HP PRN PRN Reason: Tachyarrhythmias HR>110 Last Admin: 09/21/19 12:13 Dose: 5 mg Documented by: Metoprolol Tartrate (Lopressor) 25 mg PO [facility] Last Admin: 09/20/19 21:01 Dose: 25 mg Documented by: Metoprolol Tartrate (Lopressor) 50 mg PO DAILY [facility] Last Admin: 09/21/19 10:58 Dose: 50 mg Documented by: Mupirocin (Bactroban Oint 2%) 1 dose TOPICAL BID [facility] Last Admin: 09/21/19 10:10 Dose: 1 dose Documented by: Naloxone HCl (Narcan) 0.1 mg IV Q2MIN PRN PRN Reason: Opiate Reversal Ondansetron HCl (Zofran) 4 mg IV Q4HP PRN; Protocol PRN Reason: Nausea And Vomiting Last Admin: 09/19/19 05:37 Dose: 4 mg Documented by: Pantoprazole Sodium (Protonix) 40 mg PO [facility] Last Admin: 09/21/19 07:36 Dose: 40 mg Documented by: Fluticasone/Salmeterol (Advair 100-50 Diskus) 1 puff INH BID [facility] Last Admin: 09/21/19 10:11 Dose: Not Given Documented by: Senna (Senokot) 2 tab PO HSP PRN PRN Reason: Constipation Sodium Chloride (Saline Flush) 10 ml IV UD PRN PRN Reason: FLUSH Last Admin: 09/20/19 21:00 Dose: 10 ml Documented by: Sodium Chloride (Saline Flush) 10 ml IV Q8 [facility] Last Admin: 09/21/19 06:39 Dose: Not Given Documented by: Sodium Chloride (Saline Flush) 10 ml IV Q12 [facility] Last Admin: 09/21/19 10:12 Dose: 10 ml Documented by: Vancomycin HCl (Vancomycin Per Pharmacy) 1 order IV UD [facility]; Protocol Venlafaxine HCl (Effexor Xr) 150 mg PO QDAY [facility] Last Admin: 09/21/19 10:09 Dose: 150 mg Documented by: Warfarin Sodium (Coumadin Per Pharmacy) 1 order PO UD [facility] Medical - PN: A/P - Time Spent With Patient Total time spent is greater than 50% in coordination of care (as documented) at patient's floor/unit and/or counseling patient: - Narrative A/P Narrative: severe sepsis due to UTI-resolved concern for recurrent due to sacral wound Initial sepsis secondary to urinary infection. Leukocytosis: improved Infectious disease following the patient and on vancomycin and p.o. levofloxacin Infected decubitus ulcer wound Cx growing Proteus spp., MRSA, Enterococcus. Blood Cx NGTD ID physician following and wound care team following and recommended continuing wound VAC S/p surgical I&D (09/14) Acute delirium with underlying dementia Improving Recent subdural hematoma in July. That does appear resolved on current CT imaging. Warfarin restarted in Dec history of prior watershed infarcts, with no new findings noted on current CT. Suspect her change in mental status / encephalopathy is secondary to sepsis, now worsening with decubitus, and not new cerebral ischemia. Schizophrenia: Diagnosis noted in chart. Not currently on any antipsychotics per med list. Is on Cogentin, presumably for old EPS. significant anxiety on 09/11, subsequently had hallucinations and difficult night. h/o Cerebral vascular disease: As noted above, stable findings on CT. With watershed infarcts, suspect Atrial fibrillation Right controlled and during admission atenolol initially held due to sepsis but restarted JEREMY on CKD II: [employer] Medical - PN: Qual - VTE Deep Vein Thrombosis/Pulmonary Embolism Present on Admission: No
[2019-09-21] MEDS: VANCOMYCIN 1,500 MG in 0.9 % SODIUM CHLORIDE 500 ML IV SCH (13:13)
[2019-09-21] MEDS: HYDROcodone/APAP 5/325MG TABLET PO PRN (16:45)
[2019-09-21] MEDS: METOPROLOL TARTRATE 25 MG TABLET PO SCH (20:25)
[2019-09-21] MEDS: ATORVASTATIN 40 MG TABLET PO SCH (20:25)
[2019-09-22] MEDS: HYDROcodone/APAP 5/325MG TABLET PO PRN ×3 (01:47→19:02)
[2019-09-22] MEDS: 0.9 % SODIUM CHLORIDE 10 ML SYRINGE IV SCH ×5 (06:03→22:07)
[2019-09-22 06:24] LABS: Hematocrit 40.4 % (34.1-44.9); Hemoglobin 13.1 g/dL (11.2-15.7); Mean Cell Volume 93.5 fL (80.0-100.0); Mean Corpuscular HGB Conc 32.4 g/dL (31.0-36.0); Mean Platelet Volume 9.5 fL (7.4-10.4); Platelet Count 470 K/mcL (140-440); RBC 4.32 M/mcL (3.59-5.38); Red Cell Distribution Width 13.9 % (11.5-14.5); WBC 13.6 K/mcL (4.50-11.00)
[2019-09-22 06:46] LABS: Chloride 102 mmol/L (96-108)
[2019-09-22 06:47] LABS: ALT/SGPT 75 U/l (0-40); AST/SGOT 44 U/l (0-37); Albumin/Globulin Ratio 0.9 (1.0-2.3); Alkaline Phosphatase 129 U/L (39-117); Bilirubin,Total 0.3 mg/dL (0.0-1.0); Blood Urea Nitrogen 15 mg/dl (8-23); Calcium 9.4 mg/dl (8.6-10.4); Carbon Dioxide 23 mmol/L (22-30); Globulin 3.2 gm/dL (2.2-3.7); Glomerular Filtration Rate 92; Glucose 92 mg/dL (70-105)
[2019-09-22 07:39] LABS: Band Neutrophils % 1 % (0-10); Eosinophils % (Manual) 6 % (0-7); Lymphocytes % 13 % (15-49); Monocytes % (Manual) 4 % (1-12); Platelet Estimate INCREASED (NORMAL); RBC Morphology NORMAL (NORMAL); Segmented Neutrophils % 76 % (38-78)
[2019-09-22] MEDS: LEVOTHYROXINE 50 MCG TABLET PO SCH (07:42)
[2019-09-22] MEDS: LEVOTHYROXINE 150 MCG TABLET PO SCH (07:42)
[2019-09-22] MEDS: PANTOPRAZOLE 40 MG TABLET PO SCH (07:42)
[2019-09-22] MEDS: VANCOMYCIN 1,500 MG in 0.9 % SODIUM CHLORIDE 500 ML IV SCH (10:03)
[2019-09-22] MEDS: medroxyPROGESTERone 10 MG TABLET PO SCH ×2 (10:04→19:38)
[2019-09-22] MEDS: HYDROCHLOROTHIAZIDE 25 MG TABLET PO SCH (10:04)
[2019-09-22] MEDS: BENZTROPINE 1 MG TABLET PO SCH ×2 (10:04→19:02)
[2019-09-22] MEDS: LEVOFLOXACIN 750 MG TABLET PO SCH (10:09)
[2019-09-22] MEDS: VENLAFAXINE 150 MG CAP.XL.24H PO SCH (10:09)
[2019-09-22] MEDS: lamoTRIgine 100 MG TABLET PO SCH (10:09)
[2019-09-22] MEDS: METOPROLOL TARTRATE 50 MG TABLET PO SCH (10:09)
[2019-09-22] MEDS: MULTIVIT,THER IRON,CA,FA & MIN 1 TABLET PO SCH (10:10)
[2019-09-22] MEDS: DOCUSATE SODIUM 100 MG CAPSULE PO SCH ×2 (10:10→19:02)
[2019-09-22 10:37] LABS: INR 2.7 (0.9-1.1); Prothrombin Time 28.6 sec (11.9-14.5)
[2019-09-22] MEDS: FLUTICASONE/SALMETEROL 50/100 INHALER #14 INH SCH ×2 (11:40→21:31)
[2019-09-22] MEDS: MUPIROCIN OINT 2% 22GM TOPICAL SCH ×2 (12:15→19:28)
--- NOTE | 2019-09-22 12:31 | Internal Med Progress Note ---
Medical - PN: Subj Patient information: Note initiated : 09/22/19 at 12:29 pm Service Date, if different from initiated Date: [] Patient: Christine Cespedes a 64 y/o F admitted on 09/08/19 for Sepsis, UTI. Chief Complaint: [] Interval history: 09/08 Ms. Cespedes is a 64 year old F with a history of atrial fibrillation, recent subdural hematoma, history of ischemic strokes, hypertension, sleep apnea not on CPAP, prediabetes, morbid obesity with mobility impairment who presents to the emergency department with lethargy. History is obtained speaking to her caregiver. She has a caregiver in the home during the days, but not at night. The caregiver notes yesterday she was not quite herself, displaying some mild confusion. Her appetite was decreased. Caregiver made her a sandwich for dinner prior to her leaving yesterday, was still on eaten this morning when their caregiver arrived. Patient was in bed, was too weak to get out of bed, was confused and could not respond appropriately. In the ED, there is a history of low-grade fever as well. Because of lethargy, fever and weakness EMS was activated and she is brought to the ED. In the emergency department she has evidence of sepsis with now white count of 22,000, lactate of 3.8, increased anion gap and significantly abnormal urine analysis with pyuria and bacteriuria. She is being admitted for treatment of sepsis from urinary source. 09/09 Intermittently more responsive, was sitting up on edge of bed with physical therapy and did participate in self-care this morning. Is required fluids for declining blood pressures today with response. 09/10 Slowly continues to be more interactive. Urine culture with E. coli, only resistant to fluoroquinolones. Blood pressure stable. 09/11 Much more alert and interactive today. Still quite weak and needing assistance to stay sitting up at bedside. Held conversation with her, she states her goal is to get better. I encouraged her to increase her oral intake and that it is important for her to eat to get better. Nursing spoke with her son, who is her eldest child. He is a long-haul drum sander and is out of state, but agreed that she will likely need skilled placement following this admission. In the late afternoon, she awoke panicked that she was trapped in a trailer and was d isoriented. Had significant anxiety. 09/12/2019 Patient continued to have disorientation and hallucinations yesterday evening, was up much of the night, eventually calm down. Medicine list reviewed, she does not have any antipsychotics or other treatments for schizophrenia. Attempting to reconfirm her medication list. This morning, states she is not feeling too well, but is sleepy drifts back off. 09/13 Patient seems less interactive than she was yesterday afternoon. Sacral wound now draining material and will need debridement. Previously had eschar that was being debrided. Should've completed for therapy for UTI sepsis. Discussed with Dr. Juarez, whose consult general surgery. Have consulted Dr. Silverio, is recommended. Vancomycin and Zosyn for now until debridement. 09/14 Patient status post surgical I&D. Drowsy but opens eyes to voice. Refused CT imaging yesterday as recommended by infectious disease. No overnight events. Discussed case with her son who makes medical decisions when she is unable. He was able to clarify that she would be a DO NOT RESUSCITATE in the event effect catastrophic event. Regarding goals of care. We will see how she has in the next day or 2 09/15 Nurse able to get the patient to drink a carnation instant breakfast. Patient sleeping at this time but awakens and admits to feeling little better but otherwise not verbalizing a whole lot and difficult to obtain review of systems. she is on room air today. 09/16 Yesterday afternoon patient was sitting up in bed eating breakfast, mentation and somnolence improved. Feeling much better today. Has occasional cough and headache. No other complaints. Nurse report diarrhea. Again mentation significantly improved she is oriented to place and President 09/17 No overnight event or new complaints. Patient resting comfortably in bed. Denies any cough or shortness of breath. 09/18 Patient unable to be placed yesterday still working on placement. Patient sleeping this morning. Denies any complaints. 09/20 Patient was resting Unable to obtain detailed review of system, denied any active chest pain abdominal pain Discussed with the case management and planning for placement there are new options available and social service working in profiling 09/21 Wound care evaluated the patient and patient moved looks better and slowly progressing. Recommend continuing wound VAC Case management working on placement options 09/22/19 Her leukocytosis is persistent with thrombocytosis No fever Continuing same antibiotic Ordered CRP ESR level and pro calcitonin No features of sepsis If she continues to increase leukocyte count will discuss with infectious disease and reculture the wound Pertinent ROS: Patient is very uncooperative Respiratory system-denied any shortness of breath no cough Cardiac-no chest pain no palpitation no syncope Abdomen-intermittent diarrhea Neuro-no focal neuro deficit - Constitutional Vitals: Vital Signs Temp Pulse Resp BP Pulse Ox 98.6 F 103 H 20 104/63 94 09/22/19 10:59 09/22/19 10:59 09/22/19 10:59 09/22/19 10:59 09/22/19 10:59 Period Temp Pulse Resp BP Sys/Butler Pulse Ox Last 24 Hr 97.6 F-98.6 F 93-108 18-22 87-107/59-68 94-96 Intake and Output 09/21/19 09/22/19 09/22/19 21:59 05:59 13:59 Intake Total 740 360 360 Output Total 400 Balance 740 -40 360 Weight 220 lb 12.8 oz Intake & Output: Intake & Output 09/21/19 09/22/19 09/22/19 21:59 05:59 13:59 Intake Total 740 360 360 Output Total 400 Balance 740 -40 360 Weight 220 lb 12.8 oz Intake: IV 500 Vancomycin 1,500 mg In Sodium 500 Chloride 0.9% 500 ml @ 333.3 mls/hr IV DAILY [facility] Rx#: [id number] Oral 240 360 360 Output: Urine Catheter Amount 400 Other: Meal Breakfast Breakfast Percent of Meal Consumed 50% 0% Urine Appearance Clear Uretheral (Aguirre) Clear Clear Urine Color Dark Yellow Uretheral (Aguirre) Dark Yellow Bright Yellow Stool Size Small Small Stool Color Brown Brown Stool Consistency Loose Loose # of times incontinent of 2 1 Bowels - Head Head exam: Present: atraumatic, normal inspection, normocephalic - Eye Eye exam: Present: normal appearance. Absent: nystagmus, periorbital swelling, periorbital tenderness - ENT ENT exam: Present: normal exam, normal external ear exam, normal oropharynx - Neck Neck exam: Present: normal inspection. Absent: lymphadenopathy, meningismus - Respiratory Respiratory exam: Present: normal respiratory exam, decreased breath sounds, wheezes - Cardiovascular Cardiovascular exam: Absent: clicks, diastolic murmur, JVD, +S3, +S4 - GI/Abdominal GI/Abdominal exam: Present: normal bowel sounds, soft, distended. Absent: bruit - Neurological Exam Neurological exam: Present: alert, oriented X3, reflexes normal. Absent: motor sensory deficit Medical - PN: Obj Da - Labs CBC & Chem 7: 09/22/19 05:25 09/22/19 05:25 Labs: Abnormal Lab Results 09/22/19 09/22/19 09/22/19 05:25 05:25 05:25 WBC 13.6 H Plt Count 470 H Lymphocytes % 13 L PT 28.6 H INR 2.7 H AST 44 H ALT 75 H Alkaline Phosphatase 129 H Albumin 3.0 L Albumin/Globulin Ratio 0.9 L 09/21/19 09/20/19 05:30 04:30 WBC Plt Count Lymphocytes % PT 28.6 H 23.1 H INR 2.7 H 2.1 H AST ALT Alkaline Phosphatase Albumin Albumin/Globulin Ratio Meds: Medications Acetaminophen (Tylenol) 650 mg PO Q6HP PRN; Protocol PRN Reason: Per Pain Protocol/Fever > 101 Hydrocodone Bitart/Acetaminophen ([place] 5/325mg) 1 tab PO Q4HP PRN; Protocol PRN Reason: Per Pain Protocol Last Admin: 09/22/19 10:07 Dose: 1 tab Documented by: Albuterol/Ipratropium (Duoneb) 3 ml NEB Q6H PRN PRN Reason: shortness of breath Atorvastatin Calcium (Lipitor) 40 mg PO QHS [facility] Last Admin: 09/21/19 20:25 Dose: 40 mg Documented by: Benztropine Mesylate (Cogentin) 2 mg PO BID [facility] Last Admin: 09/22/19 10:04 Dose: 2 mg Documented by: Clonazepam (Klonopin) 0.25 mg PO BIDP PRN PRN Reason: Anxiety Last Admin: 09/19/19 11:10 Dose: 0.25 mg Documented by: Diagnostic Test (Pha) (Accu-Chek) 1 each FS ACHS [facility] Last Admin: 09/22/19 12:15 Dose: 1 each Documented by: Docusate Sodium (Colace) 100 mg PO BID [facility] Last Admin: 09/22/19 10:10 Dose: Not Given Documented by: Heparin Sodium (Porcine) (Heparin Flush) 2 ml IV Q12 [facility] Last Admin: 09/22/19 10:10 Dose: 2 ml Documented by: Hydrochlorothiazide (Oretic) 25 mg PO QAM [facility] Last Admin: 09/22/19 10:04 Dose: 25 mg Documented by: Acetaminophen (Ofirmev) 650 mg in 65 mls @ 130 mls/hr IV Q6HP PRN; Protocol PRN Reason: PAIN/FEVER > 101 Vancomycin HCl 1,500 mg/ (Sodium Chloride) 500 mls @ 333.3 mls/hr IV DAILY [facility] Last Admin: 09/22/19 10:03 Dose: 250 mls/hr Documented by: Iron Carb/Multivit/[place]/Folic Acid (Multivitamin W/Minerals) 1 tab PO DAILY [facility] Last Admin: 09/22/19 10:10 Dose: 1 tab Documented by: Lactulose (Cephulac) 10 gm PO DAILYP PRN PRN Reason: Constipation Lamotrigine (Lamictal) 100 mg PO QDAY [facility] Last Admin: 09/22/19 10:09 Dose: 100 mg Documented by: Levofloxacin (Levaquin) 750 mg PO DAILY [facility]; Protocol Last Admin: 09/22/19 10:09 Dose: 750 mg Documented by: [facility] Last Admin: 09/22/19 07:42 Dose: 300 mcg Documented by: Levothyroxine Sodium (Synthroid) [facility] Last Admin: 09/22/19 07:42 Dose: 50 mcg Documented by: Medroxyprogesterone Acetate (Provera) 10 mg PO BID [facility] Last Admin: 09/22/19 10:04 Dose: 10 mg Documented by: Metoprolol Tartrate (Lopressor) 5 mg IV Q2HP PRN PRN Reason: Tachyarrhythmias HR>110 Last Admin: 09/21/19 12:13 Dose: 5 mg Documented by: Metoprolol Tartrate (Lopressor) 75 mg PO BID [facility] Mupirocin (Bactroban Oint 2%) 1 dose TOPICAL BID [facility] Last Admin: 09/22/19 12:15 Dose: 1 dose Documented by: Naloxone HCl (Narcan) 0.1 mg IV Q2MIN PRN PRN Reason: Opiate Reversal Ondansetron HCl (Zofran) 4 mg IV Q4HP PRN; Protocol PRN Reason: Nausea And Vomiting Last Admin: 09/19/19 05:37 Dose: 4 mg Documented by: Pantoprazole Sodium (Protonix) 40 mg PO QAMAC [facility] Last Admin: 09/22/19 07:42 Dose: 40 mg Documented by: Fluticasone/Salmeterol (Advair 100-50 Diskus) 1 puff INH BID [facility] Last Admin: 09/22/19 11:40 Dose: Not Given Documented by: Senna (Senokot) 2 tab PO HSP PRN PRN Reason: Constipation Sodium Chloride (Saline Flush) 10 ml IV UD PRN PRN Reason: FLUSH Last Admin: 09/20/19 21:00 Dose: 10 ml Documented by: Sodium Chloride (Saline Flush) 10 ml IV Q8 [facility] Last Admin: 09/22/19 06:03 Dose: Not Given Documented by: Sodium Chloride (Saline Flush) 10 ml IV Q12 [facility] Last Admin: 09/22/19 10:10 Dose: 10 ml Documented by: Vancomycin HCl (Vancomycin Per Pharmacy) 1 order IV UD [facility]; Protocol Venlafaxine HCl (Effexor Xr) 150 mg PO QDAY [facility] Last Admin: 09/22/19 10:09 Dose: 150 mg Documented by: Warfarin Sodium (Coumadin Per Pharmacy) 1 order PO UD [facility] Warfarin Sodium (Coumadin) 4 mg PO ONCE@1400 ONE Stop: 09/22/19 14:01 Medical - PN: A/P - Time Spent With Patient Total time spent is greater than 50% in coordination of care (as documented) at patient's floor/unit and/or counseling patient: - Narrative A/P Narrative: Severe sepsis due to UTI-resolved Admitted with a sepsis which was resolved concern for recurrent due to sacral wound Initial sepsis secondary to urinary infection Persistent leukocytosis and thrombocytosis Ordered ESR and CRP level Infectious disease following the patient and on vancomycin and p.o. levofloxacin and IV vancomycin If she continued having leukocytosis we will reculture the wound, We will discuss with infectious disease Infected decubitus ulcer wound Cx growing Proteus spp., MRSA, Enterococcus. Blood Cx NGTD ID physician following and wound care team following and recommended continuing wound VAC S/p surgical I&D (09/14) According to the body specialist-wound is slowly healing Acute delirium with underlying dementia Improving She also has underlying schizophrenia which complicate her mental status evaluation and assessment Recent subdural hematoma in July. That does appear resolved on current CT imaging Warfarin restarted in Dec history of prior watershed infarcts, with no new findings noted on current CT. Suspect her change in mental status / encephalopathy is secondary to sepsis, now worsening with decubitus, and not new cerebral ischemia. Schizophrenia Diagnosis noted in chart. Not currently on any antipsychotics per med list. Is on Cogentin, presumably for old EPS. significant anxiety on 09/11, subsequently had hallucinations and difficult night h/o Cerebral vascular disease As noted above, stable findings on CT. With watershed infarcts, suspect Atrial fibrillation She is started on metoprolol 50 and will dose increased to 75 twice daily She is on anticoagulation with Coumadin JEREMY on CKD II: ResolveD DVT prophylaxis-she is on Coumadin anticoagulation CODE STATUS-DNR Expected length of stay-Case management working on placement Medical - PN: Qual - VTE Deep Vein Thrombosis/Pulmonary Embolism Present on Admission: No
[2019-09-22] MEDS ORDERED: WARFARIN 2 MG TABLET PO ONE (14:00)
[2019-09-22] MEDS ORDERED: METOPROLOL TARTRATE 25 MG TABLET PO ONE (14:25)
[2019-09-22] MEDS: METOPROLOL TARTRATE 25 MG TABLET PO SCH (19:01)
[2019-09-22] MEDS: ATORVASTATIN 40 MG TABLET PO SCH (19:02)
[2019-09-23] MEDS: 0.9 % SODIUM CHLORIDE 10 ML SYRINGE IV SCH ×5 (04:51→21:35)
[2019-09-23 06:01] LABS: Hematocrit 40.1 % (34.1-44.9); Hemoglobin 13.3 g/dL (11.2-15.7); Mean Cell Volume 92.4 fL (80.0-100.0); Mean Corpuscular HGB Conc 33.2 g/dL (31.0-36.0); Mean Platelet Volume 9.7 fL (7.4-10.4); Platelet Count 475 K/mcL (140-440); RBC 4.34 M/mcL (3.59-5.38); Red Cell Distribution Width 14.1 % (11.5-14.5); WBC 12.7 K/mcL (4.50-11.00)
[2019-09-23 06:20] LABS: INR 2.9 (0.9-1.1); Prothrombin Time 30.1 sec (11.9-14.5)
[2019-09-23 06:21] LABS: ALT/SGPT 42 U/l (0-40); AST/SGOT 37 U/l (0-37); Albumin 3.2 gm/dL (3.2-5.2); Alkaline Phosphatase 132 U/L (39-117); Bilirubin,Total 0.4 mg/dL (0.0-1.0); Blood Urea Nitrogen 12 mg/dl (8-23); Calcium 9.2 mg/dl (8.6-10.4); Carbon Dioxide 23 mmol/L (22-30); Chloride 103 mmol/L (96-108); Globulin 3.2 gm/dL (2.2-3.7); Glomerular Filtration Rate 92; Glucose 91 mg/dL (70-105)
[2019-09-23 06:37] LABS: CRP,High Sensitivity 43.1 mg/L (1.0-3.0)
[2019-09-23] MEDS: LEVOTHYROXINE 50 MCG TABLET PO SCH (07:15)
[2019-09-23] MEDS: PANTOPRAZOLE 40 MG TABLET PO SCH (07:15)
[2019-09-23] MEDS: LEVOTHYROXINE 150 MCG TABLET PO SCH (07:15)
[2019-09-23 07:23] LABS: Eosinophils % (Manual) 1 % (0-7); Lymphocytes % 14 % (15-49); Monocytes % (Manual) 16 % (1-12); Platelet Estimate INCREASED (NORMAL); RBC Morphology NORMAL (NORMAL); Segmented Neutrophils % 69 % (38-78)
[2019-09-23 07:25] LABS: Erythrocyte Sedimentation Rate 96 mm/hr (0-20)
[2019-09-23] MEDS: MULTIVIT,THER IRON,CA,FA & MIN 1 TABLET PO SCH (09:18)
[2019-09-23] MEDS: BENZTROPINE 1 MG TABLET PO SCH ×2 (09:18→20:00)
[2019-09-23] MEDS: HYDROCHLOROTHIAZIDE 25 MG TABLET PO SCH (09:18)
[2019-09-23] MEDS: VENLAFAXINE 150 MG CAP.XL.24H PO SCH (09:18)
[2019-09-23] MEDS: LEVOFLOXACIN 750 MG TABLET PO SCH (09:19)
[2019-09-23] MEDS: METOPROLOL TARTRATE 25 MG TABLET PO SCH ×2 (09:19→20:00)
[2019-09-23] MEDS: lamoTRIgine 100 MG TABLET PO SCH (09:19)
[2019-09-23] MEDS: DOCUSATE SODIUM 100 MG CAPSULE PO SCH ×2 (09:19→20:01)
[2019-09-23] MEDS: FLUTICASONE/SALMETEROL 50/100 INHALER #14 INH SCH ×2 (09:20→20:33)
[2019-09-23] MEDS: VANCOMYCIN 1,500 MG in 0.9 % SODIUM CHLORIDE 500 ML IV SCH (09:44)
[2019-09-23] MEDS: medroxyPROGESTERone 10 MG TABLET PO SCH ×2 (09:45→20:00)
[2019-09-23] MEDS: MUPIROCIN OINT 2% 22GM TOPICAL SCH ×2 (09:45→20:33)
[2019-09-23] MEDS ORDERED: MAGNESIUM SULFATE 2 GM/50 ML BAG IV ONE (10:30)
--- NOTE | 2019-09-23 10:36 | Internal Med Progress Note ---
Medical - PN: Subj Patient information: Note initiated : 09/23/19 at 10:34 am Service Date, if different from initiated Date: [] Patient: Christine Cespedes a 64 y/o F admitted on 09/08/19 for Sepsis, UTI. Chief Complaint: [] Interval history: 09/08 Ms. Cespedes is a 64 year old F with a history of atrial fibrillation, recent subdural hematoma, history of ischemic strokes, hypertension, sleep apnea not on CPAP, prediabetes, morbid obesity with mobility impairment who presents to the emergency department with lethargy. History is obtained speaking to her caregiver. She has a caregiver in the home during the days, but not at night. The caregiver notes yesterday she was not quite herself, displaying some mild confusion. Her appetite was decreased. Caregiver made her a sandwich for dinner prior to her leaving yesterday, was still on eaten this morning when their caregiver arrived. Patient was in bed, was too weak to get out of bed, was confused and could not respond appropriately. In the ED, there is a history of low-grade fever as well. Because of lethargy, fever and weakness EMS was activated and she is brought to the ED. In the emergency department she has evidence of sepsis with now white count of 22,000, lactate of 3.8, increased anion gap and significantly abnormal urine analysis with pyuria and bacteriuria. She is being admitted for treatment of sepsis from urinary source. 09/09 Intermittently more responsive, was sitting up on edge of bed with physical therapy and did participate in self-care this morning. Is required fluids for declining blood pressures today with response. 09/10 Slowly continues to be more interactive. Urine culture with E. coli, only resistant to fluoroquinolones. Blood pressure stable. 09/11 Much more alert and interactive today. Still quite weak and needing assistance to stay sitting up at bedside. Held conversation with her, she states her goal is to get better. I encouraged her to increase her oral intake and that it is important for her to eat to get better. Nursing spoke with her son, who is her eldest child. He is a long-haul airport operations duty manager and is out of state, but agreed that she will likely need skilled placement following this admission. In the late afternoon, she awoke panicked that she was trapped in a trailer and was d isoriented. Had significant anxiety. 09/12/2019 Patient continued to have disorientation and hallucinations yesterday evening, was up much of the night, eventually calm down. Medicine list reviewed, she does not have any antipsychotics or other treatments for schizophrenia. Attempting to reconfirm her medication list. This morning, states she is not feeling too well, but is sleepy drifts back off. 09/13 Patient seems less interactive than she was yesterday afternoon. Sacral wound now draining material and will need debridement. Previously had eschar that was being debrided. Should've completed for therapy for UTI sepsis. Discussed with Dr. Juarez, whose consult general surgery. Have consulted Dr. Silverio, is recommended. Vancomycin and Zosyn for now until debridement. 09/14 Patient status post surgical I&D. Drowsy but opens eyes to voice. Refused CT imaging yesterday as recommended by infectious disease. No overnight events. Discussed case with her son who makes medical decisions when she is unable. He was able to clarify that she would be a DO NOT RESUSCITATE in the event effect catastrophic event. Regarding goals of care. We will see how she has in the next day or 2 09/15 Nurse able to get the patient to drink a carnation instant breakfast. Patient sleeping at this time but awakens and admits to feeling little better but otherwise not verbalizing a whole lot and difficult to obtain review of systems. she is on room air today. 09/16 Yesterday afternoon patient was sitting up in bed eating breakfast, mentation and somnolence improved. Feeling much better today. Has occasional cough and headache. No other complaints. Nurse report diarrhea. Again mentation significantly improved she is oriented to place and President 09/17 No overnight event or new complaints. Patient resting comfortably in bed. Denies any cough or shortness of breath. 09/18 Patient unable to be placed yesterday still working on placement. Patient sleeping this morning. Denies any complaints. 09/20 Patient was resting Unable to obtain detailed review of system, denied any active chest pain abdominal pain Discussed with the case management and planning for placement there are new options available and social service working in profiling 09/21 Wound care evaluated the patient and patient moved looks better and slowly progressing. Recommend continuing wound VAC Case management working on placement options 09/22/19 Her leukocytosis is persistent with thrombocytosis No fever Continuing same antibiotic Ordered CRP ESR level and pro calcitonin No features of sepsis If she continues to increase leukocyte count will discuss with infectious disease and reculture the wound 09/23/19 Intermittently her A. fib went up to 110 120 Metoprolol dose increased to 75 twice daily since then her heart rate has been controlled Her leukocytosis remained slightly elevated and she is also on medroxyprogesterone CRP 43 will trend the CRP if it is creeping up will get opinion from infectious disease and wound care Pertinent ROS: Patient is not very cooperative She generally denied any chest symptoms no chest pain no palpitations Respiratory-denied any shortness of breath or cough Abdomen-denied intermittent abdominal cramping but no diarrhea no constipation Neuro-denies any headache no seizure - Constitutional Vitals: Vital Signs Temp Pulse Resp BP Pulse Ox 97.6 F 104 H 20 101/61 93 09/23/19 07:13 09/23/19 07:13 09/23/19 07:13 09/23/19 07:13 09/23/19 07:13 Period Temp Pulse Resp BP Sys/[place]ler Pulse Ox Last 24 Hr 97.6 F-98.6 F 70-116 16-20 81-110/58-67 92-96 Intake and Output 09/22/19 09/23/19 09/23/19 21:59 05:59 13:59 Intake Total 180 340 Output Total 325 500 Balance -325 -320 340 Weight 214 lb Intake & Output: Intake & Output 09/22/19 09/23/19 09/23/19 21:59 05:59 13:59 Intake Total 180 340 Output Total 325 500 Balance -325 -320 340 Weight 214 lb Intake: Oral 180 340 Output: Urine Catheter Amount 325 500 Other: Meal Dinner Breakfast Percent of Meal Consumed 50% 40% Feeding Ability Assist with Tray Set Up Total Assistance Nourishment/Supplement name 120 Urine Appearance Clear Cloudy Urine Color Bright Yellow Bright Yellow Urine Odor Strong Stool Size Moderate Stool Color Brown Stool Consistency Soft Liquid # of times incontinent of 2 Bowels - Head Head exam: Present: atraumatic, normal inspection, normocephalic - Eye Eye exam: Present: normal appearance. Absent: nystagmus, periorbital swelling, periorbital tenderness - ENT ENT exam: Present: mucous membranes moist, normal external ear exam, normal oropharynx - Neck Neck exam: Present: normal inspection. Absent: lymphadenopathy, meningismus - Respiratory Respiratory exam: Present: decreased breath sounds, wheezes. Absent: accessory muscle use, respiratory distress - Cardiovascular Cardiovascular exam: Present: irregular rhythm. Absent: JVD, +S3, +S4 - GI/Abdominal GI/Abdominal exam: Present: normal bowel sounds, soft, distended - Neurological Exam Neurological exam: Present: alert, reflexes normal. Absent: motor sensory deficit Additional comments: Oriented x2, patient is very uncooperative and exam is very limited - Psychiatric Psychiatric exam: Present: depressed, flat affect Medical - PN: Obj Da - Labs CBC & Chem 7: 09/23/19 05:15 09/23/19 05:15 Labs: Abnormal Lab Results 09/23/19 09/23/19 09/23/19 05:15 05:15 05:15 WBC 12.7 H Plt Count 475 H Lymphocytes % 14 L Monocytes % (Manual) 16 H ESR 96 H PT 30.1 H INR 2.9 H Potassium 3.2 L Magnesium 1.5 L AST ALT 42 H Alkaline Phosphatase 132 H C-React Prot High Sens 43.1 H Albumin Albumin/Globulin Ratio 09/22/19 09/22/19 09/22/19 05:25 05:25 05:25 WBC 13.6 H Plt Count 470 H Lymphocytes % 13 L Monocytes % (Manual) ESR PT 28.6 H INR 2.7 H Potassium Magnesium AST 44 H ALT 75 H Alkaline Phosphatase 129 H C-React Prot High Sens Albumin 3.0 L Albumin/Globulin Ratio 0.9 L 09/21/19 05:30 WBC Plt Count Lymphocytes % Monocytes % (Manual) ESR PT 28.6 H INR 2.7 H Potassium Magnesium AST ALT Alkaline Phosphatase C-React Prot High Sens Albumin Albumin/Globulin Ratio Meds: Medications Acetaminophen (Tylenol) 650 mg PO Q6HP PRN; Protocol PRN Reason: Per Pain Protocol/Fever > 101 Hydrocodone Bitart/Acetaminophen ([place] 5/325mg) 1 tab PO Q4HP PRN; Protocol PRN Reason: Per Pain Protocol Last Admin: 09/22/19 19:02 Dose: 1 tab Documented by: Albuterol/Ipratropium (Duoneb) 3 ml NEB Q6H PRN PRN Reason: shortness of breath Atorvastatin Calcium (Lipitor) 40 mg PO QHS [facility] Last Admin: 09/22/19 19:02 Dose: 40 mg Documented by: Benztropine Mesylate (Cogentin) 2 mg PO BID [facility] Last Admin: 09/23/19 09:18 Dose: 2 mg Documented by: Clonazepam (Klonopin) 0.25 mg PO BIDP PRN PRN Reason: Anxiety Last Admin: 09/19/19 11:10 Dose: 0.25 mg Documented by: Diagnostic Test (Pha) (Accu-Chek) 1 each FS ACHS [facility] Last Admin: 09/23/19 07:15 Dose: 1 each Documented by: Docusate Sodium (Colace) 100 mg PO BID [facility] Last Admin: 09/23/19 09:19 Dose: Not Given Documented by: Heparin Sodium (Porcine) (Heparin Flush) 2 ml IV Q12 [facility] Last Admin: 09/23/19 09:44 Dose: 2 ml Documented by: Hydrochlorothiazide (Oretic) 25 mg PO QAM [facility] Last Admin: 09/23/19 09:18 Dose: 25 mg Documented by: Acetaminophen (Ofirmev) 650 mg in 65 mls @ 130 mls/hr IV Q6HP PRN; Protocol PRN Reason: PAIN/FEVER > 101 Vancomycin HCl 1,500 mg/ (Sodium Chloride) 500 mls @ 333.3 mls/hr IV DAILY [facility] Last Admin: 09/23/19 09:44 Dose: 250 mls/hr Documented by: Magnesium Sulfate (Magnesium Sulfate) 2 gm in 50 mls @ 25 mls/hr IV ONCE ONE Stop: 09/23/19 12:29 Iron Carb/Multivit/[place]/Folic Acid (Multivitamin W/Minerals) 1 tab PO DAILY [facility] Last Admin: 09/23/19 09:18 Dose: 1 tab Documented by: Lactulose (Cephulac) 10 gm PO DAILYP PRN PRN Reason: Constipation Lamotrigine (Lamictal) 100 mg PO QDAY [facility] Last Admin: 09/23/19 09:19 Dose: 100 mg Documented by: Levofloxacin (Levaquin) 750 mg PO DAILY [facility]; Protocol Last Admin: 09/23/19 09:19 Dose: 750 mg Documented by: Levothyroxine Sodium (Synthroid) 300 mcg PO QAMAC [facility] Last Admin: 09/23/19 07:15 Dose: 300 mcg Documented by: Levothyroxine Sodium (Synthroid) 50 mcg PO QAMAC [facility] Last Admin: 09/23/19 07:15 Dose: 50 mcg Documented by: Medroxyprogesterone Acetate (Provera) 10 mg PO BID [facility] Last Admin: 09/23/19 09:45 Dose: 10 mg Documented by: Metoprolol Tartrate (Lopressor) 5 mg IV Q2HP PRN PRN Reason: Tachyarrhythmias HR>110 Last Admin: 09/21/19 12:13 Dose: 5 mg Documented by: Metoprolol Tartrate (Lopressor) 75 mg PO BID [facility] Last Admin: 09/23/19 09:19 Dose: 75 mg Documented by: Mupirocin (Bactroban Oint 2%) 1 dose TOPICAL BID [facility] Last Admin: 09/23/19 09:45 Dose: 1 dose Documented by: Naloxone HCl (Narcan) 0.1 mg IV Q2MIN PRN PRN Reason: Opiate Reversal Ondansetron HCl (Zofran) 4 mg IV Q4HP PRN; Protocol PRN Reason: Nausea And Vomiting Last Admin: 09/19/19 05:37 Dose: 4 mg Documented by: Pantoprazole Sodium (Protonix) 40 mg PO QAMAC [facility] Last Admin: 09/23/19 07:15 Dose: 40 mg Documented by: Potassium Chloride (Kdur) 40 meq PO BIDCC [facility] Stop: 09/26/19 23:59 Fluticasone/Salmeterol (Advair 100-50 Diskus) 1 puff INH BID [facility] Last Admin: 09/23/19 09:20 Dose: Not Given Documented by: Senluisa (Senokot) 2 tab PO HSP PRN PRN Reason: Constipation Last Admin: 09/22/19 19:01 Dose: 2 tab Documented by: Sodium Chloride (Saline Flush) 10 ml IV UD PRN PRN Reason: FLUSH Last Admin: 09/20/19 21:00 Dose: 10 ml Documented by: Sodium Chloride (Saline Flush) 10 ml IV Q8 [facility] Last Admin: 09/23/19 04:51 Dose: 10 ml Documented by: Sodium Chloride (Saline Flush) 10 ml IV Q12 [facility] Last Admin: 09/23/19 09:45 Dose: 10 ml Documented by: Vancomycin HCl (Vancomycin Per Pharmacy) 1 order IV UD [facility]; Protocol Venlafaxine HCl (Effexor Xr) 150 mg PO QDAY [facility] Last Admin: 09/23/19 09:18 Dose: 150 mg Documented by: Warfarin Sodium (Coumadin Per Pharmacy) 1 order PO UD [facility] Warfarin Sodium (Coumadin) 3 mg PO ONCE@1400 ONE Stop: 09/23/19 14:01 Medical - PN: A/P - Time Spent With Patient Total time spent is greater than 50% in coordination of care (as documented) at patient's floor/unit and/or counseling patient: - Narrative A/P Narrative: Severe sepsis due to UTI-resolved Admitted with a sepsis which was resolved concern for recurrent due to sacral wound Initial sepsis secondary to urinary infection Persistent leukocytosis and thrombocytosis Ordered ESR and CRP level Infectious disease following the patient and on vancomycin and p.o. levofloxacin and IV vancomycin She continued having leukocytosis, she is also on medroxyprogesterone CRP level 43 and if she continued having worsening CRp level then we should get opinion from infectious disease and wound care surgeon Infected decubitus ulcer-healing wound Cx growing Proteus spp., MRSA, Enterococcus. Blood Cx NGTD ID physician following and wound care team following and recommended continuing wound VAC S/p surgical I&D (09/14) According to the audio visual production specialist-wound is slowly healing Dr. Juarez following the patient Acute delirium with underlying dementia Improving She also has underlying schizophrenia which complicate her mental status evaluation and assessment Recent subdural hematoma in July. That does appear resolved on current CT imaging Warfarin restarted in Dec history of prior watershed infarcts, with no new findings noted on current CT. Suspect her change in mental status / encephalopathy is secondary to sepsis, now worsening with decubitus, and not new cerebral ischemia. Schizophrenia Diagnosis noted in chart. Not currently on any antipsychotics per med list. Is on Cogentin, presumably for old EPS. significant anxiety on 09/11, subsequently had hallucinations and difficult night h/o Cerebral vascular disease As noted above, stable findings on CT. With watershed infarcts, suspect Atrial fibrillation She is started on metoprolol 50 and will dose increased to 75 twice daily She is on anticoagulation with Coumadin After increasing the metoprolol dose her heart rate has been controlled JEREMY on CKD II: ResolveD DVT prophylaxis-she is on Coumadin anticoagulation CODE STATUS-DNR Expected length of stay-Case management working on placement Medical - PN: Qual - VTE Deep Vein Thrombosis/Pulmonary Embolism Present on Admission: No
[2019-09-23] MEDS ORDERED: WARFARIN 3 MG TABLET PO ONE (14:00)
[2019-09-23] MEDS: POTASSIUM CHLORIDE 20 MEQ TABLET PO SCH (17:56)
[2019-09-23] MEDS: HYDROcodone/APAP 5/325MG TABLET PO PRN (20:01)
[2019-09-23] MEDS: ATORVASTATIN 40 MG TABLET PO SCH (20:01)
[2019-09-24] MEDS: 0.9 % SODIUM CHLORIDE 10 ML SYRINGE IV SCH ×5 (05:03→21:04)
[2019-09-24 06:14] LABS: Hematocrit 41.6 % (34.1-44.9); Hemoglobin 13.7 g/dL (11.2-15.7); Mean Cell Volume 92.2 fL (80.0-100.0); Mean Corpuscular HGB Conc 32.9 g/dL (31.0-36.0); Mean Platelet Volume 9.9 fL (7.4-10.4); Platelet Count 485 K/mcL (140-440); RBC 4.51 M/mcL (3.59-5.38); Red Cell Distribution Width 14.2 % (11.5-14.5); WBC 13.4 K/mcL (4.50-11.00)
[2019-09-24 06:27] LABS: INR 2.7 (0.9-1.1); Prothrombin Time 28.6 sec (11.9-14.5)
[2019-09-24 06:37] LABS: ALT/SGPT 46 U/l (0-40); AST/SGOT 41 U/l (0-37); Albumin 3.3 gm/dL (3.2-5.2); Albumin/Globulin Ratio 0.9 (1.0-2.3); Alkaline Phosphatase 132 U/L (39-117); Bilirubin,Total 0.4 mg/dL (0.0-1.0); Blood Urea Nitrogen 14 mg/dl (8-23); Calcium 9.5 mg/dl (8.6-10.4); Carbon Dioxide 21 mmol/L (22-30); Chloride 106 mmol/L (96-108); Globulin 3.5 gm/dL (2.2-3.7); Glomerular Filtration Rate 92; Glucose 114 mg/dL (70-105)
[2019-09-24 06:43] LABS: Band Neutrophils % 1 % (0-10); Eosinophils % (Manual) 1 % (0-7); Lymphocytes % 10 % (15-49); Monocytes % (Manual) 16 % (1-12); Platelet Estimate INCREASED (NORMAL); RBC Morphology NORMAL (NORMAL); Segmented Neutrophils % 72 % (38-78)
[2019-09-24] MEDS: PANTOPRAZOLE 40 MG TABLET PO SCH (08:15)
[2019-09-24] MEDS: LEVOTHYROXINE 150 MCG TABLET PO SCH (08:15)
[2019-09-24] MEDS: LEVOTHYROXINE 50 MCG TABLET PO SCH (08:15)
[2019-09-24] MEDS: HYDROcodone/APAP 5/325MG TABLET PO PRN ×3 (08:16→18:53)
[2019-09-24] MEDS: LEVOFLOXACIN 750 MG TABLET PO SCH (09:09)
[2019-09-24] MEDS: medroxyPROGESTERone 10 MG TABLET PO SCH ×2 (09:09→20:54)
[2019-09-24] MEDS: BENZTROPINE 1 MG TABLET PO SCH ×2 (09:09→20:53)
[2019-09-24] MEDS: MULTIVIT,THER IRON,CA,FA & MIN 1 TABLET PO SCH (09:10)
[2019-09-24] MEDS: lamoTRIgine 100 MG TABLET PO SCH (09:11)
[2019-09-24] MEDS: HYDROCHLOROTHIAZIDE 25 MG TABLET PO SCH (09:11)
[2019-09-24] MEDS: METOPROLOL TARTRATE 25 MG TABLET PO SCH ×2 (09:11→20:53)
[2019-09-24] MEDS: VENLAFAXINE 150 MG CAP.XL.24H PO SCH (09:11)
[2019-09-24] MEDS: POTASSIUM CHLORIDE 20 MEQ TABLET PO SCH ×2 (09:12→17:55)
[2019-09-24] MEDS: DOCUSATE SODIUM 100 MG CAPSULE PO SCH ×2 (09:12→21:04)
[2019-09-24] MEDS: MUPIROCIN OINT 2% 22GM TOPICAL SCH ×2 (09:13→21:30)
[2019-09-24] MEDS: FLUTICASONE/SALMETEROL 50/100 INHALER #14 INH SCH ×2 (09:18→20:58)
[2019-09-24] MEDS: VANCOMYCIN 1,500 MG in 0.9 % SODIUM CHLORIDE 500 ML IV SCH (10:00)
--- NOTE | 2019-09-24 14:23 | Internal Med Progress Note ---
Medical - PN: Subj Patient information: Note initiated : 09/24/19 at 2:18 pm Service Date, if different from initiated Date: [] Patient: Christine Cespedes a 64 y/o F admitted on 09/08/19 for Sepsis, UTI. Chief Complaint: [] Interval history: 09/08 Ms. Cespedes is a 64 year old F with a history of atrial fibrillation, recent subdural hematoma, history of ischemic strokes, hypertension, sleep apnea not on CPAP, prediabetes, morbid obesity with mobility impairment who presents to the emergency department with lethargy. History is obtained speaking to her caregiver. She has a caregiver in the home during the days, but not at night. The caregiver notes yesterday she was not quite herself, displaying some mild confusion. Her appetite was decreased. Caregiver made her a sandwich for dinner prior to her leaving yesterday, was still on eaten this morning when their caregiver arrived. Patient was in bed, was too weak to get out of bed, was confused and could not respond appropriately. In the ED, there is a history of low-grade fever as well. Because of lethargy, fever and weakness EMS was activated and she is brought to the ED. In the emergency department she has evidence of sepsis with now white count of 22,000, lactate of 3.8, increased anion gap and significantly abnormal urine analysis with pyuria and bacteriuria. She is being admitted for treatment of sepsis from urinary source. 09/09 Intermittently more responsive, was sitting up on edge of bed with physical therapy and did participate in self-care this morning. Is required fluids for declining blood pressures today with response. 09/10 Slowly continues to be more interactive. Urine culture with E. coli, only resistant to fluoroquinolones. Blood pressure stable. 09/11 Much more alert and interactive today. Still quite weak and needing assistance to stay sitting up at bedside. Held conversation with her, she states her goal is to get better. I encouraged her to increase her oral intake and that it is important for her to eat to get better. Nursing spoke with her son, who is her eldest child. He is a long-haul ride attendant and is out of state, but agreed that she will likely need skilled placement following this admission. In the late afternoon, she awoke panicked that she was trapped in a trailer and was d isoriented. Had significant anxiety. 09/12/2019 Patient continued to have disorientation and hallucinations yesterday evening, was up much of the night, eventually calm down. Medicine list reviewed, she does not have any antipsychotics or other treatments for schizophrenia. Attempting to reconfirm her medication list. This morning, states she is not feeling too well, but is sleepy drifts back off. 09/13 Patient seems less interactive than she was yesterday afternoon. Sacral wound now draining material and will need debridement. Previously had eschar that was being debrided. Should've completed for therapy for UTI sepsis. Discussed with Dr. Juarez, whose consult general surgery. Have consulted Dr. Silverio, is recommended. Vancomycin and Zosyn for now until debridement. 09/14 Patient status post surgical I&D. Drowsy but opens eyes to voice. Refused CT imaging yesterday as recommended by infectious disease. No overnight events. Discussed case with her son who makes medical decisions when she is unable. He was able to clarify that she would be a DO NOT RESUSCITATE in the event effect catastrophic event. Regarding goals of care. We will see how she has in the next day or 2 09/15 Nurse able to get the patient to drink a carnation instant breakfast. Patient sleeping at this time but awakens and admits to feeling little better but otherwise not verbalizing a whole lot and difficult to obtain review of systems. she is on room air today. 09/16 Yesterday afternoon patient was sitting up in bed eating breakfast, mentation and somnolence improved. Feeling much better today. Has occasional cough and headache. No other complaints. Nurse report diarrhea. Again mentation significantly improved she is oriented to place and President 09/17 No overnight event or new complaints. Patient resting comfortably in bed. Denies any cough or shortness of breath. 09/18 Patient unable to be placed yesterday still working on placement. Patient sleeping this morning. Denies any complaints. 09/20 Patient was resting Unable to obtain detailed review of system, denied any active chest pain abdominal pain Discussed with the case management and planning for placement there are new options available and social service working in profiling 09/21 Wound care evaluated the patient and patient moved looks better and slowly progressing. Recommend continuing wound VAC Case management working on placement options 09/22/19 Her leukocytosis is persistent with thrombocytosis No fever Continuing same antibiotic Ordered CRP ESR level and pro calcitonin No features of sepsis If she continues to increase leukocyte count will discuss with infectious disease and reculture the wound 09/23/19 Intermittently her A. fib went up to 110 120 Metoprolol dose increased to 75 twice daily since then her heart rate has been controlled Her leukocytosis remained slightly elevated and she is also on medroxyprogesterone CRP 43 will trend the CRP if it is creeping up will get opinion from infectious disease and wound care 09/24-patient doing well. Awaiting placement. Ongoing wound care/wound VAC/antibiotics. No concerns per nursing staff. - Constitutional Vitals: Vital Signs Temp Pulse Resp BP Pulse Ox 97.8 F 96 H 18 111/60 96 09/24/19 12:00 09/24/19 03:50 09/24/19 12:00 09/24/19 12:00 09/24/19 12:00 Period Temp Pulse Resp BP Sys/Butler Pulse Ox Last 24 Hr 97.2 F-98.3 F 96-111 16-20 90-113/54-64 94-97 Intake and Output 09/24/19 09/24/19 09/24/19 05:59 13:59 21:59 Intake Total 1100 200 Output Total 400 Balance -400 1100 200 Intake & Output: Intake & Output 09/24/19 09/24/19 09/24/19 05:59 13:59 21:59 Intake Total 1100 200 Output Total 400 Balance -400 1100 200 Intake: Nourishment/Supplement quantity 240 200 (ml) IV 500 Vancomycin 1,500 mg In Sodium 500 Chloride 0.9% 500 ml @ 333.3 mls/hr IV DAILY [facility] Rx#: [id number] Oral 360 Output: Urine Catheter Amount 400 Other: Meal Nourishment/Supplement Lunch Percent of Meal Consumed 50% 0% Feeding Ability Total Assistance Nourishment/Supplement name CIB Chocolate with 2% Milk Breeze Urine Appearance Cloudy Uretheral (Aguirre) Clear Urine Color Bright Yellow Uretheral (Aguirre) Dark Yellow Urine Odor Strong Stool Size Small Small Stool Color Brown Brown Stool Consistency Loose Loose # of times incontinent of 1 1 1 Bowels General appearance: no acute distress Exam: Alert oriented Nonlabored breathing No anxiety Wound VAC Medical - PN: Obj Da - Labs CBC & Chem 7: 09/24/19 05:21 09/24/19 05:21 Labs: Abnormal Lab Results 09/24/19 09/24/19 09/24/19 05:21 05:21 05:21 WBC 13.4 H Plt Count 485 H Lymphocytes % 10 L Monocytes % (Manual) 16 H ESR PT 28.6 H INR 2.7 H Potassium Carbon Dioxide 21 L Glucose 114 H Magnesium AST 41 H ALT 46 H Alkaline Phosphatase 132 H C-React Prot High Sens Albumin Albumin/Globulin Ratio 0.9 L 09/23/19 09/23/19 09/23/19 05:15 05:15 05:15 WBC 12.7 H Plt Count 475 H Lymphocytes % 14 L Monocytes % (Manual) 16 H ESR 96 H PT 30.1 H INR 2.9 H Potassium 3.2 L Carbon Dioxide Glucose Magnesium 1.5 L AST ALT 42 H Alkaline Phosphatase 132 H C-React Prot High Sens 43.1 H Albumin Albumin/Globulin Ratio 09/22/19 09/22/19 09/22/19 05:25 05:25 05:25 WBC 13.6 H Plt Count 470 H Lymphocytes % 13 L Monocytes % (Manual) ESR PT 28.6 H INR 2.7 H Potassium Carbon Dioxide Glucose Magnesium AST 44 H ALT 75 H Alkaline Phosphatase 129 H C-React Prot High Sens Albumin 3.0 L Albumin/Globulin Ratio 0.9 L Meds: Medications Acetaminophen (Tylenol) 650 mg PO Q6HP PRN; Protocol PRN Reason: Per Pain Protocol/Fever > 101 Hydrocodone Bitart/Acetaminophen (Aiken 5/325mg) 1 tab PO Q4HP PRN; Protocol PRN Reason: Per Pain Protocol Last Admin: 09/24/19 12:29 Dose: 1 tab Documented by: Albuterol/Ipratropium (Duoneb) 3 ml NEB Q6H PRN PRN Reason: shortness of breath Atorvastatin Calcium (Lipitor) 40 mg PO QHS [facility] Last Admin: 09/23/19 20:01 Dose: 40 mg Documented by: Benztropine Mesylate (Cogentin) 2 mg PO BID [facility] Last Admin: 09/24/19 09:09 Dose: 2 mg Documented by: Clonazepam (Klonopin) 0.25 mg PO BIDP PRN PRN Reason: Anxiety Last Admin: 09/19/19 11:10 Dose: 0.25 mg Documented by: Diagnostic Test (Pha) (Accu-Chek) 1 each FS ACHS [facility] Last Admin: 09/24/19 11:35 Dose: 1 each Documented by: Docusate Sodium (Colace) 100 mg PO BID [facility] Last Admin: 09/24/19 09:12 Dose: Not Given Documented by: Heparin Sodium (Porcine) (Heparin Flush) 2 ml IV Q12 [facility] Last Admin: 09/24/19 09:20 Dose: 2 ml Documented by: Hydrochlorothiazide (Oretic) 25 mg PO QAM [facility] Last Admin: 09/24/19 09:11 Dose: 25 mg Documented by: Acetaminophen (Ofirmev) 650 mg in 65 mls @ 130 mls/hr IV Q6HP PRN; Protocol PRN Reason: PAIN/FEVER > 101 Vancomycin HCl 1,500 mg/ (Sodium Chloride) 500 mls @ 333.3 mls/hr IV DAILY [facility] Last Infusion: 09/24/19 12:30 Dose: Infused Documented by: Iron Carb/Multivit/Bog Cutter/Folic Acid (Multivitamin W/Minerals) 1 tab PO DAILY [facility] Last Admin: 09/24/19 09:10 Dose: 1 tab Documented by: Lactulose (Cephulac) 10 gm PO DAILYP PRN PRN Reason: Constipation Lamotrigine (Lamictal) 100 mg PO QDAY [facility] Last Admin: 09/24/19 09:11 Dose: 100 mg Documented by: Levofloxacin (Levaquin) 750 mg PO DAILY [facility]; Protocol Last Admin: 09/24/19 09:09 Dose: 750 mg Documented by: [facility] Admin: 09/24/19 08:15 Dose: 300 mcg Documented by: Levothyroxine Sodium (Synthroid) 50 mcg PO QAMAC [facility] Last Admin: 09/24/19 08:15 Dose: 50 mcg Documented by: Medroxyprogesterone Acetate (Provera) 10 mg PO BID [facility] Last Admin: 09/24/19 09:09 Dose: 10 mg Documented by: Metoprolol Tartrate (Lopressor) 5 mg IV Q2HP PRN PRN Reason: Tachyarrhythmias HR>110 Last Admin: 09/21/19 12:13 Dose: 5 mg Documented by: Metoprolol Tartrate (Lopressor) 75 mg PO BID [facility] Last Admin: 09/24/19 09:11 Dose: 75 mg Documented by: Mupirocin (Bactroban Oint 2%) 1 dose TOPICAL BID [facility] Last Admin: 09/24/19 09:13 Dose: 1 dose Documented by: Naloxone HCl (Narcan) 0.1 mg IV Q2MIN PRN PRN Reason: Opiate Reversal Ondansetron HCl (Zofran) 4 mg IV Q4HP PRN; Protocol PRN Reason: Nausea And Vomiting Last Admin: 09/19/19 05:37 Dose: 4 mg Documented by: Pantoprazole Sodium (Protonix) 40 mg PO QAMAC [facility] Last Admin: 09/24/19 08:15 Dose: 40 mg Documented by: Potassium Chloride (Kdur) 40 meq PO BIDCC [facility] Stop: 09/26/19 23:59 Last Admin: 09/24/19 09:12 Dose: 40 meq Documented by: Fluticasone/Salmeterol (Advair 100-50 Diskus) 1 puff INH BID [facility] Last Admin: 09/24/19 09:18 Dose: Not Given Documented by: Senna (Senokot) 2 tab PO HSP PRN PRN Reason: Constipation Last Admin: 09/22/19 19:01 Dose: 2 tab Documented by: Sodium Chloride (Saline Flush) 10 ml IV UD PRN PRN Reason: FLUSH Last Admin: 09/20/19 21:00 Dose: 10 ml Documented by: Sodium Chloride (Saline Flush) 10 ml IV Q8 [facility] Last Admin: 09/24/19 14:07 Dose: Not Given Documented by: Sodium Chloride (Saline Flush) 10 ml IV Q12 [facility] Last Admin: 09/24/19 09:19 Dose: 10 ml Documented by: Vancomycin HCl (Vancomycin Per Pharmacy) 1 order IV [facility]; Protocol Venlafaxine HCl (Effexor Xr) 150 mg PO QDAY [facility] Last Admin: 09/24/19 09:11 Dose: 150 mg Documented by: Warfarin Sodium (Coumadin Per Pharmacy) 1 order PO [facility] Medical - PN: A/P - Time Spent With Patient Total time spent is greater than 50% in coordination of care (as documented) at patient's floor/unit and/or counseling patient: 25 - 35 minutes (1) Pressure ulcer of sacral region, unstageable Problem details: Local wound care as discussed with nursing staff. Status: Chronic Assessment and plan: * Severe sepsis-clinically resolved * Complicated UTI clinically resolved * Infected decubitus ulcer with cultures including MRSA/enterococcus. Surgery/ID/wound care ongoing. Ongoing wound VAC. * Underlying dementia with intermittent delirium. Continue delirium watch and avoid sedative-hypnotics. * History of schizophrenia-stable currently not on meds * History of CVA stable, continue statin * A. fib rate controlled on metoprolol 75 twice daily/Coumadin for CVA prophylaxis * CKD stage II stable * Hypothyroidism on thyroxine * Hyperlipidemia continue statin * Anxiety disorder continue venlafaxine * GERD on PPI * DVT prophylaxis on Coumadin Plan * Continue wound care/wound VAC * Antibiotic coverage * Primary condition management as above * Coumadin dosing based on INR * PT OT/wound care * Nutrition support * Discharge planning per case management Current Visit: Yes Medical - PN: Qual - VTE Deep Vein Thrombosis/Pulmonary Embolism Present on Admission: No
--- NOTE | 2019-09-24 15:42 | General Surgery Progress Note ---
Subjective Narrative: Note initiated : 09/24/19 at 3:40 pm Service Date, if different from initiated Date: [] Patient: Christine Cespedes 64 y/o F admitted on 09/08/19 for Sepsis, UTI. Chief Complaint: [] Saw patient along with Vivian RN Inpatient wound care nurse, Wound Examined. Objective Temp Pulse Resp BP Pulse Ox 97.8 F 96 H 18 111/60 96 09/24/19 12:00 09/24/19 03:50 09/24/19 12:00 09/24/19 12:00 09/24/19 12:00 AVSS, In and out of A Fib. Medications adjusted by Hospitalist. Leucocytosis ( Multifactorial ) Thrombocytosis Creatinine is Normal Mental status improved. Polymicrobial wound infection. Sacral wound adequately debrided Local wound care ongoing. - Additional Data Intake & Output - Last 24 hours: Intake & Output 09/22/19 09/23/19 09/24/19 09/25/19 05:59 05:59 05:59 05:59 Intake Total 1100 1040 2150 1300 Output Total 400 825 950 Balance 958 667 3196 1300 Weight 220 lb 12.8 oz 214 lb 218 lb - Labs 09/24/19 05:21 09/24/19 05:21 Diabetes panel 09/24/19 Range/Units 05:21 Sodium 141 (133-145) mmol/L Potassium 3.9 (3.3-5.1) mmol/L Chloride 106 (96-108) mmol/L Carbon Dioxide 21 L (22-30) mmol/L BUN 14 (8-23) mg/dl Creatinine 0.7 (0.6-1.1) mg/dl Glucose 114 H (70-105) mg/dL Calcium 9.5 (8.6-10.4) mg/dl AST 41 H (0-37) U/l ALT 46 H (0-40) U/l Alkaline Phosphatase 132 H (39-117) U/L Total Protein 6.8 (5.9-8.4) gm/dL Albumin 3.3 (3.2-5.2) gm/dL Calcium panel 09/24/19 Range/Units 05:21 Calcium 9.5 (8.6-10.4) mg/dl Albumin 3.3 (3.2-5.2) gm/dL Pituitary panel 09/24/19 Range/Units 05:21 Sodium 141 (133-145) mmol/L Potassium 3.9 (3.3-5.1) mmol/L Chloride 106 (96-108) mmol/L Carbon Dioxide 21 L (22-30) mmol/L BUN 14 (8-23) mg/dl Creatinine 0.7 (0.6-1.1) mg/dl Glucose 114 H (70-105) mg/dL Calcium 9.5 (8.6-10.4) mg/dl Adrenal panel 09/24/19 Range/Units 05:21 Sodium 141 (133-145) mmol/L Potassium 3.9 (3.3-5.1) mmol/L Chloride 106 (96-108) mmol/L Carbon Dioxide 21 L (22-30) mmol/L BUN 14 (8-23) mg/dl Creatinine 0.7 (0.6-1.1) mg/dl Glucose 114 H (70-105) mg/dL Calcium 9.5 (8.6-10.4) mg/dl Total Bilirubin 0.4 (0.0-1.0) mg/dL AST 41 H (0-37) U/l ALT 46 H (0-40) U/l Alkaline Phosphatase 132 H (39-117) U/L Total Protein 6.8 (5.9-8.4) gm/dL Albumin 3.3 (3.2-5.2) gm/dL Assessment and Plan (1) Skin abnormalities Problem details: Local wound care as discussed with nursing staff and orders entered. Status: Acute Current Visit: Yes (2) Pressure ulcer of sacral region, unstageable Problem details: Local wound care as discussed with nursing staff. Status: Chronic Current Visit: Yes - Time Spent With Patient Total time spent is greater than 50% in coordination of care (as documented) at patient's floor/unit and/or counseling patient: Assessment: Satisfactory progress from wound care point. Patient awaits placement. Plan: Continue current treatment. 25 - 35 minutes
[2019-09-24] MEDS ORDERED: WARFARIN 2.5 MG TABLET PO ONE (18:00)
[2019-09-24] MEDS: ATORVASTATIN 40 MG TABLET PO SCH (20:53)
[2019-09-25 06:50] LABS: INR 2.6 (0.9-1.1); Prothrombin Time 27.2 sec (11.9-14.5)
[2019-09-25] MEDS: LEVOTHYROXINE 150 MCG TABLET PO SCH (07:31)
[2019-09-25] MEDS: PANTOPRAZOLE 40 MG TABLET PO SCH (07:31)
[2019-09-25] MEDS: LEVOTHYROXINE 50 MCG TABLET PO SCH (07:31)
[2019-09-25 07:40] LABS: Hematocrit 40.2 % (34.1-44.9); Mean Cell Volume 93.9 fL (80.0-100.0); Mean Corpuscular HGB Conc 32.3 g/dL (31.0-36.0); Platelet Count 437 K/mcL (140-440); RBC 4.28 M/mcL (3.59-5.38); Red Cell Distribution Width 14.6 % (11.5-14.5); WBC 10.7 K/mcL (4.50-11.00)
[2019-09-25] MEDS: clonazePAM 0.5 MG TABLET PO PRN (07:51)
[2019-09-25] MEDS: POTASSIUM CHLORIDE 20 MEQ TABLET PO SCH ×2 (07:51→18:09)
[2019-09-25] MEDS: HYDROcodone/APAP 5/325MG TABLET PO PRN ×3 (07:51→22:08)
[2019-09-25 07:54] LABS: Prealbumin 19.6 mg/dl (20-40)
[2019-09-25 08:08] LABS: ALT/SGPT 49 U/l (0-40); AST/SGOT 49 U/l (0-37); Albumin 3.3 gm/dL (3.2-5.2); Albumin/Globulin Ratio 1.1 (1.0-2.3); Alkaline Phosphatase 128 U/L (39-117); Bilirubin,Total 0.3 mg/dL (0.0-1.0); Blood Urea Nitrogen 16 mg/dl (8-23); Calcium 9.2 mg/dl (8.6-10.4); Carbon Dioxide 22 mmol/L (22-30); Chloride 104 mmol/L (96-108); Globulin 3.1 gm/dL (2.2-3.7); Glomerular Filtration Rate 96; Glucose 97 mg/dL (70-105); Thyroid Stimulating Hormone 14.28 uIU/ml (0.27-5.01)
[2019-09-25 08:12] LABS: Anisocytosis 1+ (NONE SEEN); Band Neutrophils % 1 % (0-10); Basophils % (Manual) 1 % (0-2); Eosinophils % (Manual) 2 % (0-7); Lymphocytes % 13 % (15-49); Monocytes % (Manual) 14 % (1-12); Platelet Estimate NORMAL (NORMAL); RBC Morphology ABNORM (NORMAL); Segmented Neutrophils % 69 % (38-78)
[2019-09-25 08:20] LABS: Estimated Average Glucose(eAG) 123 mg/dL; Hemoglobin A1C 5.9 % HGB (4.0-6.0)
[2019-09-25] MEDS: METOPROLOL TARTRATE 25 MG TABLET PO SCH ×2 (09:50→22:00)
[2019-09-25] MEDS: medroxyPROGESTERone 10 MG TABLET PO SCH ×2 (09:50→22:01)
[2019-09-25] MEDS: LEVOFLOXACIN 750 MG TABLET PO SCH (09:50)
[2019-09-25] MEDS: VANCOMYCIN 1,500 MG in 0.9 % SODIUM CHLORIDE 500 ML IV SCH (09:51)
[2019-09-25] MEDS: HYDROCHLOROTHIAZIDE 25 MG TABLET PO SCH (09:51)
[2019-09-25] MEDS: BENZTROPINE 1 MG TABLET PO SCH ×2 (09:51→22:01)
[2019-09-25] MEDS: lamoTRIgine 100 MG TABLET PO SCH (09:51)
[2019-09-25] MEDS: VENLAFAXINE 150 MG CAP.XL.24H PO SCH (09:51)
[2019-09-25] MEDS: MULTIVIT,THER IRON,CA,FA & MIN 1 TABLET PO SCH (09:51)
[2019-09-25] MEDS: 0.9 % SODIUM CHLORIDE 10 ML SYRINGE IV SCH ×2 (09:52→22:01)
[2019-09-25] MEDS: FLUTICASONE/SALMETEROL 50/100 INHALER #14 INH SCH ×2 (09:57→22:11)
[2019-09-25] MEDS: DOCUSATE SODIUM 100 MG CAPSULE PO SCH ×2 (09:57→22:11)
[2019-09-25] MEDS ORDERED: FUROSEMIDE 20 MG/2 ML VIAL IV ONE (10:01)
--- NOTE | 2019-09-25 10:14 | Internal Med Progress Note ---
Medical - PN: Subj Patient information: Note initiated : 09/25/19 at 10:12 am Service Date, if different from initiated Date: [] Patient: Christine Cespedes a 64 y/o F admitted on 09/08/19 for Sepsis, UTI. Chief Complaint: [] Interval history: 09/08 Ms. Cespedes is a 64 year old F with a history of atrial fibrillation, recent subdural hematoma, history of ischemic strokes, hypertension, sleep apnea not on CPAP, prediabetes, morbid obesity with mobility impairment who presents to the emergency department with lethargy. History is obtained speaking to her caregiver. She has a caregiver in the home during the days, but not at night. The caregiver notes yesterday she was not quite herself, displaying some mild confusion. Her appetite was decreased. Caregiver made her a sandwich for dinner prior to her leaving yesterday, was still on eaten this morning when their caregiver arrived. Patient was in bed, was too weak to get out of bed, was confused and could not respond appropriately. In the ED, there is a history of low-grade fever as well. Because of lethargy, fever and weakness EMS was activated and she is brought to the ED. In the emergency department she has evidence of sepsis with now white count of 22,000, lactate of 3.8, increased anion gap and significantly abnormal urine analysis with pyuria and bacteriuria. She is being admitted for treatment of sepsis from urinary source. 09/09 Intermittently more responsive, was sitting up on edge of bed with physical therapy and did participate in self-care this morning. Is required fluids for declining blood pressures today with response. 09/10 Slowly continues to be more interactive. Urine culture with E. coli, only resistant to fluoroquinolones. Blood pressure stable. 09/11 Much more alert and interactive today. Still quite weak and needing assistance to stay sitting up at bedside. Held conversation with her, she states her goal is to get better. I encouraged her to increase her oral intake and that it is important for her to eat to get better. Nursing spoke with her son, who is her eldest child. He is a long-haul marking machine operator and is out of state, but agreed that she will likely need skilled placement following this admission. In the late afternoon, she awoke panicked that she was trapped in a trailer and was disoriented. Had significant anxiety. 09/12/2019 Patient continued to have disorientation and hallucinations yesterday evening, was up much of the night, eventually calm down. Medicine list reviewed, she does not have any antipsychotics or other treatments for schizophrenia. Attempting to reconfirm her medication list. This morning, states she is not feeling too well, but is sleepy drifts back off. 09/13 Patient seems less interactive than she was yesterday afternoon. Sacral wound now draining material and will need debridement. Previously had eschar that was being debrided. Should've completed for therapy for UTI sepsis. Discussed with Dr. Juarez, whose consult general surgery. Have consulted Dr. Silverio, is recommended. Vancomycin and Zosyn for now until debridement. 09/14 Patient status post surgical I&D. Drowsy but opens eyes to voice. Refused CT imaging yesterday as recommended by infectious disease. No overnight events. Discussed case with her son who makes medical decisions when she is unable. He was able to clarify that she would be a DO NOT RESUSCITATE in the event effect catastrophic event. Regarding goals of care. We will see how she has in the next day or 2 09/15 Nurse able to get the patient to drink a carnation instant breakfast. Patient sleeping at this time but awakens and admits to feeling little better but otherwise not verbalizing a whole lot and difficult to obtain review of systems. she is on room air today. 09/16 Yesterday afternoon patient was sitting up in bed eating breakfast, mentation and somnolence improved. Feeling much better today. Has occasional cough and headache. No other complaints. Nurse report diarrhea. Again mentation significantly improved she is oriented to place and President 09/17 No overnight event or new complaints. Patient resting comfortably in bed. Denies any cough or shortness of breath. 09/18 Patient unable to be placed yesterday still working on placement. Patient sleeping this morning. Denies any complaints. 09/20 Patient was resting Unable to obtain detailed review of system, denied any active chest pain abdominal pain Discussed with the case management and planning for placement there are new options available and social service working in profiling 09/21 Wound care evaluated the patient and patient moved looks better and slowly progressing. Recommend continuing wound VAC Case management working on placement options 09/22/19 Her leukocytosis is persistent with thrombocytosis No fever Continuing same antibiotic Ordered CRP ESR level and pro calcitonin No features of sepsis If she continues to increase leukocyte count will discuss with infectious disease and reculture the wound 09/23/19 Intermittently her A. fib went up to 110 120 Metoprolol dose increased to 75 twice daily since then her heart rate has been controlled Her leukocytosis remained slightly elevated and she is also on medroxyprogesterone CRP 43 will trend the CRP if it is creeping up will get opinion from infectious disease and wound care 09/24-patient doing well. Awaiting placement. Ongoing wound care/wound VAC/antibiotics. No concerns per nursing staff. 09/25-doing well awaiting transfer to SNF. White count of 10.7. INR therapeutic 2.6, potassium at 4, continuing vancomycin/Levaquin. No overnight fever chills or concerns per staff. Appears to be volume long however net body weight down since admission. Continue PT OT/wound care - Constitutional Vitals: Vital Signs Temp Pulse Resp BP Pulse Ox 98.1 F 110 H 18 106/74 95 09/25/19 08:00 09/25/19 03:07 09/25/19 08:00 09/25/19 08:00 09/25/19 08:00 Period Temp Pulse Resp BP Sys/Butler Pulse Ox Last 24 Hr 97.8 F-98.6 F 71-110 18-24 98-114/52-80 92-98 Intake and Output 09/24/19 09/25/19 09/25/19 21:59 05:59 13:59 Intake Total 680 420 240 Output Total 400 375 Balance 280 45 240 Weight 219 lb 8 oz Intake & Output: Intake & Output 09/24/19 09/25/19 09/25/19 21:59 05:59 13:59 Intake Total 680 420 240 Output Total 400 375 Balance 280 45 240 Weight 219 lb 8 oz Intake: Nourishment/Supplement quantity 680 (ml) Oral 420 240 Output: Urine Catheter Amount 400 375 Other: Meal Lunch Percent of Meal Consumed 25% Feeding Ability Total Assistance Nourishment/Supplement name CIB chocolate with 2% milk Urine Appearance Clear Uretheral (Aguirre) Clear Urine Color Dark Yellow Uretheral (Aguirre) Dark Yellow Urine Odor Strong Stool Size Small Small Stool Color Brown Brown Stool Consistency Loose Loose # of times incontinent of 1 1 Bowels General appearance: no acute distress Exam: Morbidly obese Nonlabored breathing No anxiety Intermittent paranoia Medical - PN: Obj Da - Labs CBC & Chem 7: 09/25/19 05:30 09/25/19 05:30 Labs: Abnormal Lab Results 09/25/19 09/25/19 09/25/19 05:30 05:30 05:30 WBC RDW 14.6 H Plt Count Lymphocytes % 13 L Monocytes % (Manual) 14 H RBC Morphology Abnorm A Anisocytosis 1+ A ESR PT 27.2 H INR 2.6 H Potassium Carbon Dioxide Glucose Magnesium AST 49 H ALT 49 H Alkaline Phosphatase 128 H C-Reactive Protein 2.0 H C-React Prot High Sens Albumin/Globulin Ratio Prealbumin 19.6 L TSH 14.28 H 09/24/19 09/24/19 09/24/19 05:21 05:21 05:21 WBC 13.4 H RDW Plt Count 485 H Lymphocytes % 10 L Monocytes % (Manual) 16 H RBC Morphology Anisocytosis ESR PT 28.6 H INR 2.7 H Potassium Carbon Dioxide 21 L Glucose 114 H Magnesium AST 41 H ALT 46 H Alkaline Phosphatase 132 H C-Reactive Protein C-React Prot High Sens Albumin/Globulin Ratio 0.9 L Prealbumin TSH 09/23/19 09/23/19 09/23/19 05:15 05:15 05:15 WBC 12.7 H RDW Plt Count 475 H Lymphocytes % 14 L Monocytes % (Manual) 16 H RBC Morphology Anisocytosis ESR 96 H PT 30.1 H INR 2.9 H Potassium 3.2 L Carbon Dioxide Glucose Magnesium 1.5 L AST ALT 42 H Alkaline Phosphatase 132 H C-Reactive Protein C-React Prot High Sens 43.1 H Albumin/Globulin Ratio Prealbumin TSH 09/22/19 05:25 WBC RDW Plt Count Lymphocytes % Monocytes % (Manual) RBC Morphology Anisocytosis ESR PT 28.6 H INR 2.7 H Potassium Carbon Dioxide Glucose Magnesium AST ALT Alkaline Phosphatase C-Reactive Protein C-React Prot High Sens Albumin/Globulin Ratio Prealbumin TSH Meds: Medications Acetaminophen (Tylenol) 650 mg PO Q6HP PRN; Protocol PRN Reason: Per Pain Protocol/Fever > 101 Hydrocodone Bitart/Acetaminophen ([place] 5/325mg) 1 tab PO Q4HP PRN; Protocol PRN Reason: Per Pain Protocol Last Admin: 09/25/19 07:51 Dose: 1 tab Documented by: Albuterol/Ipratropium (Duoneb) 3 ml NEB Q6H PRN PRN Reason: shortness of breath Atorvastatin Calcium (Lipitor) 40 mg PO QHS [facility] Last Admin: 09/24/19 20:53 Dose: 40 mg Documented by: Benztropine Mesylate (Cogentin) 2 mg PO BID [facility] Last Admin: 09/25/19 09:51 Dose: 2 mg Documented by: Clonazepam (Klonopin) 0.25 mg PO BIDP PRN PRN Reason: Anxiety Last Admin: 09/25/19 07:51 Dose: 0.25 mg Documented by: Docusate Sodium (Colace) 100 mg PO BID [facility] Last Admin: 09/25/19 09:57 Dose: Not Given Documented by: Heparin Sodium (Porcine) (Heparin Flush) 2 ml IV Q12 [facility] Last Admin: 09/25/19 09:57 Dose: 2 ml Documented by: Hydrochlorothiazide (Oretic) 25 mg PO QAM [facility] Last Admin: 09/25/19 09:51 Dose: 25 mg Documented by: Acetaminophen (Ofirmev) 650 mg in 65 mls @ 130 mls/hr IV Q6HP PRN; Protocol PRN Reason: PAIN/FEVER > 101 Vancomycin HCl 1,500 mg/ (Sodium Chloride) 500 mls @ 333.3 mls/hr IV DAILY [facility] Last Admin: 09/25/19 09:51 Dose: 250 mls/hr Documented by: Iron Carb/Multivit/[place]/Folic Acid (Multivitamin W/Minerals) 1 tab PO DAILY [facility] Last Admin: 09/25/19 09:51 Dose: 1 tab Documented by: Lactulose (Cephulac) 10 gm PO DAILYP PRN PRN Reason: Constipation Lamotrigine (Lamictal) 100 mg PO QDAY [facility] Last Admin: 09/25/19 09:51 Dose: 100 mg Documented by: Levofloxacin (Levaquin) 750 mg PO DAILY [facility]; Protocol Last Admin: 09/25/19 09:50 Dose: 750 mg Documented by: [facility]othyroxine [facility]throid) [facility] Last Admin: 09/25/19 07:31 Dose: 300 mcg Documented by: Levothyroxine Sodium (Synthroid) 50 mcg PO QAMAC [facility] Last Admin: 09/25/19 07:31 Dose: 50 mcg Documented by: Medroxyprogesterone Acetate (Provera) 10 mg PO BID [facility] Last Admin: 09/25/19 09:50 Dose: 10 mg Documented by: Metoprolol Tartrate (Lopressor) 5 mg IV Q2HP PRN PRN Reason: Tachyarrhythmias HR>110 Last Admin: 09/21/19 12:13 Dose: 5 mg Documented by: Metoprolol Tartrate (Lopressor) 75 mg PO BID [facility] Last Admin: 09/25/19 09:50 Dose: 75 mg Documented by: Naloxone HCl (Narcan) 0.1 mg IV Q2MIN PRN PRN Reason: Opiate Reversal Ondansetron HCl (Zofran) 4 mg IV Q4HP PRN; Protocol PRN Reason: Nausea And Vomiting Last Admin: 09/19/19 05:37 Dose: 4 mg Documented by: Pantoprazole Sodium (Protonix) 40 mg PO QAMAC [facility] Last Admin: 09/25/19 07:31 Dose: 40 mg Documented by: Potassium Chloride (Kdur) 40 meq PO BIDCC [facility] Stop: 09/26/19 23:59 Last Admin: 09/25/19 07:51 Dose: 40 meq Documented by: Fluticasone/Salmeterol (Advair 100-50 Diskus) 1 puff INH BID [facility] Last Admin: 09/25/19 09:57 Dose: Not Given Documented by: Maria Elena Manrique) 2 tab PO HSP PRN PRN Reason: Constipation Last Admin: 09/22/19 19:01 Dose: 2 tab Documented by: Sodium Chloride (Saline Flush) 10 ml IV UD PRN PRN Reason: FLUSH Last Admin: 09/20/19 21:00 Dose: 10 ml Documented by: Sodium Chloride (Saline Flush) 10 ml IV Q12 [facility] Last Admin: 09/25/19 09:52 Dose: 10 ml Documented by: Vancomycin HCl (Vancomycin Per Pharmacy) 1 order IV [facility]; Protocol Venlafaxine HCl (Effexor Xr) 150 mg PO QDAY [facility] Last Admin: 09/25/19 09:51 Dose: 150 mg Documented by: Warfarin Sodium (Coumadin Per Pharmacy) 1 order PO [facility] Medical - PN: A/P - Time Spent With Patient Total time spent is greater than 50% in coordination of care (as documented) at patient's floor/unit and/or counseling patient: 25 - 35 minutes (1) Pressure ulcer of sacral region, unstageable Problem details: Local wound care as discussed with nursing staff. Status: Chronic Assessment and plan: * Infected decubitus ulcer with cultures - MRSA/enterococcus. On Lev aquin/vancomycin. Surgery/ID/wound care ongoing. Ongoing wound VAC. * Severe sepsis-clinically resolved, continue Levaquin/vancomycin * Complicated UTI clinically resolved * Underlying dementia with intermittent delirium. avoid sedative-hypnotics. * History of schizophrenia-stable currently not on meds * History of CVA stable, continue statin * A. fib rate controlled on metoprolol 75 twice daily/Coumadin for CVA prophylaxis * CKD stage II stable * Hypothyroidism on thyroxine * Hyperlipidemia continue statin * Anxiety disorder continue venlafaxine * GERD on PPI * DVT prophylaxis on Coumadin Plan * Continue wound care/wound VAC * Continue antibiotic coverage * Primary medical condition management as above * Coumadin dosing based on INR * PT OT/wound care * Nutrition support * Discharge planning per case management, await SNF transfer Current Visit: Yes Medical - PN: Qual - VTE Deep Vein Thrombosis/Pulmonary Embolism Present on Admission: No
[2019-09-25] MEDS: ATORVASTATIN 40 MG TABLET PO SCH (22:00)
[2019-09-26] MEDS: HYDROcodone/APAP 5/325MG TABLET PO PRN ×2 (01:48→20:45)
[2019-09-26] MEDS: clonazePAM 0.5 MG TABLET PO PRN ×2 (05:06→20:45)
[2019-09-26 06:19] LABS: Hematocrit 41.7 % (34.1-44.9); Hemoglobin 13.4 g/dL (11.2-15.7); Mean Cell Volume 93.7 fL (80.0-100.0); Mean Corpuscular HGB Conc 32.1 g/dL (31.0-36.0); Mean Platelet Volume 10.2 fL (7.4-10.4); Platelet Count 478 K/mcL (140-440); RBC 4.45 M/mcL (3.59-5.38); Red Cell Distribution Width 14.4 % (11.5-14.5); WBC 12.2 K/mcL (4.50-11.00)
[2019-09-26 06:29] LABS: INR 2.2 (0.9-1.1); Prothrombin Time 23.8 sec (11.9-14.5)
[2019-09-26 07:06] LABS: Basophils % (Manual) 1 % (0-2); Eosinophils % (Manual) 2 % (0-7); Lymphocytes % 15 % (15-49); Monocytes % (Manual) 8 % (1-12); Myelocytes % 1 % (0-0); Platelet Estimate INCREASED (NORMAL); RBC Morphology NORMAL (NORMAL); Reactive Lymphocytes 2 % (0-2); Segmented Neutrophils % 71 % (38-78)
[2019-09-26 07:12] LABS: ALT/SGPT 69 U/l (0-40); AST/SGOT 69 U/l (0-37); Albumin 3.3 gm/dL (3.2-5.2); Alkaline Phosphatase 131 U/L (39-117); Bilirubin,Total 0.4 mg/dL (0.0-1.0); Blood Urea Nitrogen 17 mg/dl (8-23); Calcium 9.5 mg/dl (8.6-10.4); Carbon Dioxide 23 mmol/L (22-30); Chloride 105 mmol/L (96-108); Globulin 3.4 gm/dL (2.2-3.7); Glomerular Filtration Rate 92; Glucose 96 mg/dL (70-105)
[2019-09-26] MEDS: VANCOMYCIN 1,500 MG in 0.9 % SODIUM CHLORIDE 500 ML IV SCH (09:03)
[2019-09-26] MEDS: LEVOTHYROXINE 150 MCG TABLET PO SCH (09:05)
[2019-09-26] MEDS: POTASSIUM CHLORIDE 20 MEQ TABLET PO SCH ×2 (09:05→16:19)
[2019-09-26] MEDS: LEVOFLOXACIN 750 MG TABLET PO SCH (09:06)
[2019-09-26] MEDS: LEVOTHYROXINE 50 MCG TABLET PO SCH (09:06)
[2019-09-26] MEDS: METOPROLOL TARTRATE 25 MG TABLET PO SCH ×3 (09:06→20:31)
[2019-09-26] MEDS: DOCUSATE SODIUM 100 MG CAPSULE PO SCH ×2 (09:07→20:33)
[2019-09-26] MEDS: FLUTICASONE/SALMETEROL 50/100 INHALER #14 INH SCH ×2 (09:07→20:33)
[2019-09-26] MEDS: MULTIVIT,THER IRON,CA,FA & MIN 1 TABLET PO SCH (09:07)
[2019-09-26] MEDS: VENLAFAXINE 150 MG CAP.XL.24H PO SCH (09:07)
[2019-09-26] MEDS: PANTOPRAZOLE 40 MG TABLET PO SCH (09:07)
[2019-09-26] MEDS: HYDROCHLOROTHIAZIDE 25 MG TABLET PO SCH (09:07)
[2019-09-26] MEDS: BENZTROPINE 1 MG TABLET PO SCH ×2 (09:07→20:32)
[2019-09-26] MEDS: lamoTRIgine 100 MG TABLET PO SCH (09:07)
[2019-09-26] MEDS: medroxyPROGESTERone 10 MG TABLET PO SCH ×2 (09:08→20:31)
[2019-09-26] MEDS: 0.9 % SODIUM CHLORIDE 10 ML SYRINGE IV SCH ×2 (09:08→20:33)
--- NOTE | 2019-09-26 10:08 | General Surgery Progress Note ---
Subjective Narrative: Note initiated : 09/26/19 at 10:05 am Service Date, if different from initiated Date: [] Patient: Christine Cespedes 64 y/o F admitted on 09/08/19 for Sepsis, UTI. Chief Complaint: [] Patient seen on rounds with Vivian edge burnisher nurse. Sacral pressure ulcer site wound examined. Objective Temp Pulse Resp BP Pulse Ox 97.7 F 100 H 20 97/68 93 09/26/19 07:42 09/26/19 07:42 09/26/19 07:42 09/26/19 07:42 09/26/19 07:42 AVSS. Alert appropriate and responsive. HD stable. NO changes in [place]/ L/E: Granulating and tyson wound Wound VAC deployed well over sacral region NO purulence, urine or stool contamination Periwound skin and subcutaneous hygiene improved. Labs Reviewed. - Additional Data Intake & Output - Last 24 hours: Intake & Output 09/24/19 09/25/19 09/26/19 09/27/19 05:59 05:59 05:59 05:59 Intake Total 2150 2200 2280 Output Total 656 086 9781 Balance 1200 1425 155 Weight 218 lb 219 lb 8 oz 213 lb 8 oz - Labs 09/26/19 05:15 09/26/19 05:15 Diabetes panel 09/26/19 Range/Units 05:15 Sodium 142 (133-145) mmol/L Potassium 3.9 (3.3-5.1) mmol/L Chloride 105 (96-108) mmol/L Carbon Dioxide 23 (22-30) mmol/L BUN 17 (8-23) mg/dl Creatinine 0.7 (0.6-1.1) mg/dl Glucose 96 (70-105) mg/dL Calcium 9.5 (8.6-10.4) mg/dl AST 69 H (0-37) U/l ALT 69 H (0-40) U/l Alkaline Phosphatase 131 H (39-117) U/L Total Protein 6.7 (5.9-8.4) gm/dL Albumin 3.3 (3.2-5.2) gm/dL Calcium panel 09/26/19 Range/Units 05:15 Calcium 9.5 (8.6-10.4) mg/dl Albumin 3.3 (3.2-5.2) gm/dL Pituitary panel 09/26/19 Range/Units 05:15 Sodium 142 (133-145) mmol/L Potassium 3.9 (3.3-5.1) mmol/L Chloride 105 (96-108) mmol/L Carbon Dioxide 23 (22-30) mmol/L BUN 17 (8-23) mg/dl Creatinine 0.7 (0.6-1.1) mg/dl Glucose 96 (70-105) mg/dL Calcium 9.5 (8.6-10.4) mg/dl Adrenal panel 09/26/19 Range/Units 05:15 Sodium 142 (133-145) mmol/L Potassium 3.9 (3.3-5.1) mmol/L Chloride 105 (96-108) mmol/L Carbon Dioxide 23 (22-30) mmol/L BUN 17 (8-23) mg/dl Creatinine 0.7 (0.6-1.1) mg/dl Glucose 96 (70-105) mg/dL Calcium 9.5 (8.6-10.4) mg/dl Total Bilirubin 0.4 (0.0-1.0) mg/dL AST 69 H (0-37) U/l ALT 69 H (0-40) U/l Alkaline Phosphatase 131 H (39-117) U/L Total Protein 6.7 (5.9-8.4) gm/dL Albumin 3.3 (3.2-5.2) gm/dL Assessment and Plan (1) Skin abnormalities Problem details: Local wound care as discussed with nursing staff and orders entered. Status: Acute Current Visit: Yes (2) Pressure ulcer of sacral region, unstageable Problem details: Local wound care as discussed with nursing staff. Status: Chronic Current Visit: Yes - Narrative A/P Narrative: Assessment: Satisfactory post surgical progress. Sacral PU site wound improving. Other comorbid medical conditions unchanged. Awaits placement at SNF / Rehab. Plan: Continue current wound care. Following patient during her hospitalization. - Time Spent With Patient Total time spent is greater than 50% in coordination of care (as documented) at patient's floor/unit and/or counseling patient: 25 - 35 minutes
--- NOTE | 2019-09-26 11:01 | Internal Med Progress Note ---
Medical - PN: Subj Patient information: Note initiated : 09/26/19 at 10:59 am Service Date, if different from initiated Date: [] Patient: Christine Cespedes a 64 y/o F admitted on 09/08/19 for Sepsis, UTI. Chief Complaint: [] Interval history: 09/08 Ms. Cespedes is a 64 year old F with a history of atrial fibrillation, recent subdural hematoma, history of ischemic strokes, hypertension, sleep apnea not on CPAP, prediabetes, morbid obesity with mobility impairment who presents to the emergency department with lethargy. History is obtained speaking to her caregiver. She has a caregiver in the home during the days, but not at night. The caregiver notes yesterday she was not quite herself, displaying some mild confusion. Her appetite was decreased. Caregiver made her a sandwich for dinner prior to her leaving yesterday, was still on eaten this morning when their caregiver arrived. Patient was in bed, was too weak to get out of bed, was confused and could not respond appropriately. In the ED, there is a history of low-grade fever as well. Because of lethargy, fever and weakness EMS was activated and she is brought to the ED. In the emergency department she has evidence of sepsis with now white count of 22,000, lactate of 3.8, increased anion gap and significantly abnormal urine analysis with pyuria and bacteriuria. She is being admitted for treatment of sepsis from urinary source. 09/09 Intermittently more responsive, was sitting up on edge of bed with physical therapy and did participate in self-care this morning. Is required fluids for declining blood pressures today with response. 09/10 Slowly continues to be more interactive. Urine culture with E. coli, only resistant to fluoroquinolones. Blood pressure stable. 09/11 Much more alert and interactive today. Still quite weak and needing assistance to stay sitting up at bedside. Held conversation with her, she states her goal is to get better. I encouraged her to increase her oral intake and that it is important for her to eat to get better. Nursing spoke with her son, who is her eldest child. He is a long-haul human resource statistician and is out of state, but agreed that she will likely need skilled placement following this admission. In the late afternoon, she awoke panicked that she was trapped in a trailer and was disoriented. Had significant anxiety. 09/12/2019 Patient continued to have disorientation and hallucinations yesterday evening, was up much of the night, eventually calm down. Medicine list reviewed, she does not have any antipsychotics or other treatments for schizophrenia. Attempting to reconfirm her medication list. This morning, states she is not feeling too well, but is sleepy drifts back off. 09/13 Patient seems less interactive than she was yesterday afternoon. Sacral wound now draining material and will need debridement. Previously had eschar that was being debrided. Should've completed for therapy for UTI sepsis. Discussed with Dr. Jaurez, whose consult general surgery. Have consulted Dr. Silverio, is recommended. Vancomycin and Zosyn for now until debridement. 09/14 Patient status post surgical I&D. Drowsy but opens eyes to voice. Refused CT imaging yesterday as recommended by infectious disease. No overnight events. Discussed case with her son who makes medical decisions when she is unable. He was able to clarify that she would be a DO NOT RESUSCITATE in the event effect catastrophic event. Regarding goals of care. We will see how she has in the next day or 2 09/15 Nurse able to get the patient to drink a carnation instant breakfast. Patient sleeping at this time but awakens and admits to feeling little better but otherwise not verbalizing a whole lot and difficult to obtain review of systems. she is on room air today. 09/16 Yesterday afternoon patient was sitting up in bed eating breakfast, mentation and somnolence improved. Feeling much better today. Has occasional cough and headache. No other complaints. Nurse report diarrhea. Again mentation significantly improved she is oriented to place and President 09/17 No overnight event or new complaints. Patient resting comfortably in bed. Denies any cough or shortness of breath. 09/18 Patient unable to be placed yesterday still working on placement. Patient sleeping this morning. Denies any complaints. 09/20 Patient was resting Unable to obtain detailed review of system, denied any active chest pain abdominal pain Discussed with the case management and planning for placement there are new options available and social service working in profiling 09/21 Wound care evaluated the patient and patient moved looks better and slowly progressing. Recommend continuing wound VAC Case management working on placement options 09/22/19 Her leukocytosis is persistent with thrombocytosis No fever Continuing same antibiotic Ordered CRP ESR level and pro calcitonin No features of sepsis If she continues to increase leukocyte count will discuss with infectious disease and reculture the wound 09/23/19 Intermittently her A. fib went up to 110 120 Metoprolol dose increased to 75 twice daily since then her heart rate has been controlled Her leukocytosis remained slightly elevated and she is also on medroxyprogesterone CRP 43 will trend the CRP if it is creeping up will get opinion from infectious disease and wound care 09/24-patient doing well. Awaiting placement. Ongoing wound care/wound VAC/antibiotics. No concerns per nursing staff. 09/25-doing well awaiting transfer to SNF. White count of 10.7. INR therapeutic 2.6, potassium at 4, continuing vancomycin/Levaquin. No overnight fever chills or concerns per staff. Appears to be volume long however net body weight down since admission. Continue PT OT/wound care 09/26-patient doing well. No overnight events. Ongoing wound care/antibiotics. Thyroxine increased to 62.5 based on TSH over 14. Continuing PT OT/nutrition support. Await SNF transfer. Rate controlled around 100 - Constitutional Vitals: Vital Signs Temp Pulse Resp BP Pulse Ox 97.7 F 100 H 20 97/68 93 09/26/19 07:42 09/26/19 07:42 09/26/19 07:42 09/26/19 07:42 09/26/19 07:42 Period Temp Pulse Resp BP Sys/Butler Pulse Ox Last 24 Hr 97.1 F-98.5 F 94-100 18-24 93-102/49-72 92-98 Intake and Output 09/25/19 09/26/19 09/26/19 21:59 05:59 13:59 Intake Total 340 480 500 Output Total 625 450 Balance -285 30 500 Weight 213 lb 8 oz Intake & Output: Intake & Output 09/25/19 09/26/19 09/26/19 21:59 05:59 13:59 Intake Total 340 480 500 Output Total 625 450 Balance -285 30 500 Weight 213 lb 8 oz Intake: Nourishment/Supplement quantity 240 (ml) IV 500 Vancomycin 1,500 mg In Sodium 500 Chloride 0.9% 500 ml @ 333.3 mls/hr IV DAILY [facility] Rx#: [id number] Oral 100 480 Output: Urine Catheter Amount 625 Void Amount 450 Other: Meal Dinner Breakfast Percent of Meal Consumed 50% Refused Feeding Ability Total Assistance Total Assistance Nourishment/Supplement name Kun Urine Appearance Clear Clear Uretheral (Aguirre) Clear Urine Color Bright Yellow Bright Yellow Uretheral (Aguirre) Straw Urine Odor Normal Stool Size Moderate Stool Color Brown Stool Consistency Liquid # of times incontinent of 1 Bowels General appearance: no acute distress Exam: Alert oriented nonlabored breathing No lymphedema Rate controlled No anxiety Medical - PN: Obj Da - Labs CBC & Chem 7: 09/26/19 05:15 09/26/19 05:15 Labs: Abnormal Lab Results 09/26/19 09/26/19 09/26/19 05:15 05:15 05:15 WBC 12.2 H RDW Plt Count 478 H Lymphocytes % Monocytes % (Manual) Myelocytes % 1 H RBC Morphology Anisocytosis PT 23.8 H INR 2.2 H Carbon Dioxide Glucose AST 69 H ALT 69 H Alkaline Phosphatase 131 H C-Reactive Protein Albumin/Globulin Ratio Prealbumin TSH 09/25/19 09/25/19 09/25/19 05:30 05:30 05:30 WBC RDW 14.6 H Plt Count Lymphocytes % 13 L Monocytes % (Manual) 14 H Myelocytes % RBC Morphology Abnorm A Anisocytosis 1+ A PT 27.2 H INR 2.6 H Carbon Dioxide Glucose AST 49 H ALT 49 H Alkaline Phosphatase 128 H C-Reactive Protein 2.0 H Albumin/Globulin Ratio Prealbumin 19.6 L TSH 14.28 H 09/24/19 09/24/19 09/24/19 05:21 05:21 05:21 WBC 13.4 H RDW Plt Count 485 H Lymphocytes % 10 L Monocytes % (Manual) 16 H Myelocytes % RBC Morphology Anisocytosis PT 28.6 H INR 2.7 H Carbon Dioxide 21 L Glucose 114 H AST 41 H ALT 46 H Alkaline Phosphatase 132 H C-Reactive Protein Albumin/Globulin Ratio 0.9 L Prealbumin TSH Meds: Medications Acetaminophen (Tylenol) 650 mg PO Q6HP PRN; Protocol PRN Reason: Per Pain Protocol/Fever > 101 Last Admin: 09/25/19 11:22 Dose: 650 mg Documented by: Hydrocodone Bitart/Acetaminophen (Boyle 5/325mg) 1 tab PO Q4HP PRN; Protocol PRN Reason: Per Pain Protocol Last Admin: 09/26/19 01:48 Dose: 1 tab Documented by: Albuterol/Ipratropium (Duoneb) 3 ml NEB Q6H PRN PRN Reason: shortness of breath Atorvastatin Calcium (Lipitor) 40 mg PO QHS [facility] Last Admin: 09/25/19 22:00 Dose: 40 mg Documented by: Benztropine Mesylate (Cogentin) 2 mg PO BID [facility] Last Admin: 09/26/19 09:07 Dose: 2 mg Documented by: Clonazepam (Klonopin) 0.25 mg PO BIDP PRN PRN Reason: Anxiety Last Admin: 09/26/19 05:06 Dose: 0.25 mg Documented by: Docusate Sodium (Colace) 100 mg PO BID [facility] Last Admin: 09/26/19 09:07 Dose: 100 mg Documented by: Heparin Sodium (Porcine) (Heparin Flush) 2 ml IV Q12 [facility] Last Admin: 09/26/19 09:04 Dose: 2 ml Documented by: Hydrochlorothiazide (Oretic) 25 mg PO QAM [facility] Last Admin: 09/26/19 09:07 Dose: 25 mg Documented by: Acetaminophen (Ofirmev) 650 mg in 65 mls @ 130 mls/hr IV Q6HP PRN; Protocol PRN Reason: PAIN/FEVER > 101 Vancomycin HCl 1,500 mg/ (Sodium Chloride) 500 mls @ 333.3 mls/hr IV DAILY [facility] Last Infusion: 09/26/19 10:58 Dose: Infused Documented by: Iron Carb/Multivit/[place]/Folic Acid (Multivitamin W/Minerals) 1 tab PO DAILY [facility] Last Admin: 09/26/19 09:07 Dose: 1 tab Documented by: Lactulose (Cephulac) 10 gm PO DAILYP PRN PRN Reason: Constipation Lamotrigine (Lamictal) 100 mg PO QDAY [facility] Last Admin: 09/26/19 09:07 Dose: 100 mg Documented by: Levofloxacin (Levaquin) 750 mg PO DAILY [facility]; Protocol Last Admin: 09/26/19 09:06 Dose: 750 mg Documented by: [facility] Last Admin: 09/26/19 09:05 Dose: 300 mcg Documented by: Levothyroxine [facility] ([facility]throid) [facility] Last Admin: 09/26/19 09:06 Dose: 50 mcg Documented by: Medroxyprogesterone Acetate (Provera) 10 mg PO BID [facility] Last Admin: 09/26/19 09:08 Dose: 10 mg Documented by: Metoprolol Tartrate (Lopressor) 5 mg IV Q2HP PRN PRN Reason: Tachyarrhythmias HR>110 Last Admin: 09/21/19 12:13 Dose: 5 mg Documented by: Metoprolol Tartrate (Lopressor) 75 mg PO BID [facility] Last Admin: 09/26/19 09:10 Dose: Not Given Documented by: Naloxone HCl (Narcan) 0.1 mg IV Q2MIN PRN PRN Reason: Opiate Reversal Ondansetron HCl (Zofran) 4 mg IV Q4HP PRN; Protocol PRN Reason: Nausea And Vomiting Last Admin: 09/19/19 05:37 Dose: 4 mg Documented by: Pantoprazole Sodium (Protonix) 40 mg PO QAMAC [facility] Last Admin: 09/26/19 09:07 Dose: 40 mg Documented by: Potassium Chloride (Kdur) 40 meq PO BIDCC [facility] Stop: 09/26/19 23:59 Last Admin: 09/26/19 09:05 Dose: 40 meq Documented by: Fluticasone/Salmeterol (Advair 100-50 Diskus) 1 puff INH BID [facility] Last Admin: 09/26/19 09:07 Dose: Not Given Documented by: Maria Elena (Senokot) 2 tab PO HSP PRN PRN Reason: Constipation Last Admin: 09/22/19 19:01 Dose: 2 tab Documented by: Sodium Chloride (Saline Flush) 10 ml IV UD PRN PRN Reason: FLUSH Last Admin: 09/20/19 21:00 Dose: 10 ml Documented by: Sodium Chloride (Saline Flush) 10 ml IV Q12 [facility] Last Admin: 09/26/19 09:08 Dose: 10 ml Documented by: Vancomycin HCl (Vancomycin Per Pharmacy) 1 [place] [facility] [place] Protocol Venlafaxine HCl (Effexor Xr) 150 mg PO QDAY [facility] Last Admin: 09/26/19 09:07 Dose: 150 mg Documented by: Warfarin Sodium (Coumadin Per Pharmacy) 1 order PO UD [facility] Warfarin Sodium (Coumadin) 3 mg PO ONCE@1400 ONE Stop: 09/26/19 14:01 Medical - PN: A/P - Time Spent With Patient Total time spent is greater than 50% in coordination of care (as documented) at patient's floor/unit and/or counseling patient: 25 - 35 minutes (1) Pressure ulcer of sacral region, unstageable Problem details: Local wound care as discussed with nursing staff. Status: Chronic Assessment and plan: * Infected decubitus ulcer with cultures - MRSA/enterococcus. On Levaquin/vancomycin. Ongoing wound care/wound VAC per wound physician. * Severe sepsis-clinically resolved * Complicated UTI clinically resolved on Levaquin/vancomycin * Underlying dementia with intermittent delirium. avoid sedative-hypnotics. * History of schizophrenia-stable currently not on meds * History of CVA stable, continue statin * A. fib rate controlled on metoprolol 75 twice daily/Coumadin for CVA prophylaxis * CKD stage II stable * Hypothyroidism on thyroxine. Dose increased to 62.5. TSH 14.8 * Hyperlipidemia continue statin * Anxiety disorder continue venlafaxine * GERD on PPI * DVT prophylaxis on Coumadin Plan * Continue wound care/wound VAC * Increased levothyroxine to 62.5 * Pre-existing medical condition management as above * Daily Coumadin dosing based on INR * PT OT/Nutrition support * Await SNF transfer Current Visit: Yes Medical - PN: Qual - VTE Deep Vein Thrombosis/Pulmonary Embolism Present on Admission: No
[2019-09-26] MEDS ORDERED: WARFARIN 3 MG TABLET PO ONE (14:00)
[2019-09-26] MEDS: ATORVASTATIN 40 MG TABLET PO SCH (20:32)
[2019-09-27] MEDS: HYDROcodone/APAP 5/325MG TABLET PO PRN ×2 (04:12→08:47)
[2019-09-27] MEDS: FLUTICASONE/SALMETEROL 50/100 INHALER #14 INH SCH ×2 (07:45→22:06)
[2019-09-27] MEDS: LEVOTHYROXINE 100 MCG TABLET PO SCH (07:45)
[2019-09-27] MEDS: PANTOPRAZOLE 40 MG TABLET PO SCH (07:45)
[2019-09-27 08:28] LABS: INR 2.1 (0.9-1.1)
[2019-09-27] MEDS: METOPROLOL TARTRATE 25 MG TABLET PO SCH ×2 (08:45→22:08)
[2019-09-27] MEDS: BENZTROPINE 1 MG TABLET PO SCH ×2 (08:45→22:07)
[2019-09-27] MEDS: LEVOFLOXACIN 750 MG TABLET PO SCH (08:46)
[2019-09-27] MEDS: lamoTRIgine 100 MG TABLET PO SCH (08:46)
[2019-09-27] MEDS: DOCUSATE SODIUM 100 MG CAPSULE PO SCH ×2 (08:46→22:08)
[2019-09-27] MEDS: HYDROCHLOROTHIAZIDE 25 MG TABLET PO SCH (08:46)
[2019-09-27] MEDS: VENLAFAXINE 150 MG CAP.XL.24H PO SCH (08:46)
[2019-09-27] MEDS: MULTIVIT,THER IRON,CA,FA & MIN 1 TABLET PO SCH (08:47)
[2019-09-27] MEDS: clonazePAM 0.5 MG TABLET PO PRN (08:47)
[2019-09-27] MEDS: 0.9 % SODIUM CHLORIDE 10 ML SYRINGE IV SCH ×2 (08:48→22:06)
[2019-09-27] MEDS: medroxyPROGESTERone 10 MG TABLET PO SCH ×2 (08:52→22:19)
[2019-09-27] MEDS: VANCOMYCIN 1,500 MG in 0.9 % SODIUM CHLORIDE 500 ML IV SCH (08:52)
[2019-09-27] MEDS ORDERED: WARFARIN 5 MG TABLET PO ONE (14:00)
[2019-09-27] MEDS: ATORVASTATIN 40 MG TABLET PO SCH (22:08)
[2019-09-28] MEDS: HYDROcodone/APAP 5/325MG TABLET PO PRN ×2 (00:09→08:40)
[2019-09-28] MEDS: 0.9 % SODIUM CHLORIDE 10 ML SYRINGE IV SCH ×3 (02:38→20:43)
[2019-09-28] MEDS: LEVOTHYROXINE 100 MCG TABLET PO SCH (06:43)
[2019-09-28] MEDS: PANTOPRAZOLE 40 MG TABLET PO SCH (06:43)
[2019-09-28] MEDS: clonazePAM 0.5 MG TABLET PO PRN (08:40)
[2019-09-28] MEDS: VENLAFAXINE 150 MG CAP.XL.24H PO SCH (08:41)
[2019-09-28] MEDS: DOCUSATE SODIUM 100 MG CAPSULE PO SCH ×2 (08:41→20:42)
[2019-09-28] MEDS: METOPROLOL TARTRATE 25 MG TABLET PO SCH ×2 (08:41→20:42)
[2019-09-28] MEDS: MULTIVIT,THER IRON,CA,FA & MIN 1 TABLET PO SCH (08:41)
[2019-09-28] MEDS: lamoTRIgine 100 MG TABLET PO SCH (08:41)
[2019-09-28] MEDS: HYDROCHLOROTHIAZIDE 25 MG TABLET PO SCH (08:41)
[2019-09-28] MEDS: BENZTROPINE 1 MG TABLET PO SCH ×2 (08:41→20:42)
[2019-09-28] MEDS: FLUTICASONE/SALMETEROL 50/100 INHALER #14 INH SCH ×2 (08:42→20:43)
[2019-09-28] MEDS: medroxyPROGESTERone 10 MG TABLET PO SCH ×2 (08:42→20:41)
[2019-09-28 09:21] LABS: INR 2.2 (0.9-1.1); Prothrombin Time 24.5 sec (11.9-14.5)
[2019-09-28] MEDS ORDERED: WARFARIN 2 MG TABLET PO ONE (14:00)
[2019-09-28] MEDS: ATORVASTATIN 40 MG TABLET PO SCH (20:42)
--- NOTE | 2019-09-28 22:17 | Internal Med Progress Note ---
Medical - PN: Subj Patient information: Note initiated : 09/27/19 at 10:15 pm Service Date, if different from initiated Date: [] Patient: Christine Cespedes a 64 y/o F admitted on 09/08/19 for Sepsis, UTI. Chief Complaint: [] Interval history: 09/08 Ms. Cespedes is a 64 year old F with a history of atrial fibrillation, recent subdural hematoma, history of ischemic strokes, hypertension, sleep apnea not on CPAP, prediabetes, morbid obesity with mobility impairment who presents to the emergency department with lethargy. History is obtained speaking to her caregiver. She has a caregiver in the home during the days, but not at night. The caregiver notes yesterday she was not quite herself, displaying some mild confusion. Her appetite was decreased. Caregiver made her a sandwich for dinner prior to her leaving yesterday, was still on eaten this morning when their caregiver arrived. Patient was in bed, was too weak to get out of bed, was confused and could not respond appropriately. In the ED, there is a history of low-grade fever as well. Because of lethargy, fever and weakness EMS was activated and she is brought to the ED. In the emergency department she has evidence of sepsis with now white count of 22,000, lactate of 3.8, increased anion gap and significantly abnormal urine analysis with pyuria and bacteriuria. She is being admitted for treatment of sepsis from urinary source. 09/09 Intermittently more responsive, was sitting up on edge of bed with physical therapy and did participate in self-care this morning. Is required fluids for declining blood pressures today with response. 09/10 Slowly continues to be more interactive. Urine culture with E. coli, only resistant to fluoroquinolones. Blood pressure stable. 09/11 Much more alert and interactive today. Still quite weak and needing assistance to stay sitting up at bedside. Held conversation with her, she states her goal is to get better. I encouraged her to increase her oral intake and that it is important for her to eat to get better. Nursing spoke with her son, who is her eldest child. He is a long-haul bicycle fitter and is out of state, but agreed that she will likely need skilled placement following this admission. In the late afternoon, she awoke panicked that she was trapped in a trailer and was disoriented. Had significant anxiety. 09/12/2019 Patient continued to have disorientation and hallucinations yesterday evening, was up much of the night, eventually calm down. Medicine list reviewed, she does not have any antipsychotics or other treatments for schizophrenia. Attempting to reconfirm her medication list. This morning, states she is not feeling too well, but is sleepy drifts back off. 09/13 Patient seems less interactive than she was yesterday afternoon. Sacral wound now draining material and will need debridement. Previously had eschar that was being debrided. Should've completed for therapy for UTI sepsis. Discussed with Dr. Juarez, whose consult general surgery. Have consulted Dr. Silverio, is recommended. Vancomycin and Zosyn for now until debridement. 09/14 Patient status post surgical I&D. Drowsy but opens eyes to voice. Refused CT imaging yesterday as recommended by infectious disease. No overnight events. Discussed case with her son who makes medical decisions when she is unable. He was able to clarify that she would be a DO NOT RESUSCITATE in the event effect catastrophic event. Regarding goals of care. We will see how she has in the next day or 2 09/15 Nurse able to get the patient to drink a carnation instant breakfast. Patient sleeping at this time but awakens and admits to feeling little better but otherwise not verbalizing a whole lot and difficult to obtain review of systems. she is on room air today. 09/16 Yesterday afternoon patient was sitting up in bed eating breakfast, mentation and somnolence improved. Feeling much better today. Has occasional cough and headache. No other complaints. Nurse report diarrhea. Again mentation significantly improved she is oriented to place and President 09/17 No overnight event or new complaints. Patient resting comfortably in bed. Denies any cough or shortness of breath. 09/18 Patient unable to be placed yesterday still working on placement. Patient sleeping this morning. Denies any complaints. 09/20 Patient was resting Unable to obtain detailed review of system, denied any active chest pain abdominal pain Discussed with the case management and planning for placement there are new options available and social service working in profiling 09/21 Wound care evaluated the patient and patient moved looks better and slowly progressing. Recommend continuing wound VAC Case management working on placement options 09/22/19 Her leukocytosis is persistent with thrombocytosis No fever Continuing same antibiotic Ordered CRP ESR level and pro calcitonin No features of sepsis If she continues to increase leukocyte count will discuss with infectious disease and reculture the wound 09/23/19 Intermittently her A. fib went up to 110 120 Metoprolol dose increased to 75 twice daily since then her heart rate has been controlled Her leukocytosis remained slightly elevated and she is also on medroxyprogesterone CRP 43 will trend the CRP if it is creeping up will get opinion from infectious disease and wound care 09/24-patient doing well. Awaiting placement. Ongoing wound care/wound VAC/antibiotics. No concerns per nursing staff. 09/25-doing well awaiting transfer to SNF. White count of 10.7. INR therapeutic 2.6, potassium at 4, continuing vancomycin/Levaquin. No overnight fever chills or concerns per staff. Appears to be volume long however net body weight down since admission. Continue PT OT/wound care 09/26-patient doing well. No overnight events. Ongoing wound care/antibiotics. Thyroxine increased to 62.5 based on TSH over 14. Continuing PT OT/nutrition support. Await SNF transfer. Rate controlled around 100 09/27-ongoing wound care. Awaiting placement. No overnight events. Continue nutrition support. - Constitutional Vitals: Vital Signs Temp Pulse Resp BP Pulse Ox 98 F 110 H 22 112/76 96 09/28/19 19:10 09/28/19 19:10 09/28/19 19:10 09/28/19 19:10 09/28/19 19:10 Period Temp Pulse Resp BP Sys/Butler Pulse Ox Last 24 Hr 97.1 F-98.5 F 95-110 16-22 90-112/55-76 94-98 Intake and Output 09/28/19 09/28/19 09/29/19 13:59 21:59 05:59 Intake Total 400 240 Output Total 600 Balance 400 -360 Weight 214 lb 8 oz Patient Weight 09/29/19 05:59 Weight 214 lb 8 oz Intake & Output: Intake & Output 09/28/19 09/28/19 09/29/19 13:59 21:59 05:59 Intake Total 400 240 Output Total 600 Balance 400 -360 Weight 214 lb 8 oz Intake: Oral 400 240 Output: Urine Catheter Amount 600 Other: Meal Lunch Percent of Meal Consumed 25% Feeding Ability Needs Supervision Urine Appearance Cloudy Uretheral (Aguirre) Clear Clear Urine Color Dark Yellow Uretheral (Aguirre) Bright Yellow Dark Yellow Urine Odor Strong Stool Size Small Moderate Stool Color Brown Brown Stool Consistency Loose Loose # of times incontinent of 1 Bowels General appearance: no acute distress Exam: Resting comfortably Nonlabored breathing no anxiety Medical - PN: Obj Da - Labs CBC & Chem 7: 09/26/19 05:15 09/26/19 05:15 Labs: Abnormal Lab Results 09/28/19 09/27/19 09/26/19 05:34 06:03 05:15 WBC Plt Count Myelocytes % PT 24.5 H 23.0 H 23.8 H INR 2.2 H 2.1 H 2.2 H AST ALT Alkaline Phosphatase 09/26/19 09/26/19 05:15 05:15 WBC 12.2 H Plt Count 478 H Myelocytes % 1 H PT INR AST 69 H ALT 69 H Alkaline Phosphatase 131 H Meds: Medications Acetaminophen (Tylenol) 650 mg PO Q6HP PRN; Protocol PRN Reason: Per Pain Protocol/Fever > 101 Last Admin: 09/25/19 11:22 Dose: 650 mg Documented by: Hydrocodone Bitart/Acetaminophen ([place] 5/325mg) 1 tab PO Q4HP PRN; Protocol PRN Reason: Per Pain Protocol Last Admin: 09/28/19 08:40 Dose: 1 tab Documented by: Albuterol/Ipratropium (Duoneb) 3 ml NEB Q6H PRN PRN Reason: shortness of breath Atorvastatin Calcium (Lipitor) 40 mg PO QHS [facility] Last Admin: 09/28/19 20:42 Dose: 40 mg Documented by: Benztropine Mesylate (Cogentin) 2 mg PO BID [facility] Last Admin: 09/28/19 20:42 Dose: 2 mg Documented by: Clonazepam (Klonopin) 0.25 mg PO BIDP PRN PRN Reason: Anxiety Last Admin: 09/28/19 08:40 Dose: 0.25 mg Documented by: Docusate Sodium (Colace) 100 mg PO BID [facility] Last Admin: 09/28/19 20:42 Dose: Not Given Documented by: Heparin Sodium (Porcine) (Heparin Flush) 2 ml IV Q12 [facility] Last Admin: 09/28/19 20:42 Dose: 2 ml Documented by: Hydrochlorothiazide (Oretic) 25 mg PO QAM [facility] Last Admin: 09/28/19 08:41 Dose: 25 mg Documented by: Acetaminophen (Ofirmev) 650 mg in 65 mls @ 130 mls/hr IV Q6HP PRN; Protocol PRN Reason: PAIN/FEVER > 101 Iron Carb/Multivit/[place]/Folic Acid (Multivitamin W/Minerals) 1 tab PO DAILY [facility] Last Admin: 09/28/19 08:41 Dose: 1 tab Documented by: Lactulose (Cephulac) 10 gm PO DAILYP PRN PRN Reason: Constipation Lamotrigine (Lamictal) 100 mg PO QDAY [facility] Last Admin: 09/28/19 08:41 Dose: 100 mg Documented by: Levothyroxine Sodium (Synthroid) 400 mcg PO ACB [facility] Last Admin: 09/28/19 06:43 Dose: 400 mcg Documented by: Medroxyprogesterone Acetate (Provera) 10 mg PO BID [facility] Last Admin: 09/28/19 20:41 Dose: 10 mg Documented by: Metoprolol Tartrate (Lopressor) 5 mg IV Q2HP PRN PRN Reason: Tachyarrhythmias HR>110 Last Admin: 09/21/19 12:13 Dose: 5 mg Documented by: Metoprolol Tartrate (Lopressor) 75 mg PO BID [facility] Last Admin: 09/28/19 20:42 Dose: 75 mg Documented by: Naloxone HCl (Narcan) 0.1 mg IV Q2MIN PRN PRN Reason: Opiate Reversal Ondansetron HCl (Zofran) 4 mg IV Q4HP PRN; Protocol PRN Reason: Nausea And Vomiting Last Admin: 09/19/19 05:37 Dose: 4 mg Documented by: Pantoprazole Sodium (Protonix) 40 mg PO QAMAC [facility] Last Admin: 09/28/19 06:43 Dose: 40 mg Documented by: Fluticasone/Salmeterol (Advair 100-50 Diskus) 1 puff INH BID [facility] Last Admin: 09/28/19 20:43 Dose: Not Given Documented by: Senna (Senokot) 2 tab PO HSP PRN PRN Reason: Constipation Last Admin: 09/22/19 19:01 Dose: 2 tab Documented by: Sodium Chloride (Saline Flush) 10 ml IV UD PRN PRN Reason: FLUSH Last Admin: 09/20/19 21:00 Dose: 10 ml Documented by: Sodium Chloride (Saline Flush) 10 ml IV Q12 [facility] Last Admin: 09/28/19 20:43 Dose: 10 ml Documented by: Venlafaxine HCl (Effexor Xr) 150 mg PO QDAY [facility] Last Admin: 09/28/19 08:41 Dose: 150 mg Documented by: Warfarin Sodium (Coumadin Per Pharmacy) 1 order PO UD [facility] Medical - PN: A/P - Time Spent With Patient Total time spent is greater than 50% in coordination of care (as documented) at patient's floor/unit and/or counseling patient: 15 - 24 minutes (1) Pressure ulcer of sacral region, unstageable Problem details: Local wound care as discussed with nursing staff. Status: Chronic Assessment and plan: * Infected decubitus ulcer with cultures - MRSA/enterococcus. On Levaquin/vancomycin. Continue wound care/wound VAC * Severe sepsis-clinically resolved * Complicated UTI clinically resolved on Levaquin/vancomycin * Underlying dementia with intermittent delirium. avoid sedative-hypnotics. * History of schizophrenia-stable currently not on meds * History of CVA stable, continue statin * A. fib rate controlled on metoprolol 75 twice daily/Coumadin for CVA prophylaxis * CKD stage II stable * Hypothyroidism on thyroxine. Dose increased to 400 * Hyperlipidemia continue statin * Anxiety disorder continue venlafaxine * GERD on PPI * DVT prophylaxis on Coumadin Plan * Continue wound care/wound VAC * Pre-existing medical condition management as above * Daily Coumadin dosing based on INR * PT OT/Nutrition support * Await SNF transfer Current Visit: Yes Medical - PN: Qual - VTE Deep Vein Thrombosis/Pulmonary Embolism Present on Admission: No
--- NOTE | 2019-09-28 22:19 | Internal Med Progress Note ---
Medical - PN: Subj Patient information: Note initiated : 09/28/19 at 10:17 pm Service Date, if different from initiated Date: [] Patient: Christine Cespedes a 64 y/o F admitted on 09/08/19 for Sepsis, UTI. Chief Complaint: [] Interval history: 09/08 Ms. Cespedes is a 64 year old F with a history of atrial fibrillation, recent subdural hematoma, history of ischemic strokes, hypertension, sleep apnea not on CPAP, prediabetes, morbid obesity with mobility impairment who presents to the emergency department with lethargy. History is obtained speaking to her caregiver. She has a caregiver in the home during the days, but not at night. The caregiver notes yesterday she was not quite herself, displaying some mild confusion. Her appetite was decreased. Caregiver made her a sandwich for dinner prior to her leaving yesterday, was still on eaten this morning when their caregiver arrived. Patient was in bed, was too weak to get out of bed, was confused and could not respond appropriately. In the ED, there is a history of low-grade fever as well. Because of lethargy, fever and weakness EMS was activated and she is brought to the ED. In the emergency department she has evidence of sepsis with now white count of 22,000, lactate of 3.8, increased anion gap and significantly abnormal urine analysis with pyuria and bacteriuria. She is being admitted for treatment of sepsis from urinary source. 09/09 Intermittently more responsive, was sitting up on edge of bed with physical therapy and did participate in self-care this morning. Is required fluids for declining blood pressures today with response. 09/10 Slowly continues to be more interactive. Urine culture with E. coli, only resistant to fluoroquinolones. Blood pressure stable. 09/11 Much more alert and interactive today. Still quite weak and needing assistance to stay sitting up at bedside. Held conversation with her, she states her goal is to get better. I encouraged her to increase her oral intake and that it is important for her to eat to get better. Nursing spoke with her son, who is her eldest child. He is a long-haul warrant clerk and is out of state, but agreed that she will likely need skilled placement following this admission. In the late afternoon, she awoke panicked that she was trapped in a trailer and was disoriented. Had significant anxiety. 09/12/2019 Patient continued to have disorientation and hallucinations yesterday evening, was up much of the night, eventually calm down. Medicine list reviewed, she does not have any antipsychotics or other treatments for schizophrenia. Attempting to reconfirm her medication list. This morning, states she is not feeling too well, but is sleepy drifts back off. 09/13 Patient seems less interactive than she was yesterday afternoon. Sacral wound now draining material and will need debridement. Previously had eschar that was being debrided. Should've completed for therapy for UTI sepsis. Discussed with Dr. Juarez, whose consult general surgery. Have consulted Dr. Silverio, is recommended. Vancomycin and Zosyn for now until debridement. 09/14 Patient status post surgical I&D. Drowsy but opens eyes to voice. Refused CT imaging yesterday as recommended by infectious disease. No overnight events. Discussed case with her son who makes medical decisions when she is unable. He was able to clarify that she would be a DO NOT RESUSCITATE in the event effect catastrophic event. Regarding goals of care. We will see how she has in the next day or 2 09/15 Nurse able to get the patient to drink a carnation instant breakfast. Patient sleeping at this time but awakens and admits to feeling little better but otherwise not verbalizing a whole lot and difficult to obtain review of systems. she is on room air today. 09/16 Yesterday afternoon patient was sitting up in bed eating breakfast, mentation and somnolence improved. Feeling much better today. Has occasional cough and headache. No other complaints. Nurse report diarrhea. Again mentation significantly improved she is oriented to place and President 09/17 No overnight event or new complaints. Patient resting comfortably in bed. Denies any cough or shortness of breath. 09/18 Patient unable to be placed yesterday still working on placement. Patient sleeping this morning. Denies any complaints. 09/20 Patient was resting Unable to obtain detailed review of system, denied any active chest pain abdominal pain Discussed with the case management and planning for placement there are new options available and social service working in profiling 09/21 Wound care evaluated the patient and patient moved looks better and slowly progressing. Recommend continuing wound VAC Case management working on placement options 09/22/19 Her leukocytosis is persistent with thrombocytosis No fever Continuing same antibiotic Ordered CRP ESR level and pro calcitonin No features of sepsis If she continues to increase leukocyte count will discuss with infectious disease and reculture the wound 09/23/19 Intermittently her A. fib went up to 110 120 Metoprolol dose increased to 75 twice daily since then her heart rate has been controlled Her leukocytosis remained slightly elevated and she is also on medroxyprogesterone CRP 43 will trend the CRP if it is creeping up will get opinion from infectious disease and wound care 09/24-patient doing well. Awaiting placement. Ongoing wound care/wound VAC/antibiotics. No concerns per nursing staff. 09/25-doing well awaiting transfer to SNF. White count of 10.7. INR therapeutic 2.6, potassium at 4, continuing vancomycin/Levaquin. No overnight fever chills or concerns per staff. Appears to be volume long however net body weight down since admission. Continue PT OT/wound care 09/26-patient doing well. No overnight events. Ongoing wound care/antibiotics. Thyroxine increased to 62.5 based on TSH over 14. Continuing PT OT/nutrition support. Await SNF transfer. Rate controlled around 100 09/27-ongoing wound care. Awaiting placement. No overnight events. Continue nutrition support. 09/28-doing well. No overnight events, INR 2.2, antibiotics discontinued, await placement. Ongoing nutrition support/wound care - Constitutional Vitals: Vital Signs Temp Pulse Resp BP Pulse Ox 98 F 110 H 22 112/76 96 09/28/19 19:10 09/28/19 19:10 09/28/19 19:10 09/28/19 19:10 09/28/19 19:10 Period Temp Pulse Resp BP Sys/Butler Pulse Ox Last 24 Hr 97.1 F-98.5 F 95-110 16-22 90-112/55-76 94-98 Intake and Output 09/28/19 09/28/19 09/29/19 13:59 21:59 05:59 Intake Total 400 240 Output Total 600 Balance 400 -360 Weight 214 lb 8 oz Patient Weight 09/29/19 05:59 Weight 214 lb 8 oz Intake & Output: Intake & Output 09/28/19 09/28/19 09/29/19 13:59 21:59 05:59 Intake Total 400 240 Output Total 600 Balance 400 -360 Weight 214 lb 8 oz Intake: Oral 400 240 Output: Urine Catheter Amount 600 Other: Meal Lunch Percent of Meal Consumed 25% Feeding Ability Needs Supervision Urine Appearance Cloudy Uretheral (Aguirre) Clear Clear Urine Color Dark Yellow Uretheral (Aguirre) Bright Yellow Dark Yellow Urine Odor Strong Stool Size Small Moderate Stool Color Brown Brown Stool Consistency Loose Loose # of times incontinent of 1 Bowels General appearance: no acute distress Exam: Alert oriented Nonlabored breathing No anxiety Medical - PN: Obj Da - Labs CBC & Chem 7: 09/26/19 05:15 09/26/19 05:15 Labs: Abnormal Lab Results 09/28/19 09/27/19 09/26/19 05:34 06:03 05:15 WBC Plt Count Myelocytes % PT 24.5 H 23.0 H 23.8 H INR 2.2 H 2.1 H 2.2 H AST ALT Alkaline Phosphatase 09/26/19 09/26/19 05:15 05:15 WBC 12.2 H Plt Count 478 H Myelocytes % 1 H PT INR AST 69 H ALT 69 H Alkaline Phosphatase 131 H Meds: Medications Acetaminophen (Tylenol) 650 mg PO Q6HP PRN; Protocol PRN Reason: Per Pain Protocol/Fever > 101 Last Admin: 09/25/19 11:22 Dose: 650 mg Documented by: Hydrocodone Bitart/Acetaminophen ([place] 5/325mg) 1 tab PO Q4HP PRN; Protocol PRN Reason: Per Pain Protocol Last Admin: 09/28/19 08:40 Dose: 1 tab Documented by: Albuterol/Ipratropium (Duoneb) 3 ml NEB Q6H PRN PRN Reason: shortness of breath Atorvastatin Calcium (Lipitor) 40 mg PO QHS [facility] Last Admin: 09/28/19 20:42 Dose: 40 mg Documented by: Benztropine Mesylate (Cogentin) 2 mg PO BID [facility] Last Admin: 09/28/19 20:42 Dose: 2 mg Documented by: Clonazepam (Klonopin) 0.25 mg PO BIDP PRN PRN Reason: Anxiety Last Admin: 09/28/19 08:40 Dose: 0.25 mg Documented by: Docusate Sodium (Colace) 100 mg PO BID [facility] Last Admin: 09/28/19 20:42 Dose: Not Given Documented by: Heparin Sodium (Porcine) (Heparin Flush) 2 ml IV Q12 [facility] Last Admin: 09/28/19 20:42 Dose: 2 ml Documented by: Hydrochlorothiazide (Oretic) 25 mg PO QAM [facility] Last Admin: 09/28/19 08:41 Dose: 25 mg Documented by: Acetaminophen (Ofirmev) 650 mg in 65 mls @ 130 mls/hr IV Q6HP PRN; Protocol PRN Reason: PAIN/FEVER > 101 Iron Carb/Multivit/[place]/Folic Acid (Multivitamin W/Minerals) 1 tab PO DAILY [facility] Last Admin: 09/28/19 08:41 Dose: 1 tab Documented by: Lactulose (Cephulac) 10 gm PO DAILYP PRN PRN Reason: Constipation Lamotrigine (Lamictal) 100 mg PO QDAY [facility] Last Admin: 09/28/19 08:41 Dose: 100 mg Documented by: Levothyroxine Sodium (Synthroid) 400 mcg PO ACB [facility] Last Admin: 09/28/19 06:43 Dose: 400 mcg Documented by: Medroxyprogesterone Acetate (Provera) 10 mg PO BID [facility] Last Admin: 09/28/19 20:41 Dose: 10 mg Documented by: Metoprolol Tartrate (Lopressor) 5 mg IV Q2HP PRN PRN Reason: Tachyarrhythmias HR>110 Last Admin: 09/21/19 12:13 Dose: 5 mg Documented by: Metoprolol Tartrate (Lopressor) 75 mg PO BID [facility] Last Admin: 09/28/19 20:42 Dose: 75 mg Documented by: Naloxone HCl (Narcan) 0.1 mg IV Q2MIN PRN PRN Reason: Opiate Reversal Ondansetron HCl (Zofran) 4 mg IV Q4HP PRN; Protocol PRN Reason: Nausea And Vomiting Last Admin: 09/19/19 05:37 Dose: 4 mg Documented by: Pantoprazole Sodium (Protonix) 40 mg PO QAMAC [facility] Last Admin: 09/28/19 06:43 Dose: 40 mg Documented by: Fluticasone/Salmeterol (Advair 100-50 Diskus) 1 puff INH BID [facility] Last Admin: 09/28/19 20:43 Dose: Not Given Documented by: Senna (Senokot) 2 tab PO HSP PRN PRN Reason: Constipation Last Admin: 09/22/19 19:01 Dose: 2 tab Documented by: Sodium Chloride (Saline Flush) 10 ml IV UD PRN PRN Reason: FLUSH Last Admin: 09/20/19 21:00 Dose: 10 ml Documented by: Sodium Chloride (Saline Flush) 10 ml IV Q12 [facility] Last Admin: 09/28/19 20:43 Dose: 10 ml Documented by: Venlafaxine HCl (Effexor Xr) 150 mg PO QDAY [facility] Last Admin: 09/28/19 08:41 Dose: 150 mg Documented by: Warfarin Sodium (Coumadin Per Pharmacy) 1 order PO UD [facility] Medical - PN: A/P - Time Spent With Patient Total time spent is greater than 50% in coordination of care (as documented) at patient's floor/unit and/or counseling patient: 15 - 24 minutes (1) Pressure ulcer of sacral region, unstageable Problem details: Local wound care as discussed with nursing staff. Status: Chronic Assessment and plan: * Infected decubitus ulcer with cultures - MRSA/enterococcus. Off antibiotics. Continue wound care/wound VAC * Severe sepsis-clinically resolved * Complicated UTI clinically resolved now off antibiotics * Underlying dementia with intermittent delirium. avoid sedative-hypnotics. * History of schizophrenia-no acute decompensation * History of CVA stable, continue statin * A. fib rate controlled on metoprolol 75 twice daily/Coumadin for CVA prophylaxis * CKD stage II stable * Hypothyroidism on thyroxine. Dose increased to 400 * Hyperlipidemia continue statin * Anxiety disorder continue venlafaxine * GERD on PPI * DVT prophylaxis on Coumadin Plan * Continue wound care/wound VAC * Continue pre-existing medical condition management as above * Coumadin dosing based on INR * PT OT/Nutrition support * SNF transfer coordination per case management Current Visit: Yes Medical - PN: Qual - VTE Deep Vein Thrombosis/Pulmonary Embolism Present on Admission: No
[2019-09-29 06:37] LABS: INR 2.2 (0.9-1.1); Prothrombin Time 24.1 sec (11.9-14.5)
[2019-09-29] MEDS: clonazePAM 0.5 MG TABLET PO PRN (08:01)
[2019-09-29] MEDS: LEVOTHYROXINE 100 MCG TABLET PO SCH (08:01)
[2019-09-29] MEDS: PANTOPRAZOLE 40 MG TABLET PO SCH (08:02)
[2019-09-29] MEDS: MULTIVIT,THER IRON,CA,FA & MIN 1 TABLET PO SCH (08:02)
[2019-09-29] MEDS: lamoTRIgine 100 MG TABLET PO SCH (08:02)
[2019-09-29] MEDS: HYDROCHLOROTHIAZIDE 25 MG TABLET PO SCH (08:02)
[2019-09-29] MEDS: BENZTROPINE 1 MG TABLET PO SCH ×2 (08:03→21:07)
[2019-09-29] MEDS: DOCUSATE SODIUM 100 MG CAPSULE PO SCH ×2 (08:03→21:27)
[2019-09-29] MEDS: medroxyPROGESTERone 10 MG TABLET PO SCH ×2 (08:04→21:27)
[2019-09-29] MEDS: FLUTICASONE/SALMETEROL 50/100 INHALER #14 INH SCH ×2 (08:04→21:07)
[2019-09-29] MEDS: METOPROLOL TARTRATE 25 MG TABLET PO SCH ×2 (08:04→21:07)
[2019-09-29] MEDS: 0.9 % SODIUM CHLORIDE 10 ML SYRINGE IV SCH ×2 (08:07→21:08)
[2019-09-29] MEDS: HYDROcodone/APAP 5/325MG TABLET PO PRN ×2 (10:03→14:44)
[2019-09-29] MEDS: VENLAFAXINE 150 MG CAP.XL.24H PO SCH (10:03)
[2019-09-29] MEDS ORDERED: WARFARIN 5 MG TABLET PO ONE (14:00)
--- NOTE | 2019-09-29 15:51 | Internal Med Progress Note ---
Medical - PN: Subj Patient information: Note initiated : 09/29/19 at 3:51 pm Service Date, if different from initiated Date: [] Patient: Christine Cespedes a 64 y/o F admitted on 09/08/19 for Sepsis, UTI. Chief Complaint: [] Interval history: 09/08 Ms. Cespedes is a 64 year old F with a history of atrial fibrillation, recent subdural hematoma, history of ischemic strokes, hypertension, sleep apnea not on CPAP, prediabetes, morbid obesity with mobility impairment who presents to the emergency department with lethargy. History is obtained speaking to her caregiver. She has a caregiver in the home during the days, but not at night. The caregiver notes yesterday she was not quite herself, displaying some mild confusion. Her appetite was decreased. Caregiver made her a sandwich for dinner prior to her leaving yesterday, was still on eaten this morning when their caregiver arrived. Patient was in bed, was too weak to get out of bed, was confused and could not respond appropriately. In the ED, there is a history of low-grade fever as well. Because of lethargy, fever and weakness EMS was activated and she is brought to the ED. In the emergency department she has evidence of sepsis with now white count of 22,000, lactate of 3.8, increased anion gap and significantly abnormal urine analysis with pyuria and bacteriuria. She is being admitted for treatment of sepsis from urinary source. 09/09 Intermittently more responsive, was sitting up on edge of bed with physical therapy and did participate in self-care this morning. Is required fluids for declining blood pressures today with response. 09/10 Slowly continues to be more interactive. Urine culture with E. coli, only resistant to fluoroquinolones. Blood pressure stable. 09/11 Much more alert and interactive today. Still quite weak and needing assistance to stay sitting up at bedside. Held conversation with her, she states her goal is to get better. I encouraged her to increase her oral intake and that it is important for her to eat to get better. Nursing spoke with her son, who is her eldest child. He is a long-haul cnc field service engineer and is out of state, but agreed that she will likely need skilled placement following this admission. In the late afternoon, she awoke panicked that she was trapped in a trailer and was d isoriented. Had significant anxiety. 09/12/2019 Patient continued to have disorientation and hallucinations yesterday evening, was up much of the night, eventually calm down. Medicine list reviewed, she does not have any antipsychotics or other treatments for schizophrenia. Attempting to reconfirm her medication list. This morning, states she is not feeling too well, but is sleepy drifts back off. 09/13 Patient seems less interactive than she was yesterday afternoon. Sacral wound now draining material and will need debridement. Previously had eschar that was being debrided. Should've completed for therapy for UTI sepsis. Discussed with Dr. Juarez, whose consult general surgery. Have consulted Dr. Silverio, is recommended. Vancomycin and Zosyn for now until debridement. 09/14 Patient status post surgical I&D. Drowsy but opens eyes to voice. Refused CT imaging yesterday as recommended by infectious disease. No overnight events. Discussed case with her son who makes medical decisions when she is unable. He was able to clarify that she would be a DO NOT RESUSCITATE in the event effect catastrophic event. Regarding goals of care. We will see how she has in the next day or 2 09/15 Nurse able to get the patient to drink a carnation instant breakfast. Patient sleeping at this time but awakens and admits to feeling little better but otherwise not verbalizing a whole lot and difficult to obtain review of systems. she is on room air today. 09/16 Yesterday afternoon patient was sitting up in bed eating breakfast, mentation and somnolence improved. Feeling much better today. Has occasional cough and headache. No other complaints. Nurse report diarrhea. Again mentation significantly improved she is oriented to place and President 09/17 No overnight event or new complaints. Patient resting comfortably in bed. Denies any cough or shortness of breath. 09/18 Patient unable to be placed yesterday still working on placement. Patient sleeping this morning. Denies any complaints. 09/20 Patient was resting Unable to obtain detailed review of system, denied any active chest pain abdominal pain Discussed with the case management and planning for placement there are new options available and social service working in profiling 09/21 Wound care evaluated the patient and patient moved looks better and slowly progressing. Recommend continuing wound VAC Case management working on placement options 09/22/19 Her leukocytosis is persistent with thrombocytosis No fever Continuing same antibiotic Ordered CRP ESR level and pro calcitonin No features of sepsis If she continues to increase leukocyte count will discuss with infectious disease and reculture the wound 09/23/19 Intermittently her A. fib went up to 110 120 Metoprolol dose increased to 75 twice daily since then her heart rate has been controlled Her leukocytosis remained slightly elevated and she is also on medroxyprogesterone CRP 43 will trend the CRP if it is creeping up will get opinion from infectious disease and wound care 09/24-patient doing well. Awaiting placement. Ongoing wound care/wound VAC/antibiotics. No concerns per nursing staff. 09/25-doing well awaiting transfer to SNF. White count of 10.7. INR therapeutic 2.6, potassium at 4, continuing vancomycin/Levaquin. No overnight fever chills or concerns per staff. Appears to be volume long however net body weight down since admission. Continue PT OT/wound care 09/26-patient doing well. No overnight events. Ongoing wound care/antibiotics. Thyroxine increased to 62.5 based on TSH over 14. Continuing PT OT/nutrition support. Await SNF transfer. Rate controlled around 100 09/27-ongoing wound care. Awaiting placement. No overnight events. Continue nutrition support. 09/28-doing well. No overnight events, INR 2.2, antibiotics discontinued, await placement. Ongoing nutrition support/wound care 09/29-patient awaiting placement. Redness and erythema around the gluteal ulcer site. Ongoing wound care. No overnight fever chills. Off antibiotics. Continue PT OT/nutrition support/wound care. - Constitutional Vitals: Vital Signs Temp Pulse Resp BP Pulse Ox 97.2 F 85 20 103/66 99 09/29/19 11:28 09/29/19 11:28 09/29/19 11:28 09/29/19 11:28 09/29/19 11:28 Period Temp Pulse Resp BP Sys/Butler Pulse Ox Last 24 Hr 97.2 F-98.3 F 85-110 12-22 98-112/64-76 94-99 Intake and Output 09/29/19 09/29/19 09/29/19 05:59 13:59 21:59 Intake Total 930 600 Output Total 525 Balance 405 600 Intake & Output: Intake & Output 09/29/19 09/29/19 09/29/19 05:59 13:59 21:59 Intake Total 930 600 Output Total 525 Balance 405 600 Intake: Oral 930 600 Output: Drainage 100 Sacrum Woundvac 100 Urine Catheter Amount 425 Other: Meal Breakfast Percent of Meal Consumed 75% Feeding Ability Total Assistance Urine Appearance Clear Urine Color Dark Yellow Dark Yellow Urine Odor Normal Stool Size Large Stool Color Brown Stool Consistency Loose # of times incontinent of 1 Bowels General appearance: morbidly obese, no acute distress Exam: Alert and respond to commands Nonlabored breathing No anxiety Nondistended abdomen Erythema decubitus ulcer site Medical - PN: Obj Da - Labs CBC & Chem 7: 09/26/19 05:15 09/26/19 05:15 Labs: Abnormal Lab Results 09/29/19 09/28/19 09/27/19 05:16 05:34 06:03 PT 24.1 H 24.5 H 23.0 H INR 2.2 H 2.2 H 2.1 H Meds: Medications Acetaminophen (Tylenol) 650 mg PO Q6HP PRN; Protocol PRN Reason: Per Pain Protocol/Fever > 101 Last Admin: 09/25/19 11:22 Dose: 650 mg Documented by: Hydrocodone Bitart/Acetaminophen ([place] 5/325mg) 1 tab PO Q4HP PRN; Protocol PRN Reason: Per Pain Protocol Last Admin: 09/29/19 14:44 Dose: 1 tab Documented by: Albuterol/Ipratropium (Duoneb) 3 ml NEB Q6H PRN PRN Reason: shortness of breath Atorvastatin Calcium (Lipitor) 40 mg PO QHS [facility] Last Admin: 09/28/19 20:42 Dose: 40 mg Documented by: Benztropine Mesylate (Cogentin) 2 mg PO BID [facility] Last Admin: 09/29/19 08:03 Dose: 2 mg Documented by: Clonazepam (Klonopin) 0.25 mg PO BIDP PRN PRN Reason: Anxiety Last Admin: 09/29/19 08:01 Dose: 0.25 mg Documented by: Docusate Sodium (Colace) 100 mg PO BID [facility] Last Admin: 09/29/19 08:03 Dose: 100 mg Documented by: Heparin Sodium (Porcine) (Heparin Flush) 2 ml IV Q12 [facility] Last Admin: 09/29/19 08:00 Dose: 2 ml Documented by: Hydrochlorothiazide (Oretic) 25 mg PO QAM [facility] Last Admin: 09/29/19 08:02 Dose: 25 mg Documented by: Acetaminophen (Ofirmev) 650 mg in 65 mls @ 130 mls/hr IV Q6HP PRN; Protocol PRN Reason: PAIN/FEVER > 101 Iron Carb/Multivit/Weatherization Coordinator/Folic Acid (Multivitamin W/Minerals) 1 tab PO DAILY [facility] Last Admin: 09/29/19 08:02 Dose: 1 tab Documented by: Lactulose (Cephulac) 10 gm PO DAILYP PRN PRN Reason: Constipation Lamotrigine (Lamictal) 100 mg PO QDAY [facility] Last Admin: 09/29/19 08:02 Dose: 100 mg Documented by: Levothyroxine Sodium (Synthroid) 400 mcg PO ACB [facility] Last Admin: 09/29/19 08:01 Dose: 400 mcg Documented by: Medroxyprogesterone Acetate (Provera) 10 mg PO BID [facility] Last Admin: 09/29/19 08:04 Dose: 10 mg Documented by: Metoprolol Tartrate (Lopressor) 5 mg IV Q2HP PRN PRN Reason: Tachyarrhythmias HR>110 Last Admin: 09/21/19 12:13 Dose: 5 mg Documented by: Metoprolol Tartrate (Lopressor) 75 mg PO BID [facility] Last Admin: 09/29/19 08:04 Dose: Not Given Documented by: Naloxone HCl (Narcan) 0.1 mg IV Q2MIN PRN PRN Reason: Opiate Reversal Ondansetron HCl (Zofran) 4 mg IV Q4HP PRN; Protocol PRN Reason: Nausea And Vomiting Last Admin: 09/19/19 05:37 Dose: 4 mg Documented by: Pantoprazole Sodium (Protonix) 40 mg PO QAMAC [facility] Last Admin: 09/29/19 08:02 Dose: 40 mg Documented by: Fluticasone/Salmeterol (Advair 100-50 Diskus) 1 puff INH BID [facility] Last Admin: 09/29/19 08:04 Dose: Not Given Documented by: Senna (Senokot) 2 tab PO HSP PRN PRN Reason: Constipation Last Admin: 09/22/19 19:01 Dose: 2 tab Documented by: Sodium Chloride (Saline Flush) 10 ml IV UD PRN PRN Reason: FLUSH Last Admin: 09/20/19 21:00 Dose: 10 ml Documented by: Sodium Chloride (Saline Flush) 10 ml IV Q12 [facility] Last Admin: 09/29/19 08:07 Dose: 10 ml Documented by: Venlafaxine HCl (Effexor Xr) 150 mg PO QDAY [facility] Last Admin: 09/29/19 10:03 Dose: 150 mg Documented by: Warfarin Sodium (Coumadin Per Pharmacy) 1 order PO UD [facility] Medical - PN: A/P - Time Spent With Patient Total time spent is greater than 50% in coordination of care (as documented) at patient's floor/unit and/or counseling patient: 15 - 24 minutes (1) Pressure ulcer of sacral region, unstageable Problem details: Local wound care as discussed with nursing staff. Status: Chronic Assessment and plan: * Infected decubitus ulcer with cultures - MRSA/enterococcus. Off antibiotics. Continue wound care/wound VAC, increasing erythema noted * Severe sepsis-clinically resolved * Complicated UTI clinically resolved , off antibiotics * Underlying dementia with intermittent delirium. avoid sedative-hypnotics. * History of schizophrenia-stable * History of CVA stable, continue statin * A. fib rate controlled on metoprolol 75 twice daily/Coumadin for CVA prophylaxis * CKD stage II stable * Hypothyroidism on thyroxine. Dose increased to 400 * Hyperlipidemia continue statin * Anxiety disorder continue venlafaxine * GERD on PPI * DVT prophylaxis on Coumadin Plan * Continue wound care/wound VAC * Continue pre-existing medical condition management as above * Coumadin dosing * PT OT/Nutrition support * Await SNF transfer coordination per case management Current Visit: Yes Medical - PN: Qual - VTE Deep Vein Thrombosis/Pulmonary Embolism Present on Admission: No
[2019-09-29] MEDS: ATORVASTATIN 40 MG TABLET PO SCH (21:07)
[2019-09-30] MEDS: HYDROcodone/APAP 5/325MG TABLET PO PRN (06:06)
[2019-09-30 06:48] LABS: INR 2.5 (0.9-1.1); Prothrombin Time 26.7 sec (11.9-14.5)
[2019-09-30] MEDS: BENZTROPINE 1 MG TABLET PO SCH ×2 (09:44→22:02)
[2019-09-30] MEDS: DOCUSATE SODIUM 100 MG CAPSULE PO SCH (09:44)
[2019-09-30] MEDS: clonazePAM 0.5 MG TABLET PO PRN (09:45)
[2019-09-30] MEDS: LEVOTHYROXINE 100 MCG TABLET PO SCH (09:45)
[2019-09-30] MEDS: lamoTRIgine 100 MG TABLET PO SCH (09:45)
[2019-09-30] MEDS: MULTIVIT,THER IRON,CA,FA & MIN 1 TABLET PO SCH (09:46)
[2019-09-30] MEDS: VENLAFAXINE 150 MG CAP.XL.24H PO SCH (09:46)
[2019-09-30] MEDS: HYDROCHLOROTHIAZIDE 25 MG TABLET PO SCH (09:46)
[2019-09-30] MEDS: PANTOPRAZOLE 40 MG TABLET PO SCH (09:46)
[2019-09-30] MEDS: FLUTICASONE/SALMETEROL 50/100 INHALER #14 INH SCH ×2 (10:23→22:04)
[2019-09-30] MEDS: 0.9 % SODIUM CHLORIDE 10 ML SYRINGE IV SCH ×2 (10:23→22:03)
[2019-09-30] MEDS: METOPROLOL TARTRATE 25 MG TABLET PO SCH ×2 (10:23→22:03)
[2019-09-30] MEDS: medroxyPROGESTERone 10 MG TABLET PO SCH ×2 (15:09→22:03)
[2019-09-30] MEDS ORDERED: DOCUSATE SODIUM 100 MG CAPSULE PO PRN (16:58)
[2019-09-30] MEDS ORDERED: ALTEPLASE 2 MG VIAL IV ONE (16:59)
[2019-09-30] MEDS ORDERED: WARFARIN 2 MG TABLET PO ONE (21:00)
[2019-09-30] MEDS: ATORVASTATIN 40 MG TABLET PO SCH (22:02)
--- NOTE | 2019-09-30 22:40 | Internal Med Progress Note ---
Medical - PN: Subj Patient information: Note initiated : 09/30/19 at 10:39 pm Service Date, if different from initiated Date: [] Patient: Christine Cespedes a 64 y/o F admitted on 09/08/19 for Sepsis, UTI. Chief Complaint: [] Interval history: 09/08 Ms. Cespedes is a 64 year old F with a history of atrial fibrillation, recent subdural hematoma, history of ischemic strokes, hypertension, sleep apnea not on CPAP, prediabetes, morbid obesity with mobility impairment who presents to the emergency department with lethargy. History is obtained speaking to her caregiver. She has a caregiver in the home during the days, but not at night. The caregiver notes yesterday she was not quite herself, displaying some mild confusion. Her appetite was decreased. Caregiver made her a sandwich for dinner prior to her leaving yesterday, was still on eaten this morning when their caregiver arrived. Patient was in bed, was too weak to get out of bed, was confused and could not respond appropriately. In the ED, there is a history of low-grade fever as well. Because of lethargy, fever and weakness EMS was activated and she is brought to the ED. In the emergency department she has evidence of sepsis with now white count of 22,000, lactate of 3.8, increased anion gap and significantly abnormal urine analysis with pyuria and bacteriuria. She is being admitted for treatment of sepsis from urinary source. 09/09 Intermittently more responsive, was sitting up on edge of bed with physical therapy and did participate in self-care this morning. Is required fluids for declining blood pressures today with response. 09/10 Slowly continues to be more interactive. Urine culture with E. coli, only resistant to fluoroquinolones. Blood pressure stable. 09/11 Much more alert and interactive today. Still quite weak and needing assistance to stay sitting up at bedside. Held conversation with her, she states her goal is to get better. I encouraged her to increase her oral intake and that it is important for her to eat to get better. Nursing spoke with her son, who is her eldest child. He is a long-haul labor custodian and is out of state, but agreed that she will likely need skilled placement following this admission. In the late afternoon, she awoke panicked that she was trapped in a trailer and was disoriented. Had significant anxiety. 09/12/2019 Patient continued to have disorientation and hallucinations yesterday evening, was up much of the night, eventually calm down. Medicine list reviewed, she does not have any antipsychotics or other treatments for schizophrenia. Attempting to reconfirm her medication list. This morning, states she is not feeling too well, but is sleepy drifts back off. 09/13 Patient seems less interactive than she was yesterday afternoon. Sacral wound now draining material and will need debridement. Previously had eschar that was being debrided. Should've completed for therapy for UTI sepsis. Discussed with Dr. Juarez, whose consult general surgery. Have consulted Dr. Silverio, is recommended. Vancomycin and Zosyn for now until debridement. 09/14 Patient status post surgical I&D. Drowsy but opens eyes to voice. Refused CT imaging yesterday as recommended by infectious disease. No overnight events. Discussed case with her son who makes medical decisions when she is unable. He was able to clarify that she would be a DO NOT RESUSCITATE in the event effect catastrophic event. Regarding goals of care. We will see how she has in the next day or 2 09/15 Nurse able to get the patient to drink a carnation instant breakfast. Patient sleeping at this time but awakens and admits to feeling little better but otherwise not verbalizing a whole lot and difficult to obtain review of systems. she is on room air today. 09/16 Yesterday afternoon patient was sitting up in bed eating breakfast, mentation and somnolence improved. Feeling much better today. Has occasional cough and headache. No other complaints. Nurse report diarrhea. Again mentation significantly improved she is oriented to place and President 09/17 No overnight event or new complaints. Patient resting comfortably in bed. Denies any cough or shortness of breath. 09/18 Patient unable to be placed yesterday still working on placement. Patient sleeping this morning. Denies any complaints. 09/20 Patient was resting Unable to obtain detailed review of system, denied any active chest pain abdominal pain Discussed with the case management and planning for placement there are new options available and social service working in profiling 09/21 Wound care evaluated the patient and patient moved looks better and slowly progressing. Recommend continuing wound VAC Case management working on placement options 09/22/19 Her leukocytosis is persistent with thrombocytosis No fever Continuing same antibiotic Ordered CRP ESR level and pro calcitonin No features of sepsis If she continues to increase leukocyte count will discuss with infectious disease and reculture the wound 09/23/19 Intermittently her A. fib went up to 110 120 Metoprolol dose increased to 75 twice daily since then her heart rate has been controlled Her leukocytosis remained slightly elevated and she is also on medroxyprogesterone CRP 43 will trend the CRP if it is creeping up will get opinion from infectious disease and wound care 09/24-patient doing well. Awaiting placement. Ongoing wound care/wound VAC/antibiotics. No concerns per nursing staff. 09/25-doing well awaiting transfer to SNF. White count of 10.7. INR therapeutic 2.6, potassium at 4, continuing vancomycin/Levaquin. No overnight fever chills or concerns per staff. Appears to be volume long however net body weight down since admission. Continue PT OT/wound care 09/26-patient doing well. No overnight events. Ongoing wound care/antibiotics. Thyroxine increased to 62.5 based on TSH over 14. Continuing PT OT/nutrition support. Await SNF transfer. Rate controlled around 100 09/27-ongoing wound care. Awaiting placement. No overnight events. Continue nutrition support. 09/28-doing well. No overnight events, INR 2.2, antibiotics discontinued, await placement. Ongoing nutrition support/wound care 09/29-patient awaiting placement. Redness and erythema around the gluteal ulcer site. Ongoing wound care. No overnight fever chills. Off antibiotics. Continue PT OT/nutrition support/wound care. 09/30-doing well. No overnight events. No new changes. Await placement - Constitutional Vitals: Vital Signs Temp Pulse Resp BP Pulse Ox 98.0 F 109 H 24 H 106/76 95 09/30/19 19:06 09/30/19 19:06 09/30/19 19:06 09/30/19 19:06 09/30/19 19:06 Period Temp Pulse Resp BP Sys/Butler Pulse Ox Last 24 Hr 98.0 F-99.0 F 79-109 12-24 96-129/59-84 92-97 Intake and Output 09/30/19 09/30/19 10/01/19 13:59 21:59 05:59 Intake Total 360 600 Output Total 550 Balance 360 50 Weight 214 lb Patient Weight 10/01/19 05:59 Weight 214 lb Intake & Output: Intake & Output 09/30/19 09/30/19 10/01/19 13:59 21:59 05:59 Intake Total 360 600 Output Total 550 Balance 360 50 Weight 214 lb Intake: Oral 360 600 Output: Drainage 150 Sacrum Woundvac 150 Urine Catheter Amount 400 Other: Meal Breakfast Dinner Percent of Meal Consumed 50% 75% Feeding Ability Total Assistance Total Assistance Urine Appearance Clear Clear Uretheral (Aguirre) Clear Clear Urine Color Dark Yellow Dark Yellow Urine Odor Normal Stool Size Small Stool Color Brown Stool Consistency Loose # Bowel Movements 1 # of times incontinent of 1 Bowels General appearance: no acute distress Exam: Resting comfortably Nonlabored breathing No anxiety Medical - PN: Obj Da - Labs CBC & Chem 7: 09/26/19 05:15 09/26/19 05:15 Labs: Abnormal Lab Results 09/30/19 09/29/19 09/28/19 05:05 05:16 05:34 PT 26.7 H 24.1 H 24.5 H INR 2.5 H 2.2 H 2.2 H Meds: Medications Acetaminophen (Tylenol) 650 mg PO Q6HP PRN; Protocol PRN Reason: Per Pain Protocol/Fever > 101 Last Admin: 09/25/19 11:22 Dose: 650 mg Documented by: Hydrocodone Bitart/Acetaminophen ([place] 5/325mg) 1 tab PO Q4HP PRN; Protocol PRN Reason: Per Pain Protocol Last Admin: 09/30/19 06:06 Dose: 1 tab Documented by: Albuterol/Ipratropium (Duoneb) 3 ml NEB Q6H PRN PRN Reason: shortness of breath Atorvastatin Calcium (Lipitor) 40 mg PO QHS [facility] Last Admin: 09/30/19 22:02 Dose: 40 mg Documented by: Benztropine Mesylate (Cogentin) 2 mg PO BID [facility] Last Admin: 09/30/19 22:02 Dose: 2 mg Documented by: Clonazepam (Klonopin) 0.25 mg PO BIDP PRN PRN Reason: Anxiety Last Admin: 09/30/19 09:45 Dose: 0.25 mg Documented by: Docusate Sodium (Colace) 100 mg PO BID PRN PRN Reason: Constipation Heparin Sodium (Porcine) (Heparin Flush) 2 ml IV Q12 [facility] Last Admin: 09/30/19 22:03 Dose: 2 ml Documented by: Hydrochlorothiazide (Oretic) 25 mg PO QAM [facility] Last Admin: 09/30/19 09:46 Dose: 25 mg Documented by: Acetaminophen (Ofirmev) 650 mg in 65 mls @ 130 mls/hr IV Q6HP PRN; Protocol PRN Reason: PAIN/FEVER > 101 Iron Carb/Multivit/Cash Posting Representative/Folic Acid (Multivitamin W/Minerals) 1 tab PO DAILY [facility] Last Admin: 09/30/19 09:46 Dose: 1 tab Documented by: Lactulose (Cephulac) 10 gm PO DAILYP PRN PRN Reason: Constipation Lamotrigine (Lamictal) 100 mg PO QDAY [facility] Last Admin: 09/30/19 09:45 Dose: 100 mg Documented by: Levothyroxine Sodium (Synthroid) 400 mcg PO ACB [facility] Last Admin: 09/30/19 09:45 Dose: 400 mcg Documented by: Medroxyprogesterone Acetate (Provera) 10 mg PO BID [facility] Last Admin: 09/30/19 22:03 Dose: 10 mg Documented by: Metoprolol Tartrate (Lopressor) 5 mg IV Q2HP PRN PRN Reason: Tachyarrhythmias HR>110 Last Admin: 09/21/19 12:13 Dose: 5 mg Documented by: Metoprolol Tartrate (Lopressor) 75 mg PO BID [facility] Last Admin: 09/30/19 22:03 Dose: 75 mg Documented by: Naloxone HCl (Narcan) 0.1 mg IV Q2MIN PRN PRN Reason: Opiate Reversal Ondansetron HCl (Zofran) 4 mg IV Q4HP PRN; Protocol PRN Reason: Nausea And Vomiting Last Admin: 09/19/19 05:37 Dose: 4 mg Documented by: Pantoprazole Sodium (Protonix) 40 mg PO QAMAC [facility] Last Admin: 09/30/19 09:46 Dose: 40 mg Documented by: Fluticasone/Salmeterol (Advair 100-50 Diskus) 1 puff INH BID [facility] Last Admin: 09/30/19 22:04 Dose: Not Given Documented by: Senna (Senokot) 2 tab PO HSP PRN PRN Reason: Constipation Last Admin: 09/22/19 19:01 Dose: 2 tab Documented by: Sodium Chloride (Saline Flush) 10 ml IV UD PRN PRN Reason: FLUSH Last Admin: 09/20/19 21:00 Dose: 10 ml Documented by: Sodium Chloride (Saline Flush) 10 ml IV Q12 [facility] Last Admin: 09/30/19 22:03 Dose: 10 ml Documented by: Venlafaxine HCl (Effexor Xr) 150 mg PO QDAY [facility] Last Admin: 09/30/19 09:46 Dose: 150 mg Documented by: Warfarin Sodium (Coumadin Per Pharmacy) 1 order PO UD [facility] Medical - PN: A/P - Time Spent With Patient Total time spent is greater than 50% in coordination of care (as documented) at patient's floor/unit and/or counseling patient: 15 - 24 minutes (1) Pressure ulcer of sacral region, unstageable Problem details: Local wound care as discussed with nursing staff. Status: Chronic Assessment and plan: * Infected decubitus ulcer with cultures - MRSA/enterococcus. Ongoing wound care * Severe sepsis- resolved * Complicated UTI resolved * Underlying dementia with intermittent delirium. At baseline * History of schizophrenia-stable * History of CVA stable, continue statin * A. fib rate controlled on metoprolol 75 twice daily/anticoagulation on Coumadin for CVA prophylaxis * CKD stage II stable * Hypothyroidism on thyroxine. Dose increased to 400 * Hyperlipidemia continue statin * Anxiety disorder stable on venlafaxine * GERD on PPI * DVT prophylaxis on Coumadin Plan * Continue wound care per wound physician * Continue pre-existing medical condition management as above * Coumadin dosing based on INR * PT OT/Nutrition support * Await SNF transfer coordination per case management Current Visit: Yes Medical - PN: Qual - VTE Deep Vein Thrombosis/Pulmonary Embolism Present on Admission: No
[2019-10-01] MEDS: HYDROcodone/APAP 5/325MG TABLET PO PRN ×3 (04:30→16:50)
[2019-10-01 07:04] LABS: INR 2.5 (0.9-1.1); Prothrombin Time 26.5 sec (11.9-14.5)
[2019-10-01] MEDS: BENZTROPINE 1 MG TABLET PO SCH ×2 (07:53→20:40)
[2019-10-01] MEDS: VENLAFAXINE 150 MG CAP.XL.24H PO SCH (07:53)
[2019-10-01] MEDS: LEVOTHYROXINE 100 MCG TABLET PO SCH (07:53)
[2019-10-01] MEDS: lamoTRIgine 100 MG TABLET PO SCH (07:54)
[2019-10-01] MEDS: METOPROLOL TARTRATE 25 MG TABLET PO SCH ×2 (07:54→20:40)
[2019-10-01] MEDS: MULTIVIT,THER IRON,CA,FA & MIN 1 TABLET PO SCH (07:54)
[2019-10-01] MEDS: HYDROCHLOROTHIAZIDE 25 MG TABLET PO SCH (07:54)
[2019-10-01] MEDS: PANTOPRAZOLE 40 MG TABLET PO SCH (07:54)
[2019-10-01] MEDS: 0.9 % SODIUM CHLORIDE 10 ML SYRINGE IV SCH ×2 (09:29→20:41)
[2019-10-01] MEDS: FLUTICASONE/SALMETEROL 50/100 INHALER #14 INH SCH (09:29)
--- NOTE | 2019-10-01 09:48 | Internal Med Progress Note ---
Medical - PN: Subj Patient information: Note initiated : 10/01/19 at 9:46 am Service Date, if different from initiated Date: [] Patient: Christine Cespedes a 64 y/o F admitted on 09/08/19 for Sepsis, UTI. Chief Complaint: [] Interval history: 09/08 Ms. Cespedes is a 64 year old F with a history of atrial fibrillation, recent subdural hematoma, history of ischemic strokes, hypertension, sleep apnea not on CPAP, prediabetes, morbid obesity with mobility impairment who presents to the emergency department with lethargy. History is obtained speaking to her caregiver. She has a caregiver in the home during the days, but not at night. The caregiver notes yesterday she was not quite herself, displaying some mild confusion. Her appetite was decreased. Caregiver made her a sandwich for dinner prior to her leaving yesterday, was still on eaten this morning when their caregiver arrived. Patient was in bed, was too weak to get out of bed, was confused and could not respond appropriately. In the ED, there is a history of low-grade fever as well. Because of lethargy, fever and weakness EMS was activated and she is brought to the ED. In the emergency department she has evidence of sepsis with now white count of 22,000, lactate of 3.8, increased anion gap and significantly abnormal urine analysis with pyuria and bacteriuria. She is being admitted for treatment of sepsis from urinary source. 09/09 Intermittently more responsive, was sitting up on edge of bed with physical therapy and did participate in self-care this morning. Is required fluids for declining blood pressures today with response. 09/10 Slowly continues to be more interactive. Urine culture with E. coli, only resistant to fluoroquinolones. Blood pressure stable. 09/11 Much more alert and interactive today. Still quite weak and needing assistance to stay sitting up at bedside. Held conversation with her, she states her goal is to get better. I encouraged her to increase her oral intake and that it is important for her to eat to get better. Nursing spoke with her son, who is her eldest child. He is a long-haul workers compensation examiner and is out of state, but agreed that she will likely need skilled placement following this admission. In the late afternoon, she awoke panicked that she was trapped in a trailer and was d isoriented. Had significant anxiety. 09/12/2019 Patient continued to have disorientation and hallucinations yesterday evening, was up much of the night, eventually calm down. Medicine list reviewed, she does not have any antipsychotics or other treatments for schizophrenia. Attempting to reconfirm her medication list. This morning, states she is not feeling too well, but is sleepy drifts back off. 09/13 Patient seems less interactive than she was yesterday afternoon. Sacral wound now draining material and will need debridement. Previously had eschar that was being debrided. Should've completed for therapy for UTI sepsis. Discussed with Dr. Juarez, whose consult general surgery. Have consulted Dr. Silverio, is recommended. Vancomycin and Zosyn for now until debridement. 09/14 Patient status post surgical I&D. Drowsy but opens eyes to voice. Refused CT imaging yesterday as recommended by infectious disease. No overnight events. Discussed case with her son who makes medical decisions when she is unable. He was able to clarify that she would be a DO NOT RESUSCITATE in the event effect catastrophic event. Regarding goals of care. We will see how she has in the next day or 2 09/15 Nurse able to get the patient to drink a carnation instant breakfast. Patient sleeping at this time but awakens and admits to feeling little better but otherwise not verbalizing a whole lot and difficult to obtain review of systems. she is on room air today. 09/16 Yesterday afternoon patient was sitting up in bed eating breakfast, mentation and somnolence improved. Feeling much better today. Has occasional cough and headache. No other complaints. Nurse report diarrhea. Again mentation significantly improved she is oriented to place and President 09/17 No overnight event or new complaints. Patient resting comfortably in bed. Denies any cough or shortness of breath. 09/18 Patient unable to be placed yesterday still working on placement. Patient sleeping this morning. Denies any complaints. 09/20 Patient was resting Unable to obtain detailed review of system, denied any active chest pain abdominal pain Discussed with the case management and planning for placement there are new options available and social service working in profiling 09/21 Wound care evaluated the patient and patient moved looks better and slowly progressing. Recommend continuing wound VAC Case management working on placement options 09/22/19 Her leukocytosis is persistent with thrombocytosis No fever Continuing same antibiotic Ordered CRP ESR level and pro calcitonin No features of sepsis If she continues to increase leukocyte count will discuss with infectious disease and reculture the wound 09/23/19 Intermittently her A. fib went up to 110 120 Metoprolol dose increased to 75 twice daily since then her heart rate has been controlled Her leukocytosis remained slightly elevated and she is also on medroxyprogesterone CRP 43 will trend the CRP if it is creeping up will get opinion from infectious disease and wound care 09/24-patient doing well. Awaiting placement. Ongoing wound care/wound VAC/antibiotics. No concerns per nursing staff. 09/25-doing well awaiting transfer to SNF. White count of 10.7. INR therapeutic 2.6, potassium at 4, continuing vancomycin/Levaquin. No overnight fever chills or concerns per staff. Appears to be volume long however net body weight down since admission. Continue PT OT/wound care 09/26-patient doing well. No overnight events. Ongoing wound care/antibiotics. Thyroxine increased to 62.5 based on TSH over 14. Continuing PT OT/nutrition support. Await SNF transfer. Rate controlled around 100 09/27-ongoing wound care. Awaiting placement. No overnight events. Continue nutrition support. 09/28-doing well. No overnight events, INR 2.2, antibiotics discontinued, await placement. Ongoing nutrition support/wound care 09/29-patient awaiting placement. Redness and erythema around the gluteal ulcer site. Ongoing wound care. No overnight fever chills. Off antibiotics. Continue PT OT/nutrition support/wound care. 09/30-doing well. No overnight events. No new changes. Await placement 10/01-wound VAC changed today. Wound looking a lot better. No overnight events. Await placement. No concerns expressed by nursing staff - Constitutional Vitals: Vital Signs Temp Pulse Resp BP Pulse Ox 97.9 F 68 18 115/81 96 10/01/19 08:00 10/01/19 08:00 10/01/19 08:00 10/01/19 08:00 10/01/19 08:00 Period Temp Pulse Resp BP Sys/Butler Pulse Ox Last 24 Hr 97.4 F-99.0 F 68-109 18-24 91-129/62-84 91-96 Intake and Output 09/30/19 10/01/19 10/01/19 21:59 05:59 13:59 Intake Total 600 480 Output Total 550 550 Balance 50 -70 Weight 214 lb Intake & Output: Intake & Output 09/30/19 10/01/19 10/01/19 21:59 05:59 13:59 Intake Total 600 480 Output Total 550 550 Balance 50 -70 Weight 214 lb Intake: Oral 600 480 Output: Drainage 150 Sacrum Woundvac 150 Urine Catheter Amount 400 550 Other: Meal Dinner Percent of Meal Consumed 75% Feeding Ability Total Assistance Urine Appearance Clear Uretheral (Aguirre) Clear Urine Color Dark Yellow Urine Odor Normal General appearance: no acute distress Exam: Alert responding commands Nonlabored breathing No anxiety Wound VAC in place Medical - PN: Obj Da - Labs CBC & Chem 7: 09/26/19 05:15 09/26/19 05:15 Labs: Abnormal Lab Results 10/01/19 09/30/19 09/29/19 05:31 05:05 05:16 PT 26.5 H 26.7 H 24.1 H INR 2.5 H 2.5 H 2.2 H Meds: Medications Acetaminophen (Tylenol) 650 mg PO Q6HP PRN; Protocol PRN Reason: Per Pain Protocol/Fever > 101 Last Admin: 09/25/19 11:22 Dose: 650 mg Documented by: Hydrocodone Bitart/Acetaminophen ([place] 5/325mg) 1 tab PO Q4HP PRN; Protocol PRN Reason: Per Pain Protocol Last Admin: 10/01/19 08:11 Dose: 1 tab Documented by: Albuterol/Ipratropium (Duoneb) 3 ml NEB Q6H PRN PRN Reason: shortness of breath Atorvastatin Calcium (Lipitor) 40 mg PO QHS [facility] Last Admin: 09/30/19 22:02 Dose: 40 mg Documented by: Benztropine Mesylate (Cogentin) 2 mg PO BID [facility] Last Admin: 10/01/19 07:53 Dose: 2 mg Documented by: Clonazepam (Klonopin) 0.25 mg PO BIDP PRN PRN Reason: Anxiety Last Admin: 09/30/19 09:45 Dose: 0.25 mg Documented by: Docusate Sodium (Colace) 100 mg PO BID PRN PRN Reason: Constipation Heparin Sodium (Porcine) (Heparin Flush) 2 ml IV Q12 [facility] Last Admin: 10/01/19 09:29 Dose: 2 ml Documented by: Hydrochlorothiazide (Oretic) 25 mg PO QAM [facility] Last Admin: 10/01/19 07:54 Dose: 25 mg Documented by: Acetaminophen (Ofirmev) 650 mg in 65 mls @ 130 mls/hr IV Q6HP PRN; Protocol PRN Reason: PAIN/FEVER > 101 Iron Carb/Multivit/Nobles/Folic Acid (Multivitamin W/Minerals) 1 tab PO DAILY [facility] Last Admin: 10/01/19 07:54 Dose: 1 tab Documented by: Lactulose (Cephulac) 10 gm PO DAILYP PRN PRN Reason: Constipation Lamotrigine (Lamictal) 100 mg PO QDAY [facility] Last Admin: 10/01/19 07:54 Dose: 100 mg Documented by: Levothyroxine Sodium (Synthroid) 400 mcg PO ACB [facility] Last Admin: 10/01/19 07:53 Dose: 400 mcg Documented by: Medroxyprogesterone Acetate (Provera) 10 mg PO BID [facility] Last Admin: 09/30/19 22:03 Dose: 10 mg Documented by: Metoprolol Tartrate (Lopressor) 5 mg IV Q2HP PRN PRN Reason: Tachyarrhythmias HR>110 Last Admin: 09/21/19 12:13 Dose: 5 mg Documented by: Metoprolol Tartrate (Lopressor) 75 mg PO BID [facility] Last Admin: 10/01/19 07:54 Dose: 75 mg Documented by: Naloxone HCl (Narcan) 0.1 mg IV Q2MIN PRN PRN Reason: Opiate Reversal Ondansetron HCl (Zofran) 4 mg IV Q4HP PRN; Protocol PRN Reason: Nausea And Vomiting Last Admin: 09/19/19 05:37 Dose: 4 mg Documented by: Pantoprazole Sodium (Protonix) 40 mg PO QAMAC [facility] Last Admin: 10/01/19 07:54 Dose: 40 mg Documented by: Senna (Senokot) 2 tab PO HSP PRN PRN Reason: Constipation Last Admin: 09/22/19 19:01 Dose: 2 tab Documented by: Sodium Chloride (Saline Flush) 10 ml IV UD PRN PRN Reason: FLUSH Last Admin: 09/20/19 21:00 Dose: 10 ml Documented by: Sodium Chloride (Saline Flush) 10 ml IV Q12 [facility] Last Admin: 10/01/19 09:29 Dose: 10 ml Documented by: Venlafaxine HCl (Effexor Xr) 150 mg PO QDAY [facility] Last Admin: 10/01/19 07:53 Dose: 150 mg Documented by: Warfarin Sodium (Coumadin Per Pharmacy) 1 order PO UD [facility] Medical - PN: A/P - Time Spent With Patient Total time spent is greater than 50% in coordination of care (as documented) at patient's floor/unit and/or counseling patient: 15 - 24 minutes (1) Pressure ulcer of sacral region, unstageable Problem details: Local wound care as discussed with nursing staff. Status: Chronic Assessment and plan: * Infected decubitus ulcer with cultures - MRSA/enterococcus. Wound VAC changed today. Managed per wound care * Severe sepsis- resolved * Complicated UTI resolved * anticoagulation on Coumadin for CVA prophylaxis, daily Coumadin dosing based on INR * Underlying dementia with intermittent delirium. At baseline * History of schizophrenia-stable * History of CVA stable, continue statin * A. fib rate controlled on metoprolol 75 twice daily * CKD stage II stable * Hypothyroidism on thyroxine. Dose increased to 400 * Hyperlipidemia continue statin * Anxiety disorder stable on venlafaxine * GERD on PPI * DVT prophylaxis on Coumadin Plan * Wound VAC management per wound physician * Continue pre-existing medical condition management as above * Coumadin dosing based on INR * PT OT/Nutrition support * Await SNF transfer Current Visit: Yes Medical - PN: Qual - VTE Deep Vein Thrombosis/Pulmonary Embolism Present on Admission: No
[2019-10-01 10:36] LABS: Hematocrit 41.7 % (34.1-44.9); Hemoglobin 13.7 g/dL (11.2-15.7); Mean Cell Volume 93.9 fL (80.0-100.0); Mean Corpuscular HGB Conc 32.9 g/dL (31.0-36.0); Mean Platelet Volume 10.2 fL (7.4-10.4); Platelet Count 366 K/mcL (140-440); RBC 4.44 M/mcL (3.59-5.38); Red Cell Distribution Width 14.3 % (11.5-14.5); WBC 10.3 K/mcL (4.50-11.00)
[2019-10-01 10:54] LABS: ALT/SGPT 74 U/l (0-40); AST/SGOT 59 U/l (0-37); Albumin 3.2 gm/dL (3.2-5.2); Albumin/Globulin Ratio 0.9 (1.0-2.3); Alkaline Phosphatase 153 U/L (39-117); Bilirubin,Direct < 0.2 mg/dL (0.0-0.3); Bilirubin,Total 0.5 mg/dL (0.0-1.0); Blood Urea Nitrogen 17 mg/dl (8-23); Calcium 9.6 mg/dl (8.6-10.4); Carbon Dioxide 22 mmol/L (22-30); Chloride 100 mmol/L (96-108); Globulin 3.4 gm/dL (2.2-3.7); Glomerular Filtration Rate 92; Glucose 119 mg/dL (70-105); Lactate Dehydrogenase 218 U/L (94-250); Triglycerides 150 mg/dl (<150); Uric Acid 6.6 mg/dL (2.5-8.0)
[2019-10-01 11:32] LABS: Eosinophils % (Manual) 5 % (0-7); Lymphocytes % 15 % (15-49); Monocytes % (Manual) 7 % (1-12); Platelet Estimate NORMAL (NORMAL); RBC Morphology NORMAL (NORMAL); Segmented Neutrophils % 73 % (38-78)
[2019-10-01] MEDS ORDERED: WARFARIN 3 MG TABLET PO ONE (14:00)
[2019-10-01] MEDS: medroxyPROGESTERone 10 MG TABLET PO SCH ×2 (15:23→20:40)
--- NOTE | 2019-10-01 17:19 | General Surgery Progress Note ---
Subjective Patient reports: no new complaints, other (Wound care rounds. Saw pateint with Nica, Inpatient wound care nurse. Wound examined.) Narrative: Note initiated : 10/01/19 at 5:16 pm Service Date, if different from initiated Date: [] Patient: Christine Cespedes a 64 y/o F admitted on 09/08/19 for Sepsis, UTI. Chief Complaint: [] Objective Temp Pulse Resp BP Pulse Ox 97.7 F 88 18 110/70 96 10/01/19 12:00 10/01/19 12:00 10/01/19 12:00 10/01/19 12:00 10/01/19 12:00 AVSS. No interval changes [place]TTONI[place]. Labs reviewed. L/E. Sacral pressure ulcer wound Granulating and tyson well. NO odor, NO purulence, NO warmth Minimal serous drainage. Wound measurements decreased by > 50 % See Nurses' notes. - Additional Data Intake & Output - Last 24 hours: Intake & Output 09/29/19 09/30/19 10/01/19 10/02/19 05:59 05:59 05:59 05:59 Intake Total 1570 1420 1440 240 Output Total 6388 912 8347 Balance 445 520 340 240 Weight 214 lb 8 oz 216 lb 214 lb - Labs 10/01/19 10:08 10/01/19 10:08 Diabetes panel 10/01/19 Range/Units 10:08 Sodium 139 (133-145) mmol/L Potassium 3.4 (3.3-5.1) mmol/L Chloride 100 (96-108) mmol/L Carbon Dioxide 22 (22-30) mmol/L BUN 17 (8-23) mg/dl Creatinine 0.7 (0.6-1.1) mg/dl Glucose 119 H (70-105) mg/dL Calcium 9.6 (8.6-10.4) mg/dl AST 59 H (0-37) U/l ALT 74 H (0-40) U/l Alkaline Phosphatase 153 H (39-117) U/L Total Protein 6.6 (5.9-8.4) gm/dL Albumin 3.2 (3.2-5.2) gm/dL Triglycerides 150 (<150) mg/dl Calcium panel 10/01/19 Range/Units 10:08 Calcium 9.6 (8.6-10.4) mg/dl Phosphorus 4.0 (2.7-4.5) mg/dL Albumin 3.2 (3.2-5.2) gm/dL Pituitary panel 10/01/19 Range/Units 10:08 Sodium 139 (133-145) mmol/L Potassium 3.4 (3.3-5.1) mmol/L Chloride 100 (96-108) mmol/L Carbon Dioxide 22 (22-30) mmol/L BUN 17 (8-23) mg/dl Creatinine 0.7 (0.6-1.1) mg/dl Glucose 119 H (70-105) mg/dL Calcium 9.6 (8.6-10.4) mg/dl Adrenal panel 10/01/19 Range/Units 10:08 Sodium 139 (133-145) mmol/L Potassium 3.4 (3.3-5.1) mmol/L Chloride 100 (96-108) mmol/L Carbon Dioxide 22 (22-30) mmol/L BUN 17 (8-23) mg/dl Creatinine 0.7 (0.6-1.1) mg/dl Glucose 119 H (70-105) mg/dL Calcium 9.6 (8.6-10.4) mg/dl Total Bilirubin 0.5 (0.0-1.0) mg/dL AST 59 H (0-37) U/l ALT 74 H (0-40) U/l Alkaline Phosphatase 153 H (39-117) U/L Total Protein 6.6 (5.9-8.4) gm/dL Albumin 3.2 (3.2-5.2) gm/dL Assessment and Plan (1) Skin abnormalities Problem details: Local wound care as discussed with nursing staff and orders entered. Status: Acute Current Visit: Yes (2) Pressure ulcer of sacral region, unstageable Problem details: Local wound care as discussed with nursing staff. Status: Chronic Current Visit: Yes - Time Spent With Patient Total time spent is greater than 50% in coordination of care (as documented) at patient's floor/unit and/or counseling patient: Assessment: Satisfactory progress from wound care point. Patient awaits placement. Plan: Continue current treatment. 25 - 35 minutes
[2019-10-01] MEDS: ATORVASTATIN 40 MG TABLET PO SCH (20:40)
[2019-10-02] MEDS: LEVOTHYROXINE 100 MCG TABLET PO SCH (07:04)
[2019-10-02] MEDS: HYDROcodone/APAP 5/325MG TABLET PO PRN ×2 (07:05→17:40)
[2019-10-02] MEDS: PANTOPRAZOLE 40 MG TABLET PO SCH (07:05)
[2019-10-02] MEDS: METOPROLOL TARTRATE 25 MG TABLET PO SCH ×2 (08:52→21:47)
[2019-10-02] MEDS: medroxyPROGESTERone 10 MG TABLET PO SCH ×2 (08:52→21:48)
[2019-10-02] MEDS: lamoTRIgine 100 MG TABLET PO SCH (08:52)
[2019-10-02] MEDS: HYDROCHLOROTHIAZIDE 25 MG TABLET PO SCH (08:52)
[2019-10-02] MEDS: VENLAFAXINE 150 MG CAP.XL.24H PO SCH (08:52)
[2019-10-02] MEDS: MULTIVIT,THER IRON,CA,FA & MIN 1 TABLET PO SCH (08:52)
[2019-10-02] MEDS: BENZTROPINE 1 MG TABLET PO SCH ×2 (08:52→21:47)
[2019-10-02 09:30] LABS: Prothrombin Time 30.6 sec (11.9-14.5)
[2019-10-02] MEDS: 0.9 % SODIUM CHLORIDE 10 ML SYRINGE IV SCH ×2 (11:27→21:48)
--- NOTE | 2019-10-02 17:37 | Internal Med Progress Note ---
Medical - PN: Subj Patient information: Note initiated : 10/02/19 at 5:35 pm Service Date, if different from initiated Date: [] Patient: Christine Cespedes a 64 y/o F admitted on 09/08/19 for Sepsis, UTI. Chief Complaint: [] Interval history: 09/08 Ms. Cespedes is a 64 year old F with a history of atrial fibrillation, recent subdural hematoma, history of ischemic strokes, hypertension, sleep apnea not on CPAP, prediabetes, morbid obesity with mobility impairment who presents to the emergency department with lethargy. History is obtained speaking to her caregiver. She has a caregiver in the home during the days, but not at night. The caregiver notes yesterday she was not quite herself, displaying some mild confusion. Her appetite was decreased. Caregiver made her a sandwich for dinner prior to her leaving yesterday, was still on eaten this morning when their caregiver arrived. Patient was in bed, was too weak to get out of bed, was confused and could not respond appropriately. In the ED, there is a history of low-grade fever as well. Because of lethargy, fever and weakness EMS was activated and she is brought to the ED. In the emergency department she has evidence of sepsis with now white count of 22,000, lactate of 3.8, increased anion gap and significantly abnormal urine analysis with pyuria and bacteriuria. She is being admitted for treatment of sepsis from urinary source. 09/09 Intermittently more responsive, was sitting up on edge of bed with physical therapy and did participate in self-care this morning. Is required fluids for declining blood pressures today with response. 09/10 Slowly continues to be more interactive. Urine culture with E. coli, only resistant to fluoroquinolones. Blood pressure stable. 09/11 Much more alert and interactive today. Still quite weak and needing assistance to stay sitting up at bedside. Held conversation with her, she states her goal is to get better. I encouraged her to increase her oral intake and that it is important for her to eat to get better. Nursing spoke with her son, who is her eldest child. He is a long-haul mail agent and is out of state, but agreed that she will likely need skilled placement following this admission. In the late afternoon, she awoke panicked that she was trapped in a trailer and was d isoriented. Had significant anxiety. 09/12/2019 Patient continued to have disorientation and hallucinations yesterday evening, was up much of the night, eventually calm down. Medicine list reviewed, she does not have any antipsychotics or other treatments for schizophrenia. Attempting to reconfirm her medication list. This morning, states she is not feeling too well, but is sleepy drifts back off. 09/13 Patient seems less interactive than she was yesterday afternoon. Sacral wound now draining material and will need debridement. Previously had eschar that was being debrided. Should've completed for therapy for UTI sepsis. Discussed with Dr. Juarez, whose consult general surgery. Have consulted Dr. Silverio, is recommended. Vancomycin and Zosyn for now until debridement. 09/14 Patient status post surgical I&D. Drowsy but opens eyes to voice. Refused CT imaging yesterday as recommended by infectious disease. No overnight events. Discussed case with her son who makes medical decisions when she is unable. He was able to clarify that she would be a DO NOT RESUSCITATE in the event effect catastrophic event. Regarding goals of care. We will see how she has in the next day or 2 09/15 Nurse able to get the patient to drink a carnation instant breakfast. Patient sleeping at this time but awakens and admits to feeling little better but otherwise not verbalizing a whole lot and difficult to obtain review of systems. she is on room air today. 09/16 Yesterday afternoon patient was sitting up in bed eating breakfast, mentation and somnolence improved. Feeling much better today. Has occasional cough and headache. No other complaints. Nurse report diarrhea. Again mentation significantly improved she is oriented to place and President 09/17 No overnight event or new complaints. Patient resting comfortably in bed. Denies any cough or shortness of breath. 09/18 Patient unable to be placed yesterday still working on placement. Patient sleeping this morning. Denies any complaints. 09/20 Patient was resting Unable to obtain detailed review of system, denied any active chest pain abdominal pain Discussed with the case management and planning for placement there are new options available and social service working in profiling 09/21 Wound care evaluated the patient and patient moved looks better and slowly progressing. Recommend continuing wound VAC Case management working on placement options 09/22/19 Her leukocytosis is persistent with thrombocytosis No fever Continuing same antibiotic Ordered CRP ESR level and pro calcitonin No features of sepsis If she continues to increase leukocyte count will discuss with infectious disease and reculture the wound 09/23/19 Intermittently her A. fib went up to 110 120 Metoprolol dose increased to 75 twice daily since then her heart rate has been controlled Her leukocytosis remained slightly elevated and she is also on medroxyprogesterone CRP 43 will trend the CRP if it is creeping up will get opinion from infectious disease and wound care 09/24-patient doing well. Awaiting placement. Ongoing wound care/wound VAC/antibiotics. No concerns per nursing staff. 09/25-doing well awaiting transfer to SNF. White count of 10.7. INR therapeutic 2.6, potassium at 4, continuing vancomycin/Levaquin. No overnight fever chills or concerns per staff. Appears to be volume long however net body weight down since admission. Continue PT OT/wound care 09/26-patient doing well. No overnight events. Ongoing wound care/antibiotics. Thyroxine increased to 62.5 based on TSH over 14. Continuing PT OT/nutrition support. Await SNF transfer. Rate controlled around 100 09/27-ongoing wound care. Awaiting placement. No overnight events. Continue nutrition support. 09/28-doing well. No overnight events, INR 2.2, antibiotics discontinued, await placement. Ongoing nutrition support/wound care 09/29-patient awaiting placement. Redness and erythema around the gluteal ulcer site. Ongoing wound care. No overnight fever chills. Off antibiotics. Continue PT OT/nutrition support/wound care. 09/30-doing well. No overnight events. No new changes. Await placement 10/01-wound VAC changed today. Wound looking a lot better. No overnight events. Await placement. No concerns expressed by nursing staff 10/02-ongoing wound care/wound VAC. INR therapeutic. No overnight fever chills. Labs and hemodynamics stable. Continue rehab. Await transfer to SNF - Constitutional Vitals: Vital Signs Temp Pulse Resp BP Pulse Ox 97.6 F 98 H 18 109/73 94 10/02/19 15:44 10/02/19 15:44 10/02/19 15:44 10/02/19 15:44 10/02/19 15:44 Period Temp Pulse Resp BP Sys/Butler Pulse Ox Last 24 Hr 96.8 F-98.5 F 91-114 18-24 96-109/60-74 92-94 Intake and Output 10/02/19 10/02/19 10/02/19 05:59 13:59 21:59 Intake Total 200 480 Output Total 325 10 300 Balance -125 -10 180 Weight 212 lb Patient Weight 10/03/19 05:59 Weight 212 lb Intake & Output: Intake & Output 10/02/19 10/02/19 10/02/19 05:59 13:59 21:59 Intake Total 200 480 Output Total 325 10 300 Balance -125 -10 180 Weight 212 lb Intake: Oral 200 480 Output: Drainage 10 Sacrum Woundvac 10 Urine Catheter Amount 325 300 Other: Meal Lunch Percent of Meal Consumed 75% Feeding Ability Total Assistance Urine Appearance Clear Clear Urine Color Dark Yellow Dark Yellow Urine Odor Normal General appearance: no acute distress Exam: No major change since previous day Nonlabored breathing No anxiety Wound VAC No paranoia or hallucinations or delusions Medical - PN: Obj Da - Labs CBC & Chem 7: 10/01/19 10:08 10/01/19 10:08 Labs: Abnormal Lab Results 10/02/19 10/01/19 10/01/19 08:22 10:08 05:31 PT 30.6 H 26.5 H INR 3.0 H 2.5 H Anion Gap 17.0 H Glucose 119 H GGT 108 H AST 59 H ALT 74 H Alkaline Phosphatase 153 H Albumin/Globulin Ratio 0.9 L 09/30/19 05:05 PT 26.7 H INR 2.5 H Anion Gap Glucose GGT AST ALT Alkaline Phosphatase Albumin/Globulin Ratio Meds: Medications Acetaminophen (Tylenol) 650 mg PO Q6HP PRN; Protocol PRN Reason: Per Pain Protocol/Fever > 101 Last Admin: 09/25/19 11:22 Dose: 650 mg Documented by: Hydrocodone Bitart/Acetaminophen ([place] 5/325mg) 1 tab PO Q4HP PRN; Protocol PRN Reason: Per Pain Protocol Last Admin: 10/02/19 07:05 Dose: 1 tab Documented by: Albuterol/Ipratropium (Duoneb) 3 ml NEB Q6H PRN PRN Reason: shortness of breath Atorvastatin Calcium (Lipitor) 40 mg PO QHS [facility] Last Admin: 10/01/19 20:40 Dose: 40 mg Documented by: Benztropine Mesylate (Cogentin) 2 mg PO BID [facility] Last Admin: 10/02/19 08:52 Dose: 2 mg Documented by: Clonazepam (Klonopin) 0.25 mg PO BIDP PRN PRN Reason: Anxiety Last Admin: 09/30/19 09:45 Dose: 0.25 mg Documented by: Docusate Sodium (Colace) 100 mg PO BID PRN PRN Reason: Constipation Heparin Sodium (Porcine) (Heparin Flush) 2 ml IV Q12 [facility] Last Admin: 10/02/19 07:21 Dose: 2 ml Documented by: Hydrochlorothiazide (Oretic) 25 mg PO QAM [facility] Last Admin: 10/02/19 08:52 Dose: 25 mg Documented by: Acetaminophen (Ofirmev) 650 mg in 65 mls @ 130 mls/hr IV Q6HP PRN; Protocol PRN Reason: PAIN/FEVER > 101 Iron Carb/Multivit/Carter/Folic Acid (Multivitamin W/Minerals) 1 tab PO DAILY [facility] Last Admin: 10/02/19 08:52 Dose: 1 tab Documented by: Lactulose (Cephulac) 10 gm PO DAILYP PRN PRN Reason: Constipation Lamotrigine (Lamictal) 100 mg PO QDAY [facility] Last Admin: 10/02/19 08:52 Dose: 100 mg Documented by: Levothyroxine Sodium (Synthroid) 400 mcg PO ACB [facility] Last Admin: 10/02/19 07:04 Dose: 400 mcg Documented by: Medroxyprogesterone Acetate (Provera) 10 mg PO BID [facility] Last Admin: 10/02/19 08:52 Dose: 10 mg Documented by: Metoprolol Tartrate (Lopressor) 5 mg IV Q2HP PRN PRN Reason: Tachyarrhythmias HR>110 Last Admin: 09/21/19 12:13 Dose: 5 mg Documented by: Metoprolol Tartrate (Lopressor) 75 mg PO BID [facility] Last Admin: 10/02/19 08:52 Dose: 75 mg Documented by: Naloxone HCl (Narcan) 0.1 mg IV Q2MIN PRN PRN Reason: Opiate Reversal Ondansetron HCl (Zofran) 4 mg IV Q4HP PRN; Protocol PRN Reason: Nausea And Vomiting Last Admin: 09/19/19 05:37 Dose: 4 mg Documented by: Pantoprazole Sodium (Protonix) 40 mg PO QAMAC [facility] Last Admin: 10/02/19 07:05 Dose: 40 mg Documented by: Senna (Senokot) 2 tab PO HSP PRN PRN Reason: Constipation Last Admin: 09/22/19 19:01 Dose: 2 tab Documented by: Sodium Chloride (Saline Flush) 10 ml IV UD PRN PRN Reason: FLUSH Last Admin: 09/20/19 21:00 Dose: 10 ml Documented by: Sodium Chloride (Saline Flush) 10 ml IV Q12 [facility] Last Admin: 10/02/19 11:27 Dose: 10 ml Documented by: Venlafaxine HCl (Effexor Xr) 150 mg PO QDAY [facility] Last Admin: 10/02/19 08:52 Dose: 150 mg Documented by: Warfarin Sodium (Coumadin Per Pharmacy) 1 order PO UD [facility] Medical - PN: A/P - Time Spent With Patient Total time spent is greater than 50% in coordination of care (as documented) at patient's floor/unit and/or counseling patient: 15 - 24 minutes (1) Pressure ulcer of sacral region, unstageable Problem details: Local wound care as discussed with nursing staff. Status: Chronic Assessment and plan: * Infected decubitus ulcer with cultures - MRSA/enterococcus. Wound VAC changed today. Managed per wound care * Severe sepsis- resolved * Complicated UTI resolved * anticoagulation on Coumadin for CVA prophylaxis, INR therapeutic * Underlying dementia with intermittent delirium. At baseline * History of schizophrenia-no acute paranoia * History of CVA stable, continue statin * A. fib rate controlled on metoprolol 75 twice daily * CKD stage II -creatinine 0.7 * Hypothyroidism on thyroxine. Dose increased to 400 * Hyperlipidemia continue statin * Anxiety disorder stable on venlafaxine * GERD on PPI * DVT prophylaxis on Coumadin Plan * Continue wound VAC management per wound physician * Pre-existing medical condition management as above * Coumadin dosing based on INR * Daily PT OT/Nutrition support * Await SNF transfer Current Visit: Yes Medical - PN: Qual - VTE Deep Vein Thrombosis/Pulmonary Embolism Present on Admission: No
[2019-10-02] MEDS: ATORVASTATIN 40 MG TABLET PO SCH (21:47)
[2019-10-03] MEDS: PANTOPRAZOLE 40 MG TABLET PO SCH (06:43)
[2019-10-03] MEDS: LEVOTHYROXINE 100 MCG TABLET PO SCH (06:43)
[2019-10-03] MEDS: lamoTRIgine 100 MG TABLET PO SCH (08:56)
[2019-10-03] MEDS: VENLAFAXINE 150 MG CAP.XL.24H PO SCH (08:56)
[2019-10-03] MEDS: HYDROCHLOROTHIAZIDE 25 MG TABLET PO SCH (08:56)
[2019-10-03] MEDS: MULTIVIT,THER IRON,CA,FA & MIN 1 TABLET PO SCH (08:56)
[2019-10-03] MEDS: medroxyPROGESTERone 10 MG TABLET PO SCH ×2 (08:57→21:52)
[2019-10-03] MEDS: BENZTROPINE 1 MG TABLET PO SCH ×2 (08:57→21:38)
[2019-10-03] MEDS: METOPROLOL TARTRATE 25 MG TABLET PO SCH ×2 (08:58→21:00)
[2019-10-03] MEDS: HYDROcodone/APAP 5/325MG TABLET PO PRN ×2 (09:22→14:02)
[2019-10-03] MEDS: 0.9 % SODIUM CHLORIDE 10 ML SYRINGE IV SCH ×2 (09:23→21:39)
[2019-10-03 10:13] LABS: INR 2.6 (0.9-1.1); Prothrombin Time 27.6 sec (11.9-14.5)
[2019-10-03] MEDS ORDERED: WARFARIN 3 MG TABLET PO ONE (14:00)
--- NOTE | 2019-10-03 18:36 | Internal Med Progress Note ---
Medical - PN: Subj Patient information: Note initiated : 10/03/19 at 6:32 pm Service Date, if different from initiated Date: [] Patient: Christine Cespedes a 64 y/o F admitted on 09/08/19 for Sepsis, UTI. Chief Complaint: [] Interval history: 09/08 Ms. Cespedes is a 64 year old F with a history of atrial fibrillation, recent subdural hematoma, history of ischemic strokes, hypertension, sleep apnea not on CPAP, prediabetes, morbid obesity with mobility impairment who presents to the emergency department with lethargy. History is obtained speaking to her caregiver. She has a caregiver in the home during the days, but not at night. The caregiver notes yesterday she was not quite herself, displaying some mild confusion. Her appetite was decreased. Caregiver made her a sandwich for dinner prior to her leaving yesterday, was still on eaten this morning when their caregiver arrived. Patient was in bed, was too weak to get out of bed, was confused and could not respond appropriately. In the ED, there is a history of low-grade fever as well. Because of lethargy, fever and weakness EMS was activated and she is brought to the ED. In the emergency department she has evidence of sepsis with now white count of 22,000, lactate of 3.8, increased anion gap and significantly abnormal urine analysis with pyuria and bacteriuria. She is being admitted for treatment of sepsis from urinary source. 09/09 Intermittently more responsive, was sitting up on edge of bed with physical therapy and did participate in self-care this morning. Is required fluids for declining blood pressures today with response. 09/10 Slowly continues to be more interactive. Urine culture with E. coli, only resistant to fluoroquinolones. Blood pressure stable. 09/11 Much more alert and interactive today. Still quite weak and needing assistance to stay sitting up at bedside. Held conversation with her, she states her goal is to get better. I encouraged her to increase her oral intake and that it is important for her to eat to get better. Nursing spoke with her son, who is her eldest child. He is a long-haul professor of mechanical engineering and is out of state, but agreed that she will likely need skilled placement following this admission. In the late afternoon, she awoke panicked that she was trapped in a trailer and was d isoriented. Had significant anxiety. 09/12/2019 Patient continued to have disorientation and hallucinations yesterday evening, was up much of the night, eventually calm down. Medicine list reviewed, she does not have any antipsychotics or other treatments for schizophrenia. Attempting to reconfirm her medication list. This morning, states she is not feeling too well, but is sleepy drifts back off. 09/13 Patient seems less interactive than she was yesterday afternoon. Sacral wound now draining material and will need debridement. Previously had eschar that was being debrided. Should've completed for therapy for UTI sepsis. Discussed with Dr. Juarez, whose consult general surgery. Have consulted Dr. Silverio, is recommended. Vancomycin and Zosyn for now until debridement. 09/14 Patient status post surgical I&D. Drowsy but opens eyes to voice. Refused CT imaging yesterday as recommended by infectious disease. No overnight events. Discussed case with her son who makes medical decisions when she is unable. He was able to clarify that she would be a DO NOT RESUSCITATE in the event effect catastrophic event. Regarding goals of care. We will see how she has in the next day or 2 09/15 Nurse able to get the patient to drink a carnation instant breakfast. Patient sleeping at this time but awakens and admits to feeling little better but otherwise not verbalizing a whole lot and difficult to obtain review of systems. she is on room air today. 09/16 Yesterday afternoon patient was sitting up in bed eating breakfast, mentation and somnolence improved. Feeling much better today. Has occasional cough and headache. No other complaints. Nurse report diarrhea. Again mentation significantly improved she is oriented to place and President 09/17 No overnight event or new complaints. Patient resting comfortably in bed. Denies any cough or shortness of breath. 09/18 Patient unable to be placed yesterday still working on placement. Patient sleeping this morning. Denies any complaints. 09/20 Patient was resting Unable to obtain detailed review of system, denied any active chest pain abdominal pain Discussed with the case management and planning for placement there are new options available and social service working in profiling 09/21 Wound care evaluated the patient and patient moved looks better and slowly progressing. Recommend continuing wound VAC Case management working on placement options 09/22/19 Her leukocytosis is persistent with thrombocytosis No fever Continuing same antibiotic Ordered CRP ESR level and pro calcitonin No features of sepsis If she continues to increase leukocyte count will discuss with infectious disease and reculture the wound 09/23/19 Intermittently her A. fib went up to 110 120 Metoprolol dose increased to 75 twice daily since then her heart rate has been controlled Her leukocytosis remained slightly elevated and she is also on medroxyprogesterone CRP 43 will trend the CRP if it is creeping up will get opinion from infectious disease and wound care 09/24-patient doing well. Awaiting placement. Ongoing wound care/wound VAC/antibiotics. No concerns per nursing staff. 09/25-doing well awaiting transfer to SNF. White count of 10.7. INR therapeutic 2.6, potassium at 4, continuing vancomycin/Levaquin. No overnight fever chills or concerns per staff. Appears to be volume long however net body weight down since admission. Continue PT OT/wound care 09/26-patient doing well. No overnight events. Ongoing wound care/antibiotics. Thyroxine increased to 62.5 based on TSH over 14. Continuing PT OT/nutrition support. Await SNF transfer. Rate controlled around 100 09/27-ongoing wound care. Awaiting placement. No overnight events. Continue nutrition support. 09/28-doing well. No overnight events, INR 2.2, antibiotics discontinued, await placement. Ongoing nutrition support/wound care 09/29-patient awaiting placement. Redness and erythema around the gluteal ulcer site. Ongoing wound care. No overnight fever chills. Off antibiotics. Continue PT OT/nutrition support/wound care. 09/30-doing well. No overnight events. No new changes. Await placement 10/01-wound VAC changed today. Wound looking a lot better. No overnight events. Await placement. No concerns expressed by nursing staff 10/02-ongoing wound care/wound VAC. INR therapeutic. No overnight fever chills. Labs and hemodynamics stable. Continue rehab. Await transfer to SNF 10/03-patient doing well. No overnight events. No concerns per staff. Continue existing treatment/Coumadin dosing - Constitutional Vitals: Vital Signs Temp Pulse Resp BP Pulse Ox 98.0 F 97 H 18 119/77 91 10/03/19 16:00 10/03/19 16:00 10/03/19 16:00 10/03/19 16:00 10/03/19 16:00 Period Temp Pulse Resp BP Sys/Butler Pulse Ox Last 24 Hr 97.1 F-98.2 F 90-109 16-24 90-119/59-77 90-96 Intake and Output 10/03/19 10/03/19 10/03/19 05:59 13:59 21:59 Intake Total 880 200 750 Output Total 375 600 Balance 505 200 150 Intake & Output: Intake & Output 10/03/19 10/03/19 10/03/19 05:59 13:59 21:59 Intake Total 880 200 750 Output Total 375 600 Balance 505 200 150 Intake: Oral 880 200 750 Output: Urine Catheter Amount 375 600 Other: Meal Lunch Percent of Meal Consumed 50% Feeding Ability Independent Urine Appearance Clear Clear Urine Color Dark Yellow Bright Yellow Urine Odor Normal General appearance: no acute distress Exam: Alert oriented Nonlabored breathing No anxiety Nondistended abdomen Wound VAC Medical - PN: Obj Da - Labs CBC & Chem 7: 10/01/19 10:08 10/01/19 10:08 Labs: Abnormal Lab Results 10/03/19 10/02/19 10/01/19 07:41 08:22 10:08 PT 27.6 H 30.6 H INR 2.6 H 3.0 H Anion Gap 17.0 H Glucose 119 H GGT 108 H AST 59 H ALT 74 H Alkaline Phosphatase 153 H Albumin/Globulin Ratio 0.9 L 10/01/19 05:31 PT 26.5 H INR 2.5 H Anion Gap Glucose GGT AST ALT Alkaline Phosphatase Albumin/Globulin Ratio Meds: Medications Acetaminophen (Tylenol) 650 mg PO Q6HP PRN; Protocol PRN Reason: Per Pain Protocol/Fever > 101 Last Admin: 09/25/19 11:22 Dose: 650 mg Documented by: Hydrocodone Bitart/Acetaminophen ([place] 5/325mg) 1 tab PO Q4HP PRN; Protocol PRN Reason: Per Pain Protocol Last Admin: 10/03/19 14:02 Dose: 1 tab Documented by: Albuterol/Ipratropium (Duoneb) 3 ml NEB Q6H PRN PRN Reason: shortness of breath Atorvastatin Calcium (Lipitor) 40 mg PO QHS [facility] Last Admin: 10/02/19 21:47 Dose: 40 mg Documented by: Benztropine Mesylate (Cogentin) 2 mg PO BID [facility] Last Admin: 10/03/19 08:57 Dose: 2 mg Documented by: Clonazepam (Klonopin) 0.25 mg PO BIDP PRN PRN Reason: Anxiety Last Admin: 09/30/19 09:45 Dose: 0.25 mg Documented by: Docusate Sodium (Colace) 100 mg PO BID PRN PRN Reason: Constipation Heparin Sodium (Porcine) (Heparin Flush) 2 ml IV Q12 [facility] Last Admin: 10/03/19 08:57 Dose: 2 ml Documented by: Hydrochlorothiazide (Oretic) 25 mg PO QAM [facility] Last Admin: 10/03/19 08:56 Dose: 25 mg Documented by: Acetaminophen (Ofirmev) 650 mg in 65 mls @ 130 mls/hr IV Q6HP PRN; Protocol PRN Reason: PAIN/FEVER > 101 Iron Carb/Multivit/D[place] Quarter/Folic Acid (Multivitamin W/Minerals) 1 tab PO DAILY [facility] Last Admin: 10/03/19 08:56 Dose: 1 tab Documented by: Lactulose (Cephulac) 10 gm PO DAILYP PRN PRN Reason: Constipation Lamotrigine (Lamictal) 100 mg PO QDAY [facility] Last Admin: 10/03/19 08:56 Dose: 100 mg Documented by: Levothyroxine Sodium (Synthroid) 400 mcg PO ACB [facility] Last Admin: 10/03/19 06:43 Dose: 400 mcg Documented by: Medroxyprogesterone Acetate (Provera) 10 mg PO BID [facility] Last Admin: 10/03/19 08:57 Dose: 10 mg Documented by: Metoprolol Tartrate (Lopressor) 5 mg IV Q2HP PRN PRN Reason: Tachyarrhythmias HR>110 Last Admin: 09/21/19 12:13 Dose: 5 mg Documented by: Metoprolol Tartrate (Lopressor) 75 mg PO BID [facility] Last Admin: 10/03/19 08:58 Dose: Not Given Documented by: Naloxone HCl (Narcan) 0.1 mg IV Q2MIN PRN PRN Reason: Opiate Reversal Ondansetron HCl (Zofran) 4 mg IV Q4HP PRN; Protocol PRN Reason: Nausea And Vomiting Last Admin: 09/19/19 05:37 Dose: 4 mg Documented by: Pantoprazole Sodium (Protonix) 40 mg PO QAMAC [facility] Last Admin: 10/03/19 06:43 Dose: 40 mg Documented by: Senluisa (Senokot) 2 tab PO HSP PRN PRN Reason: Constipation Last Admin: 09/22/19 19:01 Dose: 2 tab Documented by: Sodium Chloride (Saline Flush) 10 ml IV UD PRN PRN Reason: FLUSH Last Admin: 09/20/19 21:00 Dose: 10 ml Documented by: Sodium Chloride (Saline Flush) 10 ml IV Q12 [facility] Last Admin: 10/03/19 09:23 Dose: 10 ml Documented by: Venlafaxine HCl (Effexor Xr) 150 mg PO QDAY [facility] Last Admin: 10/03/19 08:56 Dose: 150 mg Documented by: Warfarin Sodium (Coumadin Per Pharmacy) 1 order PO UD [facility] Medical - PN: A/P - Time Spent With Patient Total time spent is greater than 50% in coordination of care (as documented) at patient's floor/unit and/or counseling patient: 15 - 24 minutes (1) Pressure ulcer of sacral region, unstageable Problem details: Local wound care as discussed with nursing staff. Status: Chronic Assessment and plan: * Infected decubitus ulcer with cultures -ongoing management per wound care with wound VAC. Continue offloading/positioning. Off antibiotics * Severe sepsis- resolved * Complicated UTI resolved * anticoagulation on Coumadin for CVA prophylaxis, INR therapeutic * Underlying dementia with intermittent delirium. At baseline * History of schizophrenia-no acute paranoia * History of CVA -continue statin/Coumadin * Atrial fibrillation currently rate controlled on metoprolol 75 twice daily * CKD stage II -creatinine at baseline * Hypothyroidism on thyroxine. Dose increased to 400 * Hyperlipidemia continue statin * Anxiety continue home dose venlafaxine * GERD on PPI * DVT prophylaxis-INR therapeutic Plan * Continue wound VAC management per wound physician * Pre-existing medical condition management as above * Continue Coumadin dosing based on INR * Daily PT OT/Nutrition support * Awaiting SNF transfer Current Visit: Yes Medical - PN: Qual - VTE Deep Vein Thrombosis/Pulmonary Embolism Present on Admission: No
[2019-10-03] MEDS: ATORVASTATIN 40 MG TABLET PO SCH (21:38)
[2019-10-04] MEDS: METOPROLOL TARTRATE 5 MG/5 ML VIAL IV PRN (03:07)
[2019-10-04] MEDS: HYDROcodone/APAP 5/325MG TABLET PO PRN (05:02)
[2019-10-04] MEDS: LEVOTHYROXINE 100 MCG TABLET PO SCH (07:18)
[2019-10-04] MEDS: PANTOPRAZOLE 40 MG TABLET PO SCH (07:18)
[2019-10-04] MEDS: 0.9 % SODIUM CHLORIDE 10 ML SYRINGE IV SCH ×2 (09:46→21:42)
[2019-10-04] MEDS: METOPROLOL TARTRATE 25 MG TABLET PO SCH ×2 (09:46→21:40)
[2019-10-04 09:54] LABS: INR 2.5 (0.9-1.1); Prothrombin Time 26.3 sec (11.9-14.5)
[2019-10-04] MEDS: BENZTROPINE 1 MG TABLET PO SCH ×2 (10:01→21:41)
[2019-10-04] MEDS: MULTIVIT,THER IRON,CA,FA & MIN 1 TABLET PO SCH (10:01)
[2019-10-04] MEDS: VENLAFAXINE 150 MG CAP.XL.24H PO SCH (10:01)
[2019-10-04] MEDS: HYDROCHLOROTHIAZIDE 25 MG TABLET PO SCH (10:01)
[2019-10-04] MEDS: lamoTRIgine 100 MG TABLET PO SCH (10:02)
[2019-10-04] MEDS: medroxyPROGESTERone 10 MG TABLET PO SCH ×2 (10:03→21:51)
[2019-10-04] MEDS ORDERED: WARFARIN 3 MG TABLET PO ONE (14:00)
[2019-10-04] MEDS: ATORVASTATIN 40 MG TABLET PO SCH (21:41)
--- NOTE | 2019-10-04 22:58 | Internal Med Progress Note ---
Medical - PN: Subj Patient information: Note initiated : 10/04/19 at 10:57 pm Service Date, if different from initiated Date: [] Patient: Christine Cespedes a 64 y/o F admitted on 09/08/19 for Sepsis, UTI. Chief Complaint: [] Interval history: 09/08 Ms. Cespedes is a 64 year old F with a history of atrial fibrillation, recent subdural hematoma, history of ischemic strokes, hypertension, sleep apnea not on CPAP, prediabetes, morbid obesity with mobility impairment who presents to the emergency department with lethargy. History is obtained speaking to her caregiver. She has a caregiver in the home during the days, but not at night. The caregiver notes yesterday she was not quite herself, displaying some mild confusion. Her appetite was decreased. Caregiver made her a sandwich for dinner prior to her leaving yesterday, was still on eaten this morning when their caregiver arrived. Patient was in bed, was too weak to get out of bed, was confused and could not respond appropriately. In the ED, there is a history of low-grade fever as well. Because of lethargy, fever and weakness EMS was activated and she is brought to the ED. In the emergency department she has evidence of sepsis with now white count of 22,000, lactate of 3.8, increased anion gap and significantly abnormal urine analysis with pyuria and bacteriuria. She is being admitted for treatment of sepsis from urinary source. 09/09 Intermittently more responsive, was sitting up on edge of bed with physical therapy and did participate in self-care this morning. Is required fluids for declining blood pressures today with response. 09/10 Slowly continues to be more interactive. Urine culture with E. coli, only resistant to fluoroquinolones. Blood pressure stable. 09/11 Much more alert and interactive today. Still quite weak and needing assistance to stay sitting up at bedside. Held conversation with her, she states her goal is to get better. I encouraged her to increase her oral intake and that it is important for her to eat to get better. Nursing spoke with her son, who is her eldest child. He is a long-haul director of informatics and is out of state, but agreed that she will likely need skilled placement following this admission. In the late afternoon, she awoke panicked that she was trapped in a trailer and was disoriented. Had significant anxiety. 09/12/2019 Patient continued to have disorientation and hallucinations yesterday evening, was up much of the night, eventually calm down. Medicine list reviewed, she does not have any antipsychotics or other treatments for schizophrenia. Attempting to reconfirm her medication list. This morning, states she is not feeling too well, but is sleepy drifts back off. 09/13 Patient seems less interactive than she was yesterday afternoon. Sacral wound now draining material and will need debridement. Previously had eschar that was being debrided. Should've completed for therapy for UTI sepsis. Discussed with Dr. Juarez, whose consult general surgery. Have consulted Dr. Silverio, is recommended. Vancomycin and Zosyn for now until debridement. 09/14 Patient status post surgical I&D. Drowsy but opens eyes to voice. Refused CT imaging yesterday as recommended by infectious disease. No overnight events. Discussed case with her son who makes medical decisions when she is unable. He was able to clarify that she would be a DO NOT RESUSCITATE in the event effect catastrophic event. Regarding goals of care. We will see how she has in the next day or 2 09/15 Nurse able to get the patient to drink a carnation instant breakfast. Patient sleeping at this time but awakens and admits to feeling little better but otherwise not verbalizing a whole lot and difficult to obtain review of systems. she is on room air today. 09/16 Yesterday afternoon patient was sitting up in bed eating breakfast, mentation and somnolence improved. Feeling much better today. Has occasional cough and headache. No other complaints. Nurse report diarrhea. Again mentation significantly improved she is oriented to place and President 09/17 No overnight event or new complaints. Patient resting comfortably in bed. Denies any cough or shortness of breath. 09/18 Patient unable to be placed yesterday still working on placement. Patient sleeping this morning. Denies any complaints. 09/20 Patient was resting Unable to obtain detailed review of system, denied any active chest pain abdominal pain Discussed with the case management and planning for placement there are new options available and social service working in profiling 09/21 Wound care evaluated the patient and patient moved looks better and slowly progressing. Recommend continuing wound VAC Case management working on placement options 09/22/19 Her leukocytosis is persistent with thrombocytosis No fever Continuing same antibiotic Ordered CRP ESR level and pro calcitonin No features of sepsis If she continues to increase leukocyte count will discuss with infectious disease and reculture the wound 09/23/19 Intermittently her A. fib went up to 110 120 Metoprolol dose increased to 75 twice daily since then her heart rate has been controlled Her leukocytosis remained slightly elevated and she is also on medroxyprogesterone CRP 43 will trend the CRP if it is creeping up will get opinion from infectious disease and wound care 09/24-patient doing well. Awaiting placement. Ongoing wound care/wound VAC/antibiotics. No concerns per nursing staff. 09/25-doing well awaiting transfer to SNF. White count of 10.7. INR therapeutic 2.6, potassium at 4, continuing vancomycin/Levaquin. No overnight fever chills or concerns per staff. Appears to be volume long however net body weight down since admission. Continue PT OT/wound care 09/26-patient doing well. No overnight events. Ongoing wound care/antibiotics. Thyroxine increased to 62.5 based on TSH over 14. Continuing PT OT/nutrition support. Await SNF transfer. Rate controlled around 100 09/27-ongoing wound care. Awaiting placement. No overnight events. Continue nutrition support. 09/28-doing well. No overnight events, INR 2.2, antibiotics discontinued, await placement. Ongoing nutrition support/wound care 09/29-patient awaiting placement. Redness and erythema around the gluteal ulcer site. Ongoing wound care. No overnight fever chills. Off antibiotics. Continue PT OT/nutrition support/wound care. 09/30-doing well. No overnight events. No new changes. Await placement 10/01-wound VAC changed today. Wound looking a lot better. No overnight events. Await placement. No concerns expressed by nursing staff 10/02-ongoing wound care/wound VAC. INR therapeutic. No overnight fever chills. Labs and hemodynamics stable. Continue rehab. Await transfer to SNF 10/03-patient doing well. No overnight events. No concerns per staff. Continue existing treatment/Coumadin dosing 10/04-continuing to await placement. No overnight fever chills. No concerns per staff. - Constitutional Vitals: Vital Signs Temp Pulse Resp BP Pulse Ox 97.8 F 114 H 20 112/79 93 10/04/19 19:45 10/04/19 21:35 10/04/19 19:45 10/04/19 21:35 10/04/19 21:35 Period Temp Pulse Resp BP Sys/Butler Pulse Ox Last 24 Hr 97.1 F-98.4 F 72-129 18-22 80-113/58-79 91-95 Intake and Output 10/04/19 10/04/19 10/05/19 13:59 21:59 05:59 Intake Total 500 Output Total 250 Balance 250 Weight 215 lb Patient Weight 10/05/19 05:59 Weight 215 lb Intake & Output: Intake & Output 10/04/19 10/04/19 10/05/19 13:59 21:59 05:59 Intake Total 500 Output Total 250 Balance 250 Weight 215 lb Intake: Oral 500 Output: Urine Catheter Amount 250 Other: Meal Lunch Percent of Meal Consumed 50% Feeding Ability Independent Urine Appearance Clear Clear Uretheral (Aguirre) Clear Urine Color Dark Yellow Bright Yellow Uretheral (Aguirre) Dark Yellow Urine Odor Normal Normal General appearance: morbidly obese, no acute distress Exam: Nonlabored breathing no anxiety Wound vac Medical - PN: Obj Da - Labs CBC & Chem 7: 10/01/19 10:08 10/01/19 10:08 Labs: Abnormal Lab Results 10/04/19 10/03/19 10/02/19 05:50 07:41 08:22 PT 26.3 H 27.6 H 30.6 H INR 2.5 H 2.6 H 3.0 H Meds: Medications Acetaminophen (Tylenol) 650 mg PO Q6HP PRN; Protocol PRN Reason: Per Pain Protocol/Fever > 101 Last Admin: 09/25/19 11:22 Dose: 650 mg Documented by: Hydrocodone Bitart/Acetaminophen ([place] 5/325mg) 1 tab PO Q4HP PRN; Protocol PRN Reason: Per Pain Protocol Last Admin: 10/04/19 05:02 Dose: 1 tab Documented by: Albuterol/Ipratropium (Duoneb) 3 ml NEB Q6H PRN PRN Reason: shortness of breath Atorvastatin Calcium (Lipitor) 40 mg PO QHS [facility] Last Admin: 10/04/19 21:41 Dose: 40 mg Documented by: Benztropine Mesylate (Cogentin) 2 mg PO BID [facility] Last Admin: 10/04/19 21:41 Dose: 2 mg Documented by: Clonazepam (Klonopin) 0.25 mg PO BIDP PRN PRN Reason: Anxiety Last Admin: 09/30/19 09:45 Dose: 0.25 mg Documented by: Docusate Sodium (Colace) 100 mg PO BID PRN PRN Reason: Constipation Last Admin: 10/04/19 16:52 Dose: 100 mg Documented by: Heparin Sodium (Porcine) (Heparin Flush) 2 ml IV Q12 [facility] Last Admin: 10/04/19 21:42 Dose: 2 ml Documented by: Hydrochlorothiazide (Oretic) 25 mg PO QAM [facility] Last Admin: 10/04/19 10:01 Dose: 25 mg Documented by: Acetaminophen (Ofirmev) 650 mg in 65 mls @ 130 mls/hr IV Q6HP PRN; Protocol PRN Reason: PAIN/FEVER > 101 Iron Carb/Multivit/Mirror Department Supervisor/Folic Acid (Multivitamin W/Minerals) 1 tab PO DAILY [facility] Last Admin: 10/04/19 10:01 Dose: 1 tab Documented by: Lactulose (Cephulac) 10 gm PO DAILYP PRN PRN Reason: Constipation Lamotrigine (Lamictal) 100 mg PO QDAY [facility] Last Admin: 10/04/19 10:02 Dose: 100 mg Documented by: Levothyroxine Sodium (Synthroid) 400 mcg PO ACB [facility] Last Admin: 10/04/19 07:18 Dose: 400 mcg Documented by: Medroxyprogesterone Acetate (Provera) 10 mg PO BID [facility] Last Admin: 10/04/19 21:51 Dose: 10 mg Documented by: Metoprolol Tartrate (Lopressor) 5 mg IV Q2HP PRN PRN Reason: Tachyarrhythmias HR>110 Last Admin: 10/04/19 03:07 Dose: 5 mg Documented by: Metoprolol Tartrate (Lopressor) 37.5 mg PO BID [facility] Last Admin: 10/04/19 21:40 Dose: 37.5 mg Documented by: Naloxone HCl (Narcan) 0.1 mg IV Q2MIN PRN PRN Reason: Opiate Reversal Ondansetron HCl (Zofran) 4 mg IV Q4HP PRN; Protocol PRN Reason: Nausea And Vomiting Last Admin: 09/19/19 05:37 Dose: 4 mg Documented by: Pantoprazole Sodium (Protonix) 40 mg PO QAMAC [facility] Last Admin: 10/04/19 07:18 Dose: 40 mg Documented by: Senna (Senokot) 2 tab PO HSP PRN PRN Reason: Constipation Last Admin: 09/22/19 19:01 Dose: 2 tab Documented by: Sodium Chloride (Saline Flush) 10 ml IV UD PRN PRN Reason: FLUSH Last Admin: 09/20/19 21:00 Dose: 10 ml Documented by: Sodium Chloride (Saline Flush) 10 ml IV Q12 [facility] Last Admin: 10/04/19 21:42 Dose: 10 ml Documented by: Venlafaxine HCl (Effexor Xr) 150 mg PO QDAY [facility] Last Admin: 10/04/19 10:01 Dose: 150 mg Documented by: Warfarin Sodium (Coumadin Per Pharmacy) 1 order PO UD [facility] Medical - PN: A/P - Time Spent With Patient Total time spent is greater than 50% in coordination of care (as documented) at patient's floor/unit and/or counseling patient: 15 - 24 minutes (1) Pressure ulcer of sacral region, unstageable Problem details: Local wound care as discussed with nursing staff. Status: Chronic Assessment and plan: * Infected decubitus ulcer with cultures -ongoing management per wound care with wound VAC. Continue offloading/positioning. Off antibiotics * Severe sepsis- resolved * Complicated UTI resolved * anticoagulation on Coumadin for CVA prophylaxis, INR 2.8 * Underlying dementia with intermittent delirium. At baseline * History of schizophrenia-no acute paranoia * History of CVA -continue statin/Coumadin * Atrial fibrillation currently rate controlled on metoprolol 75 twice daily * CKD stage II -creatinine at baseline * Hypothyroidism on thyroxine 400 MCG * Hyperlipidemia continue statin * Anxiety stable on venlafaxine * GERD on PPI * DVT prophylaxis-INR therapeutic Plan * Wound VAC management per wound physician * Pre-existing medical condition management as above * Daily Coumadin dosing * Daily PT OT/Nutrition support * Awaiting SNF transfer, case management coordinating Current Visit: Yes Medical - PN: Qual - VTE Deep Vein Thrombosis/Pulmonary Embolism Present on Admission: No
[2019-10-05] MEDS: LEVOTHYROXINE 100 MCG TABLET PO SCH (07:43)
[2019-10-05] MEDS: PANTOPRAZOLE 40 MG TABLET PO SCH (07:43)
[2019-10-05 08:27] LABS: INR 2.8 (0.9-1.1); Prothrombin Time 29.1 sec (11.9-14.5)
[2019-10-05] MEDS: VENLAFAXINE 150 MG CAP.XL.24H PO SCH (09:13)
[2019-10-05] MEDS: MULTIVIT,THER IRON,CA,FA & MIN 1 TABLET PO SCH (09:13)
[2019-10-05] MEDS: lamoTRIgine 100 MG TABLET PO SCH (09:13)
[2019-10-05] MEDS: METOPROLOL TARTRATE 25 MG TABLET PO SCH ×2 (09:13→21:35)
[2019-10-05] MEDS: HYDROCHLOROTHIAZIDE 25 MG TABLET PO SCH (09:13)
[2019-10-05] MEDS: BENZTROPINE 1 MG TABLET PO SCH ×2 (09:13→21:33)
[2019-10-05] MEDS: medroxyPROGESTERone 10 MG TABLET PO SCH ×2 (09:14→21:33)
[2019-10-05] MEDS: 0.9 % SODIUM CHLORIDE 10 ML SYRINGE IV SCH ×2 (09:15→21:34)
--- NOTE | 2019-10-05 10:08 | Internal Med Progress Note ---
Medical - PN: Subj Patient information: Note initiated : 10/05/19 at 10:07 am Service Date, if different from initiated Date: [] Patient: Christine Cespedes a 64 y/o F admitted on 09/08/19 for Sepsis, UTI. Chief Complaint: [] Interval history: 09/08 Ms. Cespedes is a 64 year old F with a history of atrial fibrillation, recent subdural hematoma, history of ischemic strokes, hypertension, sleep apnea not on CPAP, prediabetes, morbid obesity with mobility impairment who presents to the emergency department with lethargy. History is obtained speaking to her caregiver. She has a caregiver in the home during the days, but not at night. The caregiver notes yesterday she was not quite herself, displaying some mild confusion. Her appetite was decreased. Caregiver made her a sandwich for dinner prior to her leaving yesterday, was still on eaten this morning when their caregiver arrived. Patient was in bed, was too weak to get out of bed, was confused and could not respond appropriately. In the ED, there is a history of low-grade fever as well. Because of lethargy, fever and weakness EMS was activated and she is brought to the ED. In the emergency department she has evidence of sepsis with now white count of 22,000, lactate of 3.8, increased anion gap and significantly abnormal urine analysis with pyuria and bacteriuria. She is being admitted for treatment of sepsis from urinary source. 09/09 Intermittently more responsive, was sitting up on edge of bed with physical therapy and did participate in self-care this morning. Is required fluids for declining blood pressures today with response. 09/10 Slowly continues to be more interactive. Urine culture with E. coli, only resistant to fluoroquinolones. Blood pressure stable. 09/11 Much more alert and interactive today. Still quite weak and needing assistance to stay sitting up at bedside. Held conversation with her, she states her goal is to get better. I encouraged her to increase her oral intake and that it is important for her to eat to get better. Nursing spoke with her son, who is her eldest child. He is a long-haul plastic installer and is out of state, but agreed that she will likely need skilled placement following this admission. In the late afternoon, she awoke panicked that she was trapped in a trailer and was disoriented. Had significant anxiety. 09/12/2019 Patient continued to have disorientation and hallucinations yesterday evening, was up much of the night, eventually calm down. Medicine list reviewed, she does not have any antipsychotics or other treatments for schizophrenia. Attempting to reconfirm her medication list. This morning, states she is not feeling too well, but is sleepy drifts back off. 09/13 Patient seems less interactive than she was yesterday afternoon. Sacral wound now draining material and will need debridement. Previously had eschar that was being debrided. Should've completed for therapy for UTI sepsis. Discussed with Dr. Juarez, whose consult general surgery. Have consulted Dr. Silverio, is recommended. Vancomycin and Zosyn for now until debridement. 09/14 Patient status post surgical I&D. Drowsy but opens eyes to voice. Refused CT imaging yesterday as recommended by infectious disease. No overnight events. Discussed case with her son who makes medical decisions when she is unable. He was able to clarify that she would be a DO NOT RESUSCITATE in the event effect catastrophic event. Regarding goals of care. We will see how she has in the next day or 2 09/15 Nurse able to get the patient to drink a carnation instant breakfast. Patient sleeping at this time but awakens and admits to feeling little better but otherwise not verbalizing a whole lot and difficult to obtain review of systems. she is on room air today. 09/16 Yesterday afternoon patient was sitting up in bed eating breakfast, mentation and somnolence improved. Feeling much better today. Has occasional cough and headache. No other complaints. Nurse report diarrhea. Again mentation significantly improved she is oriented to place and President 09/17 No overnight event or new complaints. Patient resting comfortably in bed. Denies any cough or shortness of breath. 09/18 Patient unable to be placed yesterday still working on placement. Patient sleeping this morning. Denies any complaints. 09/20 Patient was resting Unable to obtain detailed review of system, denied any active chest pain abdominal pain Discussed with the case management and planning for placement there are new options available and social service working in profiling 09/21 Wound care evaluated the patient and patient moved looks better and slowly progressing. Recommend continuing wound VAC Case management working on placement options 09/22/19 Her leukocytosis is persistent with thrombocytosis No fever Continuing same antibiotic Ordered CRP ESR level and pro calcitonin No features of sepsis If she continues to increase leukocyte count will discuss with infectious disease and reculture the wound 09/23/19 Intermittently her A. fib went up to 110 120 Metoprolol dose increased to 75 twice daily since then her heart rate has been controlled Her leukocytosis remained slightly elevated and she is also on medroxyprogesterone CRP 43 will trend the CRP if it is creeping up will get opinion from infectious disease and wound care 09/24-patient doing well. Awaiting placement. Ongoing wound care/wound VAC/antibiotics. No concerns per nursing staff. 09/25-doing well awaiting transfer to SNF. White count of 10.7. INR therapeutic 2.6, potassium at 4, continuing vancomycin/Levaquin. No overnight fever chills or concerns per staff. Appears to be volume long however net body weight down since admission. Continue PT OT/wound care 09/26-patient doing well. No overnight events. Ongoing wound care/antibiotics. Thyroxine increased to 62.5 based on TSH over 14. Continuing PT OT/nutrition support. Await SNF transfer. Rate controlled around 100 09/27-ongoing wound care. Awaiting placement. No overnight events. Continue nutrition support. 09/28-doing well. No overnight events, INR 2.2, antibiotics discontinued, await placement. Ongoing nutrition support/wound care 09/29-patient awaiting placement. Redness and erythema around the gluteal ulcer site. Ongoing wound care. No overnight fever chills. Off antibiotics. Continue PT OT/nutrition support/wound care. 09/30-doing well. No overnight events. No new changes. Await placement 10/01-wound VAC changed today. Wound looking a lot better. No overnight events. Await placement. No concerns expressed by nursing staff 10/02-ongoing wound care/wound VAC. INR therapeutic. No overnight fever chills. Labs and hemodynamics stable. Continue rehab. Await transfer to SNF 10/03-patient doing well. No overnight events. No concerns per staff. Continue existing treatment/Coumadin dosing 10/04-continuing to await placement. No overnight fever chills. No concerns per staff. 10/05-patient doing well. INR 2.8. No overnight events. No concerns per staff. Denies fever chills. Wound care with wound VAC. - Constitutional Vitals: Vital Signs Temp Pulse Resp BP Pulse Ox 97.1 F 96 H 20 100/72 96 10/05/19 08:00 10/05/19 03:50 10/05/19 08:00 10/05/19 08:00 10/05/19 08:00 Period Temp Pulse Resp BP Sys/Butler Pulse Ox Last 24 Hr 97.1 F-98.0 F 96-129 16-21 88-112/58-79 92-96 Intake and Output 10/04/19 10/05/19 10/05/19 21:59 05:59 13:59 Intake Total 500 440 Output Total 250 450 Balance 250 -10 Weight 215 lb Intake & Output: Intake & Output 10/04/19 10/05/19 10/05/19 21:59 05:59 13:59 Intake Total 500 440 Output Total 250 450 Balance 250 -10 Weight 215 lb Intake: Oral 500 440 Output: Urine Catheter Amount 250 450 Other: Meal Dinner Nourishment/Supplement Percent of Meal Consumed 15% 100% Feeding Ability Assist with Tray Set Up Total Assistance Urine Appearance Clear Clear Uretheral (Aguirre) Clear Clear Sediment Urine Color Bright Yellow Light Gerri Uretheral (Aguirre) Dark Yellow Bright Yellow Urine Odor Normal General appearance: no acute distress Exam: No acute changes Nonlabored breathing Wound VAC Medical - PN: Obj Da - Labs CBC & Chem 7: 10/01/19 10:08 10/01/19 10:08 Labs: Abnormal Lab Results 10/05/19 10/04/19 10/03/19 05:00 05:50 07:41 PT 29.1 H 26.3 H 27.6 H INR 2.8 H 2.5 H 2.6 H Meds: Medications Acetaminophen (Tylenol) 650 mg PO Q6HP PRN; Protocol PRN Reason: Per Pain Protocol/Fever > 101 Last Admin: 09/25/19 11:22 Dose: 650 mg Documented by: Hydrocodone Bitart/Acetaminophen ([place] 5/325mg) 1 tab PO Q4HP PRN; Protocol PRN Reason: Per Pain Protocol Last Admin: 10/04/19 05:02 Dose: 1 tab Documented by: Albuterol/Ipratropium (Duoneb) 3 ml NEB Q6H PRN PRN Reason: shortness of breath Atorvastatin Calcium (Lipitor) 40 mg PO QHS CRAIG Last Admin: 10/04/19 21:41 Dose: 40 mg Documented by: Benztropine Mesylate (Cogentin) 2 mg PO BID ON LICENSE OF [facility] Last Admin: 10/05/19 09:13 Dose: 2 mg Documented by: Clonazepam (Klonopin) 0.25 mg PO BIDP PRN PRN Reason: Anxiety Last Admin: 09/30/19 09:45 Dose: 0.25 mg Documented by: Docusate Sodium (Colace) 100 mg PO BID PRN PRN Reason: Constipation Last Admin: 10/04/19 16:52 Dose: 100 mg Documented by: Heparin Sodium (Porcine) (Heparin Flush) 2 ml IV Q12 ON LICENSE OF [facility] Last Admin: 10/05/19 09:14 Dose: 2 ml Documented by: Hydrochlorothiazide (Oretic) 25 mg PO QAM ON LICENSE OF [facility] Last Admin: 10/05/19 09:13 Dose: 25 mg Documented by: Acetaminophen (Ofirmev) 650 mg in 65 mls @ 130 mls/hr IV Q6HP PRN; Protocol PRN Reason: PAIN/FEVER > 101 Iron Carb/Multivit/Senior Sas Developer/Folic Acid (Multivitamin W/Minerals) 1 tab PO DAILY ON LICENSE OF [facility] Last Admin: 10/05/19 09:13 Dose: 1 tab Documented by: Lactulose (Cephulac) 10 gm PO DAILYP PRN PRN Reason: Constipation Lamotrigine (Lamictal) 100 mg PO QDAY ON LICENSE OF [facility] Last Admin: 10/05/19 09:13 Dose: 100 mg Documented by: Levothyroxine Sodium (Synthroid) 400 mcg PO ACB ON LICENSE OF [facility] Last Admin: 10/05/19 07:43 Dose: 400 mcg Documented by: Medroxyprogesterone Acetate (Provera) 10 mg PO BID ON LICENSE OF [facility] Last Admin: 10/05/19 09:14 Dose: 10 mg Documented by: Metoprolol Tartrate (Lopressor) 5 mg IV Q2HP PRN PRN Reason: Tachyarrhythmias HR>110 Last Admin: 10/04/19 03:07 Dose: 5 mg Documented by: Metoprolol Tartrate (Lopressor) 37.5 mg PO BID ON LICENSE OF [facility] Last Admin: 10/05/19 09:13 Dose: 37.5 mg Documented by: Naloxone HCl (Narcan) 0.1 mg IV Q2MIN PRN PRN Reason: Opiate Reversal Ondansetron HCl (Zofran) 4 mg IV Q4HP PRN; Protocol PRN Reason: Nausea And Vomiting Last Admin: 09/19/19 05:37 Dose: 4 mg Documented by: Pantoprazole Sodium (Protonix) 40 mg PO QAMAC ON LICENSE OF [facility] Last Admin: 10/05/19 07:43 Dose: 40 mg Documented by: Senna (Senokot) 2 tab PO HSP PRN PRN Reason: Constipation Last Admin: 09/22/19 19:01 Dose: 2 tab Documented by: Sodium Chloride (Saline Flush) 10 ml IV UD PRN PRN Reason: FLUSH Last Admin: 09/20/19 21:00 Dose: 10 ml Documented by: Sodium Chloride (Saline Flush) 10 ml IV Q12 CRAIG Last Admin: 10/05/19 09:15 Dose: 10 ml Documented by: Venlafaxine HCl (Effexor Xr) 150 mg PO QDAY ON LICENSE OF [facility] Last Admin: 10/05/19 09:13 Dose: 150 mg Documented by: Warfarin Sodium (Coumadin Per Pharmacy) 1 order PO UD ON LICENSE OF [facility] Warfarin Sodium (Coumadin) 2 mg PO ONCE@1400 ONE Stop: 10/05/19 14:01 Medical - PN: A/P - Time Spent With Patient Total time spent is greater than 50% in coordination of care (as documented) at patient's floor/unit and/or counseling patient: 15 - 24 minutes (1) Pressure ulcer of sacral region, unstageable Problem details: Local wound care as discussed with nursing staff. Status: Chronic Assessment and plan: * Infected decubitus ulcer with cultures -ongoing management per wound care with wound VAC. Continue offloading/positioning. Off antibiotics * Severe sepsis- resolved * Complicated UTI resolved * anticoagulation on Coumadin for CVA prophylaxis, INR therapeutic * Underlying dementia with intermittent delirium. Stable * History of schizophrenia-stable * History of CVA -continue statin/Coumadin * Atrial fibrillation rate controlled on metoprolol * CKD stage II -creatinine at baseline * Hypothyroidism on thyroxine 400 MCG * Hyperlipidemia continue statin * Anxiety stable on venlafaxine * GERD on PPI * DVT prophylaxis-INR therapeutic Plan * Wound VAC management per wound physician * Continue pre-existing medical condition management as above * Daily Coumadin dosing * Daily PT OT/Nutrition support * Awaiting SNF transfer, case management coordinating Current Visit: Yes Medical - PN: Qual - VTE Deep Vein Thrombosis/Pulmonary Embolism Present on Admission: No
--- NOTE | 2019-10-05 12:49 | Internal Med Progress Note ---
Medical - PN: Subj Patient information: Note initiated : 10/05/19 at 12:42 pm Service Date, if different from initiated Date: [] Patient: Christine Cespedes a 64 y/o F admitted on 09/08/19 for Sepsis, UTI. Chief Complaint: [] Interval history: 09/08 Ms. Cespedes is a 64 year old F with a history of atrial fibrillation, recent subdural hematoma, history of ischemic strokes, hypertension, sleep apnea not on CPAP, prediabetes, morbid obesity with mobility impairment who presents to the emergency department with lethargy. History is obtained speaking to her caregiver. She has a caregiver in the home during the days, but not at night. The caregiver notes yesterday she was not quite herself, displaying some mild confusion. Her appetite was decreased. Caregiver made her a sandwich for dinner prior to her leaving yesterday, was still on eaten this morning when their caregiver arrived. Patient was in bed, was too weak to get out of bed, was confused and could not respond appropriately. In the ED, there is a history of low-grade fever as well. Because of lethargy, fever and weakness EMS was activated and she is brought to the ED. In the emergency department she has evidence of sepsis with now white count of 22,000, lactate of 3.8, increased anion gap and significantly abnormal urine analysis with pyuria and bacteriuria. She is being admitted for treatment of sepsis from urinary source. 09/09 Intermittently more responsive, was sitting up on edge of bed with physical therapy and did participate in self-care this morning. Is required fluids for declining blood pressures today with response. 09/10 Slowly continues to be more interactive. Urine culture with E. coli, only resistant to fluoroquinolones. Blood pressure stable. 09/11 Much more alert and interactive today. Still quite weak and needing assistance to stay sitting up at bedside. Held conversation with her, she states her goal is to get better. I encouraged her to increase her oral intake and that it is important for her to eat to get better. Nursing spoke with her son, who is her eldest child. He is a long-haul sheet metal installer and is out of state, but agreed that she will likely need skilled placement following this admission. In the late afternoon, she awoke panicked that she was trapped in a trailer and was d isoriented. Had significant anxiety. 09/12/2019 Patient continued to have disorientation and hallucinations yesterday evening, was up much of the night, eventually calm down. Medicine list reviewed, she does not have any antipsychotics or other treatments for schizophrenia. Attempting to reconfirm her medication list. This morning, states she is not feeling too well, but is sleepy drifts back off. 09/13 Patient seems less interactive than she was yesterday afternoon. Sacral wound now draining material and will need debridement. Previously had eschar that was being debrided. Should've completed for therapy for UTI sepsis. Discussed with Dr. Juarez, whose consult general surgery. Have consulted Dr. Silverio, is recommended. Vancomycin and Zosyn for now until debridement. 09/14 Patient status post surgical I&D. Drowsy but opens eyes to voice. Refused CT imaging yesterday as recommended by infectious disease. No overnight events. Discussed case with her son who makes medical decisions when she is unable. He was able to clarify that she would be a DO NOT RESUSCITATE in the event effect catastrophic event. Regarding goals of care. We will see how she has in the next day or 2 09/15 Nurse able to get the patient to drink a carnation instant breakfast. Patient sleeping at this time but awakens and admits to feeling little better but otherwise not verbalizing a whole lot and difficult to obtain review of systems. she is on room air today. 09/16 Yesterday afternoon patient was sitting up in bed eating breakfast, mentation and somnolence improved. Feeling much better today. Has occasional cough and headache. No other complaints. Nurse report diarrhea. Again mentation significantly improved she is oriented to place and President 09/17 No overnight event or new complaints. Patient resting comfortably in bed. Denies any cough or shortness of breath. 09/18 Patient unable to be placed yesterday still working on placement. Patient sleeping this morning. Denies any complaints. 09/20 Patient was resting Unable to obtain detailed review of system, denied any active chest pain abdominal pain Discussed with the case management and planning for placement there are new options available and social service working in profiling 09/21 Wound care evaluated the patient and patient moved looks better and slowly progressing. Recommend continuing wound VAC Case management working on placement options 09/22/19 Her leukocytosis is persistent with thrombocytosis No fever Continuing same antibiotic Ordered CRP ESR level and pro calcitonin No features of sepsis If she continues to increase leukocyte count will discuss with infectious disease and reculture the wound 09/23/19 Intermittently her A. fib went up to 110 120 Metoprolol dose increased to 75 twice daily since then her heart rate has been controlled Her leukocytosis remained slightly elevated and she is also on medroxyprogesterone CRP 43 will trend the CRP if it is creeping up will get opinion from infectious disease and wound care 09/24-patient doing well. Awaiting placement. Ongoing wound care/wound VAC/antibiotics. No concerns per nursing staff. 09/25-doing well awaiting transfer to SNF. White count of 10.7. INR therapeutic 2.6, potassium at 4, continuing vancomycin/Levaquin. No overnight fever chills or concerns per staff. Appears to be volume long however net body weight down since admission. Continue PT OT/wound care 09/26-patient doing well. No overnight events. Ongoing wound care/antibiotics. Thyroxine increased to 62.5 based on TSH over 14. Continuing PT OT/nutrition support. Await SNF transfer. Rate controlled around 100 09/27-ongoing wound care. Awaiting placement. No overnight events. Continue nutrition support. 09/28-doing well. No overnight events, INR 2.2, antibiotics discontinued, await placement. Ongoing nutrition support/wound care 09/29-patient awaiting placement. Redness and erythema around the gluteal ulcer site. Ongoing wound care. No overnight fever chills. Off antibiotics. Continue PT OT/nutrition support/wound care. 09/30-doing well. No overnight events. No new changes. Await placement 10/01-wound VAC changed today. Wound looking a lot better. No overnight events. Await placement. No concerns expressed by nursing staff 10/02-ongoing wound care/wound VAC. INR therapeutic. No overnight fever chills. Labs and hemodynamics stable. Continue rehab. Await transfer to SNF 10/03-patient doing well. No overnight events. No concerns per staff. Continue existing treatment/Coumadin dosing 10/04-continuing to await placement. No overnight fever chills. No concerns per staff. 10/05-patient doing well. INR 2.8. No overnight events. No concerns per staff. Denies fever chills. Wound care with wound VAC. - Constitutional Vitals: Vital Signs Temp Pulse Resp BP Pulse Ox 97.9 F 95 H 24 H 97/65 95 10/05/19 11:48 10/05/19 11:48 10/05/19 11:48 10/05/19 11:48 10/05/19 11:48 Period Temp Pulse Resp BP Sys/Butler Pulse Ox Last 24 Hr 97.1 F-98.0 F 90-129 16-24 88-112/58-79 93-96 Intake and Output 10/04/19 10/05/19 10/05/19 21:59 05:59 13:59 Intake Total 500 440 Output Total 250 450 Balance 250 -10 Weight 97.522 kg Intake & Output: Intake & Output 10/04/19 10/05/19 10/05/19 21:59 05:59 13:59 Intake Total 500 440 Output Total 250 450 Balance 250 -10 Weight 97.522 kg Intake: Oral 500 440 Output: Urine Catheter Amount 250 450 Other: Meal Dinner Nourishment/Supplement Percent of Meal Consumed 15% 100% Feeding Ability Assist with Tray Set Up Total Assistance Urine Appearance Clear Clear Clear Sediment Uretheral (Aguirre) Clear Clear Sediment Urine Color Bright Yellow Light Gerri Dark Yellow Uretheral (Aguirre) Dark Yellow Bright Yellow Urine Odor Normal Exam: General: Sleeping but awakens, No acute Distress, obese Eyes/N/T: EOMI, Head/Neck: neck supple, CV: irreg irreg, No murmurs, Pulm: diminished b/l, no wheezing Abd: soft, nontender, +BS x4 Ext: no clubbing/cyanosis, lower and upper extremity edema greatly improved Neuro: Sleeping but awakens. Overall mentation greatly improved, no focal deficits, follows commands Skin: warm/dry Medical - PN: Obj Da - Labs CBC & Chem 7: 10/01/19 10:08 10/01/19 10:08 Labs: Abnormal Lab Results 10/05/19 10/04/19 10/03/19 05:00 05:50 07:41 PT 29.1 H 26.3 H 27.6 H INR 2.8 H 2.5 H 2.6 H Meds: Medications Acetaminophen (Tylenol) 650 mg PO Q6HP PRN; Protocol PRN Reason: Per Pain Protocol/Fever > 101 Last Admin: 09/25/19 11:22 Dose: 650 mg Documented by: Hydrocodone Bitart/Acetaminophen ([place] 5/325mg) 1 tab PO Q4HP PRN; Protocol PRN Reason: Per Pain Protocol Last Admin: 10/04/19 05:02 Dose: 1 tab Documented by: Albuterol/Ipratropium (Duoneb) 3 ml NEB Q6H PRN PRN Reason: shortness of breath Atorvastatin Calcium (Lipitor) 40 mg PO QHS [facility] Last Admin: 10/04/19 21:41 Dose: 40 mg Documented by: Benztropine Mesylate (Cogentin) 2 mg PO BID [facility] Last Admin: 10/05/19 09:13 Dose: 2 mg Documented by: Clonazepam (Klonopin) 0.25 mg PO BIDP PRN PRN Reason: Anxiety Last Admin: 09/30/19 09:45 Dose: 0.25 mg Documented by: Docusate Sodium (Colace) 100 mg PO BID PRN PRN Reason: Constipation Last Admin: 10/04/19 16:52 Dose: 100 mg Documented by: Heparin Sodium (Porcine) (Heparin Flush) 2 ml IV Q12 [facility] Last Admin: 10/05/19 09:14 Dose: 2 ml Documented by: Hydrochlorothiazide (Oretic) 25 mg PO QAM [facility] Last Admin: 10/05/19 09:13 Dose: 25 mg Documented by: Acetaminophen (Ofirmev) 650 mg in 65 mls @ 130 mls/hr IV Q6HP PRN; Protocol PRN Reason: PAIN/FEVER > 101 Iron Carb/Multivit/[place]/Folic Acid (Multivitamin W/Minerals) 1 tab PO DAILY [facility] Last Admin: 10/05/19 09:13 Dose: 1 tab Documented by: Lactulose (Cephulac) 10 gm PO DAILYP PRN PRN Reason: Constipation Lamotrigine (Lamictal) 100 mg PO QDAY [facility] Last Admin: 10/05/19 09:13 Dose: 100 mg Documented by: Levothyroxine Sodium (Synthroid) 400 mcg PO ACB [facility] Last Admin: 10/05/19 07:43 Dose: 400 mcg Documented by: Medroxyprogesterone Acetate (Provera) 10 mg PO BID [facility] Last Admin: 10/05/19 09:14 Dose: 10 mg Documented by: Metoprolol Tartrate (Lopressor) 5 mg IV Q2HP PRN PRN Reason: Tachyarrhythmias HR>110 Last Admin: 10/04/19 03:07 Dose: 5 mg Documented by: Metoprolol Tartrate (Lopressor) 37.5 mg PO BID [facility] Last Admin: 10/05/19 09:13 Dose: 37.5 mg Documented by: Naloxone HCl (Narcan) 0.1 mg IV Q2MIN PRN PRN Reason: Opiate Reversal Ondansetron HCl (Zofran) 4 mg IV Q4HP PRN; Protocol PRN Reason: Nausea And Vomiting Last Admin: 09/19/19 05:37 Dose: 4 mg Documented by: Pantoprazole Sodium (Protonix) 40 mg PO QAMAC [facility] Last Admin: 10/05/19 07:43 Dose: 40 mg Documented by: Senna (Senokot) 2 tab PO HSP PRN PRN Reason: Constipation Last Admin: 09/22/19 19:01 Dose: 2 tab Documented by: Sodium Chloride (Saline Flush) 10 ml IV UD PRN PRN Reason: FLUSH Last Admin: 09/20/19 21:00 Dose: 10 ml Documented by: Sodium Chloride (Saline Flush) 10 ml IV Q12 [facility] Last Admin: 10/05/19 09:15 Dose: 10 ml Documented by: Venlafaxine HCl (Effexor Xr) 150 mg PO QDAY [facility] Last Admin: 10/05/19 09:13 Dose: 150 mg Documented by: Warfarin Sodium (Coumadin Per Pharmacy) 1 order PO UD [facility] Warfarin Sodium (Coumadin) 2 mg PO ONCE@1400 ONE Stop: 10/05/19 14:01 Medical - PN: A/P - Time Spent With Patient Total time spent is greater than 50% in coordination of care (as documented) at patient's floor/unit and/or counseling patient: - Narrative A/P Narrative: A: *Sepsis,severe: 2/2 decub ulcer *Sacral Wound w/Unstageable Pressure Ulcer at time of admission: Discussed with Dr. Juarez. -s/p surgical I&D (09/14) *h/o Dementia, likely vascular: with intermittent delirium *h/o Cerebral vascular disease: -Patient has had recent subdural hematoma in mid July. That does appear resolved on current CT imaging. Warfarin restarted in Aug. -She also has a history of prior watershed infarcts, with no new findings noted on current CT. *ho SDH in , Warfarin restarted in August *Schizophrenia: Diagnosis noted in chart. Not currently on any antipsychotics per med list. Is on Cogentin, presumably for old EPS. -Awoke with significant anxiety on 09/11, subsequently had hallucinations and difficult night. *Atrial fibrillation: *UTI(e. coli): finished abx *JEREMY on CKD II: Resolved *HTN: No evidence of hypotension associated with sepsis *Hypothyroid: *Anxiety/Depression: *GERD: P: -Wound VAC management per wound physician -cont home BB/HCTZ -pt/ot -awaiting placement -f/u with Dr. Juarez outpt -Prophylaxis: PPI, warfarin per pharmacy CODE STATUS: DNR Medical - PN: Qual - VTE Deep Vein Thrombosis/Pulmonary Embolism Present on Admission: No
[2019-10-05] MEDS ORDERED: WARFARIN 2 MG TABLET PO ONE (14:00)
[2019-10-05] MEDS: HYDROcodone/APAP 5/325MG TABLET PO PRN ×2 (14:50→21:35)
[2019-10-05] MEDS: ATORVASTATIN 40 MG TABLET PO SCH (21:33)
[2019-10-06 07:17] LABS: INR 2.4 (0.9-1.1); Prothrombin Time 25.6 sec (11.9-14.5)
[2019-10-06] MEDS: LEVOTHYROXINE 100 MCG TABLET PO SCH (07:37)
[2019-10-06] MEDS: PANTOPRAZOLE 40 MG TABLET PO SCH (07:37)
--- NOTE | 2019-10-06 07:50 | Internal Med Progress Note ---
Medical - PN: Subj Patient information: Note initiated : 10/06/19 at 7:48 am Service Date, if different from initiated Date: [] Patient: Chrsitine Cespedes a 64 y/o F admitted on 09/08/19 for Sepsis, UTI. Chief Complaint: [] Interval history: 09/08 Ms. Cespedes is a 64 year old F with a history of atrial fibrillation, recent subdural hematoma, history of ischemic strokes, hypertension, sleep apnea not on CPAP, prediabetes, morbid obesity with mobility impairment who presents to the emergency department with lethargy. History is obtained speaking to her caregiver. She has a caregiver in the home during the days, but not at night. The caregiver notes yesterday she was not quite herself, displaying some mild confusion. Her appetite was decreased. Caregiver made her a sandwich for dinner prior to her leaving yesterday, was still on eaten this morning when their caregiver arrived. Patient was in bed, was too weak to get out of bed, was confused and could not respond appropriately. In the ED, there is a history of low-grade fever as well. Because of lethargy, fever and weakness EMS was activated and she is brought to the ED. In the emergency department she has evidence of sepsis with now white count of 22,000, lactate of 3.8, increased anion gap and significantly abnormal urine analysis with pyuria and bacteriuria. She is being admitted for treatment of sepsis from urinary source. 09/09 Intermittently more responsive, was sitting up on edge of bed with physical therapy and did participate in self-care this morning. Is required fluids for declining blood pressures today with response. 09/10 Slowly continues to be more interactive. Urine culture with E. coli, only resistant to fluoroquinolones. Blood pressure stable. 09/11 Much more alert and interactive today. Still quite weak and needing assistance to stay sitting up at bedside. Held conversation with her, she states her goal is to get better. I encouraged her to increase her oral intake and that it is important for her to eat to get better. Nursing spoke with her son, who is her eldest child. He is a long-haul information services vice president and is out of state, but agreed that she will likely need skilled placement following this admission. In the late afternoon, she awoke panicked that she was trapped in a trailer and was di soriented. Had significant anxiety. 09/12/2019 Patient continued to have disorientation and hallucinations yesterday evening, was up much of the night, eventually calm down. Medicine list reviewed, she does not have any antipsychotics or other treatments for schizophrenia. Attempting to reconfirm her medication list. This morning, states she is not feeling too well, but is sleepy drifts back off. 09/13 Patient seems less interactive than she was yesterday afternoon. Sacral wound now draining material and will need debridement. Previously had eschar that was being debrided. Should've completed for therapy for UTI sepsis. Discussed with Dr. Juarez, whose consult general surgery. Have consulted Dr. Silverio, is recommended. Vancomycin and Zosyn for now until debridement. 09/14 Patient status post surgical I&D. Drowsy but opens eyes to voice. Refused CT imaging yesterday as recommended by infectious disease. No overnight events. Discussed case with her son who makes medical decisions when she is unable. He was able to clarify that she would be a DO NOT RESUSCITATE in the event effect catastrophic event. Regarding goals of care. We will see how she has in the next day or 2 09/15 Nurse able to get the patient to drink a carnation instant breakfast. Patient sleeping at this time but awakens and admits to feeling little better but otherwise not verbalizing a whole lot and difficult to obtain review of systems. she is on room air today. 09/16 Yesterday afternoon patient was sitting up in bed eating breakfast, mentation and somnolence improved. Feeling much better today. Has occasional cough and headache. No other complaints. Nurse report diarrhea. Again mentation significantly improved she is oriented to place and President 09/17 No overnight event or new complaints. Patient resting comfortably in bed. Denies any cough or shortness of breath. 09/18 Patient unable to be placed yesterday still working on placement. Patient sleeping this morning. Denies any complaints. 09/20 Patient was resting Unable to obtain detailed review of system, denied any active chest pain abdominal pain Discussed with the case management and planning for placement there are new options available and social service working in profiling 09/21 Wound care evaluated the patient and patient moved looks better and slowly progressing. Recommend continuing wound VAC Case management working on placement options 09/22/19 Her leukocytosis is persistent with thrombocytosis No fever Continuing same antibiotic Ordered CRP ESR level and pro calcitonin No features of sepsis If she continues to increase leukocyte count will discuss with infectious disease and reculture the wound 09/23/19 Intermittently her A. fib went up to 110 120 Metoprolol dose increased to 75 twice daily since then her heart rate has been controlled Her leukocytosis remained slightly elevated and she is also on medroxyprogesterone CRP 43 will trend the CRP if it is creeping up will get opinion from infectious disease and wound care 09/24-patient doing well. Awaiting placement. Ongoing wound care/wound VAC/antibiotics. No concerns per nursing staff. 09/25-doing well awaiting transfer to SNF. White count of 10.7. INR therapeutic 2.6, potassium at 4, continuing vancomycin/Levaquin. No overnight fever chills or concerns per staff. Appears to be volume long however net body weight down since admission. Continue PT OT/wound care 09/26-patient doing well. No overnight events. Ongoing wound care/antibiotics. Thyroxine increased to 62.5 based on TSH over 14. Continuing PT OT/nutrition support. Await SNF transfer. Rate controlled around 100 09/27-ongoing wound care. Awaiting placement. No overnight events. Continue nutrition support. 09/28-doing well. No overnight events, INR 2.2, antibiotics discontinued, await placement. Ongoing nutrition support/wound care 09/29-patient awaiting placement. Redness and erythema around the gluteal ulcer site. Ongoing wound care. No overnight fever chills. Off antibiotics. Continue PT OT/nutrition support/wound care. 09/30-doing well. No overnight events. No new changes. Await placement 10/01-wound VAC changed today. Wound looking a lot better. No overnight events. Await placement. No concerns expressed by nursing staff 10/02-ongoing wound care/wound VAC. INR therapeutic. No overnight fever chills. Labs and hemodynamics stable. Continue rehab. Await transfer to SNF 10/03-patient doing well. No overnight events. No concerns per staff. Continue existing treatment/Coumadin dosing 10/04-continuing to await placement. No overnight fever chills. No concerns per staff. 10/05-patient doing well. INR 2.8. No overnight events. No concerns per staff. Denies fever chills. Wound care with wound VAC. 10/06 No overnight events or new complaints. Review of Systems: denies headache/fever/chills/nausea/vomiting/chest or abdominal pain/cough/dyspnea. Otherwise see above. - Constitutional Vitals: Vital Signs Temp Pulse Resp BP Pulse Ox 97.7 F 94 H 16 96/67 96 10/06/19 07:10 10/06/19 03:50 10/06/19 07:10 10/06/19 07:10 10/06/19 07:10 Period Temp Pulse Resp BP Sys/Butler Pulse Ox Last 24 Hr 97.1 F-98.9 F 79-116 16-24 92-130/62-76 95-98 Intake and Output 10/05/19 10/06/19 10/06/19 21:59 05:59 13:59 Intake Total 600 0 Output Total 380 300 Balance 220 -300 Weight 97.296 kg Intake & Output: Intake & Output 10/05/19 10/06/19 10/06/19 21:59 05:59 13:59 Intake Total 600 0 Output Total 380 300 Balance 220 -300 Weight 97.296 kg Intake: Oral 600 0 Output: Urine Catheter Amount 380 300 Other: Urine Appearance Cloudy Clear Uretheral (Aguirre) Clear Urine Color Bright Yellow Dark Yellow Uretheral (Aguirre) Dark Yellow Stool Size Moderate Small Moderate Stool Color Brown Brown Brown Stool Consistency Soft Soft Formed # of times incontinent of 1 Bowels Exam: General: Awake, No acute Distress, obese Eyes/N/T: EOMI, Head/Neck: neck supple, CV: irreg irreg, No murmurs, Pulm: diminished b/l, no wheezing Abd: soft, nontender, +BS x4 Ext: no clubbing/cyanosis, minimal edema b/l LE -greatly improved Neuro: Alert and awake, no focal deficits moves all extremities follows commands Skin: warm/dry Medical - PN: Obj Da - Labs CBC & Chem 7: 10/01/19 10:08 10/01/19 10:08 Labs: Abnormal Lab Results 10/06/19 10/05/19 10/04/19 05:50 05:00 05:50 PT 25.6 H 29.1 H 26.3 H INR 2.4 H 2.8 H 2.5 H 10/03/19 07:41 PT 27.6 H INR 2.6 H Meds: Medications Acetaminophen (Tylenol) 650 mg PO Q6HP PRN; Protocol PRN Reason: Per Pain Protocol/Fever > 101 Last Admin: 09/25/19 11:22 Dose: 650 mg Documented by: Hydrocodone Bitart/Acetaminophen (Dearing 5/325mg) 1 tab PO Q4HP PRN; Protocol PRN Reason: Per Pain Protocol Last Admin: 10/05/19 21:35 Dose: 1 tab Documented by: Albuterol/Ipratropium (Duoneb) 3 ml NEB Q6H PRN PRN Reason: shortness of breath Atorvastatin Calcium (Lipitor) 40 mg PO QHS [facility] Last Admin: 10/05/19 21:33 Dose: 40 mg Documented by: Benztropine Mesylate (Cogentin) 2 mg PO BID [facility] Last Admin: 10/05/19 21:33 Dose: 2 mg Documented by: Clonazepam (Klonopin) 0.25 mg PO BIDP PRN PRN Reason: Anxiety Last Admin: 09/30/19 09:45 Dose: 0.25 mg Documented by: Docusate Sodium (Colace) 100 mg PO BID PRN PRN Reason: Constipation Last Admin: 10/04/19 16:52 Dose: 100 mg Documented by: Heparin Sodium (Porcine) (Heparin Flush) 2 ml IV Q12 [facility] Last Admin: 10/05/19 21:33 Dose: 2 ml Documented by: Hydrochlorothiazide (Oretic) 25 mg PO QAM [facility] Last Admin: 10/05/19 09:13 Dose: 25 mg Documented by: Acetaminophen (Ofirmev) 650 mg in 65 mls @ 130 mls/hr IV Q6HP PRN; Protocol PRN Reason: PAIN/FEVER > 101 Iron Carb/Multivit/Library Technology Instructor/Folic Acid (Multivitamin W/Minerals) 1 tab PO DAILY [facility] Last Admin: 10/05/19 09:13 Dose: 1 tab Documented by: Lactulose (Cephulac) 10 gm PO DAILYP PRN PRN Reason: Constipation Lamotrigine (Lamictal) 100 mg PO QDAY [facility] Last Admin: 10/05/19 09:13 Dose: 100 mg Documented by: Levothyroxine Sodium (Synthroid) 400 mcg PO ACB [facility] Last Admin: 10/06/19 07:37 Dose: 400 mcg Documented by: Medroxyprogesterone Acetate (Provera) 10 mg PO BID [facility] Last Admin: 10/05/19 21:33 Dose: 10 mg Documented by: Metoprolol Tartrate (Lopressor) 5 mg IV Q2HP PRN PRN Reason: Tachyarrhythmias HR>110 Last Admin: 10/04/19 03:07 Dose: 5 mg Documented by: Metoprolol Tartrate (Lopressor) 37.5 mg PO BID [facility] Last Admin: 10/05/19 21:35 Dose: 37.5 mg Documented by: Naloxone HCl (Narcan) 0.1 mg IV Q2MIN PRN PRN Reason: Opiate Reversal Ondansetron HCl (Zofran) 4 mg IV Q4HP PRN; Protocol PRN Reason: Nausea And Vomiting Last Admin: 09/19/19 05:37 Dose: 4 mg Documented by: Pantoprazole Sodium (Protonix) 40 mg PO QAMAC [facility] Last Admin: 10/06/19 07:37 Dose: 40 mg Documented by: Senna (Senokot) 2 tab PO HSP PRN PRN Reason: Constipation Last Admin: 09/22/19 19:01 Dose: 2 tab Documented by: Sodium Chloride (Saline Flush) 10 ml IV UD PRN PRN Reason: FLUSH Last Admin: 09/20/19 21:00 Dose: 10 ml Documented by: Sodium Chloride (Saline Flush) 10 ml IV Q12 [facility] Last Admin: 10/05/19 21:34 Dose: 10 ml Documented by: Venlafaxine HCl (Effexor Xr) 150 mg PO QDAY [facility] Last Admin: 10/05/19 09:13 Dose: 150 mg Documented by: Warfarin Sodium (Coumadin Per Pharmacy) 1 order PO [facility] Warfarin Sodium (Coumadin) 2 mg PO ONCE@1400 ONE Stop: 10/06/19 14:01 Medical - PN: A/P - Time Spent With Patient Total time spent is greater than 50% in coordination of care (as documented) at patient's floor/unit and/or counseling patient: - Narrative A/P Narrative: A: *Sepsis,severe: 2/2 decub ulcer. resolved *Sacral Wound w/Unstageable Pressure Ulcer at time of admission: Discussed with Dr. Juarez. -s/p surgical I&D (09/14), finished abx course *h/o Dementia, likely vascular: with intermittent delirium *h/o Cerebral vascular disease: -Patient has had recent subdural hematoma in mid July. That does appear resolved on current CT imaging. Warfarin restarted in Aug. -She also has a history of prior watershed infarcts, with no new findings noted on current CT. *ho SDH in , Warfarin restarted in August *Schizophrenia: Diagnosis noted in chart. Not currently on any antipsychotics per med list. Is on Cogentin, presumably for old EPS. -Awoke with significant anxiety on 09/11, subsequently had hallucinations and difficult night. *Atrial fibrillation: *UTI(e. coli): finished abx *JEREMY on CKD II: Resolved *HTN: No evidence of hypotension associated with sepsis *Hypothyroid: *Anxiety/Depression: *GERD: P: -Wound VAC management per wound physician -cont home BB/HCTZ -pt/ot -awaiting placement -f/u with Dr. Juarez outpt -Prophylaxis: PPI, warfarin per pharmacy CODE STATUS: DNR Medical - PN: Qual - VTE Deep Vein Thrombosis/Pulmonary Embolism Present on Admission: No
[2019-10-06] MEDS: BENZTROPINE 1 MG TABLET PO SCH ×2 (09:01→21:13)
[2019-10-06] MEDS: METOPROLOL TARTRATE 25 MG TABLET PO SCH ×2 (09:01→21:18)
[2019-10-06] MEDS: lamoTRIgine 100 MG TABLET PO SCH (09:02)
[2019-10-06] MEDS: MULTIVIT,THER IRON,CA,FA & MIN 1 TABLET PO SCH (09:02)
[2019-10-06] MEDS: HYDROCHLOROTHIAZIDE 25 MG TABLET PO SCH (09:02)
[2019-10-06] MEDS: HYDROcodone/APAP 5/325MG TABLET PO PRN ×2 (09:02→14:36)
[2019-10-06] MEDS: VENLAFAXINE 150 MG CAP.XL.24H PO SCH (09:02)
[2019-10-06] MEDS: medroxyPROGESTERone 10 MG TABLET PO SCH ×2 (09:03→21:58)
[2019-10-06] MEDS: 0.9 % SODIUM CHLORIDE 10 ML SYRINGE IV SCH ×2 (09:03→21:58)
[2019-10-06] MEDS ORDERED: WARFARIN 2 MG TABLET PO ONE (14:00)
[2019-10-06] MEDS: ATORVASTATIN 40 MG TABLET PO SCH (21:58)
[2019-10-07] MEDS: HYDROcodone/APAP 5/325MG TABLET PO PRN ×3 (04:40→20:17)
[2019-10-07] MEDS: LEVOTHYROXINE 100 MCG TABLET PO SCH (06:54)
[2019-10-07] MEDS: PANTOPRAZOLE 40 MG TABLET PO SCH (06:54)
[2019-10-07 07:49] LABS: INR 2.4 (0.9-1.1); Prothrombin Time 25.5 sec (11.9-14.5)
--- NOTE | 2019-10-07 08:12 | Internal Med Progress Note ---
Medical - PN: Subj Patient information: Note initiated : 10/07/19 at 8:11 am Service Date, if different from initiated Date: [] Patient: Christine Cespedes a 64 y/o F admitted on 09/08/19 for Sepsis, UTI. Chief Complaint: [] Interval history: 09/08 Ms. Cespedes is a 64 year old F with a history of atrial fibrillation, recent subdural hematoma, history of ischemic strokes, hypertension, sleep apnea not on CPAP, prediabetes, morbid obesity with mobility impairment who presents to the emergency department with lethargy. History is obtained speaking to her caregiver. She has a caregiver in the home during the days, but not at night. The caregiver notes yesterday she was not quite herself, displaying some mild confusion. Her appetite was decreased. Caregiver made her a sandwich for dinner prior to her leaving yesterday, was still on eaten this morning when their caregiver arrived. Patient was in bed, was too weak to get out of bed, was confused and could not respond appropriately. In the ED, there is a history of low-grade fever as well. Because of lethargy, fever and weakness EMS was activated and she is brought to the ED. In the emergency department she has evidence of sepsis with now white count of 22,000, lactate of 3.8, increased anion gap and significantly abnormal urine analysis with pyuria and bacteriuria. She is being admitted for treatment of sepsis from urinary source. 09/09 Intermittently more responsive, was sitting up on edge of bed with physical therapy and did participate in self-care this morning. Is required fluids for declining blood pressures today with response. 09/10 Slowly continues to be more interactive. Urine culture with E. coli, only resistant to fluoroquinolones. Blood pressure stable. 09/11 Much more alert and interactive today. Still quite weak and needing assistance to stay sitting up at bedside. Held conversation with her, she states her goal is to get better. I encouraged her to increase her oral intake and that it is important for her to eat to get better. Nursing spoke with her son, who is her eldest child. He is a long-haul supervisor plate pasting and is out of state, but agreed that she will likely need skilled placement following this admission. In the late afternoon, she awoke panicked that she was trapped in a trailer and was di soriented. Had significant anxiety. 09/12/2019 Patient continued to have disorientation and hallucinations yesterday evening, was up much of the night, eventually calm down. Medicine list reviewed, she does not have any antipsychotics or other treatments for schizophrenia. Attempting to reconfirm her medication list. This morning, states she is not feeling too well, but is sleepy drifts back off. 09/13 Patient seems less interactive than she was yesterday afternoon. Sacral wound now draining material and will need debridement. Previously had eschar that was being debrided. Should've completed for therapy for UTI sepsis. Discussed with Dr. Juarez, whose consult general surgery. Have consulted Dr. Silverio, is recommended. Vancomycin and Zosyn for now until debridement. 09/14 Patient status post surgical I&D. Drowsy but opens eyes to voice. Refused CT imaging yesterday as recommended by infectious disease. No overnight events. Discussed case with her son who makes medical decisions when she is unable. He was able to clarify that she would be a DO NOT RESUSCITATE in the event effect catastrophic event. Regarding goals of care. We will see how she has in the next day or 2 09/15 Nurse able to get the patient to drink a carnation instant breakfast. Patient sleeping at this time but awakens and admits to feeling little better but otherwise not verbalizing a whole lot and difficult to obtain review of systems. she is on room air today. 09/16 Yesterday afternoon patient was sitting up in bed eating breakfast, mentation and somnolence improved. Feeling much better today. Has occasional cough and headache. No other complaints. Nurse report diarrhea. Again mentation significantly improved she is oriented to place and President 09/17 No overnight event or new complaints. Patient resting comfortably in bed. Denies any cough or shortness of breath. 09/18 Patient unable to be placed yesterday still working on placement. Patient sleeping this morning. Denies any complaints. 09/20 Patient was resting Unable to obtain detailed review of system, denied any active chest pain abdominal pain Discussed with the case management and planning for placement there are new options available and social service working in profiling 09/21 Wound care evaluated the patient and patient moved looks better and slowly progressing. Recommend continuing wound VAC Case management working on placement options 09/22/19 Her leukocytosis is persistent with thrombocytosis No fever Continuing same antibiotic Ordered CRP ESR level and pro calcitonin No features of sepsis If she continues to increase leukocyte count will discuss with infectious disease and reculture the wound 09/23/19 Intermittently her A. fib went up to 110 120 Metoprolol dose increased to 75 twice daily since then her heart rate has been controlled Her leukocytosis remained slightly elevated and she is also on medroxyprogesterone CRP 43 will trend the CRP if it is creeping up will get opinion from infectious disease and wound care 09/24-patient doing well. Awaiting placement. Ongoing wound care/wound VAC/antibiotics. No concerns per nursing staff. 09/25-doing well awaiting transfer to SNF. White count of 10.7. INR therapeutic 2.6, potassium at 4, continuing vancomycin/Levaquin. No overnight fever chills or concerns per staff. Appears to be volume long however net body weight down since admission. Continue PT OT/wound care 09/26-patient doing well. No overnight events. Ongoing wound care/antibiotics. Thyroxine increased to 62.5 based on TSH over 14. Continuing PT OT/nutrition support. Await SNF transfer. Rate controlled around 100 09/27-ongoing wound care. Awaiting placement. No overnight events. Continue nutrition support. 09/28-doing well. No overnight events, INR 2.2, antibiotics discontinued, await placement. Ongoing nutrition support/wound care 09/29-patient awaiting placement. Redness and erythema around the gluteal ulcer site. Ongoing wound care. No overnight fever chills. Off antibiotics. Continue PT OT/nutrition support/wound care. 09/30-doing well. No overnight events. No new changes. Await placement 10/01-wound VAC changed today. Wound looking a lot better. No overnight events. Await placement. No concerns expressed by nursing staff 10/02-ongoing wound care/wound VAC. INR therapeutic. No overnight fever chills. Labs and hemodynamics stable. Continue rehab. Await transfer to SNF 10/03-patient doing well. No overnight events. No concerns per staff. Continue existing treatment/Coumadin dosing 10/04-continuing to await placement. No overnight fever chills. No concerns per staff. 10/05-patient doing well. INR 2.8. No overnight events. No concerns per staff. Denies fever chills. Wound care with wound VAC. 10/06 No overnight events or new complaints. 10/07 No new complaints this morning. Patient resting in bed after blood. Review of Systems: denies headache/fever/chills/nausea/vomiting/chest or abdominal pain/cough/dyspnea. Otherwise see above. - Constitutional Vitals: Vital Signs Temp Pulse Resp BP Pulse Ox 97.3 F 101 H 18 94/49 95 10/07/19 08:00 10/07/19 08:00 10/07/19 08:00 10/07/19 08:00 10/07/19 08:00 Period Temp Pulse Resp BP Sys/Butler Pulse Ox Last 24 Hr 97.2 F-98.7 F 99-140 16-20 81-108/49-73 90-100 Intake and Output 10/06/19 10/07/19 10/07/19 21:59 05:59 13:59 Intake Total 1840 320 Output Total 900 400 Balance 940 -80 Weight 97.296 kg Intake & Output: Intake & Output 10/06/19 10/07/19 10/07/19 21:59 05:59 13:59 Intake Total 1840 320 Output Total 900 400 Balance 940 -80 Weight 97.296 kg Intake: Nourishment/Supplement quantity 240 (ml) Oral 800 320 GI Tube Flush 800 Output: Urine Catheter Amount 900 400 Other: Meal Dinner Percent of Meal Consumed 75% Feeding Ability Assist with Tray Set Up Urine Appearance Clear Clear Clear Uretheral (Aguirre) Clear Urine Color Dark Yellow Bright Yellow Bright Yellow Uretheral (Aguirre) Straw Urine Odor Normal Normal Normal Uretheral (Aguirre) Normal Stool Size Smear Smear Stool Color Brown Brown Stool Consistency Normal for Patient # of times incontinent of 1 Bowels Exam: General: Awake, No acute Distress, obese Eyes/N/T: EOMI, Head/Neck: neck supple, CV: irreg irreg, No murmurs, Pulm: diminished b/l, no wheezing Abd: soft, nontender, +BS x4 Ext: no clubbing/cyanosis, minimal edema b/l LE -greatly improved Neuro: Alert and awake, no focal deficits moves all extremities follows commands Skin: warm/dry Medical - PN: Obj Da - Labs CBC & Chem 7: 10/01/19 10:08 10/01/19 10:08 Labs: Abnormal Lab Results 10/07/19 10/06/19 10/05/19 06:04 05:50 05:00 PT 25.5 H 25.6 H 29.1 H INR 2.4 H 2.4 H 2.8 H 10/04/19 05:50 PT 26.3 H INR 2.5 H Meds: Medications Acetaminophen (Tylenol) 650 mg PO Q6HP PRN; Protocol PRN Reason: Per Pain Protocol/Fever > 101 Last Admin: 09/25/19 11:22 Dose: 650 mg Documented by: Hydrocodone Bitart/Acetaminophen ([place] 5/325mg) 1 tab PO Q4HP PRN; Protocol PRN Reason: Per Pain Protocol Last Admin: 10/07/19 04:40 Dose: 1 tab Documented by: Albuterol/Ipratropium (Duoneb) 3 ml NEB Q6H PRN PRN Reason: shortness of breath Atorvastatin Calcium (Lipitor) 40 mg PO QHS [facility] Last Admin: 10/06/19 21:58 Dose: 40 mg Documented by: Benztropine Mesylate (Cogentin) 2 mg PO BID [facility] Last Admin: 10/06/19 21:13 Dose: 2 mg Documented by: Clonazepam (Klonopin) 0.25 mg PO BIDP PRN PRN Reason: Anxiety Last Admin: 09/30/19 09:45 Dose: 0.25 mg Documented by: Docusate Sodium (Colace) 100 mg PO BID PRN PRN Reason: Constipation Last Admin: 10/04/19 16:52 Dose: 100 mg Documented by: Heparin Sodium (Porcine) (Heparin Flush) 2 ml IV Q12 [facility] Last Admin: 10/06/19 21:13 Dose: 2 ml Documented by: Hydrochlorothiazide (Oretic) 25 mg PO QAM [facility] Last Admin: 10/06/19 09:02 Dose: 25 mg Documented by: Acetaminophen (Ofirmev) 650 mg in 65 mls @ 130 mls/hr IV Q6HP PRN; Protocol PRN Reason: PAIN/FEVER > 101 Iron Carb/Multivit/[place]/Folic Acid (Multivitamin W/Minerals) 1 tab PO DAILY [facility] Last Admin: 10/06/19 09:02 Dose: 1 tab Documented by: Lactulose (Cephulac) 10 gm PO DAILYP PRN PRN Reason: Constipation Lamotrigine (Lamictal) 100 mg PO QDAY [facility] Last Admin: 10/06/19 09:02 Dose: 100 mg Documented by: Levothyroxine Sodium (Synthroid) 400 mcg PO ACB [facility] Last Admin: 10/07/19 06:54 Dose: 400 mcg Documented by: Medroxyprogesterone Acetate (Provera) 10 mg PO BID [facility] Last Admin: 10/06/19 21:58 Dose: 10 mg Documented by: Metoprolol Tartrate (Lopressor) 5 mg IV Q2HP PRN PRN Reason: Tachyarrhythmias HR>110 Last Admin: 10/04/19 03:07 Dose: 5 mg Documented by: Metoprolol Tartrate (Lopressor) 37.5 mg PO BID [facility] Last Admin: 10/06/19 21:18 Dose: 37.5 mg Documented by: Naloxone HCl (Narcan) 0.1 mg IV Q2MIN PRN PRN Reason: Opiate Reversal Ondansetron HCl (Zofran) 4 mg IV Q4HP PRN; Protocol PRN Reason: Nausea And Vomiting Last Admin: 09/19/19 05:37 Dose: 4 mg Documented by: Pantoprazole Sodium (Protonix) 40 mg PO QAMAC [facility] Last Admin: 10/07/19 06:54 Dose: 40 mg Documented by: Senna (Senokot) 2 tab PO HSP PRN PRN Reason: Constipation Last Admin: 09/22/19 19:01 Dose: 2 tab Documented by: Sodium Chloride (Saline Flush) 10 ml IV UD PRN PRN Reason: FLUSH Last Admin: 09/20/19 21:00 Dose: 10 ml Documented by: Sodium Chloride (Saline Flush) 10 ml IV Q12 [facility] Last Admin: 10/06/19 21:58 Dose: 10 ml Documented by: Venlafaxine HCl (Effexor Xr) 150 mg PO QDAY [facility] Last Admin: 10/06/19 09:02 Dose: 150 mg Documented by: Warfarin Sodium (Coumadin Per Pharmacy) 1 order PO UD [facility] Medical - PN: A/P - Time Spent With Patient Total time spent is greater than 50% in coordination of care (as documented) at patient's floor/unit and/or counseling patient: - Narrative A/P Narrative: A: *Sepsis,severe: 2/2 decub ulcer. resolved *Sacral Wound w/Unstageable Pressure Ulcer at time of admission: Discussed with Dr. Juarez. -s/p surgical I&D (09/14), finished abx course *h/o Dementia, likely vascular: with intermittent delirium *h/o Cerebral vascular disease: -Patient has had recent subdural hematoma in mid July. That does appear resolved on current CT imaging. Warfarin restarted in Aug. -She also has a history of prior watershed infarcts, with no new findings noted on current CT. *ho SDH in , Warfarin restarted in August *Schizophrenia: Diagnosis noted in chart. Not currently on any antipsychotics per med list. Is on Cogentin, presumably for old EPS. -Awoke with significant anxiety on 09/11, subsequently had hallucinations and difficult night. *Atrial fibrillation: *UTI(e. coli): finished abx *JEREMY on CKD II: Resolved *HTN: No evidence of hypotension associated with sepsis *Hypothyroid: *Anxiety/Depression: *GERD: P: -Wound VAC management per wound physician -cont home BB/HCTZ -pt/ot -awaiting placement -f/u with Dr. Juarez outpt -Prophylaxis: PPI, warfarin per pharmacy CODE STATUS: DNR Medical - PN: Qual - VTE Deep Vein Thrombosis/Pulmonary Embolism Present on Admission: No
[2019-10-07] MEDS: clonazePAM 0.5 MG TABLET PO PRN (09:02)
[2019-10-07] MEDS: medroxyPROGESTERone 10 MG TABLET PO SCH ×2 (09:02→20:16)
[2019-10-07] MEDS: METOPROLOL TARTRATE 25 MG TABLET PO SCH ×2 (09:02→20:16)
[2019-10-07] MEDS: HYDROCHLOROTHIAZIDE 25 MG TABLET PO SCH (09:03)
[2019-10-07] MEDS: lamoTRIgine 100 MG TABLET PO SCH (09:03)
[2019-10-07] MEDS: BENZTROPINE 1 MG TABLET PO SCH ×2 (09:03→20:16)
[2019-10-07] MEDS: VENLAFAXINE 150 MG CAP.XL.24H PO SCH (09:04)
[2019-10-07] MEDS: MULTIVIT,THER IRON,CA,FA & MIN 1 TABLET PO SCH (09:04)
[2019-10-07] MEDS: 0.9 % SODIUM CHLORIDE 10 ML SYRINGE IV SCH (09:04)
[2019-10-07] MEDS ORDERED: WARFARIN 2 MG TABLET PO ONE (14:00)
[2019-10-07] MEDS: ATORVASTATIN 40 MG TABLET PO SCH (20:17)
[2019-10-08] MEDS: 0.9 % SODIUM CHLORIDE 10 ML SYRINGE IV SCH ×2 (02:03→07:32)
[2019-10-08 07:07] LABS: INR 2.1 (0.9-1.1); Prothrombin Time 23.3 sec (11.9-14.5)
[2019-10-08] MEDS: medroxyPROGESTERone 10 MG TABLET PO SCH ×2 (07:27→21:24)
[2019-10-08] MEDS: METOPROLOL TARTRATE 25 MG TABLET PO SCH ×2 (07:28→21:25)
[2019-10-08] MEDS: BENZTROPINE 1 MG TABLET PO SCH ×2 (07:29→21:24)
[2019-10-08] MEDS: LEVOTHYROXINE 100 MCG TABLET PO SCH (07:29)
[2019-10-08] MEDS: HYDROCHLOROTHIAZIDE 25 MG TABLET PO SCH (07:30)
[2019-10-08] MEDS: PANTOPRAZOLE 40 MG TABLET PO SCH (07:30)
[2019-10-08] MEDS: VENLAFAXINE 150 MG CAP.XL.24H PO SCH (07:30)
[2019-10-08] MEDS: lamoTRIgine 100 MG TABLET PO SCH (07:30)
[2019-10-08] MEDS: MULTIVIT,THER IRON,CA,FA & MIN 1 TABLET PO SCH (07:32)
[2019-10-08] MEDS ORDERED: WARFARIN 3 MG TABLET PO ONE (14:00)
[2019-10-08] MEDS: HYDROcodone/APAP 5/325MG TABLET PO PRN (16:52)
--- NOTE | 2019-10-09 06:54 | Internal Med Progress Note ---
Medical - PN: Subj Patient information: Note initiated : 10/09/19 at 6:53 am Service Date, if different from initiated Date: [] Patient: Christine Cespedes a 64 y/o F admitted on 09/08/19 for Sepsis, UTI. Chief Complaint: [] Interval history: 09/08 Ms. Cespedes is a 64 year old F with a history of atrial fibrillation, recent subdural hematoma, history of ischemic strokes, hypertension, sleep apnea not on CPAP, prediabetes, morbid obesity with mobility impairment who presents to the emergency department with lethargy. History is obtained speaking to her caregiver. She has a caregiver in the home during the days, but not at night. The caregiver notes yesterday she was not quite herself, displaying some mild confusion. Her appetite was decreased. Caregiver made her a sandwich for dinner prior to her leaving yesterday, was still on eaten this morning when their caregiver arrived. Patient was in bed, was too weak to get out of bed, was confused and could not respond appropriately. In the ED, there is a history of low-grade fever as well. Because of lethargy, fever and weakness EMS was activated and she is brought to the ED. In the emergency department she has evidence of sepsis with now white count of 22,000, lactate of 3.8, increased anion gap and significantly abnormal urine analysis with pyuria and bacteriuria. She is being admitted for treatment of sepsis from urinary source. 09/09 Intermittently more responsive, was sitting up on edge of bed with physical therapy and did participate in self-care this morning. Is required fluids for declining blood pressures today with response. 09/10 Slowly continues to be more interactive. Urine culture with E. coli, only resistant to fluoroquinolones. Blood pressure stable. 09/11 Much more alert and interactive today. Still quite weak and needing assistance to stay sitting up at bedside. Held conversation with her, she states her goal is to get better. I encouraged her to increase her oral intake and that it is important for her to eat to get better. Nursing spoke with her son, who is her eldest child. He is a long-haul teller head and is out of state, but agreed that she will likely need skilled placement following this admission. In the late afternoon, she awoke panicked that she was trapped in a trailer and was di soriented. Had significant anxiety. 09/12/2019 Patient continued to have disorientation and hallucinations yesterday evening, was up much of the night, eventually calm down. Medicine list reviewed, she does not have any antipsychotics or other treatments for schizophrenia. Attempting to reconfirm her medication list. This morning, states she is not feeling too well, but is sleepy drifts back off. 09/13 Patient seems less interactive than she was yesterday afternoon. Sacral wound now draining material and will need debridement. Previously had eschar that was being debrided. Should've completed for therapy for UTI sepsis. Discussed with Dr. Juarez, whose consult general surgery. Have consulted Dr. Silverio, is recommended. Vancomycin and Zosyn for now until debridement. 09/14 Patient status post surgical I&D. Drowsy but opens eyes to voice. Refused CT imaging yesterday as recommended by infectious disease. No overnight events. Discussed case with her son who makes medical decisions when she is unable. He was able to clarify that she would be a DO NOT RESUSCITATE in the event effect catastrophic event. Regarding goals of care. We will see how she has in the next day or 2 09/15 Nurse able to get the patient to drink a carnation instant breakfast. Patient sleeping at this time but awakens and admits to feeling little better but otherwise not verbalizing a whole lot and difficult to obtain review of systems. she is on room air today. 09/16 Yesterday afternoon patient was sitting up in bed eating breakfast, mentation and somnolence improved. Feeling much better today. Has occasional cough and headache. No other complaints. Nurse report diarrhea. Again mentation significantly improved she is oriented to place and President 09/17 No overnight event or new complaints. Patient resting comfortably in bed. Denies any cough or shortness of breath. 09/18 Patient unable to be placed yesterday still working on placement. Patient sleeping this morning. Denies any complaints. 09/20 Patient was resting Unable to obtain detailed review of system, denied any active chest pain abdominal pain Discussed with the case management and planning for placement there are new options available and social service working in profiling 09/21 Wound care evaluated the patient and patient moved looks better and slowly progressing. Recommend continuing wound VAC Case management working on placement options 09/22/19 Her leukocytosis is persistent with thrombocytosis No fever Continuing same antibiotic Ordered CRP ESR level and pro calcitonin No features of sepsis If she continues to increase leukocyte count will discuss with infectious disease and reculture the wound 09/23/19 Intermittently her A. fib went up to 110 120 Metoprolol dose increased to 75 twice daily since then her heart rate has been controlled Her leukocytosis remained slightly elevated and she is also on medroxyprogesterone CRP 43 will trend the CRP if it is creeping up will get opinion from infectious disease and wound care 09/24-patient doing well. Awaiting placement. Ongoing wound care/wound VAC/antibiotics. No concerns per nursing staff. 09/25-doing well awaiting transfer to SNF. White count of 10.7. INR therapeutic 2.6, potassium at 4, continuing vancomycin/Levaquin. No overnight fever chills or concerns per staff. Appears to be volume long however net body weight down since admission. Continue PT OT/wound care 09/26-patient doing well. No overnight events. Ongoing wound care/antibiotics. Thyroxine increased to 62.5 based on TSH over 14. Continuing PT OT/nutrition support. Await SNF transfer. Rate controlled around 100 09/27-ongoing wound care. Awaiting placement. No overnight events. Continue nutrition support. 09/28-doing well. No overnight events, INR 2.2, antibiotics discontinued, await placement. Ongoing nutrition support/wound care 09/29-patient awaiting placement. Redness and erythema around the gluteal ulcer site. Ongoing wound care. No overnight fever chills. Off antibiotics. Continue PT OT/nutrition support/wound care. 09/30-doing well. No overnight events. No new changes. Await placement 10/01-wound VAC changed today. Wound looking a lot better. No overnight events. Await placement. No concerns expressed by nursing staff 10/02-ongoing wound care/wound VAC. INR therapeutic. No overnight fever chills. Labs and hemodynamics stable. Continue rehab. Await transfer to SNF 10/03-patient doing well. No overnight events. No concerns per staff. Continue existing treatment/Coumadin dosing 10/04-continuing to await placement. No overnight fever chills. No concerns per staff. 10/05-patient doing well. INR 2.8. No overnight events. No concerns per staff. Denies fever chills. Wound care with wound VAC. 10/06 No overnight events or new complaints. 10/07 No new complaints this morning. Patient resting in bed after blood. 10/09 Has headache but no other complaints. No overnight events. Review of Systems: denies fever/chills/nausea/vomiting/chest or abdominal pain/cough/dyspnea. Otherwise see above. - Constitutional Vitals: Vital Signs Temp Pulse Resp BP Pulse Ox 97.4 F 107 H 22 118/69 95 10/09/19 03:46 10/09/19 03:46 10/09/19 03:46 10/09/19 03:46 10/09/19 03:46 Period Temp Pulse Resp BP Sys/Butler Pulse Ox Last 24 Hr 97.4 F-99.6 F 99-115 20-24 98-123/62-77 94-96 Intake and Output 10/08/19 10/09/19 10/09/19 21:59 05:59 13:59 Intake Total 440 640 Output Total 400 225 Balance 40 415 Weight 97.522 kg Intake & Output: Intake & Output 10/08/19 10/09/19 10/09/19 21:59 05:59 13:59 Intake Total 440 640 Output Total 400 225 Balance 40 415 Weight 97.522 kg Intake: Oral 440 640 Output: Urine Catheter Amount 400 225 Other: Meal Dinner Percent of Meal Consumed 25% Feeding Ability Total Assistance Urine Appearance Cloudy Clear Uretheral (Aguirre) Cloudy Urine Color Dark Yellow Dark Yellow Uretheral (Aguirre) Dark Yellow Urine Odor Strong Strong Exam: General: Awake, No acute Distress, obese Eyes/N/T: EOMI, Head/Neck: neck supple, CV: irreg irreg, No murmurs, Pulm: diminished b/l, no wheezing Abd: soft, nontender, +BS x4 Ext: no clubbing/cyanosis, minimal edema b/l LE Neuro: Alert and awake, no focal deficits moves all extremities follows commands Skin: warm/dry Medical - PN: Obj Da - Labs CBC & Chem 7: 10/01/19 10:08 10/01/19 10:08 Labs: Abnormal Lab Results 10/08/19 10/07/19 10/06/19 05:00 06:04 05:50 PT 23.3 H 25.5 H 25.6 H INR 2.1 H 2.4 H 2.4 H Meds: Medications Acetaminophen (Tylenol) 650 mg PO Q6HP PRN; Protocol PRN Reason: Per Pain Protocol/Fever > 101 Last Admin: 09/25/19 11:22 Dose: 650 mg Documented by: Hydrocodone Bitart/Acetaminophen ([place] 5/325mg) 1 tab PO Q4HP PRN; Protocol PRN Reason: Per Pain Protocol Last Admin: 10/08/19 16:52 Dose: 1 tab Documented by: Albuterol/Ipratropium (Duoneb) 3 ml NEB Q6H PRN PRN Reason: shortness of breath Atorvastatin Calcium (Lipitor) 40 mg PO QHS [facility] Last Admin: 10/07/19 20:17 Dose: 40 mg Documented by: Benztropine Mesylate (Cogentin) 2 mg PO BID [facility] Last Admin: 10/08/19 21:24 Dose: 2 mg Documented by: Clonazepam (Klonopin) 0.25 mg PO BIDP PRN PRN Reason: Anxiety Last Admin: 10/07/19 09:02 Dose: 0.25 mg Documented by: Docusate Sodium (Colace) 100 mg PO BID PRN PRN Reason: Constipation Last Admin: 10/04/19 16:52 Dose: 100 mg Documented by: Heparin Sodium (Porcine) (Heparin Flush) 2 ml IV Q12 [facility] Last Admin: 10/08/19 21:24 Dose: 2 ml Documented by: Hydrochlorothiazide (Oretic) 25 mg PO QAM [facility] Last Admin: 10/08/19 07:30 Dose: 25 mg Documented by: Acetaminophen (Ofirmev) 650 mg in 65 mls @ 130 mls/hr IV Q6HP PRN; Protocol PRN Reason: PAIN/FEVER > 101 Iron Carb/Multivit/[place]/Folic Acid (Multivitamin W/Minerals) 1 tab PO DAILY [facility] Last Admin: 10/08/19 07:32 Dose: 1 tab Documented by: Lactulose (Cephulac) 10 gm PO DAILYP PRN PRN Reason: Constipation Lamotrigine (Lamictal) 100 mg PO QDAY [facility] Last Admin: 10/08/19 07:30 Dose: 100 mg Documented by: Levothyroxine Sodium (Synthroid) 400 mcg PO ACB [facility] Last Admin: 10/08/19 07:29 Dose: 400 mcg Documented by: Medroxyprogesterone Acetate (Provera) 10 mg PO BID [facility] Last Admin: 10/08/19 21:24 Dose: 10 mg Documented by: Metoprolol Tartrate (Lopressor) 5 mg IV Q2HP PRN PRN Reason: Tachyarrhythmias HR>110 Last Admin: 10/04/19 03:07 Dose: 5 mg Documented by: Metoprolol Tartrate (Lopressor) 37.5 mg PO BID [facility] Last Admin: 10/08/19 21:25 Dose: 37.5 mg Documented by: Naloxone HCl (Narcan) 0.1 mg IV Q2MIN PRN PRN Reason: Opiate Reversal Ondansetron HCl (Zofran) 4 mg IV Q4HP PRN; Protocol PRN Reason: Nausea And Vomiting Last Admin: 09/19/19 05:37 Dose: 4 mg Documented by: Pantoprazole Sodium (Protonix) 40 mg PO QAMAC [facility] Last Admin: 10/08/19 07:30 Dose: 40 mg Documented by: Senna (Senokot) 2 tab PO HSP PRN PRN Reason: Constipation Last Admin: 09/22/19 19:01 Dose: 2 tab Documented by: Sodium Chloride (Saline Flush) 10 ml IV UD PRN PRN Reason: FLUSH Last Admin: 09/20/19 21:00 Dose: 10 ml Documented by: Sodium Chloride (Saline Flush) 10 ml IV Q12 [facility] Last Admin: 10/08/19 07:32 Dose: 10 ml Documented by: Venlafaxine HCl (Effexor Xr) 150 mg PO QDAY [facility] Last Admin: 10/08/19 07:30 Dose: 150 mg Documented by: Warfarin Sodium (Coumadin Per Pharmacy) 1 order PO [facility] [place] - PN: A/P - Time Spent With Patient Total time spent is greater than 50% in coordination of care (as documented) at patient's floor/unit and/or counseling patient: - Narrative A/P Narrative: A: *Sepsis,severe: 2/2 decub ulcer. resolved *Sacral Wound w/Unstageable Pressure Ulcer at time of admission: Discussed with Dr. Juarez. -s/p surgical I&D (09/14), finished abx course *h/o Dementia, likely vascular: with intermittent delirium *h/o Cerebral vascular disease: -Patient has had recent subdural hematoma in mid July. That does appear resolved on current CT imaging. Warfarin restarted in Aug. -She also has a history of prior watershed infarcts, with no new findings noted on current CT. *ho SDH in , Warfarin restarted in August *Schizophrenia: Diagnosis noted in chart. Not currently on any antipsychotics per med list. Is on Cogentin, presumably for old EPS. -Awoke with significant anxiety on 09/11, subsequently had hallucinations and difficult night. *Atrial fibrillation: *UTI(e. coli): finished abx *JEREMY on CKD II: Resolved *HTN: *Hypothyroid: *Anxiety/Depression: *GERD: P: -Wound VAC management per wound physician -cont home BB/HCTZ -pt/ot -awaiting placement -f/u with Dr. Juarez outpt -Prophylaxis: PPI, warfarin per pharmacy CODE STATUS: DNR Medical - PN: Qual - VTE Deep Vein Thrombosis/Pulmonary Embolism Present on Admission: No
[2019-10-09] MEDS: 0.9 % SODIUM CHLORIDE 10 ML SYRINGE IV SCH ×3 (07:34→20:27)
[2019-10-09] MEDS: ATORVASTATIN 40 MG TABLET PO SCH ×2 (07:34→20:19)
[2019-10-09 08:27] LABS: Prothrombin Time 22.9 sec (11.9-14.5)
[2019-10-09] MEDS: BENZTROPINE 1 MG TABLET PO SCH ×2 (09:27→20:18)
[2019-10-09] MEDS: LEVOTHYROXINE 100 MCG TABLET PO SCH (09:27)
[2019-10-09] MEDS: METOPROLOL TARTRATE 25 MG TABLET PO SCH ×2 (09:28→20:19)
[2019-10-09] MEDS: PANTOPRAZOLE 40 MG TABLET PO SCH (09:28)
[2019-10-09] MEDS: HYDROCHLOROTHIAZIDE 25 MG TABLET PO SCH (09:28)
[2019-10-09] MEDS: MULTIVIT,THER IRON,CA,FA & MIN 1 TABLET PO SCH (09:29)
[2019-10-09] MEDS: VENLAFAXINE 150 MG CAP.XL.24H PO SCH (09:29)
[2019-10-09] MEDS: lamoTRIgine 100 MG TABLET PO SCH (09:29)
[2019-10-09] MEDS ORDERED: WARFARIN 5 MG TABLET PO ONE (14:00)
[2019-10-09] MEDS: medroxyPROGESTERone 10 MG TABLET PO SCH ×2 (15:36→20:18)
[2019-10-09] MEDS: HYDROcodone/APAP 5/325MG TABLET PO PRN (20:20)
[2019-10-10] MEDS: HYDROcodone/APAP 5/325MG TABLET PO PRN ×2 (03:40→10:35)
--- NOTE | 2019-10-10 07:38 | Internal Med Progress Note ---
Medical - PN: Subj Patient information: Note initiated : 10/10/19 at 7:37 am Service Date, if different from initiated Date: [] Patient: Christine Cespedes a 64 y/o F admitted on 09/08/19 for Sepsis, UTI. Chief Complaint: [] Interval history: 09/08 Ms. Cespedes is a 64 year old F with a history of atrial fibrillation, recent subdural hematoma, history of ischemic strokes, hypertension, sleep apnea not on CPAP, prediabetes, morbid obesity with mobility impairment who presents to the emergency department with lethargy. History is obtained speaking to her caregiver. She has a caregiver in the home during the days, but not at night. The caregiver notes yesterday she was not quite herself, displaying some mild confusion. Her appetite was decreased. Caregiver made her a sandwich for dinner prior to her leaving yesterday, was still on eaten this morning when their caregiver arrived. Patient was in bed, was too weak to get out of bed, was confused and could not respond appropriately. In the ED, there is a history of low-grade fever as well. Because of lethargy, fever and weakness EMS was activated and she is brought to the ED. In the emergency department she has evidence of sepsis with now white count of 22,000, lactate of 3.8, increased anion gap and significantly abnormal urine analysis with pyuria and bacteriuria. She is being admitted for treatment of sepsis from urinary source. 09/09 Intermittently more responsive, was sitting up on edge of bed with physical therapy and did participate in self-care this morning. Is required fluids for declining blood pressures today with response. 09/10 Slowly continues to be more interactive. Urine culture with E. coli, only resistant to fluoroquinolones. Blood pressure stable. 09/11 Much more alert and interactive today. Still quite weak and needing assistance to stay sitting up at bedside. Held conversation with her, she states her goal is to get better. I encouraged her to increase her oral intake and that it is important for her to eat to get better. Nursing spoke with her son, who is her eldest child. He is a long-haul policy officer and is out of state, but agreed that she will likely need skilled placement following this admission. In the late afternoon, she awoke panicked that she was trapped in a trailer and was di soriented. Had significant anxiety. 09/12/2019 Patient continued to have disorientation and hallucinations yesterday evening, was up much of the night, eventually calm down. Medicine list reviewed, she does not have any antipsychotics or other treatments for schizophrenia. Attempting to reconfirm her medication list. This morning, states she is not feeling too well, but is sleepy drifts back off. 09/13 Patient seems less interactive than she was yesterday afternoon. Sacral wound now draining material and will need debridement. Previously had eschar that was being debrided. Should've completed for therapy for UTI sepsis. Discussed with Dr. Juarez, whose consult general surgery. Have consulted Dr. Silverio, is recommended. Vancomycin and Zosyn for now until debridement. 09/14 Patient status post surgical I&D. Drowsy but opens eyes to voice. Refused CT imaging yesterday as recommended by infectious disease. No overnight events. Discussed case with her son who makes medical decisions when she is unable. He was able to clarify that she would be a DO NOT RESUSCITATE in the event effect catastrophic event. Regarding goals of care. We will see how she has in the next day or 2 09/15 Nurse able to get the patient to drink a carnation instant breakfast. Patient sleeping at this time but awakens and admits to feeling little better but otherwise not verbalizing a whole lot and difficult to obtain review of systems. she is on room air today. 09/16 Yesterday afternoon patient was sitting up in bed eating breakfast, mentation and somnolence improved. Feeling much better today. Has occasional cough and headache. No other complaints. Nurse report diarrhea. Again mentation significantly improved she is oriented to place and President 09/17 No overnight event or new complaints. Patient resting comfortably in bed. Denies any cough or shortness of breath. 09/18 Patient unable to be placed yesterday still working on placement. Patient sleeping this morning. Denies any complaints. 09/20 Patient was resting Unable to obtain detailed review of system, denied any active chest pain abdominal pain Discussed with the case management and planning for placement there are new options available and social service working in profiling 09/21 Wound care evaluated the patient and patient moved looks better and slowly progressing. Recommend continuing wound VAC Case management working on placement options 09/22/19 Her leukocytosis is persistent with thrombocytosis No fever Continuing same antibiotic Ordered CRP ESR level and pro calcitonin No features of sepsis If she continues to increase leukocyte count will discuss with infectious disease and reculture the wound 09/23/19 Intermittently her A. fib went up to 110 120 Metoprolol dose increased to 75 twice daily since then her heart rate has been controlled Her leukocytosis remained slightly elevated and she is also on medroxyprogesterone CRP 43 will trend the CRP if it is creeping up will get opinion from infectious disease and wound care 09/24-patient doing well. Awaiting placement. Ongoing wound care/wound VAC/antibiotics. No concerns per nursing staff. 09/25-doing well awaiting transfer to SNF. White count of 10.7. INR therapeutic 2.6, potassium at 4, continuing vancomycin/Levaquin. No overnight fever chills or concerns per staff. Appears to be volume long however net body weight down since admission. Continue PT OT/wound care 09/26-patient doing well. No overnight events. Ongoing wound care/antibiotics. Thyroxine increased to 62.5 based on TSH over 14. Continuing PT OT/nutrition support. Await SNF transfer. Rate controlled around 100 09/27-ongoing wound care. Awaiting placement. No overnight events. Continue nutrition support. 09/28-doing well. No overnight events, INR 2.2, antibiotics discontinued, await placement. Ongoing nutrition support/wound care 09/29-patient awaiting placement. Redness and erythema around the gluteal ulcer site. Ongoing wound care. No overnight fever chills. Off antibiotics. Continue PT OT/nutrition support/wound care. 09/30-doing well. No overnight events. No new changes. Await placement 10/01-wound VAC changed today. Wound looking a lot better. No overnight events. Await placement. No concerns expressed by nursing staff 10/02-ongoing wound care/wound VAC. INR therapeutic. No overnight fever chills. Labs and hemodynamics stable. Continue rehab. Await transfer to SNF 10/03-patient doing well. No overnight events. No concerns per staff. Continue existing treatment/Coumadin dosing 10/04-continuing to await placement. No overnight fever chills. No concerns per staff. 10/05-patient doing well. INR 2.8. No overnight events. No concerns per staff. Denies fever chills. Wound care with wound VAC. 10/06 No overnight events or new complaints. 10/07 No new complaints this morning. Patient resting in bed after blood. 10/09 Has headache but no other complaints. No overnight events. 10/10 Condition same. No change. Still awaiting placement. Review of Systems: denies fever/chills/nausea/vomiting/chest or abdominal pain/cough/dyspnea. Otherwise see above. - Constitutional Vitals: Vital Signs Temp Pulse Resp BP Pulse Ox 98.5 F 110 H 22 139/61 98 10/10/19 07:07 10/10/19 07:07 10/10/19 07:07 10/10/19 07:07 10/10/19 07:07 Period Temp Pulse Resp BP Sys/Butler Pulse Ox Last 24 Hr 97.7 F-98.6 F 103-119 - 102-139/49-98 94-98 Intake and Output 10/09/19 10/10/19 10/10/19 21:59 05:59 13:59 Intake Total 480 400 Output Total 275 250 Balance 205 150 Weight 97.296 kg Intake & Output: Intake & Output 10/09/19 10/10/19 10/10/19 21:59 05:59 13:59 Intake Total 480 400 Output Total 275 250 Balance 205 150 Weight 97.296 kg Intake: Oral 480 400 Output: Drainage 25 Sacrum Woundvac 25 Urine Catheter Amount 250 250 Other: Meal Nourishment/Supplement Percent of Meal Consumed 25% Urine Appearance Clear Uretheral (Aguirre) Sediment Urine Color Dark Yellow Uretheral (Aguirre) Bright Yellow Urine Odor Normal Stool Size Small Stool Color Brown Stool Consistency Loose Exam: General: Awake, No acute Distress, obese Eyes/N/T: EOMI, Head/Neck: neck supple, CV: irreg irreg, No murmurs, Pulm: diminished b/l, no wheezing Abd: soft, nontender, +BS x4 Ext: no clubbing/cyanosis, minimal edema b/l LE Neuro: Alert and awake, no focal deficits moves all extremities follows commands Skin: warm/dry Medical - PN: Obj Da - Labs CBC & Chem 7: 10/01/19 10:08 10/01/19 10:08 Labs: Abnormal Lab Results 10/09/19 10/08/19 10/07/19 06:55 05:00 06:04 PT 22.9 H 23.3 H 25.5 H INR 2.0 H 2.1 H 2.4 H Meds: Medications Acetaminophen (Tylenol) 650 mg PO Q6HP PRN; Protocol PRN Reason: Per Pain Protocol/Fever > 101 Last Admin: 09/25/19 11:22 Dose: 650 mg Documented by: Hydrocodone Bitart/Acetaminophen (Clements 5/325mg) 1 tab PO Q4HP PRN; Protocol PRN Reason: Per Pain Protocol Last Admin: 10/10/19 03:40 Dose: 1 tab Documented by: Albuterol/Ipratropium (Duoneb) 3 ml NEB Q6H PRN PRN Reason: shortness of breath Atorvastatin Calcium (Lipitor) 40 mg PO QHS [facility] Last Admin: 10/09/19 20:19 Dose: 40 mg Documented by: Benztropine Mesylate (Cogentin) 2 mg PO BID [facility] Last Admin: 10/09/19 20:18 Dose: 2 mg Documented by: Clonazepam (Klonopin) 0.25 mg PO BIDP PRN PRN Reason: Anxiety Last Admin: 10/07/19 09:02 Dose: 0.25 mg Documented by: Docusate Sodium (Colace) 100 mg PO BID PRN PRN Reason: Constipation Last Admin: 10/04/19 16:52 Dose: 100 mg Documented by: Heparin Sodium (Porcine) (Heparin Flush) 2 ml IV Q12 [facility] Last Admin: 10/09/19 20:27 Dose: 2 ml Documented by: Hydrochlorothiazide (Oretic) 25 mg PO QAM [facility] Last Admin: 10/09/19 09:28 Dose: 25 mg Documented by: Acetaminophen (Ofirmev) 650 mg in 65 mls @ 130 mls/hr IV Q6HP PRN; Protocol PRN Reason: PAIN/FEVER > 101 Iron Carb/Multivit/Cicero/Folic Acid (Multivitamin W/Minerals) 1 tab PO DAILY [facility] Last Admin: 10/09/19 09:29 Dose: 1 tab Documented by: Lactulose (Cephulac) 10 gm PO DAILYP PRN PRN Reason: Constipation Lamotrigine (Lamictal) 100 mg PO QDAY [facility] Last Admin: 10/09/19 09:29 Dose: 100 mg Documented by: Levothyroxine Sodium (Synthroid) 400 mcg PO ACB [facility] Last Admin: 10/09/19 09:27 Dose: 400 mcg Documented by: Medroxyprogesterone Acetate (Provera) 10 mg PO BID [facility] Last Admin: 10/09/19 20:18 Dose: 10 mg Documented by: Metoprolol Tartrate (Lopressor) 5 mg IV Q2HP PRN PRN Reason: Tachyarrhythmias HR>110 Last Admin: 10/04/19 03:07 Dose: 5 mg Documented by: Metoprolol Tartrate (Lopressor) 37.5 mg PO BID [facility] Last Admin: 10/09/19 20:19 Dose: 37.5 mg Documented by: Naloxone HCl (Narcan) 0.1 mg IV Q2MIN PRN PRN Reason: Opiate Reversal Ondansetron HCl (Zofran) 4 mg IV Q4HP PRN; Protocol PRN Reason: Nausea And Vomiting Last Admin: 09/19/19 05:37 Dose: 4 mg Documented by: Pantoprazole Sodium (Protonix) 40 mg PO QAMAC [facility] Last Admin: 10/09/19 09:28 Dose: 40 mg Documented by: Senna (Senokot) 2 tab PO HSP PRN PRN Reason: Constipation Last Admin: 09/22/19 19:01 Dose: 2 tab Documented by: Sodium Chloride (Saline Flush) 10 ml IV UD PRN PRN Reason: FLUSH Last Admin: 09/20/19 21:00 Dose: 10 ml Documented by: Sodium Chloride (Saline Flush) 10 ml IV Q12 [facility] Last Admin: 10/09/19 20:27 Dose: 10 ml Documented by: Venlafaxine HCl (Effexor Xr) 150 mg PO QDAY [facility] Last Admin: 10/09/19 09:29 Dose: 150 mg Documented by: Warfarin Sodium (Coumadin Per Pharmacy) 1 order PO [facility] Medical - PN: A/P - Time Spent With Patient Total time spent is greater than 50% in coordination of care (as documented) at patient's floor/unit and/or counseling patient: - Narrative A/P Narrative: A: *Sepsis,severe: 2/2 decub ulcer. resolved *Sacral Wound w/Unstageable Pressure Ulcer at time of admission: Discussed with Dr. Juarez. -s/p surgical I&D (09/14), finished abx course *h/o Dementia, likely vascular: with intermittent delirium *h/o Cerebral vascular disease: -Patient has had recent subdural hematoma in mid July. That does appear resolved on current CT imaging. Warfarin restarted in Aug. -She also has a history of prior watershed infarcts, with no new findings noted on current CT. *ho SDH in , Warfarin restarted in August *Schizophrenia: Diagnosis noted in chart. Not currently on any antipsychotics per med list. Is on Cogentin, presumably for old EPS. -Awoke with significant anxiety on 09/11, subsequently had hallucinations and difficult night. *Atrial fibrillation: *UTI(e. coli): finished abx *JEREMY on CKD II: Resolved *HTN: *Hypothyroid: *Anxiety/Depression: *GERD: P: -Wound VAC management per wound physician -cont home BB/HCTZ -pt/ot -awaiting placement -f/u with Dr. Juarez outpt -Prophylaxis: PPI, warfarin per pharmacy CODE STATUS: DNR Medical - PN: Qual - VTE Deep Vein Thrombosis/Pulmonary Embolism Present on Admission: No
[2019-10-10] MEDS: LEVOTHYROXINE 100 MCG TABLET PO SCH (07:51)
[2019-10-10] MEDS: PANTOPRAZOLE 40 MG TABLET PO SCH (07:51)
[2019-10-10 10:19] LABS: INR 2.3 (0.9-1.1); Prothrombin Time 24.7 sec (11.9-14.5)
[2019-10-10] MEDS: VENLAFAXINE 150 MG CAP.XL.24H PO SCH (10:35)
[2019-10-10] MEDS: METOPROLOL TARTRATE 25 MG TABLET PO SCH ×2 (10:36→21:48)
[2019-10-10] MEDS: lamoTRIgine 100 MG TABLET PO SCH (10:37)
[2019-10-10] MEDS: BENZTROPINE 1 MG TABLET PO SCH ×2 (10:37→21:47)
[2019-10-10] MEDS: HYDROCHLOROTHIAZIDE 25 MG TABLET PO SCH (10:38)
[2019-10-10] MEDS: MULTIVIT,THER IRON,CA,FA & MIN 1 TABLET PO SCH (10:38)
[2019-10-10] MEDS: 0.9 % SODIUM CHLORIDE 10 ML SYRINGE IV SCH (10:40)
[2019-10-10] MEDS: medroxyPROGESTERone 10 MG TABLET PO SCH ×2 (10:40→21:49)
[2019-10-10] MEDS ORDERED: WARFARIN 3 MG TABLET PO ONE (14:00)
[2019-10-10] MEDS: ATORVASTATIN 40 MG TABLET PO SCH (21:48)
[2019-10-11] MEDS: 0.9 % SODIUM CHLORIDE 10 ML SYRINGE IV SCH ×2 (04:50→10:05)
[2019-10-11] MEDS: LEVOTHYROXINE 100 MCG TABLET PO SCH (07:40)
[2019-10-11] MEDS: PANTOPRAZOLE 40 MG TABLET PO SCH (07:41)
[2019-10-11] MEDS: HYDROcodone/APAP 5/325MG TABLET PO PRN (07:48)
[2019-10-11 08:55] LABS: INR 2.5 (0.9-1.1); Prothrombin Time 26.7 sec (11.9-14.5)
--- NOTE | 2019-10-11 09:05 | General Surgery Progress Note ---
Subjective Patient reports: no new complaints Narrative: Note initiated : 10/11/19 at 9:01 am Service Date, if different from initiated Date: [] Patient: Christine Cespedes 64 y/o F admitted on 09/08/19 for Sepsis, UTI. Chief Complaint: [] WOUND CARE ROUNDS: Patient seen with [facility]. Discharge / Transfer progress reviewed. Spoke with patient at bedside about wound care recommendations. Objective Temp Pulse Resp BP Pulse Ox 98.6 F 102 H 20 98/66 94 10/11/19 07:29 10/11/19 03:06 10/11/19 07:29 10/11/19 07:29 10/11/19 07:29 AVSS. Lucid Interactive AAOx3. H D Stable. Now able to understand details of her treatment. No changes OTTONIEL. Post surgical sacral ulcer site is healing well. Mariann and granulating wound. Tolerating wound VAC. Patient scheduled to go to [facility] today. - Additional Data Intake & Output - Last 24 hours: Intake & Output 10/09/19 10/10/19 10/11/19 10/12/19 05:59 05:59 05:59 05:59 Intake Total 4404 199 6501 Output Total 625 550 600 Balance 935 330 660 Weight 215 lb 214 lb 8 oz 214 lb 3.2 oz - Labs 10/01/19 10:08 10/01/19 10:08 Assessment and Plan (1) Skin abnormalities Problem details: Local wound care as discussed with nursing staff and orders entered. Status: Acute Current Visit: Yes (2) Pressure ulcer of sacral region, unstageable Problem details: Local wound care as discussed with nursing staff. Status: Chronic Current Visit: Yes - Time Spent With Patient Total time spent is greater than 50% in coordination of care (as documented) at patient's floor/unit and/or counseling patient: Assessment: Satisfactory progress from wound care point of view. Appetite improved. Nutrition status improving. She NEEDS: Continuing urine diversion with Aguirre catheter until wound is healed AND she is able to transfer out of bed to chair or commode. She will benefit from ongoing physical therapy. Plan: OK for transfer to higher level of care. Wound VAC may be d/c at this time and restarted after review by physician / nurse at the receiving facility. Reviewed and signed wound care orders. 25 - 35 minutes
--- NOTE | 2019-10-11 09:24 | Discharge Summary ---
Medical - DS: Prov Patient information: Note initiated : 10/11/19 at 9:23 am Service Date, if different from initiated Date: [] Patient: Christine Cespedes 64 y/o F admitted on 09/08/19 for Sepsis, UTI. Chief Complaint: [lethargy, somnolence] Date of admission: 09/08/19 14:45 Discharge date: 10/11/19 (to [facility] in [place], [place]) Primary care physician: Travon Lr Admitting clinician: Alejandra Li Attending physician on admission: Alejandra Li Consults: 09/08/19 Consult to Physician [CONS] Stat Comment: Consulting Provider: Alejandra Li Reason For Exam: Physician to Consult 09/10/19 08:19 Consult to Physician [CONS] Routine Comment: unstageable ulcer sacrogluteal Consulting Provider: Bang Juarez Reason For Exam: Physician to Consult 09/13/19 10:55 Consult to Infectious Disease [CONS] Routine Comment: Consulting Provider: Marvel Silverio Reason For Exam: Physician to Consult 09/17/19 10:37 Consult to Physician [CONS] Routine Comment: Consulting Provider: Cheryl Hatfield Reason For Exam: Physician to Consult 09/20/19 09:03 Consult to Physician [CONS] Routine Comment: Consulting Provider: Audrey Mohan Reason For Exam: Physician to Consult 10/02/19 10:49 Consult to Physician [CONS] Routine Comment: Consulting Provider: Audrey Mohan Reason For Exam: Physician to Consult Attending physician on discharge: Rudy Zuniga Discharging clinician: Rudy Zuniga Medical - DS: Meds - Discharge Medications Active and Home Medications: Home Medications medroxyprogesterone 10 mg tablet 10 mg PO BID tab 09/08/18 [History Confirmed 09/08/19 Last Taken Unknown] cholecalciferol (vitamin D3) 125 mcg (5,000 unit) capsule 5,000 unit PO QDAY 03/27/19 [History Confirmed 09/30/19 Last Taken Unknown] glucosamine 750 wp-nspqdr-tak 2-C 30 mg-D3 1,000 unit-omar 1 mg tablet 1 tab PO DAILY tab 03/27/19 [History Confirmed 09/30/19 Last Taken Unknown] loratadine 10 mg tablet 10 mg PO QDAY PRN 03/27/19 [History Confirmed 09/30/19 Last Taken Unknown] vitamins A,C,D-sjio-zqjmeg 14,320 unit-226 mg-200 unit capsule 1 cap PO BID 03/27/19 [History Confirmed 09/30/19 Last Taken Unknown] fluticasone propionate 50 mcg/actuation nasal spray,suspension 1 spray INTRANASAL QDAY #16 g 05/01/19 [Rx Confirmed 09/12/19 Last Taken Unknown] l multivitamin 1 tab PO QDAY 05/31/19 [History Confirmed 09/30/19 Last Taken Unknown] potassium 99 mg tablet 99 mg PO QDAY 05/31/19 [History Confirmed 09/30/19 Last Taken Unknown] omeprazole 20 mg capsule,delayed release 20 mg PO QDAY #90 cap 07/02/19 [Rx Confirmed 09/08/19 Last Taken Unknown] potassium chloride 10 mEq capsule,extended release 10 meq PO BID 30 Days #60 cap 07/02/19 [Rx Confirmed 09/08/19 Last Taken Unknown] venlafaxine 150 mg capsule,extended release 24 hr 150 mg PO QDAY #90 cap 07/05/19 [Rx Confirmed 09/12/19 Last Taken Unknown] atorvastatin 40 mg tablet 40 mg PO QHS #30 tab 07/09/19 [Rx Confirmed 09/08/19 Last Taken Unknown] lamotrigine 100 mg tablet 100 mg PO QDAY #30 tab 07/17/19 [Rx Confirmed 09/08/19 Last Taken Unknown] hydrochlorothiazide 25 mg tablet 25 mg PO QAM #90 tab 08/20/19 [Rx Confirmed 09/08/19 Last Taken Unknown] fluticasone 100 mcg-salmeterol 50 mcg/dose blistr powdr for inhalation 1 puff INHALATION BID 08/30/19 [History Confirmed 09/12/19 Last Taken Unknown] warfarin 5 mg tablet 2.5 mg PO MOFR@0900 tab 08/30/19 [History Confirmed 09/27/19 Last Taken Unknown] Benztropine [Cogentin] 2 mg PO BID 09/08/19 [History Confirmed 09/08/19 Last Taken Unknown] Metoprolol Tartrate [Lopressor] 25 mg PO HS 09/12/19 [History Confirmed 09/12/19 Last Taken Unknown] Metoprolol Tartrate [Lopressor] 50 mg PO DAILY 09/12/19 [History Confirmed 09/12/19 Last Taken Unknown] Atenolol [Tenormin] 50 mg PO DAILY 09/27/19 [History Confirmed 09/27/19 Last Taken Unknown] Venlafaxine HCl [Venlafaxine HCl ER] 37.5 mg PO DAILY 09/27/19 [History Confirm ed 09/27/19 Last Taken Unknown] Warfarin [Coumadin] 5 mg PO SUTUWETHSA@0900 09/27/19 [History Confirmed 09/27/19 Last Taken Unknown] levothyroxine 350 mcg capsule 350 mcg PO QDAY 90 Days Medical - DS: Hosp Hospital Course: 09/08 Ms. Cespedes is a 64 year old F with a history of atrial fibrillation, recent subdural hematoma, history of ischemic strokes, hypertension, sleep apnea not on CPAP, prediabetes, morbid obesity with mobility impairment who presents to the emergency department with lethargy. History is obtained speaking to her caregiver. She has a caregiver in the home during the days, but not at night. The caregiver notes yesterday she was not quite herself, displaying some mild confusion. Her appetite was decreased. Caregiver made her a sandwich for dinner prior to her leaving yesterday, was still on eaten this morning when their caregiver arrived. Patient was in bed, was too weak to get out of bed, was confused and could not respond appropriately. In the ED, there is a history of low-grade fever as well. Because of lethargy, fever and weakness EMS was activated and she is brought to the ED. In the emergency department she has evidence of sepsis with now white count of 22,000, lactate of 3.8, increased anion gap and significantly abnormal urine analysis with pyuria and bacteriuria. She is being admitted for treatment of sepsis from urinary source. 09/09 Intermittently more responsive, was sitting up on edge of bed with physical therapy and did participate in self-care this morning. Is required fluids for declining blood pressures today with response. 09/10 Slowly continues to be more interactive. Urine culture with E. coli, only resistant to fluoroquinolones. Blood pressure stable. 09/11 Much more alert and interactive today. Still quite weak and needing assistance to stay sitting up at bedside. Held conversation with her, she states her goal is to get better. I encouraged her to increase her oral intake and that it is important for her to eat to get better. Nursing spoke with her son, who is her eldest child. He is a long-haul scheduling representative and is out of state, but agreed that she will likely need skilled placement following this admission. In the late afternoon, she awoke panicked that she was trapped in a trailer and was disoriented. Had significant anxiety. 09/12/2019 Patient continued to have disorientation and hallucinations yesterday evening, was up much of the night, eventually calm down. Medicine list reviewed, she does not have any antipsychotics or other treatments for schizophrenia. Attempting to reconfirm her medication list. This morning, states she is not feeling too well, but is sleepy drifts back off. 09/13 Patient seems less interactive than she was yesterday afternoon. Sacral wound now draining material and will need debridement. Previously had eschar that was being debrided. Should've completed for therapy for UTI sepsis. Discussed with Dr. Juarez, whose consult general surgery. Have consulted Dr. Silverio, is recommended. Vancomycin and Zosyn for now until debridement. 09/14 Patient status post surgical I&D. Drowsy but opens eyes to voice. Refused CT imaging yesterday as recommended by infectious disease. No overnight events. Discussed case with her son who makes medical decisions when she is unable. He was able to clarify that she would be a DO NOT RESUSCITATE in the event effect catastrophic event. Regarding goals of care. We will see how she has in the next day or 2 09/15 Nurse able to get the patient to drink a [place] instant breakfast. Patient sleeping at this time but awakens and admits to feeling little better but otherwise not verbalizing a whole lot and difficult to obtain review of systems. she is on room air today. 09/16 Yesterday afternoon patient was sitting up in bed eating breakfast, mentation and somnolence improved. Feeling much better today. Has occasional cough and headache. No other complaints. Nurse report diarrhea. Again mentation significantly improved she is oriented to place and President 09/17 No overnight event or new complaints. Patient resting comfortably in bed. Denies any cough or shortness of breath. 10/11/2019 summary as follows: 09/08/19 Pt was admitted with sepsis thought to be initially UTI but found to have a stage 4 decubitus. Pt had Vanco and Zosyn abx course and consultation with Wound Care Dr Juarez, AIDE Silverio and general surgery. Pt had debridement, wound vac and PICC line. She is complete on abx now. Her immobility, incontinence, decub, wound vac and obesity requires vigil for wound healing of sacral ulcer until she is able to sit up at on commode for toileting. Pts po intake is primarily supplements at this time. Placement was difficult due to her wound vac and high level of care needed and she is accepted at [facility] in [place], [place]. Pts son in medical decision maker. Pt is with vascular dementia and intermittent waxing and waning severity of disorientation. Today 10/11/2019 at 0915 AM she thought she was at hospital in [place], knows her name but not age, date or where we are. Discharge diagnosis: Decubitus Ulcer Stage 4 Sacrum Secondary discharge diagnosis: Dementia Obesity Reason for admission: Sepsis from Decubitus Ulcer - Time Spent with Patient Total time spent providing and/or coordinating discharge services: Greater than 30 minutes Medical - DS: Exam - Constitutional Vitals: Vital Signs Temp Pulse Resp BP BP Pulse Ox 10/11/19 07:29 98.6 F 20 98/66 94 10/11/19 03:06 97.1 F 102 H 24 H 106/56 97 10/10/19 23:56 24 H 10/10/19 19:11 98.1 F 106 H 22 126/69 95 10/10/19 16:00 97.9 F 112 H 20 124/84 92 10/10/19 12:00 97.4 F 101 H 20 112/80 96 Intake and Output 10/10/19 10/11/19 10/11/19 21:59 05:59 13:59 Intake Total 200 820 Output Total 300 300 Balance -100 520 Intake: Oral 200 820 Output: Urine Catheter Amount 300 300 Other: Meal Dinner Percent of Meal Consumed 50% Feeding Ability Independent Urine Appearance Clear Clear Uretheral (Vigil) Clear Urine Color Bright Yellow Dark Yellow Uretheral (Vigil) Bright Yellow Urine Odor Normal Strong Uretheral (Vigil) Normal Weight 214 lb 3.2 oz General appearance: cooperative, morbidly obese, no acute distress Additional comments: pt with severe central obesity and very skinny calves and ankles. - Respiratory Respiratory exam: Present: CTAB. Absent: accessory muscle use, respiratory distress, wheezes - Cardiovascular Cardiovascular exam: Present: irregular rhythm - GI/Abdominal GI/Abdominal exam: Present: normal bowel sounds, soft (obese) - Rectal Rectal exam: Present: deferred Additional comments: perirectal shows pingpong ball sized wound tracking deep with clean borders and no discharge once the wound vac removed. surrounding skin intact. - External exam: Present: erythema (minimal erythema. no overt yeast and inflammation at this time) - Back Exam Back exam: Present: normal inspection Medical - DS: Data Labs on day of discharge: Labs from last 24 hours 10/11/19 10/11/19 10/10/19 07:31 05:21 07:51 PT 26.7 H TNP 24.7 H INR 2.5 H TNP 2.3 H Medical - DS: A/P - Patient/Caregiver Discharge Instructions Activity: as per physical therapy, increase activity as tolerated Diet: Consistent Carbohydrate Additional Instructions: [place] instant breakfast 8 oz tid and Boost Breeze 8 oz tid Other Amb Orders: OT Discharge Order Location: None Selected Physical Therapy at Discharge - General Location: None Selected Wound Care Instructions Location: None Selected Prothrombin Time INR Location: None Selected Thyroid Stimulating Hormone Location: None Selected - Follow up Plan Follow up with: Travon Lr PA-C [Primary Care Provider] - Bang Juarez MD [Physician] - Disposition: Xfer SNF Care Plan Goals: wound healing and mobility Plan of Treatment: wound vac and PT/OT Prognosis: Fair Rehab Potential: Fair I certify that the patient requires SNF services: Yes Overall status at discharge: patient is progressing back to baseline Medical - DS: Qual - VTE Deep Vein Thrombosis/Pulmonary Embolism Present on Admission: No
[2019-10-11] MEDS: VENLAFAXINE 150 MG CAP.XL.24H PO SCH (10:02)
[2019-10-11] MEDS: METOPROLOL TARTRATE 25 MG TABLET PO SCH (10:02)
[2019-10-11] MEDS: HYDROCHLOROTHIAZIDE 25 MG TABLET PO SCH (10:02)
[2019-10-11] MEDS: MULTIVIT,THER IRON,CA,FA & MIN 1 TABLET PO SCH (10:02)
[2019-10-11] MEDS: BENZTROPINE 1 MG TABLET PO SCH (10:02)
[2019-10-11] MEDS: lamoTRIgine 100 MG TABLET PO SCH (10:02)
[2019-10-11] MEDS: medroxyPROGESTERone 10 MG TABLET PO SCH (10:16)
== END 2019-10-11 10:25 | DRG 853 ==
LOC: ED 10:01 → ICU 14:45 → MEDSUR 09-20 15:30
PROVIDERS: ADMIT Internal Medicine; ATTEND Internal Medicine